=== PATIENT | male | born 1945 | race Caucasian/White ===

== ENCOUNTER → 2017-06-24 08:24 | Outpatient (CLI) | payer MEDICARE, OTHER, SELFPAY ==
--- NOTE | 2017-06-25 08:40 | PFT ---
INTRODUCTION: The patient is a 72-year-old male currently under the care of Dr. Davis that presents for pulmonary function testing secondary to a diagnosis of asthma/SOB. Respiratory therapy reports good patient effort and reports no other concerns. Bronchodilators were used during testing. INTERPRETATION: Forced expiration spirometry demonstrates no evidence of a large airways obstructive ventilatory defect, based upon a postbronchodilator FEV1 to FVC of 71%. There was no significant response to aerosolized bronchodilators noted, based upon strict ATS criteria. Spirograms are of good quality but do not plateau indicating slow emptying of the lungs. The respiratory flow volume loop reveals decreased expiratory flow rates, primarily at high lung volumes which can be indicative of small airways obstruction. Body plethysmography was performed and reveals lung volumes to be within normal limits. Diffusing capacity by single breath CO is within normal limits at 99% of predicted. The airway resistance is within normal limits. IMPRESSION: These pulmonary function studies are grossly within normal limits.
== END ==
PROVIDERS: Family Provider Internal Medicine; PCP Internal Medicine; Visit Provider Internal Medicine
DX: J45.909 Unspecified asthma, uncomplicated (principal)
CPT/HCPCS: 94060; 94726; 94729

== ENCOUNTER 2017-08-18 13:27 | Emergency (ER) | payer MEDICARE, OTHER, SELFPAY ==
[2017-08-18 13:28] VITALS: BP 141/88; PULSE 69; RESP 16; TEMP 36.1; O2SAT 96; BMI 26.3
[2017-08-18] MEDS: Diphth,Pertuss(Acell),Tet Vac 0.5 ML Vial IM (14:30)
--- NOTE | 2017-08-18 14:46 | ED.VISSUMM ---
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 Unsure of his last tetanus. Physical Examination: Afebrile vital signs are stable There is a 2 cm J-shaped laceration over the distal aspect on the volar surface of the right long finger. There is no active bleeding. Neurovascularly appears intact. Tendon function appears normal Emergency Department Course and Treatment: Was locally anesthetized using 1% lidocaine. It was washed with Shur-Clens and explored. It was closed using a total of 4-0 simple interrupted Ethilon sutures. It was cleansed and dressed. Tetanus was updated with Adacel. Stitches will need to be removed 10-14 days. Return if worsening or concerns Impression: 1. 2 cm right long finger laceration with repair 2. Tetanus update This note was generated with [employer] dictation software. It may contain incorrect words, spelling, and punctuation that were not noted in review of the chart prior to signing ED Disposition - Plan for ED Patient: Disposition: Home or Assisted Living Chief Complaint: Laceration Instructions: ED Laceration Hand Referrals: Juan Davis MD [Primary Care Provider] - 10-14 Days suture removal
[2017-08-18 15:16] VITALS: PULSE 71; RESP 16; O2SAT 98
== END 2017-08-18 15:16 | disposition home or self-care (01) ==
PROVIDERS: Emergency Provider Emergency Medicine; Family Provider Internal Medicine; PCP Internal Medicine
DX: S61.212A Laceration without foreign body of right middle finger without damage to nail, initial encounter (principal); W26.8XXA Contact with other sharp object(s), not elsewhere classified, initial encounter; Y93.89 Activity, other specified; Y92.9 Unspecified place or not applicable; I48.91 Unspecified atrial fibrillation; I10 Essential (primary) hypertension; E78.00 Pure hypercholesterolemia, unspecified; J45.909 Unspecified asthma, uncomplicated; K21.9 Gastro-esophageal reflux disease without esophagitis; Z79.82 Long term (current) use of aspirin; Z79.899 Other long term (current) drug therapy
CPT/HCPCS: 12001; 90471; 90715; 99284

== ENCOUNTER → 2017-09-17 12:21 | Outpatient (CLI) | payer MEDICARE, OTHER, SELFPAY ==
--- NOTE | 2017-09-17 12:23 | CDU_ITS ---
Reason For Study: Carotid bruit Rt. Velocities/BP Lt. Velocities/BP Prox CCA 73.3/12.9 cm/sec. Prox CCA 93.8/15.2 cm/sec. Mid CCA 90.9/18.2 cm/sec. Mid CCA 87.4/17.6 cm/sec. Dist CCA 66.8/16.4 cm/sec. Dist CCA 76.2/14.7 cm/sec. Prox ICA 70.4/21.1 cm/sec. Prox ICA 50.7/14.1 cm/sec. Mid ICA 59.2/18.3 cm/sec. Mid ICA 55.6/17.3 cm/sec. Dist ICA 51.1/17.6 cm/sec. Dist ICA 62.0/21.4 cm/sec. Rt. ICA/CCA = .77. Lt. ICA/CCA = .71. Prox ECA 69.8/12.5 cm/sec. Prox ECA 55.2/7.9 cm/sec. Rt. Vert. 31.8/9.4 cm/sec. Lt. Vert. 38.9/11.4 cm/sec. Right Extracranial There is intimal thickening but no significant atherosclerotic plaque noted in the right common carotid artery. There is no significant atherosclerotic plaque noted in the right internal carotid artery. The right internal carotid artery is very tortuous. There is no significant atherosclerotic plaque noted in the right external carotid artery. Antegrade flow is noted in the right vertebral artery. Left Extracranial There is intimal thickening but no significant atherosclerotic plaque noted in the left common carotid artery. There is intimal thickening but no significant atherosclerotic plaque noted in the left internal carotid artery. The left internal carotid artery is very tortuous. There is no significant atherosclerotic plaque noted in the left external carotid artery. Antegrade flow is noted in the left vertebral artery. Procedure Carotid Duplex 62525. Exam performed in department. Interpretation Summary No hemodynamically significant plague or stenosis bilateral extracranial internal carotids with <50% stenosis. Tortuous bilateral internal carotids Normal flow bilateral external carotids. Patent and antegrade vertebrals bilaterally. Ordering Physician: Brendan Ace Referring Physician: Juan Davis Performed By: Dorie Madrid RVT
== END ==
PROVIDERS: Family Provider Internal Medicine; PCP Internal Medicine; Visit Provider Internal Medicine Cardiovascular Disease
DX: R09.89 Other specified symptoms and signs involving the circulatory and respiratory systems (principal)
CPT/HCPCS: 93880

== ENCOUNTER → 2017-10-10 11:32 | Outpatient (CLI) | payer MEDICARE, OTHER, SELFPAY ==
[2017-10-14 16:08] LABS: Alternaria alternata <0.10 kU/L (Class 0); Bermuda Grass <0.10 kU/L (Class 0); Bluegrass, Kentucky <0.10 kU/L (Class 0); Cat Hair/Dander, Standard <0.10 kU/L (Class 0); D farinae Mite <0.10 kU/L (Class 0); D pteronyssinus <0.10 kU/L (Class 0); Dog Epithelia <0.10 kU/L (Class 0); Elm, American White <0.10 kU/L (Class 0); Oak, White <0.10 kU/L (Class 0); Plantain, English <0.10 kU/L (Class 0); Ragweed, Short/Common <0.10 kU/L (Class 0)
[2017-10-15 03:08] LABS: Aspirgillus flavus Negative (Neg:<1:1); Aspirgillus fumigatus Negative (Neg:<1:1); Aspirgillus niger Negative (Neg:<1:1)
[2017-10-15 10:19] LABS: Immunoglobulin E 31 IU/mL (0-100)
[2017-10-15 10:33] LABS: Mouse Urine <0.10 kU/L (Class 0)
== END ==
PROVIDERS: Family Provider Internal Medicine; PCP Internal Medicine; Visit Provider Nurse Practitioner Acute Care
DX: J45.909 Unspecified asthma, uncomplicated (principal)
CPT/HCPCS: 36415; 82785; 86003; 86038; 86225; 86235; 86256; 86606

== ENCOUNTER → 2017-10-14 14:22 | Outpatient (CLI) | payer MEDICARE, OTHER, SELFPAY | PROVIDERS: Family Provider Internal Medicine; PCP Internal Medicine; Visit Provider Nurse Practitioner Acute Care | DX: R05 Cough (principal) | CPT/HCPCS: 87070; 87077; 87205 ==

== ENCOUNTER → 2017-12-08 09:07 | Outpatient (CLI) | payer MEDICARE, OTHER, SELFPAY ==
[2017-12-08 10:40] LABS: ALB/GLOB Ratio 1.2 RATIO (0.9-2.4); AST(SGOT) 20 U/L (15-37); Alanine Aminotransfer ALT/SGPT 25 U/L (16-61); Albumin, Serum 3.7 g/dL (3.2-5.0); Alkaline Phosphatase 68 U/L (45-117); Anion Gap 6 (5-15); BUN 15 mg/dL (7-18); Calcium,Total 8.6 mg/dL (8.5-10.1); Chloride 107 mmol/L (98-107); Creatinine, Serum 1.25 mg/dL (0.70-1.30); EST Glomerular Filtration Rate 60 mL/min (>60); Est Glom Filt Rate - Afr Amer 73 mL/min (>60); Globulin 3.2 g/dL (2.2-4.2); Glucose 86 mg/dL (74-106); Protein, Total 6.9 g/dL (6.4-8.2); Sodium Level 141 mmol/L (136-145)
[2017-12-12 11:08] LABS: Cholesterol 154 mg/dL (200); High Density Lipoprotein 44 mg/dL; Triglycerides 128 mg/dL; Very Low Density Lipoprotein 26 mg/dL (5-40)
== END ==
PROVIDERS: Family Provider Internal Medicine; PCP Internal Medicine; Visit Provider Internal Medicine
DX: I48.0 Paroxysmal atrial fibrillation (principal)
CPT/HCPCS: 36415; 80053; 80061

== ENCOUNTER → 2017-12-18 12:47 | Outpatient (CLI) | payer MEDICARE, OTHER, SELFPAY ==
[2017-12-18 13:42] LABS: T4 Total, Thyroxin 8.8 ug/dL (4.5-12.1); Thyroid Stim Hormone (TSH) 3.06 uIU/mL (0.358-3.74)
== END ==
PROVIDERS: Family Provider Internal Medicine; PCP Internal Medicine; Visit Provider Internal Medicine
DX: E03.9 Hypothyroidism, unspecified (principal)
CPT/HCPCS: 36415; 84436; 84443

== ENCOUNTER → 2018-01-27 11:30 | Outpatient (CLI) | payer MEDICARE, OTHER, SELFPAY ==
[2018-01-27 12:03] LABS: Absolute Lymphocyte Count 1.19 X10^3/ul (0.83-4.51); Absolute Neutrophil Count 3.3 X10^3/uL (2.0-7.7); Basophil# 0.02 X10^3/uL; Basophil% 0.4 % (0-1); Eosinophil# 0.15 X10^3/uL; Eosinophils% 2.9 % (0-5); Hematocrit 44.8 % (40-54); Hemoglobin 14.9 g/dl (13.0-16.5); Lymphocyte # 1.19 X10^3/ul (4.0); Lymphocyte % 23.1 % (19-41); Mean Corp Hgb Conc 33.3 g/gl (32-36); Mean Corpuscular Hgb 30.3 pg (27.0-32.0); Mean Corpuscular Volume 91.2 fL (80-94); Mean Platelet Vol. 9.7 fl (6.2-12.0); Monocyte# 0.49 X10^3/uL; Monocyte% 9.5 % (0-10); Neutrophil # 3.31 X10^3/uL (2.7-7.7); Neutrophil % 64.1 % (47-70); Platelet Count 189 K/mm3 (150-450); RBC Distribution Width CV 12.6 % (11.6-14.6); RBC Distribution Width SD 42.2 fl (35.1-43.9); Red Blood Count 4.91 M/mm3 (4.6-6.2); White Blood Count 5.2 K/mm3 (4.4-11.0)
[2018-01-27 12:06] LABS: POSITIVE COUNT NO; POSITIVE DIFFERENTIAL NO; POSITIVE MORPHOLOGY NO
== END ==
PROVIDERS: Family Provider Internal Medicine; PCP Internal Medicine; Visit Provider Nurse Practitioner Acute Care
DX: R05 Cough (principal); J45.909 Unspecified asthma, uncomplicated
CPT/HCPCS: 36415; 85025

== ENCOUNTER → 2018-06-12 10:13 | Outpatient (CLI) | payer MEDICARE, OTHER, SELFPAY ==
[2018-04-14 11:30] VITALS: BMI 26.6
[2018-06-12 11:20] LABS: ALB/GLOB Ratio 1.4 RATIO (0.9-2.4); AST(SGOT) 22 U/L (15-37); Alanine Aminotransfer ALT/SGPT 26 U/L (16-61); Albumin, Serum 3.8 g/dL (3.2-5.0); Alkaline Phosphatase 66 U/L (45-117); Anion Gap 7 (5-15); BUN 22 mg/dL (7-18); BUN/Creat Ratio 16.3 RATIO (10-20); Calcium,Total 8.4 mg/dL (8.5-10.1); Chloride 108 mmol/L (98-107); Cholesterol 150 mg/dL (200); Creatinine, Serum 1.35 mg/dL (0.70-1.30); EST Glomerular Filtration Rate 55 mL/min (>60); Est Glom Filt Rate - Afr Amer 67 mL/min (>60); Globulin 2.7 g/dL (2.2-4.2); Glucose 95 mg/dL (74-106); High Density Lipoprotein 46 mg/dL; Potassium 4.6 mmol/L (3.5-5.1); Protein, Total 6.5 g/dL (6.4-8.2); Sodium Level 140 mmol/L (136-145); Triglycerides 118 mg/dL; Very Low Density Lipoprotein 24 mg/dL (5-40)
--- OUTSIDE RECORDS SUMMARY | 2018-08-16 18:05 | XMS RPT_ITS ---
:1945 Author Organization OHIP Support Name Relationship Address Phone GAIL PUENTE Unavailable [address] + [place] [address] PUENTEAURELIAN Unavailable . + [place] [address] R Unavailable Unavailable Unavailable GAIL PUENTE Unavailable [address] + [place] [address] GERMÁN JACK Unavailable Unavailable + [place] [address] R Unavailable Unavailable Unavailable GAIL PUENTE Unavailable [address] + [place] [address] JACK PUENTE Unavailable . + [place] [address] R Unavailable Unavailable Unavailable GAIL PUENTE Unavailable [address] + [place] [address] JACK PUENTE Unavailable . + [place] [address] R Unavailable Unavailable Unavailable GAIL PUENTE Unavailable [address] + [place] [address] JACK PUENTE Unavailable Unavailable + [place] [address] R Unavailable Unavailable Unavailable GAIL PUENTE Unavailable [address] + [place] [address] PUENTEAURELIAN Unavailable [address] + [place] [address] R Unavailable Unavailable Unavailable GAIL PUENTE Unavailable [address] + [place] [address] R Unavailable Unavailable Unavailable GAIL PUENTE Unavailable [address] + [place] [address] R Unavailable Unavailable Unavailable PUENTE, GAIL Unavailable [address] + [place] [address] R Unavailable Unavailable Unavailable EMILY PUENTET Unavailable [address] + [place] [address] R Unavailable Unavailable Unavailable EMILY PUENTET Unavailable [address] + [place] [address] R Unavailable Unavailable Unavailable KRISTINA PUENTEARET Unavailable [address] + [place] [address] R Unavailable Unavailable Unavailable KRISTINA PUENTEARET Unavailable [address] + [place] [address] R Unavailable Unavailable Unavailable KRISTINA PUENTEARET Unavailable [address] + [place] [address] R Unavailable Unavailable Unavailable EMILY PUENTET Unavailable [address] + [place] [address] R Unavailable Unavailable Unavailable EMILY PUENTET Unavailable [address] + [place] [address] R Unavailable Unavailable Unavailable EMILY PUENTET Unavailable [address] + [place] [address] R Unavailable Unavailable Unavailable EMILY PUENTET Unavailable [address] + [place] [address] R Unavailable Unavailable Unavailable EMILY PUENTET Unavailable [address] + [place] [address] R Unavailable Unavailable Unavailable KRISTINA PUENTEARET Unavailable [address] + [place] [address] R Unavailable Unavailable Unavailable EMILY PUENTET Unavailable [address] + [place] [address] R Unavailable Unavailable Unavailable KRISTINA PUENTEARET Unavailable [address] + [place] [address] R Unavailable Unavailable Unavailable KRISTINA PUENTEARET Unavailable [address] + [place] [address] R Unavailable Unavailable Unavailable KRISTINA PUENTEARET Unavailable [address] + [place] [address] R Unavailable Unavailable Unavailable GAIL PUENTE Unavailable [address] + [place] [address] R Unavailable Unavailable Unavailable GAIL PUENTE Unavailable [address] + [place] [address] R Unavailable Unavailable Unavailable Care Team Providers Name Role Phone Oleghe, Efewongbe Attending Unavailable Oleghe, Efewongbe Referring Unavailable Oleghe, Efewongbe Primary Care Unavailable Oleghe, Efewongbe Attending Unavailable Oleghe, Efewongbe Referring Unavailable Guillermo Weller Attending Unavailable Oleghe, Efewongbe Referring Unavailable Oleghe, Efewongbe Primary Care Unavailable Guillermo Weller Attending Unavailable Oleghe, Efewongbe Referring Unavailable Radha Goodwin Attending Unavailable Oleghe, Efewongbe Referring Unavailable Oleghe, Efewongbe Primary Care Unavailable Osei Huber Attending Unavailable Db, Brendan Referring Unavailable Radha Goodwin Attending Unavailable Oleghe, Efewongbe Referring Unavailable Oleghe, Efewongbe Attending Unavailable Oleghe, Efewongbe Referring Unavailable Oleghe, Efewongbe Primary Care Unavailable Radha Goodwin Attending Unavailable Radha Goodwin Referring Unavailable Oleghe, Efewongbe Primary Care Unavailable Guillermo Weller Attending Unavailable Oleghe, Efewongbe Referring Unavailable Oleghe, Efewongbe Primary Care Unavailable Db, [place] Attending Unavailable Db, Brendan Referring Unavailable Oleghe, Efewongbe Primary Care Unavailable Rosario Hall Attending Unavailable Oleghe, Efewongbe Attending Unavailable Oleghe, Efewongbe Referring Unavailable Oleghe, Efewongbe Primary Care Unavailable Oleghe, Efewongbe Primary Care Unavailable Luis Daniel Miller Attending Unavailable Oleghe, Efewongbe Attending Unavailable Oleghe, Efewongbe Referring Unavailable Oleghe, Efewongbe Primary Care Unavailable Nils Graf D.O. Attending Unavailable Oleghe, Efewongbe Referring Unavailable Oleghe, Efewongbe Attending Unavailable Oleghe, Efewongbe Referring Unavailable Oleghe, Efewongbe Primary Care Unavailable Oleghe, Efewongbe Attending Unavailable Oleghe, Efewongbe Referring Unavailable Oleghe, Efewongbe Primary Care Unavailable Goodwin, Radha Attending Unavailable Oleghe, Efewongbe Primary Care Unavailable Stanley Bender PRINT DECORATOR-C Attending Unavailable Oleghe, Efewongbe Referring Unavailable Oleghe, Efewongbe Primary Care Unavailable Db, Brendan Attending Unavailable Bursley, Will Referring Unavailable Oleghe, Efewongbe Primary Care Unavailable Db, [place] Attending Unavailable Oleghe, Efewongbe Referring Unavailable Oleghe, Efewongbe Attending Unavailable Primay Care Physicia, No Primary Care Unavailable Db, [place] Referring Unavailable Goodwin, Radha Attending Unavailable Oleghe, Efewongbe Referring Unavailable Goodwin, Radha Attending Unavailable Goodwin, Radha Referring Unavailable Oleghe, Efewongbe Primary Care Unavailable Oleghe, Efewongbe Attending Unavailable Oleghe, Efewongbe Referring Unavailable Oleghe, Efewongbe Primary Care Unavailable PROBLEMS PROBLEMS DATE TYPE CONDITION / CODE ATTENDING STATUS SOURCE 06/15/2018 Unknown N17.9 - Acute kidney Oleghe, Active [place] failure, unspecified / [facility] N17.9(ICD-10) Hospital Repository 04/14/2018 Unknown I48.0 - Paroxysmal Db, [place] Active [place] atrial fibrillation / Community I48.0(ICD-10) Hospital Repository 12/12/2017 Unknown I10 - Essential Oleghe, Active [place] (primary) hypertension [facility] / I10(ICD-10) Hospital Repository 10/24/2017 Unknown R05 - Cough / Goodwin, Active [place] R05(ICD-10) [facility] Repository 10/24/2017 Unknown J45.909 - Unspecified Goodwin, Active [place] asthma, uncomplicated [facility] / J45.909(ICD-10) Hospital Repository 09/18/2017 Unknown R06.02 - Shortness of NithinGuillermo mckenzie Active [place] breath / Community R06.02(ICD-10) Hospital Repository 10/13/2017 Unknown R09.89 - Other YessicaOsei anderson Active [place] specified symptoms and Community signs involving the Hospital circulatory and Repository respiratory systems / R09.89(ICD-10) 09/04/2017 Unknown I44.0 - Db, Brendan Active [place] Atrioventricular Community block, first degree / Hospital I44.0(ICD-10) Repository 09/04/2017 Unknown R00.2 - Palpitations / Db, [place] Active [place] R00.2(ICD-10) [facility] Repository PROCEDURES PROCEDURES No Procedure Records FoundRESULTS RESULTS INTERNAL MEDICINE Observed: 06/16/2018 Status: F Source: [place] OFFICE VISIT 4:22 PM [facility] REPOSITORY [facility] [address] [place] [address] OFFICE VISIT Date of Service: 06/15/18 MR#: [id number] Acct: [id number] Name: TRISTON PUENTE Rep #: [id number] : 1945 Provider: Juan Davis MD Age/Sex: 73/M [place] [facility] Status: Signed Intake Vital Signs06/15/18 Body Mass Index (BMI) 26.6 06/15/18 Height 6 ft Intake Visit Reasons: 6 mo f/u Chief Complaint: Follow up Is patient in pain?: No Allergies fluticasone furoate [From Breo Ellipta] Adverse Reaction (Intermediate, Verified 04/14/18 11:31) Other-heart racing, anxiety, SOB vilanterol [From Breo Ellipta] Adverse Reaction (Intermediate, Verified 04/14/18 11:31) Other-heart racing, anxiety, SOB codeine Adverse Reaction (Verified 04/14/18 11:31) ANXIOUS Medications aspirin 81 mg tablet,delayed release 81 mg PO QDAY 06/20/17 [History Confirmed 04/14/18] albuterol (refill) 90 mcg/actuation aerosol inhaler mcg INHALATION PRN 12/12/17 [History Confirmed 04/14/18] flecainide 100 mg tablet 100 mg PO Q12H #180 tab 05/28/18 [Rx] metoprolol succinate ER 25 mg tablet,extended release 24 hr 12.5 mg PO QDAY #45 tab 05/28/18 [Rx] simvastatin 5 mg tablet 5 mg PO QHS #90 tab 05/28/18 [Rx] alprazolam 0.5 mg tablet 0.5 mg PO BID PRN #60 tab 06/15/18 [Rx Confirmed 06/15/18] budesonide-formoterol HFA 80 mcg-4.5 mcg/actuation aerosol inhaler 2 puff INHALATION BID PRN 06/15/18 [History Confirmed 06/15/18] PFSH Medical History Tachycardia (Chronic) Palpitations (Chronic) First degree AV block (Chronic) Paroxysmal atrial fibrillation (Chronic) GERD (gastroesophageal reflux disease) (Chronic) Shortness of breath (Chronic) Hypertension (Chronic) Diverticulosis (Chronic) Asthma (Chronic) Arthritis (Chronic) DDD (degenerative disc disease) (Acute) High risk medication use (Acute) Diaphragmatic hernia (Chronic) History of hydrocele (Resolved) History of pneumonia (Resolved) Surgical History History of right hip replacement (Chronic) History of hemicolectomy (Resolved) History of hernia repair (Resolved) History of tonsillectomy and adenoidectomy (Resolved) S/P surgical manipulation of ankle joint (Resolved) Family History Father Heart disease Arthritis COPD (chronic obstructive pulmonary disease) Myocardial infarction Mother Breast cancer Cancer lung Aunt Colon cancer Social History Smoking Status: Never smoker alcohol intake: current alcohol intake frequency: a few times a week Alcohol type: hard liquor, wine, beer substance use type: does not use caffeine: Yes Type: tea, coffee what type of physical activity do you participate in: bicycling, weight training frequency: 3-4 times per week seatbelt use: always do you feel safe at home: Yes HPI HPI Chief Complaint: Follow up Details: TRISTON PUENTE, is a 73 M who presents to the office today for follow-up of his chronic medical conditions. Most recent BMP with a reduction in his GFR and elevation of his creatinine. He admits to not drinking water as much. He denies any problems with urination or abdominal discomfort or pain. He is concerned about the possibility of hemochromatosis. He reports his father having to donate blood monthly growing up and he is also of [facility] heritage. He has no known history of diabetes or liver disease. History of stable osteoarthritis. ROS Const Constitutional: No body ache, chills, headache(s), weakness or fever(s) Eyes Eyes: No blurry vision, change in vision, eye pain or discharge ENT ENT: No headache(s), abnormal hearing, ear pain, ear pressure, tinnitus, dizziness/vertigo or balance problems Resp Respiratory: No cough, shortness of breath or wheezing Cardio Cardiology: No chest pain at rest, shortness of breath, dyspnea on exertion or palpitations Gastro GI: No abdominal pain or bloating Neuro Neurology: No headache(s), weakness or abnormal hearing Aller/Imm Allergy/Immunologic: No wheezing Exam Const General: cooperative, no acute distress, well developed Orientation: alert, oriented x3, awake HENMT Head: atraumatic, normocephalic, normal to inspection Ears: hearing grossly normal bilaterally, TM's normal bilaterally Resp Effort AND Inspection: normal respiratory effort, able to speak in complete sentences Auscultation: Bilateral: Clear to Auscultation Cardio Rate: regular rate Rhythm: regular rhythm Heart Sounds: S1 normal, S2 normal GI Palpation: soft, no hepatosplenomegaly Neuro General: alert, awake, oriented x3, moves all extremities, CN's II-XI intact bilaterally Extrem General: no clubbing, cyanosis or edema Psych Appearance: grossly normal Mental Status: mental status grossly normal Mood: congruent mood Affect: normal affect Assessment AND Plan 1. Acute kidney injury N17.9 Plan Mild elevation in Creatinine and reduction in GFR. Possibly from inadequate fluid intake vs medications. Increased fluid intake recommended. Avoid nephrotoxic agents. Repeat BMP in 6 weeks. Orders Orders: 2. 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 Patient is also of [facility] heritage. No history of DM, Significant arthritis or liver disease. Iron studies ordered. Orders Orders: 3. Anxiety F41.9 Plan Chronic history of occasional anxiety which is also said to typically precede his A.fib. Has done well on Xanax as needed. Refills given. Medications New: 4. Mild intermittent asthma without complication J45.20 Plan Stable. No recent excerbation. Continue current management. 5. Hypertension I10 Plan Optimally controlled.Continue current medication and life style/dietary modifications. 6. Healthcare maintenance Z00.00 Plan Has received his Flu shot. Yet to get his Shingrix. This note was generated with [employer] dictation software. It may contain incorrect words, spelling, and punctuation that were not noted in checking the note before signing. 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 Anxiety F41.9 Mild intermittent asthma without complication J45.20 Asthma severity: mild Asthma persistence: intermittent Asthma complication type: uncomplicated Hypertension I10 Healthcare maintenance Z00.00 06/16/18 1622 <Electronically signed by Juan Davis MD> Date Juan Davis MD Cosigner Signature: Date (if applicable) CC: COMPREHENSIVE METABOLIC Collected: 06/12/2018 Status: F Source: [place] GARCIA 10:24 AM [facility] REPOSITORY TYPE CODE TESTS RESULT OUT OF RANGE REFERENCE UNITS LAB L501.0100 74-106 mg/dL Normal GLU 95 Result Comment: Please note revised GLUCOSE reference range effective 2017. LAB L501.1000 7-18 mg/dL High BUN 22 LAB L501.1100 0.70-1.30 mg/dL High CREAT,SERUM 1.35 Result Comment: The validity of the calculated GFR AND GFRAA in patients over 70 years has not been determined. Clinical correlation is essential. LAB L501.1110 >60 mL/min Low EST GFR 55 Result Comment: Non- GFR Calc LAB L501.1115 >60 mL/min Normal EST GFR - AA 67 Result Comment: GFR Calc LAB L501.1300 10-20 RATIO Normal BUN/CRE 16.3 LAB L501.1500 6.4-8.2 g/dL T Normal PROT 6.5 LAB L501.1800 3.2-5.0 g/dL Normal ALB 3.8 LAB L501.1950 2.2-4.2 g/dL Normal GLOB 2.7 LAB L501.2000 0.9-2.4 RATIO Normal A/G 1.4 LAB L501.2200 8.5-10.1 mg/dL Low CA 8.4 LAB L501.4100 15-37 U/L Normal AST 22 LAB L501.4305 45-117 U/L Normal ALK P 66 LAB L501.4405 16-61 U/L Normal ALT 26 LAB L501.4600 0.20-1.00 mg/dL T Normal BILI 0.80 LAB L501.5300 136-145 mmol/L NA Normal 140 LAB L501.5600 3.5-5.1 mmol/L K Normal 4.6 LAB L501.5900 98-107 mmol/L High CL 108 LAB L501.6100 21.0-32.0 mmol/L Normal CO2 25.0 LAB L501.6200 5-15 Normal GAP 7 Performed By: #### L500.4050, L500.4100 #### [facility] [address] [place], [address] LIPID PROFILE Collected: 06/12/2018 Status: F Source: [place] 10:24 AM [facility] REPOSITORY TYPE CODE TESTS RESULT OUT OF RANGE REFERENCE UNITS LAB L501.4900 200 mg/dL Normal CHOL 150 Result Comment: <200 mg/dL Desirable 200-240 mg/dL Borderline >240 mg/dL High Risk LAB L501.5000 mg/dL Normal TRIG 118 Result Comment: The drugs N-Acetylcysteine and Metamizole may falsely depress this assay. Serum Triglycerides Reference Interval Normal <150 mg/dL Borderline high 150 - 199 mg/dL High 200 - 499 mg/dL Very High > or = 500 mg/dL LAB L501.6400 mg/dL Normal HDL 46 Result Comment: The drugs N-Acetylcysteine and Metamizole may falsely depress this assay. Reference Range HDL <40 mg/dL Low HDL Cholesterol HDL >or= 60 mg/dL High HDL Cholesterol LAB L501.6500 0-130 mg/dL Normal LDL 80 LAB L501.6600 5-40 mg/dL Normal VLDL 24 Performed By: #### L500.4050, L500.4100 #### [facility] [address] [place], [address] CARDIOLOGY VISIT Observed: 04/14/2018 Status: F Source: [place] REPORT 11:59 AM [facility] REPOSITORY [facility] [address] [place] [address] OFFICE VISIT Date of Service: 04/14/18 MR#: [id number] Acct: [id number] Name: TRISTON PUENTE Rep #: [id number] : 1945 Provider: Brendan Ace MD Age/Sex: 72/M [facility] Status: Signed [facility] Chief Complaint: Follow up Details: TRISTON PUENTE, is a 72 M who presents to the office today for a follow-up visit. He is a gentleman with a history of paroxysmal atrial fibrillation who returns for follow-up visit. He has had probably 2 episodes of atrial fibrillation since his last visit in August of this year. The above terminated within 12 hours of administering the flecainide and the beta-ramila and anxiolytic. The precipitating factors were probably apparent. He continues to exercise. He is not had any chest pain or shortness breath or paroxysmal nocturnal dyspnea or pedal edema. You do remember that he underwent a carotid ultrasound which did not demonstrate any significant stenosis and he had previously undergone an abdominal ultrasound which was also noted to be normal. His physical exam today demonstrates clear lung stiles regular rate and rhythm and no pedal edema his electrocardiogram which was performed during his mid August visit demonstrated sinus rhythm with no acute changes. Intake Vital Signs04/14/18 Height 6 ft 04/14/18 Weight: 196 lb 04/14/18 Body Mass Index (BMI) 26.6 04/14/18 Blood Pressure 118/78 04/14/18 Blood Pressure Location Lt brachial Intake Visit Reasons: 6 M FU Bone Worker Required: No Accompanied by: none Is patient in pain?: No Allergies fluticasone furoate [From Breo Ellipta] Adverse Reaction (Intermediate, Verified 04/14/18 11:31) Other-heart racing, anxiety, SOB vilanterol [From Breo Ellipta] Adverse Reaction (Intermediate, Verified 04/14/18 11:31) Other-heart racing, anxiety, SOB codeine Adverse Reaction (Verified 04/14/18 11:31) ANXIOUS Medications metoprolol succinate ER 25 mg tablet,extended release 24 hr 12.5 mg PO QDAY #45 tab 05/28/17 [Rx Confirmed 04/14/18] aspirin 81 mg tablet,delayed release 81 mg PO QDAY 06/20/17 [History Confirmed 04/14/18] simvastatin 5 mg tablet 5 mg PO QHS #90 tab 07/22/17 [Rx Confirmed 04/14/18] alprazolam 0.5 mg tablet 0.5 mg PO BID PRN tab 09/01/17 [History Confirmed 04/14/18] albuterol (refill) 90 mcg/actuation aerosol inhaler mcg INHALATION PRN 12/12/17 [History Confirmed 04/14/18] flecainide 100 mg tablet 100 mg PO Q12H 04/14/18 [History Confirmed 04/14/18] PFSH Medical History Tachycardia (Chronic) Palpitations (Chronic) First degree AV block (Chronic) Paroxysmal atrial fibrillation (Chronic) GERD (gastroesophageal reflux disease) (Chronic) Shortness of breath (Chronic) Hypertension (Chronic) Diverticulosis (Chronic) Asthma (Chronic) Arthritis (Chronic) DDD (degenerative disc disease) (Acute) Diaphragmatic hernia (Chronic) History of hydrocele (Resolved) History of pneumonia (Resolved) Surgical History History of right hip replacement (Chronic) History of hemicolectomy (Resolved) History of hernia repair (Resolved) History of tonsillectomy and adenoidectomy (Resolved) S/P surgical manipulation of ankle joint (Resolved) Family History Father Heart disease Arthritis COPD (chronic obstructive pulmonary disease) Myocardial infarction Mother Breast cancer Cancer lung Aunt Colon cancer Social History Smoking Status: Never smoker alcohol intake: current alcohol intake frequency: a few times a week Alcohol type: hard liquor, wine, beer substance use type: does not use caffeine: Yes Type: tea, coffee what type of physical activity do you participate in: bicycling, weight training frequency: 3-4 times per week seatbelt use: always do you feel safe at home: Yes ROS Const Const: Negative for fatigue, weakness, night sweats, excessive sweating, frequent falls, headache(s) or daytime sleepiness Eyes Eyes: Negative for loss of peripheral vision, transient loss of vision, blind spots, double vision or blurry vision ENT ENT: Negative for headache(s), dizziness, balance problems, Nosebleed/epistaxis, tongue swelling or lip swelling Cardio Chest Pain: No Palpitations: No Edema: None Muscle aches with walking: None Resp Respiratory: Negative for SOB at rest, SOB orthopnea\SOB lying down, Cough, paroxysmal nocturnal dyspnea or SOB with activity GI GI: Negative nausea, vomiting, heartburn, black,tarry stools or bright, red blood in stools : Negative for hematuria Musc Musc: Negative for balance problems, muscle aches/ myalgia, muscle weakness or joint pain Skin Skin: Negative non-healing lesions, unusual bruising or rash Neuro Neuro: Negative for weakness, frequent falls, headache(s), double vision, dizziness, lightheadedness, orthostatic symptoms, blurry vision or lack of coordination Kevin Hematologic/Lymphatic: Negative for easy bruising or easy bleeding Endo Endo: Negative for fatigue, excessive sweating, cold intolerance, heat intolerance, increased thirst/drinking or hair loss Psych Psych: Negative for anxiety or depression Allergy Allergy/Immunology: Negative for throat swelling, Negative for tongue swelling, Negative for hives, Negative for rash, Negative for lip swelling Cardiology Exam Const Appearance: cooperative, healthy appearing, well developed, well groomed and no acute distress Nutritional Appearance: well nourished and average body habitus Orientation: alert, awake and oriented x3 Head Head: normal to inspection, normocephalic and atraumatic Ears: hearing grossly normal bilaterally and external ears normal Nose: external nose normal, nasal mucous membranes and turbinates normal, nares normal, septum normal, no nasal discharge Face and Sinus: face symmetric Mouth: oral mucosae normal, tongue normal, oropharynx normal and moist mucous membranes Teeth and gingiva: dentition normal Throat: posterior oropharynx normal, tonsils normal and uvula midline Eyes General: appearance normal, both eyes and all related structures Eyelids: eyelids normal Conjunctivae: conjunctivae normal Pupils: PERRL, normal by confrontation and accommodation normal EOM: EOM intact bilaterally Neck Neck: normal visual inspection, trachea midline and no JVD JVD: +5 Carotids: normal carotid upstroke and bounding pulses Chest Chest inspection: normal inspection of the chest, symmetric chest movement and normal respiratory effort Auscultation: Bilateral: Clear to Auscultation Cardio Palpation: normal PMI Rate: regular rate Rhythm: regular rhythm Heart sounds: S1 normal, S2 normal and normal, physiologic split S2; negative rub, gallop or murmur GI GI: normal to inspection, soft, no hepatosplenomegaly and bowel sounds present Neuro General: alert, awake, oriented x3, no focal sensory deficit, gait normal and moves all extremities Skin Skin: no rashes or lesions noted Extremities Pulses: Normal: Right Femoral Pulse, Left Femoral Pulse, Right Dorsalis Pedis Pulse, Left Dorsalis Pedis Pulse, Right Posterior Tibial Pulse, Left Posterior Tibial Pulse, Right Radial Pulse, Left Radial Pulse Lower Extremity Edema: None: Bilateral Musculoskel Musculoskeletal: No joint tenderness Psych Psychological: normal affect Assessment AND Plan 1. Paroxysmal atrial fibrillation I48.0 Plan She does have a history of paroxysmal atrial fibrillation. My recommendation at this time will be for him to continue on his flecainide as well as his beta- ramila. He is on low-dose aspirin which can be continued. No other major changes will be made. 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) Coding Level of Care Code Off vis,est,level 3 Diagnoses Paroxysmal atrial fibrillation I48.0 Coding Level of Care Code Off vis,est,level 3 Diagnoses Paroxysmal atrial fibrillation I48.0 04/14/18 1159 <Electronically signed by Brendan Ace MD> Date Brendan Ace MD Cosigner Signature: Date (if applicable) CC: Juan Davis MD PULMONARY VISIT REPORT Observed: 02/02/2018 Status: F Source: [place] 3:10 PM [facility] REPOSITORY Pulmonary Medicine of [address] [place] [address] OFFICE VISIT Date of Service: 02/02/18 MR#: [id number] Acct: [id number] Name: TRISTON PUENTE Rep #: [id number] : 1945 Provider: Guillermo Weller MD Age/Sex: 72/M Location: [facility] Status: Signed Assessment AND Plan Problems 1. Cough R05 2. Mild intermittent asthma without complication J45.20 Plan Patient appears to be well controlled at this time on as needed albuterol. Did stress to the patient that his eosinophil count was significantly elevated in the winter indicating a possible allergy to dust or other indoor allergy. Patient was instructed that if he needs his albuterol more than 3 times a week, patient should initiate himself on Symbicort therapy. Samples were given. Patient does not appear to tolerate dry powder inhalers, so this may be tolerated better than his previous ellipta inhalers. Signs and symptoms of exacerbation and sick policy were reviewed in detail. Albuterol as needed. Initiate Symbicort if needed more than 3 times per week Orders Orders: Medications New: flu vacc (65yr up)-MF59C(PF) 45 mcg(15 mcgx3)/0.5 m0.5 mL IM ONCE Guillermo Weller MD L IM syringe (Fluad 65yr up(PF)45 mcg(15 mcgx3)/0. 5 mL intramuscular syringe) Discontinued: flu vacc (65yr up)-MF59C(PF) 45 mcg(15 mcgx3)/0.0.5 mL IM ONCE Lissa Mayo 5 mL IM syringe Discontinued Reason: Office Medicat ion has been Documented as given Plan Detail Follow Up 6 Months (A) HPI 3 M FU: Chief Complaint: Cough Details: Patient is a 72-year-old male, currently under the care of Dr. Davis, who presents for evaluation secondary to chronic cough. Since last visit, patient denies any ER visits, hospitalizations or prednisone burst. Patient has taken himself off of all inhalers secondary to perceived worsening of condition. Patient states he is no longer taking Qvar, Serevent or Brio therapy. Patient was placed on Arnuity as a stepdown in therapy, but states that this was leading to a tickle in his throat and a cough. Patient currently is not requiring any albuterol and feels that he is back to his baseline. Patient denies any chest pain, abdominal pain, nausea or vomiting. No wheezing has been reported. Patient continues to be active and works out regularly. Patient does report that he has replaced his father pillow with a hypoallergenic pillow and has noted significant improvement in cough. Patient has noted some runny nose and sneezing this morning, but states it resolved approximately 1 hour after being awake. Patient denies any watery eyes. Patient does not take any [id number] allergy medications. Testing reviewed with the patient CBC (01/27/2018): Normal. Eosinophils 2.9% Intake Vital Signs02/02/18 Height 6 ft 02/02/18 Weight: 88.904 kg Intake Visit Reasons: 3 M FU Chief Complaint: Cough Accompanied by: Self Allergies fluticasone furoate [From Breo Ellipta] Adverse Reaction (Intermediate, Verified 02/02/18 13:28) Other-heart racing, anxiety, SOB vilanterol [From José Ellipta] Adverse Reaction (Intermediate, Verified 02/02/18 13:28) Other-heart racing, anxiety, SOB codeine Adverse Reaction (Verified 02/02/18 13:28) ANXIOUS Medications Dicyclomine HCl [Bentyl] 10 mg PO PRN PRN 07/11/15 [History Confirmed 02/02/18] metoprolol succinate ER 25 mg tablet,extended release 24 hr 12.5 mg PO QDAY #45 tab 05/28/17 [Rx Confirmed 02/02/18] aspirin 81 mg tablet,delayed release 81 mg PO QDAY 06/20/17 [History Confirmed 02/02/18] simvastatin 5 mg tablet 5 mg PO QHS #90 tab 07/22/17 [Rx Confirmed 02/02/18] famotidine 10 mg tablet 10 mg PO QDAY #30 tab 08/15/17 [Rx Confirmed 02/02/18] alprazolam 0.5 mg tablet 0.5 mg PO BID PRN tab 09/01/17 [History Confirmed 02/02/18] albuterol (refill) 90 mcg/actuation aerosol inhaler mcg INHALATION PRN 12/12/17 [History Confirmed 02/02/18] cetirizine 10 mg capsule 10 mg PO HS PRN cap 12/12/17 [History Confirmed 02/02/18] varicella-zoster glycoE vacc-AS01B adj(PF) 50 mcg/0.5 mL IM susp, kit 0.5 ml IM ONCE #1 ea 12/16/17 [Rx Confirmed 02/02/18] flu vacc 2017-(65yr up)-MF59C(PF) 45 mcg(15 mcgx3)/0.5 mL IM syringe 0.5 ml IM ONCE #5 ml 02/02/18 [Rx Confirmed 02/02/18] PFSH Medical History Tachycardia (Chronic) Palpitations (Chronic) First degree AV block (Chronic) Paroxysmal atrial fibrillation (Chronic) GERD (gastroesophageal reflux disease) (Chronic) Shortness of breath (Chronic) Hypertension (Chronic) Diverticulosis (Chronic) Asthma (Chronic) Arthritis (Chronic) DDD (degenerative disc disease) (Acute) Diaphragmatic hernia (Chronic) History of hydrocele (Resolved) History of pneumonia (Resolved) Surgical History History of right hip replacement (Chronic) History of hemicolectomy (Resolved) History of hernia repair (Resolved) History of tonsillectomy and adenoidectomy (Resolved) S/P surgical manipulation of ankle joint (Resolved) Family History Father Heart disease Arthritis COPD (chronic obstructive pulmonary disease) Myocardial infarction Mother Breast cancer Cancer lung Aunt Colon cancer Social History Smoking Status: Never smoker alcohol intake: current alcohol intake frequency: a few times a week Alcohol type: hard liquor, wine, beer substance use type: does not use caffeine: Yes Type: tea, coffee what type of physical activity do you participate in: bicycling, weight training frequency: 3-4 times per week seatbelt use: always do you feel safe at home: Yes Review of Systems Const CONSTITUTIONAL: Negative anorexia, body ache, chills, daytime sleepiness, fever(s), night sweats, oral thrush, stops breathing during sleep, weight loss, sleeping in chair, fatigue, weight loss, weight gain, frequent colds, seasonal allergies, other, headache(s) or orthopnea EETM Ear Nose Throat Mouth: Positive hearing normal and nasal discharge; negative hard of hearing, hoarseness, dry mouth in morning, change in vision, itchy eyes, eye pain, swallowing Difficulty, ear pain, nose bleed, headache(s), mouth pain, nasal congestion, post nasal drip, sinus pain, sinus pressure, sore throat or other Cardio Cardiovascular: Negative chest pain, chest pain at rest, chest pain with activity, irregular heart rhythm, edema, shortness of breath when lying down, palpitations, murmur or other Resp Respiratory: Positive as per HPI and cough cough: Positive non-productive; negative shortness of breath, pain with cough, wheezing, chest congestion, chest tightness, pain on inspiration, inhalers, increase use of rescue inhalers, snoring, apnea or other Gastro Gastrointestional: Negative bloody stools, change in appetite, difficulty swallowing, reflux, hematemesis, melena stool, loose stool, constipation or other Genitourinary: Negative blood in urine, nocturia, pain with urination or other Musc Musculoskeletal: Negative body pain, back pain, neck pain or other Skin/Breast Skin/Breast: Negative dry skin, itching, rash, unusual bruising, breast lump or other Neuro Neurological: Negative restless legs, confusion, weakness or other Psych Psychocological: Negative abnormal sleep pattern, anxiety, thoughts of hurting self/others, hopelessness or other Lymph Lymphatic: Negative easy bleeding, easy bruising, swollen lymph nodes or other Exam Const Constitutional: Positive conversant, cooperative, in no acute respiratory distress, healthy appearing, well developed, well nourished and good hygiene; negative dyspenic, wearing supplemental oxygen or smells of smoke Head Head: Positive normocephalic and atraumatic; negative cyanosis of lips/distal nose, frontal sinus tenderness or maxillary sinus tenderness Eyes Eye: Positive clear conjunctiva; negative nystagmus, scleral abnormality or cataract present Ears Ear: Positive hearing normal and external ears normal; negative hard of hearing Nose Nose: Positive external nose normal and no nasal discharge; negative epistaxis, nasal polyp or septum normal Mouth Mouth: Positive oral mucosae normal, no lesions and posterior oropharynx is adequate; negative post nasal drip, malodorous breath or oral thrush present Mallampati Score: II: Mallampati Score Neck Neck: Positive normal visual inspection, full ROM and trachea midline; negative lymphadenopathy or JVD Chest Wall Chest: Positive normal inspection of the chest and symmetric chest movement; negative crepitus or tenderness Resp lung sounds: Positive clear to auscultation, good air exchange, normal expiratory time and normal respiratory effort; negative wheezes, rhonchi, rales, use of accessory muscles, wheeze present on forced exhalation or dullness to percussion Cardio Cardiac: Positive regular rate, regular rhythm, S1 normal and S2 normal; negative murmur, rub or gallop GI GI: Positive normal to inspection and normal bowel sounds; negative distended, ascites or epigastric tenderness Genitourinary: Positive deferred Musc Musculoskeletal: Positive steady gait; negative using an assistive device for ambulation, kyphosis or scoliosis Skin Pulmonary Skin Exam: Positive intact; negative rash, lesion, ulcers, erythema or dermal atrophy Pulses Pulse: Yes radial pulses present Extremities Extremities: Yes capillary refill normal, No clubbing, No cyanosis, No edema Neuro Neurologic: Yes conversant, Yes no focal neuro deficits, Yes normal coordination, Yes normal concentration, Yes cooperative, Yes normal cognition Lymph Lymphatic: No lymphadenopathy Psych Appearance: Positive grossly normal Mental Status: Positive mental status grossly normal Mood: Positive congruent mood Affect: Positive normal affect Immunizations flu vacc (65yr up)-MF59C(PF) 45 mcg(15 mcgx3)/0.5 mL IM syringe Performing Provider: Guillermo Weller MD Administered by: Cyn Mayo on 02/02/18 14:41 Dose Route Admin Location Lot Number Expiration Date NDC Senior Laboratory Technician 0.5 mL IM Right Deltoid [id number] 09/22/18 [id number] SEQIRUS VIS Given Date VIS Publication Date 02/02/18 12/30/14 Eligibility Eligibility Date Comments: injection given without signs/symptoms pain or discomfort. Patient left office without complications. [facility] Coding Level of Care Code Off vis,est,level 3 Diagnoses Cough R05 Mild intermittent asthma without complication J45.20 Asthma severity: mild Asthma persistence: intermittent Asthma complication type: uncomplicated 02/02/18 1510 <Electronically signed by Guillermo Weller MD> Date Guillermo Weller MD Cosigner Signature: Date (if applicable) CC: Juan Davis MD CBC W/DIFF, AUTOMATED Collected: 01/27/2018 Status: F Source: [place] 11:38 AM [facility] REPOSITORY TYPE CODE TESTS RESULT OUT OF RANGE REFERENCE UNITS LAB L100.1000 4.4-11.0 K/mm3 Normal WBC 5.2 LAB L100.1200 4.6-6.2 M/mm3 Normal RBC 4.91 LAB L100.1300 13.0-16.5 g/dl Normal HGB 14.9 LAB L100.1400 40-54 % Normal HCT 44.8 LAB L100.1500 80-94 fL Normal MCV 91.2 LAB L100.1600 27.0-32.0 pg Normal MCH 30.3 LAB L100.1700 32-36 g/gl Normal MCHC 33.3 LAB L100.1810 11.6-14.6 % Normal RDW CV 12.6 LAB L100.1820 35.1-43.9 fl Normal RDW SD 42.2 LAB L100.1900 150-450 K/mm3 Normal PLT 189 LAB L100.2000 6.2-12.0 fl Normal MPV 9.7 LAB L100.2100 47-70 % Normal NEUT% 64.1 LAB L100.2200 19-41 % Normal LY% 23.1 LAB L100.2300 0-10 % Normal MONO% 9.5 LAB L100.2400 0-5 % Normal EO% 2.9 LAB L100.2500 0-1 % Normal BASO% 0.4 LAB L100.2550 0.0-0.9 % Normal IM GRAN % 0.000 Result Comment: IG% - Immature Granulocytes (promyelocytes, myelocytes and metamyelocytes) > 1% indicates that a LEFT SHIFT is Present. LAB L100.2620 2.0-7.7 X10 3/uL Normal Absolute Neut 3.3 LAB L100.2720 0.83-4.51 X10 3/ul Normal Absolute Lymph 1.19 Performed By: #### L100.0100 #### [facility] [facility] [place], [place], [id number] T4 TOTAL, THYROXIN Collected: 12/18/2017 Status: F Source: [place] 12:50 PM [facility] REPOSITORY TYPE CODE TESTS RESULT OUT OF RANGE REFERENCE UNITS LAB L501.9310 4.5-12.1 ug/dL T4 Normal THYROXIN 8.8 Performed By: #### L501.9310, L501.9520 #### [facility] [address] [place], [address] THYROID STIM HORMONE Collected: 12/18/2017 Status: F Source: [place] (TSH) 12:50 PM [facility] REPOSITORY TYPE CODE TESTS RESULT OUT OF RANGE REFERENCE UNITS LAB L501.9520 0.358-3.74 uIU/mL Normal TSH 3.06 Performed By: #### L501.9310, L501.9520 #### [facility] [address] [place], [address] INTERNAL MEDICINE Observed: 12/12/2017 Status: F Source: [place] OFFICE VISIT 4:20 PM [facility] [address] [place] [address] [place] [address] OFFICE VISIT Date of Service: 12/12/17 MR#: [id number] Acct: [id number] Name: TRISTON PUENTE Rep #: [id number] : 1945 Provider: Juan Davis MD Age/Sex: 72/M Location: [facility] Status: Signed Intake Vital Signs12/12/17 Height 6 ft Intake Visit Reasons: 4 MO F/U Chief Complaint: follow-up visit Is patient in pain?: No Allergies fluticasone furoate [From Breo Ellipta] Adverse Reaction (Intermediate, Verified 10/05/17 09:41) Other-heart racing, anxiety, SOB vilanterol [From Breo Ellipta] Adverse Reaction (Intermediate, Verified 10/05/17 09:41) Other-heart racing, anxiety, SOB codeine Adverse Reaction (Verified 10/05/17 09:41) ANXIOUS Medications Dicyclomine HCl [Bentyl] 10 mg PO PRN PRN 07/11/15 [History Confirmed 12/12/17] metoprolol succinate ER 25 mg tablet,extended release 24 hr 12.5 mg PO QDAY #45 tab 05/28/17 [Rx Confirmed 12/12/17] aspirin 81 mg tablet,delayed release 81 mg PO QDAY 06/20/17 [History Confirmed 12/12/17] simvastatin 5 mg tablet 5 mg PO QHS #90 tab 07/22/17 [Rx Confirmed 12/12/17] famotidine 10 mg tablet 10 mg PO QDAY #30 tab 08/15/17 [Rx Confirmed 12/12/17] alprazolam 0.5 mg tablet 0.5 mg PO BID PRN tab 09/01/17 [History Confirmed 12/12/17] albuterol (refill) 90 mcg/actuation aerosol inhaler mcg INHALATION PRN 12/12/17 [History Confirmed 12/12/17] cetirizine 10 mg capsule 10 mg PO HS PRN cap 12/12/17 [History] PFSH Medical History Tachycardia (Chronic) Palpitations (Chronic) First degree AV block (Chronic) Paroxysmal atrial fibrillation (Chronic) GERD (gastroesophageal reflux disease) (Chronic) Shortness of breath (Chronic) Hypertension (Chronic) Diverticulosis (Chronic) Asthma (Chronic) Arthritis (Chronic) DDD (degenerative disc disease) (Acute) Diaphragmatic hernia (Chronic) History of hydrocele (Resolved) History of pneumonia (Resolved) Surgical History History of right hip replacement (Chronic) History of hemicolectomy (Resolved) History of hernia repair (Resolved) History of tonsillectomy and adenoidectomy (Resolved) S/P surgical manipulation of ankle joint (Resolved) Family History Father Heart disease Arthritis COPD (chronic obstructive pulmonary disease) Myocardial infarction Mother Breast cancer Cancer lung Aunt Colon cancer Social History Smoking Status: Never smoker alcohol intake: current alcohol intake frequency: a few times a week Alcohol type: hard liquor, wine, beer substance use type: does not use caffeine: Yes Type: tea, coffee what type of physical activity do you participate in: bicycling, weight training frequency: 3-4 times per week seatbelt use: always do you feel safe at home: Yes HPI HPI Chief Complaint: follow-up visit Details: TRISTNO PUENTE, is a 72yo M who presents to the office today for follow-up. He has no acute complaints at this time. He has had no subsequent exacerbations of his asthma. He follows up closely with Dr. Weller. His blood pressure is also stable. ROS Const Constitutional: No weight change, body ache, chills, fatigue, sleep problems, fever(s), change in appetite, snoring, weakness, frequent falls, headache(s) or excessive sweating Eyes Eyes: No change in vision, eye pain, light sensitivity or blurry vision ENT ENT: No headache(s), abnormal hearing, ear pain, tinnitus, nasal congestion, sore throat or neck pain Resp Respiratory: No snoring, cough, shortness of breath or wheezing Cardio Cardiology: No excessive sweating, chest pain at rest, chest pain with exertion, shortness of breath, dyspnea on exertion, palpitations, orthopnea or lightheadedness Gastro GI: No abdominal pain, change in bowel habits, constipation, diarrhea, vomiting, nausea/dyspepsia or cramping Genitourinary Male: No painful urination, urinary incontinence, urinary frequency, urinary urgency, blood in urine, testicle pain or other Musc Musculoskeletal: No neck pain, abnormal walking, joint pain, back pain, limited range of motion, numbness or tingling Skin Skin: No redness, dry skin, itching, lesions, wounds or rash Neuro Neurology: No weakness, frequent falls, headache(s), abnormal hearing, abnormal walking, numbness, tingling, abnormal speech, dizziness or memory loss Psych Psychiatric: No change in appetite, No memory loss, No anxiety, No depression, No Thoughts of harming yourself/Others Endo Endocrine: No fatigue, excessive sweating, cold intolerance, increased thirst/drinking, heat intolerance, flushing or increased hunger Aller/Imm Allergy/Immunologic: No wheezing, itchy eyes, hives or seasonal allergy symptoms Kevin/Lymp Hematologic/Lymphatic: No easy bleeding, easy bruising or enlarged lymph nodes Exam Const General: cooperative, no acute distress Orientation: alert, awake, oriented x3 HENMT Head: atraumatic, normocephalic Ears: hearing grossly normal bilaterally Other: Impacted Wax. More on the right. Resp Effort AND Inspection: normal respiratory effort, able to speak in complete sentences Auscultation: Bilateral: Clear to Auscultation Assessment AND Plan 1. Mild intermittent asthma with acute exacerbation J45.21 Plan Not in exacerbation at this time. Continue current medication. 2. Hypertension I10 Plan Optimally controlled. Continue current medications. Lipid profile ordered. 3. Impacted ear wax H61.20 Plan Patient reports a recurrent history of. Ear irrigation done. Procedure was well tolerated. No complications. This note was generated with [employer] dictation software. It may contain incorrect words, spelling, and punctuation that were not noted in checking the note before signing. Coding Level of Care Code Off vis,est,level 3 Diagnoses Mild intermittent asthma with acute exacerbation J45.21 Asthma complication type: with acute exacerbation Asthma persistence: intermittent Asthma severity: mild Hypertension I10 Impacted ear wax H61.20 12/12/17 1620 <Electronically signed by Juan Davis MD> Date Juan Davis MD Cosigner Signature: Date (if applicable) CC: COMPREHENSIVE METABOLIC Collected: 12/08/2017 Status: F Source: [place] 9:15 AM [facility] REPOSITORY Order Comment: Comments: Fasting Comments: Fasting TYPE CODE TESTS RESULT OUT OF RANGE REFERENCE UNITS LAB L501.0100 74-106 mg/dL Normal GLU 86 Result Comment: Please note revised GLUCOSE reference range effective 2017. LAB L501.1000 7-18 mg/dL Normal BUN 15 LAB L501.1100 0.70-1.30 mg/dL Normal CREAT,SERUM 1.25 Result Comment: The validity of the calculated GFR AND GFRAA in patients over 70 years has not been determined. Clinical correlation is essential. LAB L501.1110 >60 mL/min Normal EST GFR 60 Result Comment: Non- GFR Calc LAB L501.1115 >60 mL/min Normal EST GFR - AA 73 Result Comment: GFR Calc LAB L501.1300 10-20 RATIO Normal BUN/CRE 12.0 LAB L501.1500 6.4-8.2 g/dL T Normal PROT 6.9 LAB L501.1800 3.2-5.0 g/dL Normal ALB 3.7 LAB L501.1950 2.2-4.2 g/dL Normal GLOB 3.2 LAB L501.2000 0.9-2.4 RATIO Normal A/G 1.2 LAB L501.2200 8.5-10.1 mg/dL CA Normal 8.6 LAB L501.4100 15-37 U/L Normal AST 20 LAB L501.4305 45-117 U/L Normal ALK P 68 LAB L501.4405 16-61 U/L Normal ALT 25 LAB L501.4600 0.20-1.00 mg/dL T Normal BILI 0.70 LAB L501.5300 136-145 mmol/L NA Normal 141 LAB L501.5600 3.5-5.1 mmol/L K Normal 4.0 LAB L501.5900 98-107 mmol/L CL Normal 107 LAB L501.6100 21.0-32.0 mmol/L Normal CO2 28.0 LAB L501.6200 5-15 Normal GAP 6 Performed By: #### L500.4050, L500.4100 #### [facility] [address] [place], [address] LIPID PROFILE Collected: 12/08/2017 Status: F Source: [place] 9:15 AM [facility] REPOSITORY Order Comment: Comments: Fasting Comments: Fasting TYPE CODE TESTS RESULT OUT OF RANGE REFERENCE UNITS LAB L501.4900 200 mg/dL Normal CHOL 154 Result Comment: <200 mg/dL Desirable 200-240 mg/dL Borderline >240 mg/dL High Risk LAB L501.5000 mg/dL Normal TRIG 128 Result Comment: The drugs N-Acetylcysteine and Metamizole may falsely depress this assay. Serum Triglycerides Reference Interval Normal <150 mg/dL Borderline high 150 - 199 mg/dL High 200 - 499 mg/dL Very High > or = 500 mg/dL LAB L501.6400 mg/dL Normal HDL 44 Result Comment: The drugs N-Acetylcysteine and Metamizole may falsely depress this assay. Reference Range HDL <40 mg/dL Low HDL Cholesterol HDL >or= 60 mg/dL High HDL Cholesterol LAB L501.6500 0-130 mg/dL Normal LDL 84 LAB L501.6600 5-40 mg/dL Normal VLDL 26 Performed By: #### L500.4050, L500.4100 #### [facility] [address] [place], [address] PROGRESS Observed: 11/24/2017 Status: COMPLETED Source: [place] 10:[address] [facility] REPOSITORY HNO ID: [id number] Author: Osiel Gutierres Service: (none) Author Type: Physician Type: Progress Notes Filed: 11/24/2017 10:33 AM Note Text: Will review records once I get a copy. Follow up with new PCP. PROGRESS Observed: 11/24/2017 Status: COMPLETED Source: [place] 8:[address] [facility] REPOSITORY HNO ID: [id number] Author: Cecelia Jean) Cristina Service: (none) Author Type: Resistor Testing Machine Operator Type: Progress Notes Filed: 11/24/2017 2:07 PM Note Text: Spoke with patient, he had a second opinion for CKD with . She did lab testing on the patient. The result show a change in his kidney function. Triston Puente would like you to remove the DX for CKD from his record. I have obtained the medical records from Dr. Davis for your review. Triston Puente has changed his PCP to Dr. Davis. Cecelia Evans MA + PROGRESS Observed: 11/24/2017 Status: COMPLETED Source: [place] 8:[address] [facility] REPOSITORY [facility] ID: [id number] Author: Cecelia Evans Service: (none) Author Type: Resistor Testing Machine Operator Type: Progress Notes Filed: 11/24/2017 2:07 PM Note Text: PHMA TEAMLET DOCUMENTATION Provider Action/FYI: patient needs appointment PSR Action/FYI: Teamlet has identified patient by name and date of . Team: Dr. Gutierres, Cecelia Evans, Kindra Rosales MA, Last Office Visit:2017 ? Next Office Visit: Visit date not found ? Last BP/Labs: Blood Pressure: Last 3 Encounter BP Readings: Date: BP: 2017 122/84 06/05/2017 122/82 04/28/2017 108/64 Lipids: Cholesterol, Total (mg/dL) Date Value 04/03/2017 154 04/05/2016 144 HDL Cholesterol (mg/dL) Date Value 04/03/2017 45 04/05/2016 36 LDL Cholesterol (mg/dL) Date Value 04/03/2017 87 04/05/2016 80 Triglyceride (mg/dL) Date Value 04/03/2017 109 04/05/2016 142 HGB A1C: Lab Results Component Value Date HBA1C 5.1 04/10/2017 TSH: TSH (uU/mL) Date Value 04/03/2017 3.210 04/05/2016 3.490 ) Care Gap: HCC list Plan: ? Confirm PCP / Statu ? Type of appointment needed: ? Consultation Appointments: No patient outreach needed at this time ? Labs, HM and Immunization: Cecelia Evans MA CNPTOUTREACH Observed: 11/24/2017 Status: COMPLETED Source: [place] 12:[address] [facility] REPOSITORY Patient Outreach (FAMPWS) PUENTETRISTON ([id number]) 1945 M Date Time Provider Department 11/24/17 CECELIA EVANS) FAMPWS During your visit today, we recorded the following information about you: Cecelia Evans MA 11/24/2017 2:07 PM Signed PHMA TEAMLET DOCUMENTATION Provider Action/FYI: patient needs appointment PSR Action/FYI: Teamlet has identified patient by name and date of . Team: Dr. Gutierres, Cecelia Evans, ? Derrick Rosales MA, Last Office Visit:2017 ? Next Office Visit: Visit date not found ? Last BP/Labs: Blood Pressure: Last 3 Encounter BP Readings: Date: BP: 2017 122/84 06/05/2017 122/82 04/28/2017 108/64 Lipids: Cholesterol, Total (mg/dL) Date Value 04/03/2017 154 04/05/2016 144 HDL Cholesterol (mg/dL) Date Value 04/03/2017 45 04/05/2016 36 LDL Cholesterol (mg/dL) Date Value 04/03/2017 87 04/05/2016 80 Triglyceride (mg/dL) Date Value 04/03/2017 109 04/05/2016 142 HGB A1C: Lab Results Component Value Date HBA1C 5.1 04/10/2017 TSH: TSH (uU/mL) Date Value 04/03/2017 3.210 04/05/2016 3.490 ) Care Gap: HCC list Plan: ? Confirm PCP / Statu ? Type of appointment needed: ? Consultation Appointments: No patient outreach needed at this time ? Labs, HM and Immunization: PAT Loo MA 11/24/2017 2:07 PM Signed Spoke with patient, he had a second opinion for CKD with . She did lab testing on the patient. The result show a change in his kidney function. Triston Puente would like you to remove the DX for CKD from his record. I have obtained the medical records from Dr. Davis for your review. Triston Puente has changed his PCP to Dr. Davis. Cecelia Evans MA + Osiel Gutierres MD 11/24/2017 10:33 AM Signed Will review records once I get a copy. Follow up with new PCP. Allergies As of Date: 11/24/2017 Noted Allergy Reaction CODEINE 03/11/2005 14 - Other: See Comments Comments: anxiety Date Reviewed: 2017 Reviewed by: Cecelia (Susan) CARLINE Mak.HOME HOUSEKEEPER - Fully Assessed Reason for Visit: PHMA/Care Gap Outreach [[id number]] Prescriptions as of 11/24/2017 Sig: ALBUTEROL SULFATE CONCENTRATE* Inhale 0.5 mL as instructed o* BECLOMETHASONE DIPROPIONATE 4* Inhale 2 Puffs as instructed * BENZONATATE 100 MG CAPSULE Take 1 capsule by mouth three* ALBUTEROL SULFATE HFA 90 MCG/* Inhale 2 Puffs as instructed * SIMVASTATIN 5 MG TABLET Take 1 tablet by mouth daily * ALPRAZOLAM 0.5 MG TABLET Take 1 tablet by mouth twice * OMEPRAZOLE 40 MG CAPSULE,ANGELA* Take 1 capsule by mouth once * DICYCLOMINE 10 MG CAPSULE Take 1 capsule by mouth befor* METOPROLOL SUCCINATE ER 50 MG* Take 50 mg by mouth once mikala* FLECAINIDE 100 MG TABLET Take 1 tablet by mouth twice * ASPIRIN 81 MG TABLET Take 1 tablet by mouth once d* Problem List As Of Date 11/24/2017 Noted Resolved Hyperlipidemia [E78.5] INVALID FOR* NOCTURIA [R35.1] INVALID FOR* DIVERTICULOSIS OF COLON W/O BLEED [K57.30] INVALID FOR* INT HEMORRHOID W/O COMPL [K64.8] INVALID FOR* MITRAL VALVE DISORDER [I05.9] INVALID FOR* More... Diaphragmatic hernia without mention of obstruc*INVALID FOR*04/19/2014 More... Diverticulitis of colon (without mention of hem*INVALID FOR*04/19/2014 GRANULATION TISSUE, ABNORMAL POSTOPERATIVE [L91*INVALID FOR*04/25/2014 ACTINIC KERATOSIS [L57.0] INVALID FOR* Inflamed seborrheic keratosis [L82.0] INVALID FOR*04/19/2014 SOLAR LENGINES///DYSCHROMIA OTHER [L81.9] INVALID FOR* SEBORRHEIC KERATOSIS NOS [L82.1] INVALID FOR* MARISCAL ANGIOMA///NEVUS, NON-NEOPLASTIC [I78.1] INVALID FOR*04/19/2014 SEBACEOUS HYPERPLASIA///SEBACEOUS GLAND DIS NOS*INVALID FOR* Notalgia Paresthetica [R20.2] INVALID FOR* Eczematous dermatitis [L30.9] INVALID FOR*04/19/2014 Neurodermatitis/ Dermatitis and Related Conditi*INVALID FOR* Pruritus: localized at back [L29.9] INVALID FOR*04/19/2014 Excoriation [T14.8XXA] INVALID FOR*04/19/2014 Xerosis Cutis [L85.3] INVALID FOR* Asthma [J45.909] INVALID FOR*04/10/2017 Flatus [R14.3] INVALID FOR*04/19/2014 Abdominal bloating [R14.0] INVALID FOR*04/19/2014 Arthritis pain of hip [M16.10] INVALID FOR* PAF (paroxysmal atrial fibrillation) (HCC) [I48*INVALID FOR* Hydrocele [N43.3] INVALID FOR* BPH (benign prostatic hyperplasia) [N40.0] INVALID FOR* Hypothyroidism [E03.9] 04/10/2017 GERD (gastroesophageal reflux disease) [K21.9] CKD (chronic kidney disease), stage III [N18.3] Subclinical hypothyroidism [E03.9] Osteoarthritis [M19.90] Encounter Status:Closed by CECELIA EVANS on 11/24/17 INTERNAL MEDICINE Observed: 10/25/2017 Status: F Source: [place] OFFICE VISIT 11:12 AM [facility] [place] [address] [place] [address] OFFICE VISIT Date of Service: 06/20/17 MR#: [id number] Acct: [id number] Name: TRISTON PUENTE Rep #: [id number] : 1945 Provider: Juan Davis MD Age/Sex: 72/M [place]: [facility] Status: Signed Intake Vital Signs06/20/17 Height 5 ft 11 in Intake Visit Reasons: Shortness of breath Chief Complaint: wheezing, clear chest conestion Is patient in pain?: No Allergies codeine Adverse Reaction (Verified 11/26/15 13:34) ANXIOUS Medications Beclomethasone Diprop Inhaler [Qvar 80 Mcg Inhaler] 40 mcg INHALATION DAILY 07/11/15 [History Confirmed 06/20/17] Dicyclomine HCl [Bentyl] 10 mg PO PRN PRN 07/11/15 [History Confirmed 06/20/17] Pantoprazole Sodium [Protonix] 40 mg PO DAILY PRN PRN 07/11/15 [History Confirmed 06/20/17] Simvastatin [Zocor] 5 mg PO QHS 07/11/15 [History Confirmed 06/20/17] Aspirin 325 mg PO BIDCM #60 tab 09/13/15 [Rx] flecainide 100 mg tablet 100 mg PO BID #180 tab 05/28/17 [Rx Confirmed 06/20/17] metoprolol succinate ER 25 mg tablet,extended release 24 hr 12.5 mg PO QDAY #45 tab 05/28/17 [Rx Confirmed 06/20/17] albuterol (refill) 90 mcg/actuation aerosol inhaler mcg INHALATION 06/20/17 [History Confirmed 06/20/17] aspirin 81 mg tablet,delayed release 81 mg PO QDAY 06/20/17 [History Confirmed 06/20/17] benzonatate 100 mg capsule 100 mg PO Q6H PRN #60 cap 06/20/17 [Rx Confirmed 06/20/17] prednisone 20 mg tablet 40 mg PO QDAY #10 tab 06/20/17 [Rx Confirmed 06/20/17] salmeterol 50 mcg/dose blister powder for inhalation 1 inh INHALATION BID #28 ea 06/20/17 [Rx Confirmed 06/20/17] PFSH Medical History History of pneumonia (Chronic) Hypertension (Chronic) Diverticulosis (Chronic) Degenerative disc disease (Chronic) Atrial fibrillation (Chronic) Asthma (Chronic) Arthritis (Chronic) Diverticula of colon (Acute) history of borderline kidney disease (Acute) Surgical History History of right hip replacement (Acute) tendon surgery (Acute) Family History Father Heart disease Arthritis Mother Breast cancer Cancer lung Social History Smoking Status: Never smoker alcohol intake: current alcohol intake frequency: a few times a week Alcohol type: hard liquor substance use type: does not use what type of physical activity do you participate in: bicycling, weight training frequency: 3-4 times per week HPI SOB/FRIEND AND PT OF DR. ACE: Chief Complaint: wheezing, chest congestion Details: TRISTON PUENTE, is a 72yo M who presents to the office today to establish care. He also has some acute complaints. He has a past medical history of hypertension, atrial fibrillation and ? Asthma. He presents here due to worsening shortness of breath, cough and wheezing. Symptoms were said to have been insidious and have progressively gotten worse. Cough is said to be distressing, occasionally paroxysmal , productive of clear sputum and with no significant diurnal variation. He reports an incidence of significant shortness of breath and palpitations while he was exercising resulting in cessation of exercise. He was subsequently seen at an urgent care and restarted on Qvar. He was also prescribed albuterol inhaler as needed. He however returned to the urgent care due to persistence of his symptoms and at this time was advised to take a Z-Nathanael. He has noted reduction in the severity however persistence of the symptoms remain. He states that he was diagnosed with asthma several years ago and was started on Qvar by his previous PCP. He does not recall ever having a lung function test. His predominant symptom before Qvar was wheezing. He discontinued the Qvar after a while because per patient, it did not make much difference. He however states that his significant other pointed out increased wheezing since his initial discontinuation. He reports a history of GERD and had been prescribed a PPI in the past. Patient however has been taking this inconsistently ( 2x monthly ). He has also noted hoarseness of his voice during this period. Shortness of breath: Details: TRISTON PUENTE, is a 72 M who presents to the office today for ROS Const Constitutional: Positive for fatigue; no weight change, body ache, chills, sleep problems, fever(s), change in appetite, snoring, weakness, frequent falls, headache(s) or excessive sweating Eyes Eyes: No change in vision, eye pain, light sensitivity or blurry vision ENT ENT: No headache(s), abnormal hearing, ear pain, tinnitus, nasal congestion, sore throat or neck pain Resp Respiratory: Positive for wheezing and cough Cough: Yes productive (clear color); no snoring Cardio Cardiology: No excessive sweating, chest pain at rest, chest pain with exertion, shortness of breath, dyspnea on exertion, palpitations, orthopnea or lightheadedness Gastro GI: No abdominal pain, change in bowel habits, constipation, diarrhea, vomiting, nausea/dyspepsia or cramping Musc Musculoskeletal: No neck pain, abnormal walking, joint pain, back pain, limited range of motion, numbness or tingling Skin Skin: No redness, dry skin, itching, lesions, wounds or rash Neuro Neurology: No weakness, frequent falls, headache(s), abnormal hearing, abnormal walking, numbness, tingling, abnormal speech, dizziness or memory loss Psych Psychiatric: No change in appetite, No memory loss, No anxiety, No depression, No Thoughts of harming yourself/Others Endo Endocrine: Positive for fatigue; no excessive sweating, cold intolerance, increased thirst/drinking, heat intolerance, flushing or increased hunger Aller/Imm Allergy/Immunologic: Positive for wheezing; no itchy eyes Kevin/Lymp Hematologic/Lymphatic: No easy bleeding, easy bruising or enlarged lymph nodes Exam Const General: cooperative, no acute distress, well developed Orientation: awake, oriented x3, alert [facility] Head: normal to inspection, normocephalic Ears: hearing grossly normal bilaterally Chest Chest palpation AND inspection: normal palpation of entire chest wall, normal inspection of the chest Resp Effort AND Inspection: normal respiratory effort, symmetric chest movement, able to speak in complete sentences Auscultation: Bilateral: Expiratory Wheezes Cardio Rate: regular rate Heart Sounds: S1 normal, S2 normal GI Palpation: soft, no hepatosplenomegaly Neuro General: alert, awake, oriented x3, moves all extremities, CN's II-XI intact bilaterally Extrem General: no clubbing, cyanosis or edema Assessment AND Plan 1. Shortness of breath R06.02 Plan - Juan Davis MD Progressive worsening. Shortness of breath is said to occur with activity. Associated with wheezing. Symptoms are said to respond to Albuterol. He has also noted reduction in the severity of symptoms since restarting Qvar. He had been diagnosed with asthma in the past however, does not recall having a PFT done. No prior history of smoking but was exposed to 2nd hand smoking. He also follows up with Dr. Ace and current symptoms are not thought to be cardiac related. Previous imaging reviewed, suggestive of emphysema. Current symptoms probably due to mild copd exacerbation vs poorly treated. Will start on Prednisone 40mg daily x 5 days. Patient is reluctant to switch to a dual LABA/ICS inhaler at this time because he has a 90 day supply of Qvar at home. Prescription for Serevent given. PFT ordered. Referred to pulmo. Orders Orders: Referrals: 2. Hoarseness or changing voice R49.9 Plan - Juan Davis MD Also noted recently with worsening Shortness of breath and wheezing. He has history of GERD but has been inconsistently taking his PPI Symptoms may be due to vocal cord dysfunction. Will however go on with plan as above and if inconclusive, will refer to ENT. Patient also advised to resume taking his Omeprazole, 40mg QAM 30 minutes before breakfast. Follow up at next visit. 3. GERD (gastroesophageal reflux disease) K21.9 Plan - Juan Davis MD Plan as stated above. Will follow. This note was generated with [employer] dictation software. It may contain incorrect words, spelling, and punctuation that were not noted in checking the note before signing. Plan Detail Other Orders Orders: Other Medications New: Discontinued: prednisone administer with food or milk 40 mg (2 x 20 mg) PO QDAY Juan Davis MD Discontinued Reason: Order Changed salmeterol (Serevent Diskus) Discontinued1 inh Inhalation Q12H Juan Davis MD Reason: Order Changed Coding Level of Care Code Off vis,new,level 4 Diagnoses Shortness of breath R06.02 Hoarseness or changing voice R49.9 GERD (gastroesophageal reflux disease) K21.9 06/24/17 0904 <Electronically signed by Juan Davis MD> Date Juan Davis MD 10/25/17 1112<Electronically signed by Stanley CONNELLY> Cosigner Signature: Date (if applicable) Stanley Bender CC: PULMONARY VISIT REPORT Observed: 10/24/2017 Status: F Source: [place] 6:24 PM [facility] REPOSITORY [facility] [address] [place] [address] OFFICE VISIT Date of Service: 10/24/17 MR#: [id number] Acct: [id number] Name: TRISTON PUENTE Rep #: [id number] : 1945 Provider: Radha Goodwin Age/Sex: 72/M [place]: [facility] Status: Signed Assessment AND Plan 1. Mild intermittent asthma with acute exacerbation J45.21 Status Chronic Plan Concern for eosinophilic asthma. Plan to optimize trigger control, added Zyrtec and Flonase. Continue Singulair and Arnuity. No additional testing at this time. Repeat CBC with differential 3 months. Follow-up with Dr. Weller in 3 months. He has been encouraged to contact the office with any new or worsening symptoms in the meantime. Churg-Boo not likely. 2. PND (post-nasal drip) R09.82 Status Acute Plan New. Plan to treat with Flonase. He has been encouraged to contact the office if he does not respond well to medication. Encouraged to use the Flonase for at least 2 weeks, possibly up to 4 weeks. Discussed that it may be seasonal in nature. Follow- up with Dr. Weller in 3 months. Plan Detail Other Orders Orders: Follow Up 3 Months ([facility]) HPI 2 W FU: Chief Complaint: Dry cough HPI Comments Details: This patient presents to the office today for a short interval follow-up after recently being treated for an exacerbation of his asthma. He is ambulatory and currently in room air. Blood work was obtained at his last office visit C results. Sputum culture was obtained and grew Haemophilus influenza, he was treated with amoxicillin. He has 2 days remaining of the antibiotic. He did complete the prednisone taper. He is currently using Arnuity daily. He denies any medication side effects such as sore throat or thrush. He is using Singulair daily. Overall his symptoms have significantly improved. His cough is no longer productive. It is persistent and dry. He denies any hemoptysis. He does report occasional chest tightness that is associated with his cough. He has not needed to use his rescue inhaler, but does admit that he avoids it because it causes him palpitations. He denies any fever, chills or body aches. He has not experienced any chest pain or palpitations. He denies any sinus pressure or pain. He is unsure if he has a postnasal drip. See complete review of systems. Laboratory Tests Eos % (Auto) Alternar. alternata IgE D. farinae Allergen D. pteronyssinus Allrg [place] Allergen [place] Tree Allerg [place] Grass Allergen Intake Vital Signs10/24/17 Height 6 ft 10/24/17 Weight: 191 lb Intake Visit Reasons: 2 W FU Chief Complaint: Cough Accompanied by: Self Allergies fluticasone furoate [From Breo Ellipta] Adverse Reaction (Intermediate, Verified 10/05/17 09:41) Other-heart racing, anxiety, SOB vilanterol [From Breo Ellipta] Adverse Reaction (Intermediate, Verified 10/05/17 09:41) Other-heart racing, anxiety, SOB codeine Adverse Reaction (Verified 10/05/17 09:41) ANXIOUS Medications Dicyclomine HCl [Bentyl] 10 mg PO PRN PRN 07/11/15 [History Confirmed 10/05/17] flecainide 100 mg tablet 100 mg PO BID #180 tab 05/28/17 [Rx Confirmed 10/05/17] metoprolol succinate ER 25 mg tablet,extended release 24 hr 12.5 mg PO QDAY #45 tab 05/28/17 [Rx Confirmed 10/05/17] albuterol (refill) 90 mcg/actuation aerosol inhaler mcg INHALATION 06/20/17 [History Confirmed 10/05/17] aspirin 81 mg tablet,delayed release 81 mg PO QDAY 06/20/17 [History Confirmed 10/05/17] benzonatate 100 mg capsule 100 mg PO Q6H PRN #60 cap 06/20/17 [Rx Confirmed 10/05/17] simvastatin 5 mg tablet 5 mg PO QHS #90 tab 07/22/17 [Rx Confirmed 10/05/17] famotidine 10 mg tablet 10 mg PO QDAY #30 tab 08/15/17 [Rx Confirmed 10/05/17] alprazolam 0.5 mg tablet 0.5 mg PO BID PRN tab 09/01/17 [History Confirmed 10/05/17] cetirizine 10 mg capsule 10 mg PO HS #30 cap 10/10/17 [Rx Confirmed 10/10/17] montelukast 10 mg tablet 10 mg PO QPM #30 tab 10/10/17 [Rx Confirmed 10/10/17] prednisone 10 mg tablet 10 mg PO QDAY #24 tab 10/10/17 [Rx Confirmed 10/10/17] fluticasone furoate 200 mcg/actuation blister powder for inhalation 1 inh INHALATION QDAY #90 ea 10/13/17 [Rx] amoxicillin 875 mg tablet 875 mg PO BID #20 tab 10/16/17 [Rx] [facility] Medical History Tachycardia (Chronic) Palpitations (Chronic) First degree AV block (Chronic) Paroxysmal atrial fibrillation (Chronic) GERD (gastroesophageal reflux disease) (Chronic) Shortness of breath (Chronic) Hypertension (Chronic) Diverticulosis (Chronic) Asthma (Chronic) Arthritis (Chronic) DDD (degenerative disc disease) (Acute) Diaphragmatic hernia (Chronic) History of hydrocele (Resolved) History of pneumonia (Resolved) Surgical History History of right hip replacement (Chronic) History of hemicolectomy (Resolved) History of hernia repair (Resolved) History of tonsillectomy and adenoidectomy (Resolved) S/P surgical manipulation of ankle joint (Resolved) Family History Father Heart disease Arthritis COPD (chronic obstructive pulmonary disease) Myocardial infarction Mother Breast cancer Cancer lung Aunt Colon cancer Social History Smoking Status: Never smoker alcohol intake: current alcohol intake frequency: a few times a week Alcohol type: hard liquor, wine, beer substance use type: does not use caffeine: Yes Type: tea, coffee what type of physical activity do you participate in: bicycling, weight training frequency: 3-4 times per week seatbelt use: always do you feel safe at home: Yes Review of Systems Const CONSTITUTIONAL: Negative anorexia, body ache, chills, daytime sleepiness, fever(s), night sweats, oral thrush, stops breathing during sleep, weight loss, sleeping in chair, fatigue, weight loss, weight gain, frequent colds, seasonal allergies, other, headache(s) or orthopnea EETM Ear Nose Throat Mouth: Positive hearing normal and post nasal drip; negative hard of hearing, hoarseness, dry mouth in morning, change in vision, itchy eyes, eye pain, swallowing Difficulty, ear pain, nose bleed, headache(s), mouth pain, nasal congestion, nasal discharge, sinus pain, sinus pressure, sore throat or other Cardio Cardiovascular: Negative chest pain, chest pain at rest, chest pain with activity, irregular heart rhythm, edema, shortness of breath when lying down, palpitations, murmur or other Resp Respiratory: Positive as per HPI, cough cough: Positive non- productive and chest tightness; negative shortness of breath, pain with cough, wheezing, chest congestion, pain on inspiration, inhalers, increase use of rescue inhalers, snoring, apnea or other Gastro Gastrointestional: Negative bloody stools, change in appetite, difficulty swallowing, reflux, hematemesis, melena stool, loose stool, constipation or other Genitourinary: Negative blood in urine, nocturia, pain with urination or other Musc Musculoskeletal: Negative body pain, back pain, neck pain or other Skin/Breast Skin/Breast: Negative dry skin, itching, rash, unusual bruising, breast lump or other Neuro Neurological: Negative restless legs, confusion, weakness or other Psych Psychocological: Negative abnormal sleep pattern, anxiety, thoughts of hurting self/others, hopelessness or other Lymph Lymphatic: Negative easy bleeding, easy bruising, swollen lymph nodes or other Exam Const Constitutional: Positive conversant, cooperative, in no acute respiratory distress, healthy appearing, well developed, well nourished and good hygiene Head Head: Positive normocephalic and atraumatic; negative cyanosis of lips/distal nose Eyes Eye: Positive clear conjunctiva and nystagmus; negative scleral abnormality Ears Ear: Positive hearing normal and external ears normal; negative hard of hearing Nose Nose: Positive external nose normal and no nasal discharge; negative epistaxis Mouth Mouth: Positive post nasal drip, oral mucosae normal, good dentition, no lesions and posterior oropharynx is adequate; negative malodorous breath or oral thrush present Mallampati Score: I: Mallampati Score Neck Neck: Positive normal visual inspection, full ROM and trachea midline; negative lymphadenopathy, JVD or tender Chest Wall Chest: Positive normal inspection of the chest and symmetric chest movement; negative increased A/P diameter Resp lung sounds: Positive clear to auscultation, good air exchange, normal expiratory time and normal respiratory effort; negative diminished, wheezes, rhonchi, rales, dullness to percussion or wheeze present on forced exhalation Cardio Cardiac: Positive regular rate, regular rhythm, S1 normal and S2 normal; negative murmur GI GI: Positive normal to inspection and normal bowel sounds; negative distended Genitourinary: Positive deferred Musc Musculoskeletal: Positive steady gait and ROM normal; negative kyphosis or scoliosis Skin Pulmonary Skin Exam: Positive intact; negative rash, lesion, ulcers, erythema, scaly or dermal atrophy Pulses Pulse: Yes pulses normal x4 extremities Extremities Extremities: Yes capillary refill normal, No clubbing, No cyanosis, No edema Neuro Neurologic: Yes conversant, Yes no focal neuro deficits, Yes cooperative, Yes normal cognition, Yes normal concentration, Yes understands questions, No tremor Lymph Lymphatic: No lymphadenopathy, No tenderness, No cervical adenopathy, No axillary adenopathy Psych Appearance: Positive grossly normal, eye contact and well kempt Mental Status: Positive mental status grossly normal Mood: Positive congruent mood Affect: Positive normal affect Coding Level of Care Code Off vis,est,level 3 Diagnoses Mild intermittent asthma with acute exacerbation J45.21 Asthma severity: mild Asthma persistence: intermittent Asthma complication type: with acute exacerbation PND (post-nasal drip) R09.82 10/24/17 3854 <Electronically signed by Radha CONNELLY> Date Radha CONNELLY Cosigner Signature: Date (if applicable) CC: Juan Davis MD Observed: 10/14/2017 Status: F Source: [place] CULTURE, SPUTUM 2:26 [facility] REPOSITORY Gram Stain Acceptable Specimen? Yes (<25 Epithelial cells per/lpf) Gram Stain 4+ White Blood Cells 2+ Gram positive diplococci 3+ Gram negative cocco bacillus Resp. Culture #1 Ampicillin can be used for Beta-Lactamase negative isolates. Trimeth/Sulfa, Chloramphenicol, Cefotaxime, Ciprofloxacin, Amoxicillin/Clavulanic Acid,and Oral 2nd/3rd Generation Cephlosporins are effective against both Beta-Lactamase positive and Beta-Lactamase negative isolates. ORGANISM 1: Haemophilus influenzae Amount Growth 3+ Beta Lactamase Negative ORGANISM 2: Mixed Nilda Amount Growth 2+ Performed By: #### [id number] #### [facility] [address] [place] [address]. [place], [address] PULMONARY VISIT REPORT Observed: 10/10/2017 Status: F Source: [place] 1:33 PM [facility] REPOSITORY Pulmonary Medicine of [address] [place], [place] [address] OFFICE VISIT Date of Service: 10/10/17 MR#: [id number] Acct: [id number] Name: TRISTON PUENTE Rep #: [id number] : 1945 Provider: Radha Goodwin Age/Sex: 72/M [place]: [facility] Status: Signed Assessment AND Plan 1. Mild intermittent asthma with acute exacerbation J45.21 Status Chronic Plan Deteriorated. Plan to evaluate for further allergic triggers, and the possibility of eosinophilic versus IgE mediated asthma with additional blood tests. Blood test pending today include mini Rast test, IgE and Aspergillus antibodies. We will follow-up with the patient in 2 weeks to discuss test results. Additionally, treating him today for an exacerbation with a prednisone taper, that is slightly reduced given that he typically experiences palpitations while on prednisone. He will start out with 40 mg for 2 days and then drop down to 30 mg for 3 days, 20 mg for 3 days and finish up with 10 mg for 3 days. I also plan to optimize his allergy control medications by adding cetirizine and montelukast. The patient did ask if these medications were appropriate for someone with compromised renal function. Please see laboratory tests below. Cetirizine is metabolized by the liver and is excreted by the kidneys, but there is no dosage adjustment and last GFR is less than 30. Plan to evaluate his response to these medications in 2 weeks. He has been encouraged to contact the office if any symptoms worsen or if he has any side effects from the medications. Laboratory Tests BUN 19 H Creatinine 1.22 Est GFR (MDRD) Non-Af 62 BUN/Creatinine Ratio 15.6 2. Paroxysmal atrial fibrillation I48.0 Status Chronic Plan Complicates exam, plan, care and prognosis. Discussed the case with Dr. Ace regarding use of prednisone, he confers that a prednisone taper is acceptable, but encourages us to use the least amount deemed effective. Appreciate input. Notified patient that this was discussed with Dr. Ace as well. He conveys understanding and is agreeable to this plan. He also advised me for the patient know that he can take an extra dose of flecainide if he develops any palpitations with use of the prednisone.. Patient again conveys understanding. Plan Detail Other Orders Orders: Other Medications New: prednisone take 4 tabs for two days, then 3 tabs for three days, then 2 10 mg PO QDAY tabs for three days, then 1 tab for 3 days Discontinued: Follow Up 2 Weeks (CSM) HPI Not feeling well: Chief Complaint: Cough HPI Comments Details: This patient presents the office today for an acute visit regarding cough. He is ambulatory and currently on room air. He was seen in the urgent care clinic last week with complaints of cough and shortness of breath. He was treated with a Z-Nathanael and placed on Mucinex. He reports that he took the last dose of azithromycin today. He continues on the Mucinex. He reports that initially his symptoms improved after approximately 2 days on the azithromycin. However, on the third day on the medication he mowed his lawn and subsequently noticed a recurrence of his cough that was beginning to produce thick green sputum. He has an increase in wheezing, chest tightness, chest congestion and shortness of breath. He has continued with his maintenance medication of Arnuity daily. He does report rinsing his mouth out after each use of the Arnuity, and he denies any medication side effects such as sore throat or thrush. He has not been using his pro-air rescue inhaler for his chest tightness and shortness of breath, and does receive some relief. He denies any fever, chills or body aches. He denies any hemoptysis. He has not had any palpitations recently, but he does report that he has paroxysmal atrial fibrillation and at times has difficulty with palpitations. See complete review of systems. Laboratory Tests Eos % (Auto) 9.1 H Intake Vital Signs10/10/17 Height 6 ft 10/10/17 Weight: 197 lb Intake Visit Reasons: Not feeling well Chief Complaint: cough Accompanied by: Self Allergies fluticasone furoate [From Breo Ellipta] Adverse Reaction (Intermediate, Verified 10/05/17 09:41) Other-heart racing, anxiety, SOB vilanterol [From Breo Ellipta] Adverse Reaction (Intermediate, Verified 10/05/17 09:41) Other-heart racing, anxiety, SOB codeine Adverse Reaction (Verified 10/05/17 09:41) ANXIOUS Medications Dicyclomine HCl [Bentyl] 10 mg PO PRN PRN 07/11/15 [History Confirmed 10/05/17] flecainide 100 mg tablet 100 mg PO BID #180 tab 05/28/17 [Rx Confirmed 10/05/17] metoprolol succinate ER 25 mg tablet,extended release 24 hr 12.5 mg PO QDAY #45 tab 05/28/17 [Rx Confirmed 10/05/17] albuterol (refill) 90 mcg/actuation aerosol inhaler mcg INHALATION 06/20/17 [History Confirmed 10/05/17] aspirin 81 mg tablet,delayed release 81 mg PO QDAY 06/20/17 [History Confirmed 10/05/17] benzonatate 100 mg capsule 100 mg PO Q6H PRN #60 cap 06/20/17 [Rx Confirmed 10/05/17] simvastatin 5 mg tablet 5 mg PO QHS #90 tab 07/22/17 [Rx Confirmed 10/05/17] famotidine 10 mg tablet 10 mg PO QDAY #30 tab 08/15/17 [Rx Confirmed 10/05/17] alprazolam 0.5 mg tablet 0.5 mg PO BID PRN tab 09/01/17 [History Confirmed 10/05/17] fluticasone furoate 200 mcg/actuation blister powder for inhalation 1 inh INHALATION QDAY #30 ea 10/03/17 [Rx Confirmed 10/05/17] azithromycin 250 mg tablet See Label Instructions PO .COMPLEX #6 tab 10/05/17 [Rx Confirmed 10/05/17] cetirizine 10 mg capsule 10 mg PO HS #30 cap 10/10/17 [Rx Confirmed 10/10/17] montelukast 10 mg tablet 10 mg PO QPM #30 tab 10/10/17 [Rx Confirmed 10/10/17] prednisone 10 mg tablet 10 mg PO QDAY #24 tab 10/10/17 [Rx Confirmed 10/10/17] [facility] Medical History Tachycardia (Chronic) Palpitations (Chronic) First degree AV block (Chronic) Paroxysmal atrial fibrillation (Chronic) GERD (gastroesophageal reflux disease) (Chronic) Shortness of breath (Chronic) Hypertension (Chronic) Diverticulosis (Chronic) Asthma (Chronic) Arthritis (Chronic) DDD (degenerative disc disease) (Acute) Diaphragmatic hernia (Chronic) History of hydrocele (Resolved) History of pneumonia (Resolved) Surgical History History of right hip replacement (Chronic) History of hemicolectomy (Resolved) History of hernia repair (Resolved) History of tonsillectomy and adenoidectomy (Resolved) S/P surgical manipulation of ankle joint (Resolved) Family History Father Heart disease Arthritis COPD (chronic obstructive pulmonary disease) Myocardial infarction Mother Breast cancer Cancer lung Aunt Colon cancer Social History Smoking Status: Never smoker alcohol intake: current alcohol intake frequency: a few times a week Alcohol type: hard liquor, wine, beer substance use type: does not use caffeine: Yes Type: tea, coffee what type of physical activity do you participate in: bicycling, weight training frequency: 3-4 times per week seatbelt use: always do you feel safe at home: Yes Review of Systems Const CONSTITUTIONAL: Positive fatigue; negative anorexia, body ache, chills, daytime sleepiness, fever(s), night sweats, oral thrush, stops breathing during sleep, weight loss, sleeping in chair, weight loss, weight gain, frequent colds, seasonal allergies, other, headache(s) or orthopnea EETM Ear Nose Throat Mouth: Positive hard of hearing, hoarseness, post nasal drip and sinus pressure; negative hearing normal, dry mouth in morning, change in vision, itchy eyes, eye pain, swallowing Difficulty, ear pain, nose bleed, headache(s), mouth pain, nasal congestion, nasal discharge, sinus pain, sore throat or other Cardio Cardiovascular: Negative chest pain, chest pain at rest, chest pain with activity, irregular heart rhythm, edema, shortness of breath when lying down, palpitations, murmur or other Resp Respiratory: Positive as per HPI, wheezing and cough cough: Positive productive color: Positive thick and green; negative shortness of breath, pain with cough, chest congestion, chest tightness, pain on inspiration, inhalers, increase use of rescue inhalers, snoring, apnea or other Gastro Gastrointestional: Negative bloody stools, change in appetite, difficulty swallowing, reflux, hematemesis, melena stool, loose stool, constipation or other Genitourinary: Negative blood in urine, nocturia, pain with urination or other Musc Musculoskeletal: Negative body pain, back pain, neck pain or other Skin/Breast Skin/Breast: Negative dry skin, itching, rash, unusual bruising, breast lump or other Neuro Neurological: Negative restless legs, confusion, weakness or other Psych Psychocological: Negative abnormal sleep pattern, anxiety, thoughts of hurting self/others, hopelessness or other Lymph Lymphatic: Negative easy bleeding, easy bruising, swollen lymph nodes or other Exam Const Constitutional: Positive conversant, cooperative, in no acute respiratory distress, healthy appearing, well developed, well nourished and good hygiene Head Head: Positive normocephalic and atraumatic; negative cyanosis of lips/distal nose Eyes Eye: Positive clear conjunctiva and nystagmus; negative scleral abnormality Ears Ear: Positive hard of hearing and external ears normal; negative hearing normal Nose Nose: Positive external nose normal and no nasal discharge; negative epistaxis Mouth Mouth: Positive post nasal drip, oral mucosae normal, no lesions, posterior oropharynx is adequate and good dentition; negative malodorous breath or oral thrush present Mallampati Score: I: Mallampati Score Neck Neck: Positive normal visual inspection, full ROM and trachea midline; negative lymphadenopathy, JVD or tender Chest Wall Chest: Positive normal inspection of the chest and symmetric chest movement; negative increased A/P diameter Resp lung sounds: Positive diminished, wheezes, rhonchi, wheeze present on forced exhalation and increased work of breathing; negative rales, dullness to percussion or use of accessory muscles Cardio Cardiac: Positive regular rate, regular rhythm, S1 normal and S2 normal; negative murmur GI GI: Positive normal to inspection and normal bowel sounds; negative distended Genitourinary: Positive deferred Musc Musculoskeletal: Positive steady gait and ROM normal; negative kyphosis or scoliosis Skin Pulmonary Skin Exam: Positive intact; negative rash, lesion, ulcers, erythema, scaly or dermal atrophy Pulses Pulse: Yes pulses normal x4 extremities Extremities Extremities: Yes capillary refill normal, No clubbing, No cyanosis, No edema, No stasis dermatitis Neuro Neurologic: Yes conversant, Yes no focal neuro deficits, Yes cooperative, Yes normal cognition, Yes normal coordination, Yes normal concentration, Yes understands questions, No tremor Lymph Lymphatic: No lymphadenopathy, No tenderness, No cervical adenopathy, No axillary adenopathy Psych Appearance: Positive grossly normal, eye contact and well kempt Mental Status: Positive mental status grossly normal Mood: Positive congruent mood Affect: Positive normal affect Coding Level of Care Code Off vis,est,level 4 Diagnoses Mild intermittent asthma with acute exacerbation J45.21 Asthma complication type: with acute exacerbation Asthma persistence: intermittent Asthma severity: mild Paroxysmal atrial fibrillation I48.0 10/10/17 1333 <Electronically signed by Radha CONNELLY> Date Radha CONNELLY Cosigner Signature: Date (if applicable) CC: Juan Davis MD IMMUNOGLOBULIN E Collected: 10/10/2017 Status: F Source: [place] 11:39 AM [facility] REPOSITORY TYPE CODE TESTS RESULT OUT OF RANGE REFERENCE UNITS LAB L3200.1600 0-100 IU/mL Normal IMMUNO E 31 Result Comment: Performed at: [facility] - [facility] [address] [id number] [employer] [employer] Condition[employer]: Jimmie Menezes MD, Phone: [phone] Performed By: #### L3200.1600, L3500.3600, L5500.0300 #### [facility] (refer to report for specific site) refer to report for address and phone number ASPERGILLUS ANTIBODIES Collected: 10/10/2017 Status: F Source: [place] 11:39 AM [facility] REPOSITORY TYPE CODE TESTS RESULT OUT OF RANGE REFERENCE UNITS LAB L3500.3700 Neg:<1:1 Asp. Normal fumigatus Negative LAB L3500.3800 Neg:<1:1 Asp. Normal flavus Negative LAB L3500.3900 Neg:<1:1 Asp. Normal niger Negative Performed By: #### L3200.1600, L3500.3600, L5500.0300 #### [facility] (refer to report for specific site) refer to report for address and phone number ALLERGEN, MINI-RAST Collected: 10/10/2017 Status: F Source: [place] 11:39 [facility] REPOSITORY TYPE CODE TESTS RESULT OUT OF REFERENCE UNITS RANGE LAB L5500.1001 Class 0 kU/L D PTERONYSSINUS Normal <0.10 LAB L5500.1002 Class 0 kU/L D FARINAE MITE Normal <0.10 LAB L5500.2001 Class 0 kU/L CAT HAIR/DANDER Normal <0.10 LAB L5500.2002 Class 0 kU/L DOG EPITHELIA Normal <0.10 LAB L5500.4002 Class 0 kU/L [place] Normal <0.10 LAB L5500.4008 Class 0 kU/L [place], [place] Normal <0.10 LAB L5500.5006 Class 0 kU/L A. ALTERNATA Normal <0.10 LAB L5500.6007 Class 0 kU/L [place], WHITE Normal <0.10 LAB L5500.6008 Class 0 kU/L [place],AMER WHITE Normal <0.10 LAB L5500.7001 Class 0 kU/L RAG[place] SH/COM Normal <0.10 LAB L5500.7009 Class 0 kU/L PL[place]AIN,ENGLSH Normal <0.10 LAB L5500.7150 Class 0 kU/L Mouse Urine Normal <0.10 Result Comment: Performed at: [facility] - [facility] [place] [address] [place], [place] [id number] [employer] Condition[employer]: Jimmie Menezes MD, Phone: [phone] LAB M5864.4978 . Normal RAST COMMENT Comment Result Comment: Levels of Specific IgE Class Description of Class ----- < 0.10 0 Negative 0.10 - 0.31 0/I Equivocal/Low 0.32 - 0.55 I Low 0.56 - 1.40 II Moderate 1.41 - 3.90 III High 3.91 - 19.00 IV Very High 19.01 - 100.00 V Very High >100.00 Very High Performed By: #### L3200.1600, L3500.3600, L5500.0300 #### [facility] (refer to report for specific site) refer to report for address and phone number JAQUELIN W/ REFLEX MULT Collected: 10/10/2017 Status: F Source: [place] CONFIRM 11:39 AM [facility] REPOSITORY Order Comment: ADDED TESTING TO [facility] TYPE CODE TESTS RESULT OUT OF RANGE REFERENCE UNITS LAB L3100.1883 Normal JAQUELIN-DIRECT Result Comment: TEST RESULT LIMITS JAQUELIN w/Reflex if Positive JAQUELIN Direct Negative Negative TESTING PERFORMED AT [facility]. ORIGINAL REPORT ON FILE IN LAB CONTAINS ADDITIONAL TEST SITE INFORMATION. Performed By: #### L3100.5450, L3300.1200 #### [facility] (refer to report for specific site) refer to report for address and phone number ANCA Collected: 10/10/2017 Status: F Source: [place] 11:39 AM [facility] REPOSITORY Order Comment: ADDED LAB TESTING TYPE CODE TESTS RESULT OUT OF RANGE REFERENCE UNITS LAB L3300.1225 CYTOPLASMIC Normal Ab Result Comment: TEST RESULT LIMITS ANCA Panel Antimyeloperoxidase (MPO) Abs <9.0 U/mL 0.0 - 9.0 Antiproteinase 3 (OK-3) Abs <3.5 U/mL 0.0 - 3.5 Cytoplasmic (C-ANCA) <1:20 titer Neg:<1:20 Perinuclear (P-ANCA) <1:20 titer Neg:<1:20 The presence of positive fluorescence exhibiting P-ANCA or C-ANCA patterns alone is not specific for the diagnosis of Iman's Granulomatosis (WG) or microscopic polyangiitis. Decisions about treatment should not be based solely on ANCA IFA results. The International ANCA Group Consensus recommends follow up testing of positive sera with both OK-3 and MPO-ANCA enzyme immunoassays. As many as 5% serum samples are positive only by EIA. Ref. AM J Clin Pathol 1999;111:507-513. Atypical pANCA <1:20 titer Neg:<1:20 The atypical pANCA pattern has been observed in a significant percentage of patients with ulcerative colitis, primary sclerosing cholangitis and autoimmune hepatitis. TESTING PERFORMED AT [facility]. ORIGINAL REPORT ON FILE IN LAB CONTAINS ADDITIONAL TEST SITE INFORMATION. Performed By: #### L3100.5450, L3300.1200 #### [facility] (refer to report for specific site) refer to report for address and phone number INTERNAL MEDICINE Observed: 10/05/2017 Status: F Source: [place] OFFICE VISIT 10:02 AM [facility] REPOSITORY [facility] [address] [place] [address] [place] [address] OFFICE VISIT Date of Service: 10/05/17 MR#: [id number] Acct: [id number] Name: TRISTON PUENTE Rep #: [id number] : 1945 Provider: Stanley Bender NP Age/Sex: 72/M Location: [facility] Status: Signed Intake Vital Signs10/05/17 Height 6 ft 10/05/17 Weight: 193 lb 10/05/17 Body Mass Index (BMI) 26.2 10/05/17 Blood Pressure 128/82 Intake Visit Reasons: Cough Chief Complaint: cough Bone Worker Required: No Is patient in pain?: No Allergies fluticasone furoate [From Breo Ellipta] Adverse Reaction (Intermediate, Verified 10/05/17 09:41) Other-heart racing, anxiety, SOB vilanterol [From Breo Ellipta] Adverse Reaction (Intermediate, Verified 10/05/17 09:41) Other-heart racing, anxiety, SOB codeine Adverse Reaction (Verified 10/05/17 09:41) ANXIOUS Medications Dicyclomine HCl [Bentyl] 10 mg PO PRN PRN 07/11/15 [History Confirmed 10/05/17] flecainide 100 mg tablet 100 mg PO BID #180 tab 05/28/17 [Rx Confirmed 10/05/17] metoprolol succinate ER 25 mg tablet,extended release 24 hr 12.5 mg PO QDAY #45 tab 05/28/17 [Rx Confirmed 10/05/17] albuterol (refill) 90 mcg/actuation aerosol inhaler mcg INHALATION 06/20/17 [History Confirmed 10/05/17] aspirin 81 mg tablet,delayed release 81 mg PO QDAY 06/20/17 [History Confirmed 10/05/17] benzonatate 100 mg capsule 100 mg PO Q6H PRN #60 cap 06/20/17 [Rx Confirmed 10/05/17] simvastatin 5 mg tablet 5 mg PO QHS #90 tab 07/22/17 [Rx Confirmed 10/05/17] famotidine 10 mg tablet 10 mg PO QDAY #30 tab 08/15/17 [Rx Confirmed 10/05/17] alprazolam 0.5 mg tablet 0.5 mg PO BID PRN tab 09/01/17 [History Confirmed 10/05/17] fluticasone furoate 200 mcg/actuation blister powder for inhalation 1 inh INHALATION QDAY #30 ea 10/03/17 [Rx Confirmed 10/05/17] azithromycin 250 mg tablet See Label Instructions PO .COMPLEX #6 tab 10/05/17 [Rx Confirmed 10/05/17] PFSH Medical History Tachycardia (Chronic) Palpitations (Chronic) First degree AV block (Chronic) Paroxysmal atrial fibrillation (Chronic) GERD (gastroesophageal reflux disease) (Chronic) Shortness of breath (Chronic) Hypertension (Chronic) Diverticulosis (Chronic) Asthma (Chronic) Arthritis (Chronic) DDD (degenerative disc disease) (Acute) Diaphragmatic hernia (Chronic) History of hydrocele (Resolved) History of pneumonia (Resolved) Surgical History History of right hip replacement (Chronic) History of hemicolectomy (Resolved) History of hernia repair (Resolved) History of tonsillectomy and adenoidectomy (Resolved) S/P surgical manipulation of ankle joint (Resolved) Family History Father Heart disease Arthritis COPD (chronic obstructive pulmonary disease) Myocardial infarction Mother Breast cancer Cancer lung Aunt Colon cancer Social History Smoking Status: Never smoker alcohol intake: current alcohol intake frequency: a few times a week Alcohol type: hard liquor, wine, beer substance use type: does not use caffeine: Yes Type: tea, coffee what type of physical activity do you participate in: bicycling, weight training frequency: 3-4 times per week seatbelt use: always do you feel safe at home: Yes HPI HPI Chief Complaint: cough Details: TRISTON PUENTE, is a 72 M who presents to the office today for an acute visit of productive cough of green-yellow sputum 1 week. He has a past medical history as listed above which is significant for asthma and paroxysmal atrial fibrillation. The patient states that symptoms started a week ago and have been progressively worsening. He admits to sinus drainage, and a productive cough of yellow sputum. He has been taking [id number]-cdvvkos Coricidin D with mild relief. He denies any shortness of breath or wheezing and has not had to use his rescue inhaler. 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 He denies any obvious sick exposure to sick contacts. He denies any other aggravating or relieving factors. The patient does state that he has taken azithromycin in the past and that this has been okay with his medication regimen. He otherwise denies any fever, chills, nausea, vomiting, increasing shortness of breath, chest pain or pressure, syncope or presyncopal episodes. ROS Const Constitutional: No fever(s), chills, sleep problems, malaise, weakness, frequent falls, change in appetite or fatigue Eyes Eyes: No blurry vision, change in vision, double vision or discharge ENT ENT: No abnormal hearing Resp Respiratory: Positive for cough Cough: Yes productive; no wheezing or shortness of breath Cardio Cardiology: No chest pain at rest, chest pain with exertion, shortness of breath, dyspnea on exertion, lightheadedness, irregular heart rhythm, fast heart rate, palpitations, orthopnea or generalized swelling Gastro GI: No abdominal pain, change in bowel habits, constipation, diarrhea, vomiting or nausea/dyspepsia Musc Musculoskeletal: No joint pain, back pain, limited range of motion, joint swelling, muscle weakness, tingling or numbness Skin Skin: No change in skin color, wounds, rash or itching Neuro Neurology: No weakness, frequent falls, unsteady gait/balance, dizziness, loss of vision, memory loss, abnormal hearing, tingling or numbness Psych Psychiatric: No change in appetite, No memory loss, No anxiety, No depression, No Thoughts of harming yourself/Others Endo Endocrine: No fatigue, increased thirst/drinking, increased urination, increased hunger or heat intolerance Aller/Imm Allergy/Immunologic: No seasonal allergy symptoms, wheezing or itchy eyes Kevin/Lymp Hematologic/Lymphatic: No easy bleeding, easy bruising or enlarged lymph nodes Exam Const General: cooperative, comfortable, no acute distress Nutritional Appearance: average body habitus, well nourished Orientation: alert, oriented x3 Limitations: mental status not altered HENMT Head: normal to inspection Ears: hearing grossly normal bilaterally, unable to visualize TM (Due to cerumen) bilaterally Nose: external nose normal, mucous membranes and turbinates abnormal (Edematous bilaterally) Neck Neck: no lymphadenopathy Resp Effort AND Inspection: normal respiratory effort, able to speak in complete sentences, normal respiratory pattern, symmetric chest movement, no audible wheezes, no cough Auscultation: Bilateral: Clear to Auscultation Cardio Palpation: normal PMI Rate: regular rate Heart Sounds: S1 normal, S2 normal, normal S1 and S2, no click, no gallops, no murmurs, no rubs Musc Musculoskeletal: No muscle weakness Skin General: no rashes or lesions noted, elasticity normal, turgor normal Lesions: no lesions Rashes: no rashes Psych Appearance: grossly normal Mental Status: mental status grossly normal Affect: normal affect Attitude: cooperative Thought Process: normal Assessment AND Plan Problems 1. URI (upper respiratory infection) J06.9 2. Cough R05 Plan Patient does have upper respiratory symptoms. Given his multiple comorbidities and history of asthma, will cover with a antibiotic of azithromycin. He is not with an acute exacerbation of his asthma at this time. Also instructed patient on dlpm-tte-lggublo treatments including the use of Mucinex and the use of Flonase. Patient to follow- up or seek urgent medical attention if his condition progresses or worsens. Instructed on increasing fluid intake, hand hygiene, and rest. Patient educated on red flag symptoms that require urgent medical attention. Renataon disclaimer Medications New: Coding Level of Care Code Off vis,est,level 3 Diagnoses URI (upper respiratory infection) J06.9 Cough R05 10/05/17 1002 <Electronically signed by Stanley CONNELLY> Date Stanley CONNELLY Cosigner Signature: Date (if applicable) CC: PULMONARY VISIT REPORT Observed: 09/24/2017 Status: F Source: [place] 9:43 AM [facility] REPOSITORY [facility] [address] [place] [address] OFFICE VISIT Date of Service: 09/24/17 MR#: [id number] Acct: [id number] Name: TRISTON PUENTE Rep #: [id number] : 1945 Provider: Radha Goodwin Age/Sex: 72/M Location: [facility] Status: Signed Assessment AND Plan Problems 1. Mild intermittent asthma with acute exacerbation J45.21 Status Chronic Plan Today we reviewed the patient's formulary, all inhalers are at least a T3 or T4 and even sometimes tearful. I gave him a couple medications to investigate which include Airduo or Arnuity. The patient is going to contact his insurance company to determine which medication would be more affordable. We discussed the difference in his 2 medications as the air do well is ICS/laba and the Arnuity is an ICS alone. Given that the patient needed step up in his therapy I would prefer to put him on ICS/laba. He was given a sample of Arnuity today that will last 2 weeks. He will call the office if he begins using it, he did use his Qvar this morning and is unable to take the Arnuity today. I will follow- up with him in 1 month at which time we can determine how he has responded to the medication change, if any occurred. We also discussed one other alternative is that he could use the Qvar as he continues to use it 2 puffs in the morning and 1 puff in the evening. Medications New: Discontinued: beclomethasone dipropionate 80 mcg/actuation Discontinued Reas40 mcg Inhalation DAILY on: Pt no longer taking Plan Detail Follow Up 1 Month ([facility]) HPI inhaler options: Chief Complaint: Inhaler concerns HPI Comments Details: This patient presents to the office today to discuss inhaler concerns. He was started on a new inhaler at the last office visit, Breo. He had an adverse reaction to this medication with just a few minutes of the first dose. He reports that he had tachycardia, felt an increase in shortness of breath and experienced fatigue. Continue to use the medication for a few days and continue to experience those symptoms after he develops. After stopping the medication those symptoms did resolve. Currently he has a dry cough, denies any sputum production or hemoptysis. He does report some shortness of breath on exertion. He denies any wheezing, chest tightness or chest congestion. He has not experienced any palpitations or chest pain recently, he does admit that he has approximately 2 episodes of paroxysmal atrial fibrillation yearly, and that these episodes last a few hours only. He has not experienced any fever, chills or body aches. After discontinuing the Breo, he did go back to using the medication he was using previously which consisted of Qvar, 2 puffs in the morning and 1 puff in the evening. He also uses albuterol twice daily. These medications are too expensive on his current prescription drug coverage plan and he would like to consider alternatives. According to Dr. Weller's last note the patient has had several exacerbations over the past 6 months which would indicate setting him up in therapy. Discussed this with the patient, and the fact that he at this point will be treated as moderate asthma. Intake Vital Signs09/24/17 Height 6 ft 09/24/17 Weight: 195 lb Intake Visit Reasons: inhaler options Chief Complaint: Periodic dry cough Allergies fluticasone furoate [From Breo Ellipta] Adverse Reaction (Intermediate, Verified 09/24/17 08:29) Other-heart racing, anxiety, SOB vilanterol [From Breo Ellipta] Adverse Reaction (Intermediate, Verified 09/24/17 08:29) Other-heart racing, anxiety, SOB codeine Adverse Reaction (Verified 09/04/17 08:17) ANXIOUS Medications Dicyclomine HCl [Bentyl] 10 mg PO PRN PRN 07/11/15 [History Confirmed 09/24/17] flecainide 100 mg tablet 100 mg PO BID #180 tab 05/28/17 [Rx Confirmed 09/24/17] metoprolol succinate ER 25 mg tablet,extended release 24 hr 12.5 mg PO QDAY #45 tab 05/28/17 [Rx Confirmed 09/24/17] albuterol (refill) 90 mcg/actuation aerosol inhaler mcg INHALATION 06/20/17 [History Confirmed 09/24/17] aspirin 81 mg tablet,delayed release 81 mg PO QDAY 06/20/17 [History Confirmed 09/24/17] benzonatate 100 mg capsule 100 mg PO Q6H PRN #60 cap 06/20/17 [Rx Confirmed 09/24/17] simvastatin 5 mg tablet 5 mg PO QHS #90 tab 07/22/17 [Rx Confirmed 09/24/17] famotidine 10 mg tablet 10 mg PO QDAY #30 tab 08/15/17 [Rx Confirmed 09/24/17] alprazolam 0.5 mg tablet 0.5 mg PO BID PRN tab 09/01/17 [History Confirmed 09/24/17] beclomethasone dipropionate 40 mcg/actuation aerosol inhaler 2 puff INHALATION Q12H 09/24/17 [History Confirmed 09/24/17] [facility] Medical History Tachycardia (Chronic) Palpitations (Chronic) First degree AV block (Chronic) Paroxysmal atrial fibrillation (Chronic) GERD (gastroesophageal reflux disease) (Chronic) Shortness of breath (Chronic) Hypertension (Chronic) Diverticulosis (Chronic) Asthma (Chronic) Arthritis (Chronic) DDD (degenerative disc disease) (Acute) Diaphragmatic hernia (Chronic) History of hydrocele (Resolved) History of pneumonia (Resolved) Surgical History History of right hip replacement (Chronic) History of hemicolectomy (Resolved) History of hernia repair (Resolved) History of tonsillectomy and adenoidectomy (Resolved) S/P surgical manipulation of ankle joint (Resolved) Family History Father Heart disease Arthritis COPD (chronic obstructive pulmonary disease) Myocardial infarction Mother Breast cancer Cancer lung Aunt Colon cancer Social History Smoking Status: Never smoker alcohol intake: current alcohol intake frequency: a few times a week Alcohol type: hard liquor, wine, beer substance use type: does not use caffeine: Yes Type: tea, coffee what type of physical activity do you participate in: bicycling, weight training frequency: 3-4 times per week seatbelt use: always do you feel safe at home: Yes Review of Systems Const CONSTITUTIONAL: Negative anorexia, body ache, chills, daytime sleepiness, fever(s), night sweats, oral thrush, stops breathing during sleep, weight loss, sleeping in chair, fatigue, weight loss, weight gain, frequent colds, seasonal allergies, other, headache(s) or orthopnea EETM Ear Nose Throat Mouth: Positive hearing normal; negative hard of hearing, hoarseness, dry mouth in morning, change in vision, itchy eyes, eye pain, swallowing Difficulty, ear pain, nose bleed, headache(s), mouth pain, nasal congestion, nasal discharge, post nasal drip, sinus pain, sinus pressure, sore throat or other Cardio Cardiovascular: Negative chest pain, chest pain at rest, chest pain with activity, irregular heart rhythm, edema, shortness of breath when lying down, palpitations, murmur or other Resp Respiratory: Positive as per HPI, cough cough: Positive non- productive and inhalers; negative shortness of breath, pain with cough, wheezing, chest congestion, chest tightness, pain on inspiration, increase use of rescue inhalers, snoring, apnea or other Gastro Gastrointestional: Negative bloody stools, change in appetite, difficulty swallowing, reflux, hematemesis, melena stool, loose stool, constipation or other Genitourinary: Negative blood in urine, nocturia, pain with urination or other Musc Musculoskeletal: Negative body pain, back pain, neck pain or other Skin/Breast Skin/Breast: Negative dry skin, itching, rash, unusual bruising, breast lump or other Neuro Neurological: Negative restless legs, confusion, weakness or other Psych Psychocological: Negative abnormal sleep pattern, anxiety, thoughts of hurting self/others, hopelessness or other Lymph Lymphatic: Negative easy bleeding, easy bruising, swollen lymph nodes or other Exam Const Constitutional: Positive conversant, cooperative, in no acute respiratory distress, healthy appearing, well developed, well nourished and good hygiene Head Head: Positive normocephalic and atraumatic; negative cyanosis of lips/distal nose Eyes Eye: Positive clear conjunctiva and nystagmus; negative scleral abnormality Ears Ear: Positive hearing normal and external ears normal; negative hard of hearing Nose Nose: Positive external nose normal and no nasal discharge; negative epistaxis Mouth Mouth: Positive oral mucosae normal, no lesions, good dentition and posterior oropharynx is adequate; negative post nasal drip, malodorous breath or oral thrush present Mallampati Score: I: Mallampati Score Neck Neck: Positive normal visual inspection, full ROM and trachea midline; negative lymphadenopathy, JVD or tender Chest Wall Chest: Positive normal inspection of the chest and symmetric chest movement; negative increased A/P diameter Resp lung sounds: Positive clear to auscultation, good air exchange, normal expiratory time and normal respiratory effort; negative diminished, wheezes, rhonchi, rales, dullness to percussion or wheeze present on forced exhalation Cardio Cardiac: Positive regular rate, S2 normal, S1 normal and regular rhythm; negative murmur GI GI: Positive normal to inspection and normal bowel sounds; negative distended Genitourinary: Positive deferred Musc Musculoskeletal: Positive steady gait and ROM normal; negative kyphosis or scoliosis Skin Pulmonary Skin Exam: Positive intact; negative rash, lesion, ulcers, erythema or scaly Pulses Pulse: Yes pulses normal x4 extremities Extremities Extremities: Yes capillary refill normal, No clubbing, No cyanosis, No edema Neuro Neurologic: Yes conversant, Yes no focal neuro deficits, No tremor, Yes cooperative, Yes normal cognition, Yes normal coordination, Yes understands questions, Yes normal concentration Lymph Lymphatic: No lymphadenopathy, No tenderness, No cervical adenopathy, No axillary adenopathy Psych Appearance: Positive grossly normal, eye contact and well kempt Mental Status: Positive mental status grossly normal Mood: Positive congruent mood Affect: Positive normal affect Coding Level of Care Code Off vis,est,level 3 Diagnoses Mild intermittent asthma with acute exacerbation J45.21 Asthma severity: mild Asthma persistence: intermittent Asthma complication type: with acute exacerbation 09/24/17 0943 <Electronically signed by Radha CONNELLY> Date Radha CONNELLY Cosigner Signature: Date (if applicable) CC: Juan Davis MD PULMONARY VISIT REPORT Observed: 09/18/2017 Status: F Source: [place] 1:15 PM [facility] of [address] [place] [address] OFFICE VISIT Date of Service: 09/18/17 MR#: [id number] Acct: [id number] Name: TRISTON PUENTE Rep #: [id number] : 1945 Provider: Guillermo Weller MD Age/Sex: 72/M Location: [facility] Status: Signed Assessment AND Plan Problems 1. Mild intermittent asthma with acute exacerbation J45.21 Plan Patient with mild intermittent asthma in the past, but has had multiple exacerbations recently, so plan to treat him like a moderate persistent asthma. Patient will be initiated on Breo therapy after reviewing his formulary. Patient was given to sample doses to cover for mail order delay. Patient was personally instructed on the use of the inhaler, but no dose was given secondary to the fact that he is already used Qvar and Serevent today. Sick policy and signs and symptoms of exacerbation were reviewed in detail. Stressed the link between seasonal allergies and exacerbations of asthma. Patient voiced understanding Initiate Breo therapy. Follow-up in 1 year Medications New: fluticasone-vilanterol 100-25 mcg/dose (Breo Ellipta) afte1 inh Inhalation Q24H R06.02 r inhalation, rinse mouth with water and spit out; do not swa llow Plan Detail Follow Up 1 Year HPI 3 M FU: Chief Complaint: Periodic dry cough Details: Patient is a 72-year-old male, currently under the care of Dr. Davis, who presents for evaluation secondary to periodic dry cough. Since last visit, patient denies any ER visits, hospitalizations or prednisone burst. Patient does report that he has been using a total of 3 puffs of Qvar daily to space it out so he could make it to this appointment. Patient states his Serevent has been completed. Patient states that he feels back to his baseline at this time. Patient has not required any Tessalon Perles in the interim. Patient does report a history of seasonal allergies. Patient states that he has had some sinus congestion in the past, but it is not that bad. Patient denies this ever being a trigger for his asthma. Patient states his only trigger has been viral illnesses in the past. Patient has never had allergy testing. Patient does report occasional cough productive of clear sputum, similar to nasal drainage. Patient reports significant concern over the cost of his medication. Patient has presented with his formulary to help with future maintenance therapy options. Patient is not requiring any albuterol rescue at this time. Patient feels this voice is back to its baseline. Intake Vital Signs09/18/17 Height 6 ft 09/18/17 Weight: 87.09 kg Intake Visit Reasons: 3 M FU Chief Complaint: Follow up Accompanied by: Self Allergies codeine Adverse Reaction (Verified 09/04/17 08:17) ANXIOUS Medications Beclomethasone Diprop Inhaler [Qvar 80 Mcg Inhaler] 40 mcg INHALATION DAILY 07/11/15 [History Confirmed 09/04/17] Dicyclomine HCl [Bentyl] 10 mg PO PRN PRN 07/11/15 [History Confirmed 09/04/17] flecainide 100 mg tablet 100 mg PO BID #180 tab 05/28/17 [Rx Confirmed 09/04/17] metoprolol succinate ER 25 mg tablet,extended release 24 hr 12.5 mg PO QDAY #45 tab 05/28/17 [Rx Confirmed 09/04/17] albuterol (refill) 90 mcg/actuation aerosol inhaler mcg INHALATION 06/20/17 [History Confirmed 09/04/17] aspirin 81 mg tablet,delayed release 81 mg PO QDAY 06/20/17 [History Confirmed 09/04/17] benzonatate 100 mg capsule 100 mg PO Q6H PRN #60 cap 06/20/17 [Rx Confirmed 09/04/17] simvastatin 5 mg tablet 5 mg PO QHS #90 tab 07/22/17 [Rx Confirmed 09/04/17] famotidine 10 mg tablet 10 mg PO QDAY #30 tab 08/15/17 [Rx Confirmed 09/04/17] alprazolam 0.5 mg tablet 0.5 mg PO BID PRN tab 09/01/17 [History Confirmed 09/04/17] fluticasone 100 mcg-vilanterol 25 mcg/dose powder for inhalation 1 inh INHALATION Q24H #3 unit 09/18/17 [Rx Confirmed 09/18/17] PFSH Medical History Tachycardia (Chronic) Palpitations (Chronic) First degree AV block (Chronic) Paroxysmal atrial fibrillation (Chronic) GERD (gastroesophageal reflux disease) (Chronic) Shortness of breath (Chronic) Hypertension (Chronic) Diverticulosis (Chronic) Asthma (Chronic) Arthritis (Chronic) DDD (degenerative disc disease) (Acute) Diaphragmatic hernia (Chronic) History of hydrocele (Resolved) History of pneumonia (Resolved) Surgical History History of right hip replacement (Chronic) History of hemicolectomy (Resolved) History of hernia repair (Resolved) History of tonsillectomy and adenoidectomy (Resolved) S/P surgical manipulation of ankle joint (Resolved) Family History Father Heart disease Arthritis COPD (chronic obstructive pulmonary disease) Myocardial infarction Mother Breast cancer Cancer lung Aunt Colon cancer Social History Smoking Status: Never smoker alcohol intake: current alcohol intake frequency: a few times a week Alcohol type: hard liquor, wine, beer substance use type: does not use caffeine: Yes Type: tea, coffee what type of physical activity do you participate in: bicycling, weight training frequency: 3-4 times per week seatbelt use: always do you feel safe at home: Yes Review of Systems Const CONSTITUTIONAL: Negative anorexia, body ache, chills, daytime sleepiness, fever(s), night sweats, oral thrush, stops breathing during sleep, weight loss, sleeping in chair, fatigue, weight loss, weight gain, frequent colds, seasonal allergies, other, headache(s) or orthopnea EETM Ear Nose Throat Mouth: Positive hearing normal and post nasal drip; negative hard of hearing, hoarseness, dry mouth in morning, change in vision, itchy eyes, eye pain, swallowing Difficulty, ear pain, nose bleed, headache(s), mouth pain, nasal congestion, nasal discharge, sinus pain, sinus pressure, sore throat or other Cardio Cardiovascular: Negative chest pain, chest pain at rest, chest pain with activity, irregular heart rhythm, edema, shortness of breath when lying down, palpitations, murmur or other Resp Respiratory: Positive as per HPI and cough cough: Positive non-productive and productive color: Positive clear; negative shortness of breath, pain with cough, wheezing, chest congestion, chest tightness, pain on inspiration, inhalers, increase use of rescue inhalers, snoring, apnea or other Gastro Gastrointestional: Negative bloody stools, change in appetite, difficulty swallowing, reflux, hematemesis, melena stool, loose stool, constipation or other Genitourinary: Positive nocturia; negative blood in urine, pain with urination or other Musc Musculoskeletal: Negative body pain, back pain, neck pain or other Skin/Breast Skin/Breast: Negative dry skin, itching, rash, unusual bruising, breast lump or other Neuro Neurological: Negative restless legs, confusion, weakness or other Psych Psychocological: Negative abnormal sleep pattern, anxiety, thoughts of hurting self/others, hopelessness or other Lymph Lymphatic: Negative easy bleeding, easy bruising, swollen lymph nodes or other Exam Const Constitutional: Positive conversant, cooperative, in no acute respiratory distress, healthy appearing, well developed, well nourished and good hygiene Head Head: Positive normocephalic and atraumatic; negative cyanosis of lips/distal nose, frontal sinus tenderness or maxillary sinus tenderness Eyes Eye: Positive clear conjunctiva; negative scleral abnormality or nystagmus Ears Ear: Positive hearing normal; negative hard of hearing Nose Nose: Positive external nose normal, septum normal and no nasal discharge; negative epistaxis or nasal polyp Mouth Mouth: Positive post nasal drip, oral mucosae normal, no lesions, posterior oropharynx is adequate and good dentition; negative oral thrush present or malodorous breath Mallampati Score: II: Mallampati Score Neck Neck: Positive normal visual inspection, full ROM and trachea midline; negative lymphadenopathy or JVD Chest Wall Chest: Positive normal inspection of the chest and symmetric chest movement; negative crepitus or increased A/P diameter Resp lung sounds: Positive clear to auscultation, good air exchange, normal expiratory time and normal respiratory effort; negative wheezes, wheeze present on forced exhalation, rhonchi, rales or dullness to percussion Cardio Cardiac: Positive regular rate, regular rhythm, S1 normal and S2 normal; negative murmur, rub or gallop GI GI: Positive normal to inspection and normal bowel sounds; negative distended, epigastric tenderness, hepatomegaly or splenomegaly Genitourinary: Positive deferred Musc Musculoskeletal: Positive steady gait and ROM normal; negative using an assistive device for ambulation, kyphosis, scoliosis or rheumatoid nodules Skin Pulmonary Skin Exam: Positive intact; negative rash, lesion, ulcers, erythema or dermal atrophy Pulses Pulse: Yes radial pulses present Extremities Extremities: Yes capillary refill normal, No clubbing, No cyanosis, No edema, No stasis dermatitis Neuro Neurologic: Yes conversant, Yes no focal neuro deficits, Yes cooperative, Yes normal cognition, Yes understands questions, Yes normal concentration, Yes normal coordination Lymph Lymphatic: No lymphadenopathy Psych Appearance: Positive grossly normal Mental Status: Positive mental status grossly normal Mood: Positive congruent mood Affect: Positive normal affect Coding Level of Care Code Off vis,est,level 3 Diagnoses Mild intermittent asthma with acute exacerbation J45.21 Asthma complication type: with acute exacerbation Asthma persistence: intermittent Asthma severity: mild 09/18/17 1315 <Electronically signed by Guillermo Weller MD> Date Guillermo Weller MD Cosigner Signature: Date (if applicable) CC: Juan Davis MD CAROTID DUPLEX Observed: 09/17/2017 Status: F Source: [place] ULTRASOUND 4:39 PM [facility] REPOSITORY [facility] Cardiovascular Services [address] [place] [address] [place] [address] Carotid Duplex Ultrasound 09/17/17 1225 MR#: [id number] Acct: [id number] Name: TRISTON PUENTE Rep #: [id number] : 1945 72 From: Osei Huber MD Attending Dr: Brendan Ace MD Status: REG CLI Ordering Dr: Brendan Ace MD Date: 09/17/17 Location: [facility] Sex: M C Admitted: Reason For Study: Carotid bruit Rt. Velocities/BP Lt. Velocities/BP Prox CCA 73.3/12.9 cm/sec. Prox CCA 93.8/15.2 cm/sec. Mid CCA 90.9/18.2 cm/sec. Mid CCA 87.4/17.6 cm/sec. Dist CCA 66.8/16.4 cm/sec. Dist CCA 76.2/14.7 cm/sec. Prox ICA 70.4/21.1 cm/sec. Prox ICA 50.7/14.1 cm/sec. Mid ICA 59.2/18.3 cm/sec. Mid ICA 55.6/17.3 cm/sec. Dist ICA 51.1/17.6 cm/sec. Dist ICA 62.0/21.4 cm/sec. Rt. ICA/CCA = .77. Lt. ICA/CCA = .71. Prox ECA 69.8/12.5 cm/sec. Prox ECA 55.2/7.9 cm/sec. Rt. Vert. 31.8/9.4 cm/sec. Lt. Vert. 38.9/11.4 cm/sec. Right Extracranial There is intimal thickening but no significant atherosclerotic plaque noted in the right common carotid artery. There is no significant atherosclerotic plaque noted in the right internal carotid artery. The right internal carotid artery is very tortuous. There is no significant atherosclerotic plaque noted in the right external carotid artery. Antegrade flow is noted in the right vertebral artery. Left Extracranial There is intimal thickening but no significant atherosclerotic plaque noted in the left common carotid artery. There is intimal thickening but no significant atherosclerotic plaque noted in the left internal carotid artery. The left internal carotid artery is very tortuous. There is no significant atherosclerotic plaque noted in the left external carotid artery. Antegrade flow is noted in the left vertebral artery. Procedure Carotid Duplex 40482. Exam performed in department. Interpretation Summary No hemodynamically significant plague or stenosis bilateral extracranial internal carotids with <50% stenosis. Tortuous bilateral internal carotids Normal flow bilateral external carotids. Patent and antegrade vertebrals bilaterally. Ordering Physician: Brendan Ace Referring Physician: Juan Davis Performed By: Dorie Madrid RVT 09/17/17 3713 Date Osei Huber MD CC: Brendan Ace MD; Juan Davis MD Date Dictated: 09/17/17 1225 Date Transcribed: 09/17/17 6249 [facility] Nurse Practitioner: Signed OFFICE VISIT REPORT Observed: 09/05/2017 Status: F Source: [facility] 4:57 PM [facility] [place] [address] OFFICE VISIT Date of Service: 08/28/17 MR#: [id number] Acct: [id number] Patient: TRISTON PUENTE Rep #: [id number] : 1945 Provider: Juan Davis MD Age/Sex: 72/M [place] [facility] Status: Signed Intake Intake Visit Reasons: REMOVE STITCHES Chief Complaint: sutures removed Allergies codeine Adverse Reaction (Verified 06/25/17 12:36) ANXIOUS Medications Beclomethasone Diprop Inhaler [Qvar 80 Mcg Inhaler] 40 mcg INHALATION DAILY 07/11/15 [History Confirmed 06/25/17] Dicyclomine HCl [Bentyl] 10 mg PO PRN PRN 07/11/15 [History Confirmed 06/25/17] Aspirin 325 mg PO BIDCM #60 tab 09/13/15 [Rx Confirmed 06/25/17] flecainide 100 mg tablet 100 mg PO BID #180 tab 05/28/17 [Rx Confirmed 06/25/17] metoprolol succinate ER 25 mg tablet,extended release 24 hr 12.5 mg PO QDAY #45 tab 05/28/17 [Rx Confirmed 06/25/17] albuterol (refill) 90 mcg/actuation aerosol inhaler mcg INHALATION 06/20/17 [History Confirmed 06/25/17] aspirin 81 mg tablet,delayed release 81 mg PO QDAY 06/20/17 [History Confirmed 06/25/17] benzonatate 100 mg capsule 100 mg PO Q6H PRN #60 cap 06/20/17 [Rx Confirmed 06/25/17] prednisone 20 mg tablet 40 mg PO QDAY #10 tab 06/20/17 [Rx Confirmed 06/25/17] salmeterol 50 mcg/dose blister powder for inhalation 1 inh INHALATION BID #28 ea 06/20/17 [Rx Confirmed 06/25/17] simvastatin 5 mg tablet 5 mg PO QHS #90 tab 07/22/17 [Rx] famotidine 10 mg tablet 10 mg PO QDAY #30 tab 08/15/17 [Rx Confirmed 08/15/17] Nursing Note Pt presents today to have 4 sutures removed from his right middle finger. Sutures were placed by the ER. Wound looked good upon evaluation, and there was no complications with removal of sutures. 09/05/171656 <Electronically signed by Juan Davis MD> Date Juan Davis MD Cosigner Signature: Date (if applicable) CC: CARDIOLOGY VISIT Observed: 09/04/2017 Status: F Source: [facility] REPORT 9:03 AM [facility] REPOSITORY [facility] [address] [place] [address] OFFICE VISIT Date of Service: 09/04/17 MR#: [id number] Acct: [id number] Name: TRISTON PUENTE Rep #: [id number] : 1945 Provider: Brendan Ace MD Age/Sex: 72/M [place] [facility] Status: Signed HPI HPI Chief Complaint: Follow up Details: TRISTON PUENTE, is a 72 M who presents to the office today for Follow-up visit. Is a gentleman with a history of paroxysmal atrial fibrillation who returns for follow-up visit. Since his last visit he has had at least 2 episodes of paroxysmal atrial fibrillation which have been controlled utilizing an extra dose of flecainide as well as beta-ramila and anxiolytic. He also had an episode during exercise where he felt his heart fluttering his thighs aching and soon after exercise the ache in the thigh improved. He is otherwise not had any dizziness no diaphoresis no near syncope or syncope. He is been compliant with his medications and also with his exercise regimen. You do remember that his laboratory tests in May did not demonstrate any significant abnormalities. He is also had a previous abdominal ultrasound scan which has been normal. His physical exam today demonstrates clear lung stiles regular rate and rhythm no pedal edema soft carotid bruits. Intake Vital Signs09/04/17 Height 6 ft 09/04/17 Weight: 193 lb 09/04/17 Body Mass Index (BMI) 26.2 09/04/17 Blood Pressure 120/72 09/04/17 Blood Pressure Location Lt brachial Intake Visit Reasons: 6 M Bone Worker Required: No Accompanied by: None Is patient in pain?: No Allergies codeine Adverse Reaction (Verified 09/04/17 08:17) ANXIOUS Medications Beclomethasone Diprop Inhaler [Qvar 80 Mcg Inhaler] 40 mcg INHALATION DAILY 07/11/15 [History Confirmed 09/04/17] Dicyclomine HCl [Bentyl] 10 mg PO PRN PRN 07/11/15 [History Confirmed 09/04/17] flecainide 100 mg tablet 100 mg PO BID #180 tab 05/28/17 [Rx Confirmed 09/04/17] metoprolol succinate ER 25 mg tablet,extended release 24 hr 12.5 mg PO QDAY #45 tab 05/28/17 [Rx Confirmed 09/04/17] albuterol (refill) 90 mcg/actuation aerosol inhaler mcg INHALATION 06/20/17 [History Confirmed 09/04/17] aspirin 81 mg tablet,delayed release 81 mg PO QDAY 06/20/17 [History Confirmed 09/04/17] benzonatate 100 mg capsule 100 mg PO Q6H PRN #60 cap 06/20/17 [Rx Confirmed 09/04/17] simvastatin 5 mg tablet 5 mg PO QHS #90 tab 07/22/17 [Rx Confirmed 09/04/17] famotidine 10 mg tablet 10 mg PO QDAY #30 tab 08/15/17 [Rx Confirmed 09/04/17] alprazolam 0.5 mg tablet 0.5 mg PO BID PRN tab 09/01/17 [History Confirmed 09/04/17] PFSH Medical History Tachycardia (Chronic) Palpitations (Chronic) First degree AV block (Chronic) Paroxysmal atrial fibrillation (Chronic) GERD (gastroesophageal reflux disease) (Chronic) Shortness of breath (Chronic) Hypertension (Chronic) Diverticulosis (Chronic) Asthma (Chronic) Arthritis (Chronic) DDD (degenerative disc disease) (Acute) Diaphragmatic hernia (Chronic) History of hydrocele (Resolved) History of pneumonia (Resolved) Surgical History History of right hip replacement (Chronic) History of hemicolectomy (Resolved) History of hernia repair (Resolved) History of tonsillectomy and adenoidectomy (Resolved) S/P surgical manipulation of ankle joint (Resolved) Family History Father Heart disease Arthritis COPD (chronic obstructive pulmonary disease) Myocardial infarction Mother Breast cancer Cancer lung Aunt Colon cancer Social History Smoking Status: Never smoker alcohol intake: current alcohol intake frequency: a few times a week Alcohol type: hard liquor, wine, beer substance use type: does not use caffeine: Yes Type: tea, coffee what type of physical activity do you participate in: bicycling, weight training frequency: 3-4 times per week seatbelt use: always do you feel safe at home: Yes ROS Const Const: Negative for body ache, fever(s), chills, night sweats, daytime sleepiness, difficulty sleeping, weight gain, weight loss, increased appetite, poor appetite, anorexia, other, frequent falls, headache(s), weakness, fatigue or excessive sweating Eyes Eyes: Negative for blind spots, loss of peripheral vision, transient loss of vision, change in vision, floaters, tunnel vision, other, blurry vision or double vision ENT ENT: Negative for hearing loss, tinnitus, Nosebleed/epistaxis, post nasal drip, bleeding gums, hoarseness, neck pain, dry mouth, other, balance problems, dizziness, headache(s), tongue swelling or lip swelling Cardio Chest Pain: No Palpitations: Yes Edema: None Muscle aches with walking: None Resp Respiratory: Positive for SOB with activity and Cough; negative for SOB at rest, SOB orthopnea\SOB lying down, Coughing up blood/hemoptysis, chest congestion, pain on inspiration, snoring, stridor, wheezing, crackles, paroxysmal nocturnal dyspnea or other GI GI: Positive for heartburn; negative nausea, vomiting, constipation, belching, bloating, cramping, vomiting blood/hematemesis, bright, red blood in stools, black,tarry stools, loose stools, Difficulty Swallowing or other : Negative for hematuria, frequent nighttime urination/ nocturia, erectile dysfunction or abnormal vaginal bleeding Musc Musc: Negative for muscle aches/ myalgia, muscle weakness, joint pain or balance problems Skin Skin: Negative redness, non-healing lesions, unusual bruising, skin ulcer, wounds, jaundice, other or rash Neuro Neuro: Negative for dizziness, lightheadedness, near syncope, syncope, orthostatic symptoms, frequent falls, headache(s), weakness, confusion, memory loss, restless legs, blurry vision, double vision, vertigo, seizures, lack of coordination or other Kevin Hematologic/Lymphatic: Negative for easy bleeding, easy bruising, enlarged lymph nodes or other Endo Endo: Negative for fatigue, cold intolerance, heat intolerance, excessive sweating, flushing, increased thirst/drinking, increased hunger, hair loss, hair growth or other Psych Psych: Positive for anxiety; negative for depression, thoughts of harming anyone, thoughts of harming yourself, visual hallucinations, panic attacks or audible hallucinations Allergy Allergy/Immunology: Negative for throat swelling, Negative for tongue swelling, Negative for hives, Negative for rash, Negative for lip swelling Cardiology Exam Const Appearance: cooperative, healthy appearing, well developed, well groomed and no acute distress Nutritional Appearance: well nourished and average body habitus Orientation: alert, awake and oriented x3 Head Head: normal to inspection, normocephalic and atraumatic Ears: hearing grossly normal bilaterally and external ears normal Nose: external nose normal, nasal mucous membranes and turbinates normal, nares normal, septum normal, no nasal discharge Face and Sinus: face symmetric Mouth: oral mucosae normal, tongue normal, oropharynx normal and moist mucous membranes Teeth and gingiva: dentition normal Throat: posterior oropharynx normal, tonsils normal and uvula midline Eyes General: appearance normal, both eyes and all related structures Eyelids: eyelids normal Conjunctivae: conjunctivae normal Pupils: PERRL, normal by confrontation and accommodation normal EOM: EOM intact bilaterally Neck Neck: normal visual inspection, trachea midline and no JVD JVD: +5 Carotids: normal carotid upstroke and bounding pulses Chest Chest inspection: normal inspection of the chest, symmetric chest movement and normal respiratory effort Auscultation: Bilateral: Clear to Auscultation Cardio Palpation: normal PMI Rate: regular rate Rhythm: regular rhythm Heart sounds: S1 normal, S2 normal and normal, physiologic split S2; negative rub, gallop or murmur GI GI: normal to inspection, soft, no hepatosplenomegaly and bowel sounds present Neuro General: alert, awake, oriented x3, no focal sensory deficit, gait normal and moves all extremities Skin Skin: no rashes or lesions noted Extremities Pulses: Normal: Right Femoral Pulse, Left Femoral Pulse, Right Dorsalis Pedis Pulse, Left Dorsalis Pedis Pulse, Right Posterior Tibial Pulse, Left Posterior Tibial Pulse, Right Radial Pulse, Left Radial Pulse Lower Extremity Edema: None: Bilateral Musculoskel Musculoskeletal: No joint tenderness Psych Psychological: normal affect Assessment AND Plan 1. Paroxysmal atrial fibrillation I48.0 Plan He does have a history of paroxysmal atrial fibrillation but is maintaining sinus rhythm most of the time. His electrocardiogram done today was noted to be normal sinus rhythm with rate of 61 bpm and normal intervals. I would not recommend that we make any changes. As remember his previous echocardiogram had demonstrated preserved ejection fraction and a stress test which was performed 3 years ago was noted to be normal at a high metabolic workload. Orders Orders: 2. Bruit of right carotid artery R09.89 Plan He does have a soft carotid bruit and I would like to exclude carotid artery disease with a carotid ultrasound. I doubt this will be significant. Thank you for allowing me to participate in the care of your patient. 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 [place] [facility] REPOSITORY [facility] [address] [place] [address] 12 [address] [facility] 09/04/1735 MR#: [id number] Acct: [id number] Name: TRISTON PUENTE Rep #: [id number] : 1945 72 From: Brendan Ace MD Attending Dr: Brendan Ace MD Status: DEP AMB Ordering Dr: Brendan Ace MD Date: 09/04/17 Location: [facility] [place] Sex: M C Admitted: [facility]12 Lead EKG performed [place] [facility] ECG Report Interpretation Sinus Rhythm -First degree A-V block David = [id number] RHYTHMElectronically signed on 09/09/2017 at 08:50 by Brendan Ace 09/09/1752 Date Brendan Ace MD CC: Juan Davis MD Date Dictated: 09/04/17834 Date Transcribed: 09/04/17834 [facility] Nurse Practitioner: [place] Signed EMERGENCY DEPARTMENT Observed: 08/19/2017 Status: F Source: [place] SUMMARY 9:23 PM [facility] REPOSITORY [facility] Medical Records Department [address] [place] [address] Emergency Department Summary 08/18/17 1446 MR#: [id number] Acct: [id number] Name: TRISTON PUENTE Rep #: [id number] : 1945 72 From: Luis Daniel Miller DO PCP: Juan Davis MD Status: DEP ER - ER Visit Summary Date of Service: 08/18/17 Chief Complaint: Laceration History of Present Illness: The patient is a 72 M states that he was reaching for something when he cut his right long finger on 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 Unsure of his last tetanus. Physical Examination: Afebrile vital signs are stable There is a 2 cm J-shaped laceration over the distal aspect on the volar surface of the right long finger. There is no active bleeding. Neurovascularly appears intact. Tendon function appears normal Emergency Department Course and Treatment: Was locally anesthetized using 1% lidocaine. It was washed with Shur-Clens and explored. It was closed using a total of 4-0 simple interrupted Ethilon sutures. It was cleansed and dressed. Tetanus was updated with Adacel. Stitches will need to be removed 10-14 days. Return if worsening or concerns Impression: 1. 2 cm right long finger laceration with repair 2. Tetanus update This note was generated with Nut[employer] dictation software. It may contain incorrect words, spelling, and punctuation that were not noted in review of the chart prior to signing ED Disposition - Plan for ED Patient: Disposition: Home or Assisted Living Chief Complaint: Laceration Instructions: ED Laceration Hand Referrals: Juan Davis MD [Primary Care Provider] - 10-14 Days suture removal What to do if you have Problems For any increased pain, shortness of breath, bleeding, nausea or vomiting, chest pain, or any unexpected problems, contact your Primary Care Provider. Call [facility] ([phone]) or report to the closest Emergency Room. Call 911 if necessary. 08/19/172122 <Electronically signed by Luis Daniel Miller DO> Date Luis Daniel Miller DO Cosigner Signature (If Indicated): Date CC: Juan Davis MD INTERNAL MEDICINE Observed: 08/19/2017 Status: F Source: [place] OFFICE VISIT 8:25 AM [facility] [address] [place] [address] [address] [place] [address] OFFICE VISIT Date of Service: 08/15/17 MR#: [id number] Acct: [id number] Name: TRISTON PUENTE Rep #: [id number] : 1945 Provider: Juan Davis MD Age/Sex: 72/M Location: [facility] Status: Signed Intake Vital Signs08/15/17 Height 5 ft 11 in 08/15/17 Weight: 196 lb 08/15/17 Body Mass Index (BMI) 27.3 08/15/17 Blood Pressure 116/60 08/15/17 Blood Pressure Location Lt brachial Intake Visit Reasons: 6 wk FU Chief Complaint: FU cough Is patient in pain?: No Allergies codeine Adverse Reaction (Verified 06/25/17 12:36) ANXIOUS Medications Beclomethasone Diprop Inhaler [Qvar 80 Mcg Inhaler] 40 mcg INHALATION DAILY 07/11/15 [History Confirmed 06/25/17] Dicyclomine HCl [Bentyl] 10 mg PO PRN PRN 07/11/15 [History Confirmed 06/25/17] Aspirin 325 mg PO BIDCM #60 tab 09/13/15 [Rx Confirmed 06/25/17] flecainide 100 mg tablet 100 mg PO BID #180 tab 05/28/17 [Rx Confirmed 06/25/17] metoprolol succinate ER 25 mg tablet,extended release 24 hr 12.5 mg PO QDAY #45 tab 05/28/17 [Rx Confirmed 06/25/17] albuterol (refill) 90 mcg/actuation aerosol inhaler mcg INHALATION 06/20/17 [History Confirmed 06/25/17] aspirin 81 mg tablet,delayed release 81 mg PO QDAY 06/20/17 [History Confirmed 06/25/17] benzonatate 100 mg capsule 100 mg PO Q6H PRN #60 cap 06/20/17 [Rx Confirmed 06/25/17] prednisone 20 mg tablet 40 mg PO QDAY #10 tab 06/20/17 [Rx Confirmed 06/25/17] salmeterol 50 mcg/dose blister powder for inhalation 1 inh INHALATION BID #28 ea 06/20/17 [Rx Confirmed 06/25/17] simvastatin 5 mg tablet 5 mg PO QHS #90 tab 07/22/17 [Rx] famotidine 10 mg tablet 10 mg PO QDAY #30 tab 08/15/17 [Rx Confirmed 08/15/17] PFSH Medical History History of pneumonia (Chronic) Hypertension (Chronic) Diverticulosis (Chronic) Degenerative disc disease (Chronic) Atrial fibrillation (Chronic) Asthma (Chronic) Arthritis (Chronic) Diverticula of colon (Acute) history of borderline kidney disease (Acute) Surgical History History of right hip replacement (Acute) tendon surgery (Acute) Family History Father Heart disease Arthritis Mother Breast cancer Cancer lung Social History Smoking Status: Never smoker alcohol intake: current alcohol intake frequency: a few times a week Alcohol type: hard liquor substance use type: does not use what type of physical activity do you participate in: bicycling, weight training frequency: 3-4 times per week HPI HPI Chief Complaint: FU cough Details: TRISTON PUENTE, is a 72yo M who presents to the office today for follow up. He has no acute complaints at this time. He followed up with pulmonology and had a PFT done which was suggestive of mild airway disease/asthma. He reports symptom improvement with Serevent and Qvar. He is slowly returning to his previous activity level. Hoarseness is also said to be improving. Has been more consistent with his omeprazole however, is concerned due to the risk of kidney disease. Patient states that he was told by prior physician that he had CKD 3. This was said to be based of a 1 time abnormal GFR and creatinine. Preceding and subsequent renal function tests have been within normal. ROS Const Constitutional: No weight change, body ache, chills, fatigue, sleep problems, fever(s), change in appetite, snoring, weakness, frequent falls, headache(s) or excessive sweating Eyes Eyes: No change in vision, eye pain, light sensitivity or blurry vision ENT ENT: Positive for hoarseness; no headache(s), abnormal hearing, ear pain, tinnitus, nasal congestion, sore throat or neck pain Resp Respiratory: Positive for cough (improving.) Cough: Yes non-productive; no snoring, shortness of breath or wheezing Cardio Cardiology: No excessive sweating, chest pain at rest, chest pain with exertion, shortness of breath, dyspnea on exertion, palpitations, orthopnea or lightheadedness Gastro GI: No abdominal pain, change in bowel habits, constipation, diarrhea, vomiting, nausea/dyspepsia or cramping Musc Musculoskeletal: No neck pain, abnormal walking, joint pain, back pain, limited range of motion, numbness or tingling Skin Skin: No redness, dry skin, itching, lesions, wounds or rash Neuro Neurology: No weakness, frequent falls, headache(s), abnormal hearing, abnormal walking, numbness, tingling, abnormal speech, dizziness or memory loss Psych Psychiatric: No change in appetite, No memory loss, No anxiety, No depression, No Thoughts of harming yourself/Others Endo Endocrine: No fatigue, excessive sweating, cold intolerance, increased thirst/drinking, heat intolerance, flushing or increased hunger Aller/Imm Allergy/Immunologic: No wheezing, itchy eyes, hives or seasonal allergy symptoms Kevin/Lymp Hematologic/Lymphatic: No easy bleeding, easy bruising or enlarged lymph nodes Exam Const General: cooperative, no acute distress, well developed Orientation: awake, oriented x3, alert HENMT Head: normal to inspection, normocephalic Ears: hearing grossly normal bilaterally Chest Chest palpation AND inspection: normal palpation of entire chest wall, normal inspection of the chest Resp Effort AND Inspection: normal respiratory effort, symmetric chest movement, able to speak in complete sentences Auscultation: Bilateral: Clear to Auscultation Cardio Rate: regular rate Heart Sounds: S1 normal, S2 normal GI Palpation: soft, no hepatosplenomegaly Neuro General: alert, awake, oriented x3, moves all extremities, CN's II-XI intact bilaterally Extrem General: no clubbing, cyanosis or edema Assessment AND Plan 1. Mild intermittent asthma with acute exacerbation J45.21 Plan Symptoms are said to have improved. Currently out of Serevent and is using his albuterol inhalers as needed. Plan is for a possible LAMA/ICS inhalers. Scheduled to follow up with Pulmo in August. Continue current plan. 2. Hoarseness or changing voice R49.9 Plan Said to have improved on Pantoprazole/Omeprazole. He however has taken it inconsistently due to his concerns about his kidney function deteriorating. Will switch to a low dose maintenance dose of Famotidine 10 mg every morning. Follow-up in 4 months and possibly discontinue. 3. GERD (gastroesophageal reflux disease) K21.9 Plan Plan as above. Life style modifications. Follow up at next visit. This note was generated with Fliqqation software. It may contain incorrect words, spelling, and punctuation that were not noted in checking the note before signing. Plan Detail Other Medications New: Discontinued: Follow Up 4 Months Coding Level of Care Code Off vis,est,level 3 Diagnoses Mild intermittent asthma with acute exacerbation J45.21 Asthma severity: mild Asthma persistence: intermittent Asthma complication type: with acute exacerbation Hoarseness or changing voice R49.9 GERD (gastroesophageal reflux disease) K21.9 08/19/17 0825 <Electronically signed by Juan Davis MD> Date Juan Davis MD Cosigner Signature: Date (if applicable) CC: PULMONARY VISIT REPORT Observed: 06/26/2017 Status: F Source: [place] 4:36 PM [facility] REPOSITORY [facility] [address] [place] [address] OFFICE VISIT Date of Service: 06/25/17 MR#: [id number] Acct: [id number] Name: TRISTON PUENTE Rep #: [id number] : 1945 Provider: Guillermo Weller MD Age/Sex: 72/M Location: [facility] Status: Signed Assessment AND Plan 1. Mild intermittent asthma with acute exacerbation J45.21 Plan Clinical suspicion for asthma exacerbation secondary to viral illness. Patient appears to be responding to prednisone therapy. Pulmonary function tests are grossly within normal limits, but do have stigmata of small airways disease despite current treatment with prednisone therapy. Did discuss with patient about the role of methacholine challenge, but after review of the risks, benefits and alternatives, patient would like to be treated empirically. Patient will use Serevent until current prescription is done. Then will attempt to continue patient on Qvar alone. This will likely provide the best control with little interaction with patient's known history of paroxysmal A. fib. Use Serevent until current prescription is done. Continue Qvar until next visit. No methacholine at this time Plan Detail Follow Up 3 Months (BWA) HPI Cough: Chief Complaint: Cough Details: Patient is a 72-year-old male, currently under the care of Dr. Davis, who presented for evaluation secondary to cough. Patient reports he was diagnosed with mild asthma in the past and was treated with Serevent and Qvar therapy. Patient states that approximately a year ago he ran out of medications and has been going without ever since. Patient states that he had noted intermittent periods of wheezing, but did not feel the need to have this addressed. Approximately 4 weeks ago, patient noted severe coughing leading to 2 separate urgent care visits and a PCP visit that resulted in 2 separate doses of prednisone burst and azithromycin. Patient has reported improvement with therapy, but is still having an intermittent cough. Patient was initiated on Qvar and Serevent therapy. Patient reportedly has been tolerating this well without complication such as thrush, hoarseness or sore throat. Patient denies any history of exposure to asbestos or tuberculosis. 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 Patient states he wore a mask during most periods. 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 Patient does have a history of paroxysmal atrial fibrillation is currently on flecainide and metoprolol therapy. Patient does state that he can feel palpitations and a queasiness in his stomach when he is out of rhythm. Patient states this typically only happens for 4-6 hours intermittently. Patient will treat with an extra metoprolol and benzodiazepine with good response. Patient does report that he was on 40 mg of prednisone at the time of complete pulmonary function test. Testing personally reviewed with the patient Chest x-ray (06/19/2017): Hyperinflation with possible lingular scarring Complete PFT (06/24/2017): Grossly normal pulmonary function test with some stigmata of small airways disease. Lung volumes and diffusion capacity are preserved. Intake Vital Signs06/25/17 Height 5 ft 11 in 06/25/17 Weight: 87.997 kg Intake Visit Reasons: Cough Chief Complaint: Cough Accompanied by: Allergies codeine Adverse Reaction (Verified 06/25/17 12:36) ANXIOUS Medications Beclomethasone Diprop Inhaler [Qvar 80 Mcg Inhaler] 40 mcg INHALATION DAILY 07/11/15 [History Confirmed 06/25/17] Dicyclomine HCl [Bentyl] 10 mg PO PRN PRN 07/11/15 [History Confirmed 06/25/17] Pantoprazole Sodium [Protonix] 40 mg PO DAILY PRN PRN 07/11/15 [History Confirmed 06/25/17] Simvastatin [Zocor] 5 mg PO QHS 07/11/15 [History Confirmed 06/25/17] Aspirin 325 mg PO BIDCM #60 tab 09/13/15 [Rx Confirmed 06/25/17] flecainide 100 mg tablet 100 mg PO BID #180 tab 05/28/17 [Rx Confirmed 06/25/17] metoprolol succinate ER 25 mg tablet,extended release 24 hr 12.5 mg PO QDAY #45 tab 05/28/17 [Rx Confirmed 06/25/17] albuterol (refill) 90 mcg/actuation aerosol inhaler mcg INHALATION 06/20/17 [History Confirmed 06/25/17] aspirin 81 mg tablet,delayed release 81 mg PO QDAY 06/20/17 [History Confirmed 06/25/17] benzonatate 100 mg capsule 100 mg PO Q6H PRN #60 cap 06/20/17 [Rx Confirmed 06/25/17] prednisone 20 mg tablet 40 mg PO QDAY #10 tab 06/20/17 [Rx Confirmed 06/25/17] salmeterol 50 mcg/dose blister powder for inhalation 1 inh INHALATION BID #28 ea 06/20/17 [Rx Confirmed 06/25/17] [facility] Medical History History of pneumonia (Chronic) Hypertension (Chronic) Diverticulosis (Chronic) Degenerative disc disease (Chronic) Atrial fibrillation (Chronic) Asthma (Chronic) Arthritis (Chronic) Diverticula of colon (Acute) history of borderline kidney disease (Acute) Surgical History History of right hip replacement (Acute) tendon surgery (Acute) Family History Father Heart disease Arthritis Mother Breast cancer Cancer lung Social History Smoking Status: Never smoker alcohol intake: current alcohol intake frequency: a few times a week Alcohol type: hard liquor substance use type: does not use what type of physical activity do you participate in: bicycling, weight training frequency: 3-4 times per week Review of Systems Const CONSTITUTIONAL: Negative anorexia, body ache, chills, daytime sleepiness, fever(s), night sweats, oral thrush, stops breathing during sleep, weight loss, sleeping in chair, fatigue, weight loss, weight gain, frequent colds, seasonal allergies, other, headache(s) or orthopnea EETM Ear Nose Throat Mouth: Positive hearing normal and hoarseness; negative hard of hearing, dry mouth in morning, change in vision, itchy eyes, eye pain, swallowing Difficulty, ear pain, nose bleed, headache(s), mouth pain, nasal congestion, nasal discharge, post nasal drip, sinus pain, sinus pressure, sore throat or other Cardio Cardiovascular: Positive palpitations; negative chest pain, chest pain at rest, chest pain with activity, irregular heart rhythm, edema, shortness of breath when lying down, murmur or other Resp Respiratory: Positive as per HPI and cough cough: Positive productive color: Positive clear; negative shortness of breath, pain with cough, wheezing, chest congestion, chest tightness, pain on inspiration, inhalers, increase use of rescue inhalers, snoring, apnea or other Gastro Gastrointestional: Negative bloody stools, change in appetite, difficulty swallowing, reflux, hematemesis, melena stool, loose stool, constipation or other Genitourinary: Negative blood in urine, nocturia, pain with urination or other Musc Musculoskeletal: Negative body pain, back pain, neck pain or other Skin/Breast Skin/Breast: Negative dry skin, itching, rash, unusual bruising, breast lump or other Neuro Neurological: Negative restless legs, confusion, weakness or other Psych Psychocological: Negative abnormal sleep pattern, anxiety, thoughts of hurting self/others, hopelessness or other Lymph Lymphatic: Negative easy bleeding, easy bruising, swollen lymph nodes or other Exam Const Constitutional: Positive conversant, cooperative, in no acute respiratory distress, healthy appearing, well developed, well nourished and good hygiene Head Head: Positive normocephalic and atraumatic; negative cyanosis of lips/distal nose, frontal sinus tenderness or maxillary sinus tenderness Eyes Eye: Positive clear conjunctiva; negative nystagmus, scleral abnormality or cataract present Ears Ear: Positive hearing normal and external ears normal; negative hard of hearing Nose Nose: Positive external nose normal, septum normal and no nasal discharge; negative epistaxis or nasal polyp Mouth Mouth: Positive oral mucosae normal, no lesions, good dentition and posterior oropharynx is adequate; negative post nasal drip or oral thrush present Mallampati Score: II: Mallampati Score Neck Neck: Positive normal visual inspection, full ROM and trachea midline; negative lymphadenopathy or JVD Chest Wall Chest: Positive normal inspection of the chest and symmetric chest movement; negative crepitus or tenderness Resp lung sounds: Positive clear to auscultation, good air exchange, normal expiratory time and wheeze present on forced exhalation; negative wheezes, rhonchi, rales or use of accessory muscles Cardio Cardiac: Positive regular rate, regular rhythm, S1 normal, S2 normal and normal PMI; negative murmur, rub or gallop GI GI: Positive normal to inspection and normal bowel sounds; negative distended, ascites or epigastric tenderness Genitourinary: Positive deferred Musc Musculoskeletal: Positive steady gait; negative using an assistive device for ambulation, kyphosis or scoliosis Skin Pulmonary Skin Exam: Positive intact; negative rash, lesion, ulcers, erythema, dermal atrophy or petechiae Pulses Pulse: Yes pulses normal x4 extremities Extremities Extremities: Yes capillary refill normal, No clubbing, No cyanosis, No edema, No stasis dermatitis Neuro Neurologic: Yes conversant, Yes no focal neuro deficits, Yes cooperative, Yes normal cognition, Yes normal coordination, Yes normal concentration Lymph Lymphatic: No lymphadenopathy, No tenderness, No cervical adenopathy, No axillary adenopathy Psych Appearance: Positive grossly normal Mental Status: Positive mental status grossly normal Mood: Positive congruent mood Affect: Positive normal affect Coding Level of Care Code Off vis,new,level 4 Diagnoses Mild intermittent asthma with acute exacerbation J45.21 Asthma complication type: with acute exacerbation Asthma persistence: intermittent Asthma severity: mild 06/26/17 1636 <Electronically signed by Guillermo Weller MD> Date Guillermo Weller MD Cosigner Signature: Date (if applicable) CC: Brendan Ace MD; Juan Davis MD PULMONARY FUNCTION Observed: 06/25/2017 Status: F Source: [facility] TEST 8:44 AM [facility] REPOSITORY [facility] Pulmonary Services/Neurology [address] [place] [address] MR#: [id number] Acct: [id number] Name: TRISTON PUENTE Rep #: [id number] : 1945 72 From: Nils Graf DO Referring Dr: Juan Davis MD Status: REG CLI Ordering Dr: Date: Location: [facility] Sex: M C INTRODUCTION: The patient is a 72-year-old male currently under the care of Dr. Davis that presents for pulmonary function testing secondary to a diagnosis of asthma/SOB. Respiratory therapy reports good patient effort and reports no other concerns. Bronchodilators were used during testing. INTERPRETATION: Forced expiration spirometry demonstrates no evidence of a large airways obstructive ventilatory defect, based upon a postbronchodilator FEV1 to FVC of 71%. There was no significant response to aerosolized bronchodilators noted, based upon strict ATS criteria. Spirograms are of good quality but do not plateau indicating slow emptying of the lungs. The respiratory flow volume loop reveals decreased expiratory flow rates, primarily at high lung volumes which can be indicative of small airways obstruction. Body plethysmography was performed and reveals lung volumes to be within normal limits. Diffusing capacity by single breath CO is within normal limits at 99% of predicted. The airway resistance is within normal limits. IMPRESSION: These pulmonary function studies are grossly within normal limits. 06/25/17843 <Electronically signed by Nils Graf DO> Date Nils Graf DO CC: Juan Davis MD Date Dictated: 06/25/17839 Date Transcribed: 06/25/17839 [facility] Nurse Practitioner: MADHURI Signed ALLERGIES ALLERGIES DATE TYPE / CODE NAME / CODE REACTION SEVERITY SOURCE 04/14/2018 Drug codeine/[id number] ANXIOUS Unknown [place] Allergy/416 (RXNORM) [facility] 688319([facility]) Repository 04/14/2018 Drug fluticasone Other-heart [place] Allergy/416 furoate/[id number] [facility], [facility] 422874(SNOM (RXNORM) anxiety, [facility] ED CT) Repository 04/14/2018 Drug vilanterol/[id number] Other-heart [place] Allergy/416 022(RXNORM) [facility], [facility] 588137(SNOM anxiety, [facility] ED CT) Repository ENCOUNTERS ENCOUNTERS ADMIT/DISCHARGE ACCOUNT ADMITTING ENCOUNTER LOCATION SOURCE NUMBER CLASS 06/15/2018/ [id number] Ambulatory BMSBuilding:B [place] 9 2 [place] Repository 06/12/2018 [id number] Ambulatory [place] 0 [facility] ing:LAB Repository 04/14/2018/ [id number] Ambulatory BMSBuilding:B [place] 8 8 [facility] Repository 02/02/2018/ [id number] Ambulatory BMSBuilding:B [place] 8 6 [place].[facility] [place] [place] Repository 01/27/2018 [id number] Ambulatory [place] 7 [facility] ing:LAB Repository 12/18/2017 [id number] Ambulatory [place] 6 [facility] ing:LAB Repository 12/12/2017/ [id number] Ambulatory BMSBuilding:B [place] 8 7 [facility] Repository 12/08/2017 [id number] Ambulatory [place] 4 [facility] ing:LAB Repository 10/24/2017/ [id number] Ambulatory BMSBuilding:B [place] 8 8 [place].[facility] [place] [place] Repository 10/14/2017 [id number] Ambulatory [place] 3 [facility] ing:LAB Repository 10/10/2017 [id number] Ambulatory [place] 4 [facility] ing:LAB Repository 10/10/2017/ [id number] Ambulatory BMSBuilding:B [place] 8 3 [place].[facility] [place] [place] Repository 10/05/2017/ [id number] Ambulatory BMSBuilding:B [place] 8 7 [facility] Repository 09/24/2017/ [id number] Ambulatory BMSBuilding:B [place] 8 5 [facility] [place] [place] Repository 09/18/2017/ [id number] Ambulatory BMSBuilding:B [place] 8 5 [facility] [place] [place] Repository 09/17/2017 [id number] Ambulatory BMSBuilding:B [place] 1 MS.CF.[facility] Repository 09/17/2017 [id number] Ambulatory [place] [facility] 4 [facility] Repository 09/04/2017/ [id number] Ambulatory BMSBuilding:B [place] 8 1 [facility] Repository 09/01/2017 [id number] Ambulatory BMSBuilding:B [place] 1 [facility] Repository 08/28/2017/ [id number] Ambulatory BMSBuilding:B [place] 8 7 [facility] Repository 08/18/2017/ [id number] Emergency [place] 8 8 [facility] Hospital ing:ED Repository 08/15/2017/ [id number] Ambulatory BMSBuilding:B [place] 8 8 [facility] Repository 06/25/2017/ [id number] Ambulatory BMSBuilding:B [place] 8 1 MS.[facility] [place] [place] Repository 06/25/2017 [id number] Ambulatory BMSBuilding:W [place] 4 [facility] Repository 06/24/2017 [id number] Ambulatory [place] 4 [facility] ing[facility]PSN Repository 06/20/2017/ [id number] Ambulatory BMSBuilding:B [place] 8 3 [facility] Repository PAYERS PAYERS ENCOUNTER GUARANTOR PAYER SUBSCRIBER SOURCE 06/15/2018 TRISTON [id number] Primary TRISTON K Tyner [facility] Insurance:MEDICARE [facility]ERD[facility] [place] [place] [facility] [id number] Hospital [address]Djv: (330) Number: Repository [phone] (HP) [id number] Date:2017-12-12 06/15/2018 Secondary TRISTON K Tyner Insurance:MEDICAL MILLERDOB: [facility] [id number] Hospital Number: Repository [id number] Date:6809-35-87[address] [address]LW: 06/15/2018 Tertiary NOT GIVENUNK [place] Insurance:SELF PAY [facility] Number: Effective Repository Date:2018-06-09 06/12/2018 TRISTON Abbey [id number] Primary TRISTON K Tyner [place] Insurance:MEDICARE MILLERDOB: [place] PART A [facility] [id number] Hospital [address]Aqr: (330) Number: Repository [phone] () [id number] Date:2018-06-12 06/12/2018 Secondary TRISTON K [place] Insurance:MEDICAL MILLERDOB: [facility] [id number] Hospital Number: Repository [id number] Date:4443-69-72OY[address] [address]SP: 06/12/2018 Tertiary NOT GIVENUNK [place] Insurance:SELF PAY [facility] Number: Effective Repository Date:2018-06-12 04/14/2018 TRISTON K [id number] Primary TRISTON K Calos [place] Insurance:MEDICARE MILLERDOB: [place] [facility] [id number] Hospital [address]Xgs: (330) Number: Repository [phone] () [id number] Date:2017-09-04 04/14/2018 Secondary TRISTON K [place] Insurance:MEDICAL MILLERDOB: [facility] [id number] Hospital Number: Repository [id number] Date:0629-66-45KD [address] [address]UW: 04/14/2018 Tertiary NOT GIVENUNK [place] Insurance:SELF PAY [facility] Number: Effective Repository Date:2018-04-14 02/02/2018 TRISTON K [id number] Primary TRISTON K Tyner [place] Insurance:MEDICARE MILLERDOB: [place] [facility] [id number] Hospital 12[address]Vmv: (330) Number: Repository [phone] () [id number] Date:2017-10-24 02/02/2018 Secondary TRISTON K [place] Insurance:MEDICAL MILLERDOB: [facility] [id number] Hospital Number: Repository [id number] Date:3070-68-09ZC [address] [address]NL: 02/02/2018 Tertiary NOT GIVENUNK [place] Insurance:SELF PAY [facility] Number: Effective Repository Date:2018-01-23 01/27/2018 TRISTON K [id number] Primary TRISTON K Tyner [place] Insurance:MEDICARE MILLERDOB: [place] [facility] [id number] Hospital 18332Zzi: (330) Number: Repository [phone] () [id number] Date:2018-01-27 01/27/2018 Secondary TRISTON K [place] Insurance:MEDICAL MILLERDOB: [facility] [id number] Hospital Number: Repository [id number] Date:6158-96-69RA [address] [address]PJ: 01/27/2018 Tertiary NOT GIVENUNK [place] Insurance:SELF PAY [facility] Number: Effective Repository Date:2018-01-27 12/18/2017 TRISTON K [id number] Primary TRISTON K Tyner [place] Insurance:MEDICARE MILLERDOB: [place] [facility] [id number] Hospital [address]Jhz: (330) Number: Repository [phone] () [id number] Date:2017-12-18 12/18/2017 Secondary TRISTON K [place] Insurance:MEDICAL MILLERDOB: [facility] [id number] Hospital Number: Repository [id number] Date:4347-25-01SX[address] [address]ZB: 12/18/2017 Tertiary NOT GIVENUNK [place] Insurance:SELF PAY [facility] Number: Effective Repository Date:2017-12-18 12/12/2017 TRISTON K [id number] Primary TRISTON K Calos [place] Insurance:MEDICARE MILLERDOB: [place] [facility] [id number] Hospital [address]Eos: (330) Number: Repository [phone] () [id number] Date:2017-08-15 12/12/2017 Secondary TRISTON K [place] Insurance:MEDICAL MILLERDOB: [facility] [id number] Hospital Number: Repository [id number] Date:1699-83-17IF[address] [address]PT: 12/12/2017 Tertiary NOT GIVENUNK [place] Insurance:SELF PAY [facility] Number: Effective Repository Date:2017-12-12 12/08/2017 TRISTON K [id number] Primary TRISTON K Calos [place] Insurance:MEDICARE MILLERDOB: [place] [facility] [id number] Hospital [address]Rps: (330) Number: Repository [phone] () [id number] Date:2017-12-08 12/08/2017 Secondary TRISTON K [place] Insurance:MEDICAL MILLERDOB: [facility] [id number] Hospital Number: Repository [id number] Date:5129-13-90TC[address] [address]LG: 12/08/2017 Tertiary NOT GIVENUNK [place] Insurance:SELF PAY [facility] Number: Effective Repository Date:2017-12-08 10/24/2017 TRISTON K [id number] Primary TRISTON K Tyner [place] Insurance:MEDICARE MILLERDOB: [place] [facility] [id number] Hospital 27[address]Muy: Number: Repository [phone] [id number] (HP) Date:2017-10-10 10/24/2017 Secondary TRISTON K [place] Insurance:MEDICAL MILLERDOB: [facility] [id number] Hospital Number: Repository [id number] Date:3459-07-66DY [address] [address]XI: 10/24/2017 Tertiary NOT GIVENUNK [place] Insurance:SELF PAY [facility] Number: Effective Repository Date:2017-10-22 10/14/2017 TRISTON K [id number] Primary TRISTON K Calos [place] Insurance:MEDICARE MILLERDOB: [place] [facility] [id number] Hospital 28[address]Kcs: Number: Repository [phone] [id number] (HP) Date:2017-10-14 10/14/2017 Secondary TRISTON K [place] Insurance:MEDICAL MILLERDOB: [facility] [id number] Hospital Number: Repository [id number] Date:7345-97-77BU [address] [address]HL: 10/14/2017 Tertiary NOT GIVENUNK [place] Insurance:SELF PAY [facility] Number: Effective Repository Date:2017-10-14 10/10/2017 TRISTON K [id number] Primary TRISTON K Calos [place] Insurance:MEDICARE MILLERDOB: [place] [facility] [id number] [id number]: Number: Repository [phone] [id number] (HP) Date:2017-10-10 10/10/2017 Secondary TRISTON K [place] Insurance:MEDICAL MILLERDOB: [facility] [id number] Hospital Number: Repository [id number] Date:9790-81-08NX [address] [address]WN: 10/10/2017 Tertiary NOT GIVENUNK [place] Insurance:SELF PAY [facility] Number: Effective Repository Date:2017-10-10 10/10/2017 TRISTON K [id number] Primary TRISTON K Tyner [place] Insurance:MEDICARE MILLERDOB: [place] [facility] [id number] [place] [id number]: Number: Repository [phone] [id number] (HP) Date:2017-10-10 10/10/2017 Secondary TRISTON K [place] Insurance:MEDICAL MILLERDOB: [facility] [id number] Hospital Number: Repository [id number] Date:2488-72-49OH [address] [address]WK: 10/10/2017 Tertiary NOT GIVENUNK [place] Insurance:SELF PAY [facility] Number: Effective Repository Date:2017-10-10 10/05/2017 TRISTON Abbey [id number] Primary TRISTON K Tyner [place] Insurance:MEDICARE MILLERDOB: [place] [facility] [id number] [place] [id number]: Number: Repository [phone] [id number] (HP) Date:2017-10-05 10/05/2017 Secondary TRISTON K [place] Insurance:MEDICAL MILLERDOB: [facility] [id number] Hospital Number: Repository [id number] Date:0102-51-53UB [address] [address]EM: 10/05/2017 Tertiary NOT GIVENUNK [place] Insurance:SELF PAY [facility] Number: Effective Repository Date:2017-10-05 09/24/2017 TRISTON K [id number] Primary TRISTON K Calos [place] Insurance:MEDICARE [place]ILLERDOB: [place] [facility] [id number] Hospital [address]Imq: Number: Repository [phone] [id number] (HP) Date:2017-09-19 09/24/2017 Secondary TRISTON K Ty[place] Insurance:MEDICAL MILLERDOB: [facility] [id number] Hospital Number: Repository [id number] Date:1094-43-70AZ [address] [address]BM: 09/24/2017 Tertiary NOT GIVENUNK [place] Insurance:SELF PAY [facility] Number: Effective Repository Date:2017-09-22 09/18/2017 TRISTON K [id number] Primary TRISTON K Tyner [place] Insurance:MEDICARE [place]ILLERDOB: [place] [facility] [id number] Hospital [address]Bce: Number: Repository [phone] [id number] () Date:2017-06-25 09/18/2017 Secondary TRISTON K [place] Insurance:MEDICAL MILLERDOB: [facility] [id number] Hospital Number: Repository [id number] Date:3322-76-92WI [address] [address]XP: 09/18/2017 Tertiary NOT GIVENUNK [place] Insurance:SELF PAY [facility] Number: Effective Repository Date:2017-09-16 09/17/2017 TRISTON K [id number] Primary TRISTON K Calos [place] Insurance:MEDICARE [place]ILLERDOB: [place] [facility] [id number] Hospital 90[address]Vwn: Number: Repository [phone] [id number] () Date:2017-09-04 09/17/2017 Secondary TRISTON K [place] Insurance:MEDICAL MILLERDOB: [facility] [id number] Hospital Number: Repository [id number] Date:5530-41-50CG [address] [address]ME: 09/17/2017 Tertiary NOT GIVENUNK [place] Insurance:SELF PAY [facility] Number: Effective Repository Date:2017-09-17 09/17/2017 TRISTON K [id number] Primary TRISTON K Tyner [place] Insurance:MEDICARE [place]ILLERDOB: [place] [facility] [id number] Ville [id number]: Number: Repository [phone] [id number] (HP) Date:2017-09-04 09/17/2017 Secondary TRISTON K [place] Insurance:MEDICAL MILLERDOB: [facility] [id number] Hospital Number: Repository [id number] Date:5439-52-40YG [address] [address]PC: 09/17/2017 Tertiary NOT GIVENUNK [place] Insurance:SELF PAY [facility] Number: Effective Repository Date:2017-09-04 09/04/2017 TRISTON K [id number] Primary TRISTON K Calos [place] Insurance:MEDICARE [place]ILLERDOB: [place] [facility] [id number] Ville [id number]: Number: Repository [phone] [id number] (HP) Date:2017-05-04 09/04/2017 Secondary TRISTON K Tyner Insurance:MEDICAL MILLERDOB: [facility] [id number] Hospital Number: Repository [id number] Date:9140-04-48XY [address] [address]IZ: 09/04/2017 Tertiary NOT GIVENUNK [place] Insurance:SELF PAY [facility] Number: Effective Repository Date:2017-09-04 09/01/2017 TRISTON K [id number] Primary TRISTON K Tyner [place] Insurance:MEDICARE MILLERDOB: [place] [facility] [id number] Ville [id number]: Number: Repository [phone] [id number] (HP) Date:2017-09-01 09/01/2017 Secondary TRISTON K Tyner Insurance:MEDICAL MILLERDOB: [place] [id number] Hospital Number: Repository [id number] Date:3486-71-85OS [address] [place] [address]CJ: 09/01/2017 Tertiary NOT GIVENUNK [place] Insurance:SELF PAY [facility] Number: Effective Repository Date:2017-09-01 08/28/2017 TRISTON Abbey [id number] Primary TRISTON K Tyner [place] Insurance:MEDICARE MILLERDOB: [place] [facility] [id number] Ville [id number]: Number: Repository [phone] [id number] (HP) Date:2017-08-20 08/28/2017 Secondary TRISTON K Tyner Insurance:MEDICAL MILLERDOB: [facility] [id number] Hospital Number: Repository [id number] Date:5895-93-96DN [address] [address]NA: 08/28/2017 Tertiary NOT GIVENUNK [place] Insurance:SELF PAY [facility] Number: Effective Repository Date:2017-08-28 08/18/2017 TRISTON K [id number] Primary TRISTON K Calos [place] Insurance:MEDICARE MILLERDOB: [place] [facility] [id number] [place]ille [id number]: Number: Repository [phone] [id number] (HP) Date:2017-08-18 08/18/2017 Secondary TRISTON K Tyner Insurance:MEDICAL MILLERDOB: [facility] [id number] Hospital Number: Repository [id number] Date:3834-60-61HU [address] [place] [address]UQ: 08/18/2017 Tertiary NOT GIVENUNK [place] Insurance:SELF PAY [facility] Number: Effective Repository Date:2017-08-18 08/15/2017 TRISTON K [id number] Primary TRISTON K Tyner [place] Insurance:MEDICARE [place]ILLERDOB: [place] [facility] [id number] Hospital 79[address]Xff: Number: Repository [phone] [id number] (HP) Date:2017-06-20 08/15/2017 Secondary TRISTON K [place] Insurance:MEDICAL MILLERDOB: [facility] [id number] Hospital Number: Repository [id number] Date:5219-95-34IL [address] [address]JX: 08/15/2017 Tertiary NOT GIVENUNK [place] Insurance:SELF PAY [facility] Number: Effective Repository Date:2017-08-15 06/25/2017 TRISTON K [id number] Primary TRISTON K Tyner [place] Insurance:MEDICARE [place]ILLERDOB: [place] [facility] [id number] Hospital [address]Hlw: Number: Repository [phone] [id number] (HP) Date:2017-06-23 06/25/2017 Secondary TRISTON K [place] Insurance:MEDICAL MILLERDOB: [facility] [id number] Hospital Number: Repository [id number] Date:7472-10-27QS[address] [address]GO: 06/25/2017 Tertiary NOT GIVENUNK [place] Insurance:SELF PAY [facility] Number: Effective Repository Date:2017-06-23 06/25/2017 TRISTON K [id number] Primary TRISTON K [place] Insurance:MEDICARE MILLERDOB: [place] [facility] [id number] [id number]: Number: Repository [phone] [id number] (HP) Date:2017-06-20 06/25/2017 Secondary TRISTON K Calos Insurance:MEDICAL MILLERDOB: [facility] [id number] Hospital Number: Repository [id number] Date:[id number] [address] [address]VS: 06/25/2017 Tertiary NOT GIVENUNK Ty[place] Insurance:SELF PAY [facility] Number: Effective Repository Date:2017-06-25 06/24/2017 TRISTON K [id number] Primary TRISTON K Calos [place] Insurance:MEDICARE MILLERDOB: [place] PART [place] [facility] [id number] [id number]: Number: Repository [phone] [id number] (HP) Date:2017-06-20 06/24/2017 Secondary TRISTON K Calos Insurance:MEDICAL MILLERDOB: [facility] [id number] Hospital Number: Repository [id number] Date:[id number] [address] [address]IG: 06/24/2017 Tertiary NOT GIVENUNK Calos Insurance:SELF PAY [facility] Number: Effective Repository Date:2017-06-20 06/20/2017 TRISTON K [id number] Primary TRISTON K Calos [place] Insurance:MEDICARE MILLERDOB: [place] [facility] [id number] [id number]: Number: Repository [phone] [id number] (HP) Date:2017-06-19 06/20/2017 Secondary TRISTON K Calos Insurance:MEDICAL MILLERDOB: [facility] [id number] Hospital Number: Repository [id number] Date:[id number] [address] [address]PY: 06/20/2017 Tertiary NOT GIVENUNK Calos Insurance:SELF PAY [facility] Number: Effective Repository Date:2017-06-19
== END ==
PROVIDERS: Nurse Practitioner Family; Family Provider Internal Medicine; PCP Internal Medicine; Referring Provider Internal Medicine; Visit Provider Internal Medicine
DX: I10 Essential (primary) hypertension (principal)
CPT/HCPCS: 36415; 80053; 80061

== ENCOUNTER → 2018-07-22 10:10 | Outpatient (CLI) | payer MEDICARE, OTHER, SELFPAY ==
[2018-06-15 09:00] VITALS: BMI 26.6
[2018-07-22 10:16] LABS: Bacteria 0 SEEN /hpf (None Seen); Mucous, Urine 0 SEEN /hpf (<or=2+); Red Blood Cells-Urine 0 SEEN /hpf (0-5); Squamous Epithelial Cells - UA 0 SEEN /hpf (0-5)
[2018-07-22 10:42] LABS: Color, Urine Yellow (Yellow); Glucose, Dipstick Normal (Normal); Ketone-Dipstick Negative (Negative); Leukocyte Esterase-Dipstick 25 /ul (Negative); Nitrite-Dipstick Negative (Negative); Occult Blood-Urine 25 /ul (Negative); Protein-Dipstick 15 mg/dl (Negative); Specific Gravity, Urine 1.025 (1.002-1.030); Urine Bilirubin Dipstick Negative (Negative); Urine Clarity Clear (Clear); Urine Urobilinogen Normal (Normal)
[2018-07-22 10:58] LABS: White Blood Cells 0-5 SEEN /hpf (0-5)
[2018-07-22 11:21] LABS: Anion Gap 7 (5-15); BUN 19 mg/dL (7-18); BUN/Creat Ratio 14.5 RATIO (10-20); Calcium,Total 8.6 mg/dL (8.5-10.1); Chloride 107 mmol/L (98-107); Creatinine, Serum 1.31 mg/dL (0.70-1.30); EST Glomerular Filtration Rate 57 mL/min (>60); Est Glom Filt Rate - Afr Amer 69 mL/min (>60); Ferritin 313 ng/mL (26-388); Glucose 94 mg/dL (74-106); Iron 173 ug/dL (65-175); Iron Binding Capacity,Total 327 ug/dL (250-450); Potassium 4.5 mmol/L (3.5-5.1); Sodium Level 142 mmol/L (136-145); Thyroid Stim Hormone (TSH) 4.06 uIU/mL (0.358-3.74)
[2018-07-23 12:16] LABS: Transferrin 263 mg/dL (200-370)
== END ==
PROVIDERS: Family Provider Internal Medicine; PCP Internal Medicine; Referring Provider Internal Medicine; Visit Provider Internal Medicine
DX: N17.9 Acute kidney failure, unspecified (principal); E83.110 Hereditary hemochromatosis; E03.9 Hypothyroidism, unspecified
CPT/HCPCS: 80048; 81001; 82728; 83540; 83550; 84443; 84466

== ENCOUNTER → 2018-07-23 11:12 | Outpatient (CLI) | payer MEDICARE, OTHER, SELFPAY ==
[2018-06-15 09:00] VITALS: BMI 26.6
== END ==
PROVIDERS: Family Provider Internal Medicine; PCP Internal Medicine; Visit Provider Internal Medicine
DX: R82.90 Unspecified abnormal findings in urine (principal)
CPT/HCPCS: 87077; 87086; 87088

== ENCOUNTER → 2018-09-17 13:24 | Outpatient (CLI) | payer MEDICARE, OTHER, SELFPAY ==
[2018-08-03 13:20] VITALS: BMI 26.6
[2018-09-17 14:59] LABS: T4 Free Direct 1.03 ng/dL (0.76-1.46); Thyroid Stim Hormone (TSH) 2.63 uIU/mL (0.358-3.74)
== END ==
PROVIDERS: Family Provider Internal Medicine; PCP Internal Medicine; Referring Provider Internal Medicine; Visit Provider Internal Medicine
DX: E03.9 Hypothyroidism, unspecified (principal)
CPT/HCPCS: 36415; 84439; 84443

== ENCOUNTER → 2018-10-01 16:45 | Outpatient (CLI) | payer MEDICARE, OTHER, SELFPAY ==
[2018-08-03 13:20] VITALS: BMI 26.6
[2018-10-02 10:59] LABS: Color, Urine Yellow (Yellow); Glucose, Dipstick Normal (Normal); Ketone-Dipstick Negative (Negative); Leukocyte Esterase-Dipstick Negative /ul (Negative); Nitrite-Dipstick Negative (Negative); Occult Blood-Urine 10 /ul (Negative); Protein-Dipstick Negative (Negative); Specific Gravity, Urine 1.025 (1.002-1.030); Urine Bilirubin Dipstick Negative (Negative); Urine Clarity Clear (Clear); Urine Urobilinogen Normal (Normal)
== END ==
PROVIDERS: Family Provider Internal Medicine; PCP Internal Medicine; Referring Provider Urology; Visit Provider Urology
DX: R82.998 Other abnormal findings in urine (principal)
CPT/HCPCS: 81002

== ENCOUNTER 2018-11-05 13:00 | Emergency (ER) | payer MEDICARE, OTHER, SELFPAY ==
[2018-10-22 14:52] VITALS: BMI 26.8
[2018-11-05 13:03] VITALS: BP 146/88; PULSE 57; RESP 16; TEMP 36.1; O2SAT 98; BMI 26.8
--- NOTE | 2018-11-05 13:22 | ED.RN ---
PT HIT HIS HEAD ON HIS DECK 2 DAYS AGO, HAS A SWOLLEN BRUISED SCAB ON TOP OF HIS HEAD, SAYS HE WAS DRIVING TODAY AND WAS LOOKING BACK AND FORTH AND BECAME DIZZY AND HAD HIS FRIEND DRIVE HIM HOME. PT REPORTS NO NAUSEA, VOMITING, OR LOC, BP AT HOME WAS 145/83.
[2018-11-05 13:31] VITALS: BP 145/86; PULSE 57; RESP 16; O2SAT 97
--- NOTE | 2018-11-05 13:47 | CT_ITS ---
STUDY: CT BRAIN WITHOUT CONTRAST REASON FOR EXAM: Male, 73 years old. Dizziness following a recent injury. RADIATION DOSAGE (If Supplied By Facility): CTDIvol = ( 44.99 ) mGy, DLP = ( 812.98 ) mGycm TECHNIQUE: Transaxial CT imaging of the brain was performed without administration of intravenous contrast material. Individualized dose optimization techniques were used for this CT. COMPARISON: No relevant priors. FINDINGS: Normal soft tissue structures. Normal calvarium. There is mild cerebral atrophy with widening of the extra-axial spaces and ventricular dilatation. Normal white matter tracts of the cerebral hemispheres. Normal basal ganglia and thalami. Normal brainstem. Normal cerebellum. There is no intracranial hemorrhage. There are no findings of an acute ischemic infarction. Atherosclerotic calcification of the cavernous portions of the internal carotid arteries bilaterally. Mucosal thickening of the ethmoid sinuses worse on the right side. CT/Brain/Head without Contrast IMPRESSION: Chronic involutional changes of the brain. Electronically Signed: Jake Yoder, at 14:33 EDT , Service support ,
[2018-11-05 14:06] LABS: Absolute Lymphocyte Count 1.44 X10^3/ul (0.83-4.51); Absolute Neutrophil Count 2.9 X10^3/uL (2.0-7.7); Basophil# 0.02 X10^3/uL; Basophil% 0.4 % (0-1); Eosinophil# 0.16 X10^3/uL; Eosinophils% 3.1 % (0-5); Hematocrit 44.3 % (40-54); Hemoglobin 15.3 g/dl (13.0-16.5); Lymphocyte # 1.44 X10^3/ul (4.0); Mean Corp Hgb Conc 34.5 g/gl (32-36); Mean Corpuscular Hgb 31.6 pg (27.0-32.0); Mean Corpuscular Volume 91.5 fL (80-94); Mean Platelet Vol. 9.7 fl (6.2-12.0); Monocyte# 0.63 X10^3/uL; Monocyte% 12.3 % (0-10); Neutrophil # 2.88 X10^3/uL (2.7-7.7); Platelet Count 164 K/mm3 (150-450); RBC Distribution Width CV 12.7 % (11.6-14.6); RBC Distribution Width SD 42.4 fl (35.1-43.9); Red Blood Count 4.84 M/mm3 (4.6-6.2); White Blood Count 5.1 K/mm3 (4.4-11.0)
[2018-11-05 14:09] LABS: POSITIVE COUNT NO; POSITIVE DIFFERENTIAL NO; POSITIVE MORPHOLOGY NO
[2018-11-05 14:14] LABS: Anion Gap 2 (5-15); BUN 21 mg/dL (7-18); BUN/Creat Ratio 15.8 RATIO (10-20); Calcium,Total 8.7 mg/dL (8.5-10.1); Chloride 110 mmol/L (98-107); Creatinine, Serum 1.33 mg/dL (0.70-1.30); EST Glomerular Filtration Rate 56 mL/min (>60); Est Glom Filt Rate - Afr Amer 68 mL/min (>60); Glucose 102 mg/dL (74-106); Potassium 4.1 mmol/L (3.5-5.1); Sodium Level 141 mmol/L (136-145)
[2018-11-05 15:01] VITALS: BP 140/78; PULSE 59; RESP 17; O2SAT 97
--- NOTE | 2018-11-05 15:23 | ED.VISSUMM ---
- ER Visit Summary Date of Service: 11/05/18 Chief Complaint: Dizziness and head injury History of Present Illness: The patient is a 73 M who presents with dizziness that began after turning his head. Patient states he was backing out his truck and turned his head when the dizziness began. Patient states the dizziness feels like a foggy feeling. Patient states he feels out of sorts. Patient did hit his head 2 days ago. Patient denies any loss of consciousness. Patient states he checked his blood pressure at home was 145/83 and 136/78. Patient has a history of paroxysmal atrial fibrillation but states she did not have any palpitations with this. Patient denies any chest pain. Patient admits to some mild blurred vision. Patient denies any nausea or vomiting. Physical Examination: Vital signs are stable. Patient is afebrile. Patient is in no acute distress. There is some mild tenderness over the top of the scalp with a superficial abrasion. There is no bony crepitance or step-off. Cranial nerves II through XII are intact. Strength is 5/5 bilaterally upper and lower extremities. There are no sensory deficits noted. Pupils are equal, round, and reactive to light bilaterally. Extraocular muscles are intact. There is no nystagmus noted. Oral mucosa is pink and moist. Neck is supple. Trachea is midline. There is no JVD noted. Heart was regular rate and rhythm. Lungs are clear and equal bilaterally. Abdomen is soft nontender. Test Results: CT scan of the brain was obtained was normal. CBC and basic metabolic profile were obtained and were essentially within normal limits. Emergency Department Course and Treatment: Patient felt better on reevaluation. Patient was instructed to take Tylenol or ibuprofen as needed for pain. Patient was instructed to follow-up with his primary care physician in 5 to 7 days. Patient understood and was agreeable with plan. All questions were answered. Disposition: Discharge home Impression: 1. Vertigo 2. Closed head injury This note was generated with [employer] dictation software. It may contain incorrect words, spelling, and punctuation that were not noted in review of the chart prior to signing ED Disposition - Plan for ED Patient: Disposition: Home or Assisted Living Diagnosis: Vertigo, Closed head injury Instructions: ED Head Injury Closed, ED Vertigo Unspecified Referrals: Juan Davis MD [Primary Care Provider] - 5-7 Days Additional Instructions: Call Dr. Ace tomorrow and let him know how you are feeling
[2018-11-05 15:36] VITALS: BP 140/78; PULSE 79; RESP 18; O2SAT 97
== END 2018-11-05 15:37 | disposition home or self-care (01) ==
PROVIDERS: Emergency Provider Emergency Medicine; Family Provider Internal Medicine; PCP Internal Medicine
DX: R42 Dizziness and giddiness (principal); S00.01XA Abrasion of scalp, initial encounter; H53.8 Other visual disturbances; J34.89 Other specified disorders of nose and nasal sinuses; M54.2 Cervicalgia; M54.9 Dorsalgia, unspecified; X58.XXXA Exposure to other specified factors, initial encounter; Y93.9 Activity, unspecified; Y92.9 Unspecified place or not applicable; I48.0 Paroxysmal atrial fibrillation
CPT/HCPCS: 70450; 80048; 85025; 99282

== ENCOUNTER → 2019-04-16 11:15 | Outpatient (CLI) | payer MEDICARE, OTHER, SELFPAY ==
[2018-12-14 08:58] VITALS: BMI 26.8
[2019-04-16 13:16] LABS: AST(SGOT) 18 U/L (15-37); Alanine Aminotransfer ALT/SGPT 20 U/L (16-61); Albumin, Serum 3.8 g/dL (3.2-5.0); Alkaline Phosphatase 61 U/L (45-117); Bilirubin, Direct 0.21 mg/dL (0.00-0.30); Globulin 2.6 g/dL (2.2-4.2); Protein, Total 6.4 g/dL (6.4-8.2)
[2019-04-16 13:17] LABS: Cholesterol 144 mg/dL (200); High Density Lipoprotein 45 mg/dL; Triglycerides 108 mg/dL; Very Low Density Lipoprotein 22 mg/dL (5-40)
== END ==
PROVIDERS: Family Provider Internal Medicine; PCP Internal Medicine; Referring Provider Internal Medicine Cardiovascular Disease; Visit Provider Internal Medicine Cardiovascular Disease
DX: E78.00 Pure hypercholesterolemia, unspecified (principal)
CPT/HCPCS: 36415; 80061; 80076

== ENCOUNTER → 2019-05-10 06:37 | Outpatient (CLI) | payer MEDICARE, OTHER, SELFPAY ==
[2019-04-20 12:41] VITALS: BMI 26.6
--- NOTE | 2019-05-10 11:29 | STRESSREP ---
Stress Test Report Exercise myocardial perfusion stress test. 74-year-old male with a history of paroxysmal atrial fibrillation on flecainide, metoprolol. Stress protocol: Resting EKG demonstrates sinus bradycardia with a rate of 50 bpm normal intervals are noted resting blood pressure is 114/72 mmHg. The patient exercised according to the regular Guillermo protocol for a total duration of 8 minutes and 18 seconds. The maximum heart rate attained was 120 bpm which was 81% of maximum predicted heart rate the maximum workload was 10.1 metabolic equivalents. The maximum blood pressure was 156/66 with a rate pressure product of 18,100. At rest there were no ST or T wave changes noted suggest ischemia at peak exercise upsloping ST changes were noted at about 1.2 to 1.3 mm maximally with no obvious evidence of ischemia. In leads II, III and aVF there was approximately 1.2 to 1.4 mm of mildly upsloping ST depression. No clinical angina was noted the test was terminated due to the target heart rate being achieved as well as fatigue. Myocardial perfusion protocol. 11.0 mCi of technetium 99m sestamibi was injected at rest. The patient exercised according to regular Guillermo protocol for a total duration of 8 minutes and 18 seconds at peak exercise 33.7 mCi of technetium 99m sestamibi was injected stress images were obtained stress and rest images were reconstructed in comparing the short axis vertical long horizontal long axis. Gated images were also obtained Perfusion SPECT analysis: Review of the stress images demonstrate normal uptake of tracer noted in the septum anterior wall and lateral wall. The inferior wall has mildly reduced perfusion. This is present on the stress and rest images to a similar extent there is also increased GI uptake noted. The above is suggestive of bowel GI attenuation artifact. No obvious ischemia is noted. Gated SPECT analysis: The gated ejection fraction is noted to be 65%. Conclusion: Normal exercise myocardial perfusion stress test at a high workload. No clinical angina noted. Preserved ejection fraction.
== END ==
PROVIDERS: Family Provider Internal Medicine; PCP Internal Medicine; Referring Provider Internal Medicine Cardiovascular Disease; Visit Provider Internal Medicine Cardiovascular Disease
DX: R94.31 Abnormal electrocardiogram [ECG] [EKG] (principal); I48.91 Unspecified atrial fibrillation
CPT/HCPCS: 78452; 93017; A9500; A4216

== ENCOUNTER → 2019-08-02 13:41 | Outpatient (CLI) | payer MEDICARE, OTHER, SELFPAY ==
[2019-08-02 13:11] VITALS: BMI 26.6
[2019-08-02 15:35] LABS: Absolute Lymphocyte Count 1.41 X10^3/uL (0.83-4.51); Absolute Neutrophil Count 3.5 X10^3/uL (2.0-7.7); Basophil# 0.04 X10^3/uL; Basophil% 0.7 % (0-1); Eosinophils% 3.4 % (0-5); Hematocrit 46.8 % (40-54); Hemoglobin 15.9 g/dL (13.0-16.5); Lymphocyte # 1.41 X10^3/ul (4.0); Lymphocyte % 24.1 % (19-41); Mean Corpuscular Hgb 31.2 pg (27.0-32.0); Mean Corpuscular Volume 91.9 fL (80-94); Mean Platelet Vol. 9.8 fl (6.2-12.0); Monocyte# 0.68 X10^3/uL; Monocyte% 11.6 % (0-10); NRBC Flagged by Analyzer 0 % (0-5); Neutrophil # 3.49 X10^3/uL (2.7-7.7); Neutrophil % 59.9 % (47-70); Platelet Count 201 K/mm3 (150-450); RBC Distribution Width CV 12.2 % (11.6-14.6); RBC Distribution Width SD 41.1 fl (35.1-43.9); Red Blood Count 5.09 M/mm3 (4.6-6.2); White Blood Count 5.8 K/mm3 (4.4-11.0)
[2019-08-02 15:50] LABS: ALB/GLOB Ratio 1.3 RATIO (0.9-2.4); AST(SGOT) 22 U/L (15-37); Alanine Aminotransfer ALT/SGPT 30 U/L (16-61); Alkaline Phosphatase 71 U/L (45-117); Anion Gap 7 (5-15); BUN 21 mg/dL (7-18); BUN/Creat Ratio 16.7 RATIO (10-20); Calcium,Total 8.7 mg/dL (8.5-10.1); Chloride 107 mmol/L (98-107); Creatinine, Serum 1.26 mg/dL (0.70-1.30); EST Glomerular Filtration Rate 60 mL/min (>60); Est Glom Filt Rate - Afr Amer 72 mL/min (>60); Globulin 3.1 g/dL (2.2-4.2); Glucose 83 mg/dL (74-106); Protein, Total 7.1 g/dL (6.4-8.2); Sodium Level 141 mmol/L (136-145)
== END ==
PROVIDERS: PCP Internal Medicine; Visit Provider Internal Medicine
DX: R10.9 Unspecified abdominal pain (principal)
CPT/HCPCS: 36415; 80053; 85025

== ENCOUNTER → 2019-12-28 14:41 | Outpatient (CLI) | payer MEDICARE, OTHER, SELFPAY ==
[2019-12-28 13:58] VITALS: BMI 26.8
--- NOTE | 2019-12-28 14:42 | RAD_ITS ---
STUDY: X-RAY - RIGHT ELBOW REASON FOR EXAM: Male, 74 years old. HIT ELBOW ON LOG, MEDIAL PAIN TECHNIQUE: 4 view(s) of the elbow. COMPARISON: None. FINDINGS: Normal visualized humerus, radius and ulna. Normal radiocapitellar and ulnotrochlear articulations. The soft tissue structures are unremarkable. RAD/Elbow min 3 Views IMPRESSION: Normal x-ray examination of the elbow. Electronically Signed: Moiz Aj MD at 15:29 EDT , Service support ,
== END ==
PROVIDERS: PCP Internal Medicine; Referring Provider Internal Medicine; Visit Provider Internal Medicine
DX: M25.521 Pain in right elbow (principal)
CPT/HCPCS: 73080

== ENCOUNTER → 2020-06-16 16:31 | Outpatient (CLI) | payer MEDICARE, OTHER, SELFPAY ==
[2020-02-17 15:05] VITALS: BMI 26.8
[2020-06-16 17:32] LABS: Absolute Lymphocyte Count 1.41 X10^3/uL (0.83-4.51); Absolute Neutrophil Count 4.1 X10^3/uL (2.0-7.7); Basophil# 0.04 X10^3/uL; Basophil% 0.6 % (0-1); Eosinophil# 0.18 X10^3/uL; Eosinophils% 2.8 % (0-5); Hematocrit 46.1 % (40-54); Hemoglobin 15.3 g/dL (13.0-16.5); Lymphocyte # 1.41 X10^3/ul (4.0); Lymphocyte % 21.8 % (19-41); Mean Corp Hgb Conc 33.2 g/dL (32-36); Mean Corpuscular Hgb 30.8 pg (27.0-32.0); Mean Corpuscular Volume 92.8 fL (80-94); Mean Platelet Vol. 9.8 fl (6.2-12.0); Monocyte# 0.72 X10^3/uL; Monocyte% 11.1 % (0-10); NRBC Flagged by Analyzer 0 % (0-5); Neutrophil # 4.11 X10^3/uL (2.7-7.7); Neutrophil % 63.4 % (47-70); Platelet Count 181 K/mm3 (150-450); RBC Distribution Width CV 12.1 % (11.6-14.6); RBC Distribution Width SD 41.7 fl (35.1-43.9); Red Blood Count 4.97 M/mm3 (4.6-6.2); White Blood Count 6.5 K/mm3 (4.4-11.0)
[2020-06-16 17:55] LABS: Cholesterol 156 mg/dL (200); High Density Lipoprotein 44 mg/dL; Triglycerides 134 mg/dL; Very Low Density Lipoprotein 27 mg/dL (5-40)
[2020-06-16 18:00] LABS: ALB/GLOB Ratio 1.4 RATIO (0.9-2.4); AST(SGOT) 17 U/L (15-37); Alanine Aminotransfer ALT/SGPT 27 U/L (16-61); Albumin, Serum 3.9 g/dL (3.2-5.0); Alkaline Phosphatase 70 U/L (45-117); Anion Gap 4 (5-15); BUN 20 mg/dL (7-18); Calcium,Total 8.6 mg/dL (8.5-10.1); Chloride 107 mmol/L (98-107); Creatinine, Serum 1.25 mg/dL (0.70-1.30); EST Glomerular Filtration Rate 60 mL/min (>60); Est Glom Filt Rate - Afr Amer 73 mL/min (>60); Globulin 2.8 g/dL (2.2-4.2); Glucose 85 mg/dL (74-106); PSA,Total - Annual Screen 1.18 ng/mL (0.00-4.00); Protein, Total 6.7 g/dL (6.4-8.2); Sodium Level 139 mmol/L (136-145); Thyroid Stim Hormone (TSH) 2.61 uIU/mL (0.358-3.74)
== END ==
PROVIDERS: Internal Medicine Cardiovascular Disease; PCP Internal Medicine; Referring Provider Internal Medicine; Visit Provider Internal Medicine
DX: Z12.5 Encounter for screening for malignant neoplasm of prostate (principal); E03.9 Hypothyroidism, unspecified; I48.0 Paroxysmal atrial fibrillation; E78.5 Hyperlipidemia, unspecified
CPT/HCPCS: 36415; 80053; 80061; 84153; 84443; 85025; G0103

== ENCOUNTER → 2020-07-03 06:18 | Outpatient (CLI) | payer MEDICARE, OTHER, SELFPAY ==
[2020-06-22 12:40] VITALS: BMI 26.2
--- NOTE | 2020-07-03 06:22 | ECHOD_ITS ---
Reason For Study: AFIB/FLUTTER Procedure This was a 2D Doppler, Color Flow transthoracic echocardiogram. Exam performed in department. Left Ventricle Normal LV size. Mild concentric left ventricular hypertrophy. Left ventricular systolic function is normal. The estimated ejection fraction is 55 %. Stage 1 diastolic dysfunction. No regional wall motion abnormalities noted. Right Ventricle Normal RV size. Normal systolic function. Atria Normal left atrium. Mitral Valve Normal mitral valve. Tricuspid Valve Normal tricuspid valve. Mild tricuspid valve insufficiency. Pulmonary artery systolic pressure is 27 mmHg. Aortic Valve Trisinus/trileaflet aortic valve. Trivial eccentric aortic valve insufficiency. Pulmonic Valve Normal pulmonic valve. Great Vessels Normal aortic root. The pulmonary artery is normal size. Normal inferior vena cava. Pericardium/Pleural No pericardial effusion. MMode/2D Measurements & Calculations LVIDd: 5.3 cm IVSd: 1.2 cm LVOT diam: 2.5 cm LVIDs: 3.8 cm LVPWd: 1.2 cm LVOT area: 5.0 cm2 RVDd: 4.2 cm FS: 27.9 % Ao root diam: 3.9 cm LAV(MOD-bp): 98.8 ml LA A4 area: 26.7 cm2 LAV(MOD-bp) Indexed: 47.1 ml/m2 LAV(MOD-sp2): 97.0 ml LAV(MOD-sp4): 89.9 ml LA dimension(2D): 4.6 cm RA A4 area: 19.5 cm2 Time Measurements MV dec time: 0.25 sec Doppler Measurements & Calculations MV E max dayday: 44.2 cm/sec Lat Peak E' Dayday: 14.2 cm/sec Med Peak E' Dayday: 6.2 cm/sec MV A max dayday: 46.2 cm/sec E/E' lat: 3.1 E/E' med: 7.1 MV E/A: 0.96 Ao V2 max: 96.7 cm/sec AI max dayday: 470.7 cm/sec LV V1 max: 79.3 cm/sec Ao max P.7 mmHg AI max P.6 mmHg LV V1 max P.5 mmHg Ao V2 mean: 69.2 cm/sec AI dec slope: 187.6 cm/sec2 LV V1 mean P.5 mmHg Ao mean P.1 mmHg AI P1/2t: 735.0 msec LV V1 mean: 58.2 cm/sec Ao V2 VTI: 23.0 cm LV V1 VTI: 18.2 cm PAOLA(I,D): 4.0 cm2 PAOLA(V,D): 4.1 cm2 SV(LVOT): 91.8 ml PA V2 max: 91.0 cm/sec TR max dayday: 241.5 cm/sec TR max P.3 mmHg Interpretation Summary Normal LV size. Mild concentric left ventricular hypertrophy. Left ventricular systolic function is normal. The estimated ejection fraction is 55 %. Stage 1 diastolic dysfunction. Pulmonary artery systolic pressure is 27 mmHg. Ordering Physician: Brendan Ace Referring Physician: Teresa Morrow Performed By: Ina Escamilla, DENEEN, RVT
--- NOTE | 2020-07-03 13:25 | STRESSREP ---
Stress Test Report Exercise myocardial perfusion stress test. 75-year-old man with a history of hypertension atrial fibrillation. Evaluation for coronary artery disease. Medications: Aspirin, vitamin D, metoprolol, flecainide. Stress protocol: Resting EKG demonstrates sinus bradycardia with a rate of 54 bpm normal intervals are noted resting blood pressure is 120/76 mmHg. The patient exercised according to the regular Guillermo protocol and nitroglycerin at this [place] for total duration of 9 minutes. Patient completed stage III of the Guillermo protocol. The maximum heart rate attained was 123 bpm which was 84% of max impacted heart rate and the maximum workload was 10.1 metabolic equivalents. At rest there were no ST or T wave changes noted to suggest ischemia at peak exercise upsloping ST changes were noted with no meet the criteria for ischemia. No clinical angina was noted the test was terminated due to the target heart rate being achieved. The rate-pressure product was 17,200. The peak blood pressure was 150/76 mmHg which was a normal blood pressure response to exercise. No arrhythmias were noted. Myocardial perfusion protocol. 11.9 mCi of technetium 99m sestamibi was injected at rest. The patient exercised according to regular Guillermo protocol for a total duration of 9 minutes and at peak exercise 33.3 mCi of technetium 99m sestamibi was injected stress images were obtained stress and rest images were reconstructed and compared in the short axis vertical long horizontal long axis. Gated images were also obtained. Perfusion SPECT analysis: Review of the images demonstrate a normal cardiac silhouette size. There was no motion artifact noted. The stress images demonstrated normal perfusion in all areas of the myocardium with the resting images demonstrating the same. No previous infarct was noted. Gated SPECT analysis: The gated ejection fraction was 68% with no wall motion abnormalities noted. Conclusion: Normal exercise myocardial perfusion stress test at a high workload. Excellent functional capacity. No atrial fibrillation noted. Compared to the previous stress test the patient performed better than the previous stress test from 2018.
== END ==
PROVIDERS: PCP Internal Medicine; Referring Provider Internal Medicine Cardiovascular Disease; Visit Provider Internal Medicine Cardiovascular Disease
DX: I25.10 Atherosclerotic heart disease of native coronary artery without angina pectoris (principal); I48.0 Paroxysmal atrial fibrillation; I48.92 Unspecified atrial flutter
CPT/HCPCS: 78452; 93017; 93306; A9500; A4216

== ENCOUNTER 2020-11-15 10:25 | Emergency (ER) | payer MEDICARE, OTHER, SELFPAY ==
[2020-10-10 08:12] VITALS: BMI 26.2
[2020-11-15 10:27] VITALS: BP 120/62; PULSE 71; RESP 16; TEMP 35.8; O2SAT 97; BMI 25.7
[2020-11-15] MEDS: Lidocaine 1% (20 ml mdv) 20 ML Vial INFILT (13:48)
[2020-11-15] MEDS: Cephalexin 500 MG Capsule PO (13:48)
--- NOTE | 2020-11-15 18:38 | EDS_ITS ---
HPI History of Present Illness Chief Complaint: Laceration Informant: patient Occured/Mechanism Comment: Cut with machine ii trimmer Onset/Context/Timing Onset: Today Context: Sudden Onset Timing: Continuous Location: Left index finger Worsened by: Nothing Relieved by: Nothing Associated Symptoms Associated Symptoms: Positive for Parasthesia; Negative for Weakness Narrative Narrative: Patient presents with laceration to his left index finger that occurred today. Patient was using a powered machine ii trimmer when he accidentally cut his finger. Patient noted some pulsatile bleeding. Patient admits to some tingling over the tip of his left index finger on the radial aspect. Patient denies any weakness. Patient is unsure of his last tetanus. Tetanus Immunization: Unknown [facility] Medical History Arthritis Asthma Bilateral shoulder pain BPH (benign prostatic hyperplasia) DDD (degenerative disc disease) Diaphragmatic hernia Diverticulosis First degree AV block GERD (gastroesophageal reflux disease) High risk medication use History of hydrocele History of pneumonia Hyperlipemia Palpitations Paroxysmal atrial fibrillation PND (post-nasal drip) Preventative health care Shortness of breath Subclinical hypothyroidism Tachycardia TMJ (dislocation of temporomandibular joint) Home Medications aspirin 81 mg tablet,delayed release 81 mg PO QDAY 06/20/17 [History Last Taken Unknown] cholecalciferol (vitamin D3) 25 mcg (1,000 unit) capsule 1,000 unit PO DAILY 07/28/18 [History Last Taken Unknown] dicyclomine 20 mg tablet 20 mg PO .ACHS PRN tab 10/19/19 [History Last Taken Unknown] flecainide 100 mg tablet 100 mg PO Q12H #180 tab 04/27/20 [Rx Last Taken Unknown] metoprolol succinate 25 mg tablet,extended release 24 hr 12.5 mg PO QHS tab 06/22/20 [History Last Taken Unknown] simvastatin 5 mg tablet 5 mg PO QHS #90 tab 06/22/20 [Rx Last Taken Unknown] levothyroxine 25 mcg tablet 25 mcg PO DAILY #90 tab 07/11/20 [Rx Last Taken U nknown] alprazolam 0.5 mg tablet 0.5 mg PO BID PRN #60 tab 08/22/20 [Rx Last Taken Unknown] naproxen 375 mg tablet 375 mg PO BID PRN #180 tab 10/10/20 [Rx Last Taken Unknown] cephalexin 500 mg PO Q6 #40 capsule 11/15/20 [Rx Last Taken Unknown] Allergy/AdvReac Type Severity Reaction Status Date / Time fluticasone furoate AdvReac Intermediate Other-heart Verified 11/15/20 10:26 [From Breo Ellipta] racing, anxiety, SOB vilanterol AdvReac Intermediate Other-heart Verified 11/15/20 10:26 [From Breo Ellipta] racing, anxiety, SOB codeine AdvReac ANXIOUS Verified 11/15/20 10:26 Family History Father Heart disease Arthritis COPD (chronic obstructive pulmonary disease) Myocardial infarction Mother Breast cancer Cancer lung Aunt Colon cancer Surgical History History of hemicolectomy History of hernia repair History of right hip replacement History of tonsillectomy and adenoidectomy S/P surgical manipulation of ankle joint Social History Smoking Status: Never smoker alcohol intake: current alcohol intake frequency: a few times a week Alcohol type: beer, wine and hard liquor substance use type: does not use caffeine: Yes Type: coffee and tea what type of physical activity do you participate in: bicycling and weight training frequency: 3-4 times per week seatbelt use: always do you feel safe at home: Yes ROS ROS ED Constitutional Constitutional ED: Denies chills or fever(s) Eyes Eyes: Denies blurry vision or change in vision ENT ENT ED: Denies rhinorrhea or sore throat Cardiovascular Cardiovascular: Denies chest pain or palpitations Respiratory/Chest Respiratory/Chest: Denies cough or dyspnea Gastrointestinal Gastrointestinal: Denies nausea or vomiting Genitourinary Genitourinary ED: Denies dysuria or hematuria Musculoskeletal Musculoskeletal: Denies back pain or neck pain Integumentary Denies abscess or rash Neurologic Neurologic: Denies headache(s) or weakness Allergic/Immunologic Allergic/Immunologic ED: Denies mouth swelling or urticaria EXAM Physical Exam Const Vital Signs: 11/15/20 10:27 Temperature 96.5 F L Temperature Source Temporal Pulse Rate 71 Respiratory Rate 16 Blood Pressure 120/62 Blood Pressure Mean 81 Pulse Ox 97 Oxygen Delivery Method Room Air Positive well nourished and well developed General Appearance ED: well developed HEENT Reports moist mucous membranes normocephalic and atraumatic Extremity Extremity Narrative: There is a 4 cm stellate laceration over the volar and radial aspect of the proximal phalanx of the left index finger. There is some pulsatile bleeding noted. There are no foreign bodies noted. There are no tendon lacerations noted. Sensation was intact to light touch in all digits. Capillary refill was less than 2 seconds in all digits. Pressure was applied over the digital artery. There is good collateral flow. There are no deformities. There is full range of motion. Neuro oriented x3, CN's II-XII intact bilaterally, moves all extremities, no focal motor deficits and no sensory deficits noted Sensorium / Orientation: alert MDM MDM MDM Narrative Medical decision making narrative: The patient was given a tetanus booster. The left index finger laceration was cleaned anesthetized with 1% plain lidocaine locally. The pulsatile bleeding was tied off with 4-0 Vicryl sutures. The laceration was cleaned and irrigated with copious amounts of normal saline. Laceration was closed with 12 simple interrupted #4-0 nylon sutures under sterile technique. Patient tolerated the procedure well. Dressing was applied. Patient was given a dose of Keflex here. Patient was given a prescription for Keflex. Patient was instructed to follow-up with his primary care physician in 7 to 10 days. Patient was also given referral for plastics for further evaluation of his laceration. Patient understood and was agreeable with the plan. All questions were answered. Procedures Lacerations Left index finger: Length: 4 cm Depth: Sub Q Shape: Stellate Prep: Sterile Conditions and Chlorhexadine Laceration repair: Irrigated, Lidocaine, Local, Skin sutures (12 simple interrupted #4-0 Ethilon sutures) and Subcutaneous sutures (4-0 Vicryl sutures) Irrigated (ml): 100 Number of Sutures/Reyna: 12 Suture Information: Ethilon, Simple and 4-0 Discharge Plan Triage Chief Complaint: Laceration ED Provider: José Rivera Dx/Rx/DC Orders Clinical Impression: Laceration of left index finger Instructions: ED Laceration, Hand: All Closures Prescriptions: New cephalexin [cephalexin] 500 MG capsule 500 mg PO Q6 Qty: 40 RF: 0 No Action aspirin [Adult Low Dose Aspirin] 81 mg tablet,delayed release (DR/EC) 81 mg PO QDAY RF: 0 cholecalciferol (vitamin D3) 1,000 unit capsule 1,000 unit capsule 1,000 unit PO DAILY RF: 0 dicyclomine 20 mg tablet 20 mg PO .ACHS PRNRF: 0 metoprolol succinate 25 mg tablet extended release 24 hr 12.5 mg PO QHS RF: 0 simvastatin 5 mg tablet 5 mg PO QHS Qty: 90 RF: 3 naproxen 375 mg tablet 375 mg PO BID PRN (Reason: pain) Qty: 180 RF: 3 flecainide 100 mg tablet 100 mg PO Q12H Qty: 180 RF: 3 levothyroxine 25 mcg tablet 25 mcg PO DAILY Qty: 90 RF: 3 alprazolam [Xanax] 0.5 mg tablet 0.5 mg PO BID PRN (Reason: anxiety) Qty: 60 RF: 0 Primary Care Provider: Juan Davis Referrals: Juan Davis MD [Primary Care Provider] - 5-7 Days Molina Tariq MD [STAFF PHYSICIAN] - 7 Days for suture removal Disposition Disposition: Home, Self Care Discharge Date/Time: 11/15/20 13:50
== END 2020-11-15 13:50 | disposition home or self-care (01) ==
PROVIDERS: Emergency Provider Emergency Medicine; PCP Internal Medicine
DX: S61.211A Laceration without foreign body of left index finger without damage to nail, initial encounter (principal); W29.3XXA Contact with powered garden and outdoor hand tools and machinery, initial encounter
CPT/HCPCS: 12002; 99283; A4216

== ENCOUNTER 2021-01-18 10:00 | Outpatient (RCR) | payer MEDICARE, OTHER, SELFPAY ==
--- NOTE | 2020-12-15 07:30 | HP.OTEVAL ---
Patient's Visit Information CHERYL DUNLAP is a 75 year old M, referred to Occupational Therapy by Dr. Alyson Saini MD, with a diagnosis of left IF digital nerve repair.. Date of Evaluation: 12/11/20 Occupational Therapist: Rosario Levi, RADHAR/Kayden, CHT - Subjective This 75 year old male was seen for OT eval with dx of left IF digital nerve repair. pts DOI was 11/15/20, and DOS was 11/21/20. pt arrives with custom orthosis on left IF. pt states he is doing ok and demo the exercises he was shown by CC. pt would like to increase movement and sensation to the left IF lateral side from incision distally. pt reports limitations with ADLs and IADls at this time. - ROM PIP: left 0/ 45 right 105* DIP: left -20/35 right 70* - Sensation Index: right 2.83 left radial side 3.84 - Goals Goal:100% adherence to protocol: Yes Goal:Daily scar massage when approriate: Yes Goal:ROM equal to unaffected hand: Yes Goal:Artist'[employer]/Pinch strength at least 75% of unaffected hand: Yes Goal:No pain with affected hand use: Yes Goal:Full use of affected hand in daily activities including: Yes Goal:Improvement in sensation documented by [place]: Yes Comment: 2.83 - Rehabilitation General Assessment: Pt underwent Irrigation debridement of left IF with flap closure on 11/21/20. Pt currently is demo limited ROM, sensation deficits and limited use of left UE with ADls and IADLS. Pt demo need for skilled OT services 1-2x week for 4 weeks. Today therapist ed. pt on wound cleaning, PROM, and light AROM only- ed. pt on digital nerve repair and protocol we follow for return. pt demo understanding and agree to POC. Rehabilitation Potential: Excellent - Anticipated Interventions Early Active Motion, A/AAROM/PROM, Strengthening, Scar Care, Triggerpoint Release, Sensory Retraining, Wound Care, Modalities, Orthoses, Joint Protection/Energy Conservation, Fine Motor Coord/Viral, Sensory Stimulation - Visit Plan Frequency: 1-2x /Week Duration: 4 Weeks TEXT: Thank you for the opportunity to evaluate your patient. For Medicare and Medicare HMO plans, please review the plan of care and approve it. It will need to be FAXED BACK to us at [phone] for Medicare purposes. Please let me know if there are questions or concerns regarding this plan of care. Physician Signature: Date:
--- NOTE | 2020-12-15 07:33 | HP.OTEVAL_ITS ---
Patient's Visit Information CHERYL DUNLAP is a 75 year old M, referred to Occupational Therapy by Dr. Alyson Saini MD, with a diagnosis of left IF digital nerve repair.. Date of Evaluation: 12/11/20 Occupational Therapist: Rosario Levi, RADHAR/Kayden, CHT - Subjective This 75 year old male was seen for OT eval with dx of left IF digital nerve repair. pts DOI was 11/15/20, and DOS was 11/21/20. pt arrives with custom orthosis on left IF. pt states he is doing ok and demo the exercises he was shown by CC. pt would like to increase movement and sensation to the left IF lateral side from incision distally. pt reports limitations with ADLs and IADls at this time. - ROM PIP: left 0/ 45 right 105* DIP: left -20/35 right 70* - Sensation Index: right 2.83 left radial side 3.84 - Quick DASH-Disab of Arm,Shoulder& Hand Quick DASH Score: 36.3625 - Goals Goal:100% adherence to protocol: Yes Goal:Daily scar massage when approriate: Yes Goal:ROM equal to unaffected hand: Yes Goal:Hair Or Beauty Salon Assistant/Pinch strength at least 75% of unaffected hand: Yes Goal:No pain with affected hand use: Yes Goal:Full use of affected hand in daily activities including: Yes Goal:Improvement in sensation documented by [place]ace: Yes Comment: 2.83 - Rehabilitation General Assessment: Pt underwent Irrigation debridement of left IF with flap closure on 11/21/20. Pt currently is demo limited ROM, sensation deficits and limited use of left UE with ADls and IADLS. Pt demo need for skilled OT services 1-2x week for 4 weeks. Today therapist ed. pt on wound cleaning, PROM, and light AROM only- ed. pt on digital nerve repair and protocol we follow for return. pt demo understanding and agree to POC. Rehabilitation Potential: Excellent - Anticipated Interventions Early Active Motion, A/AAROM/PROM, Strengthening, Scar Care, Triggerpoint Release, Sensory Retraining, Wound Care, Modalities, Orthoses, Joint Protection/Energy Conservation, Fine Motor Coord/Viral, Sensory Stimulation - Visit Plan Frequency: 1-2x /Week Duration: 4 Weeks TEXT: Thank you for the opportunity to evaluate your patient. For Medicare and Medicare HMO plans, please review the plan of care and approve it. It will need to be FAXED BACK to us at [phone] for Medicare purposes. Please let me know if there are questions or concerns regarding this plan of care. Physician Signature: Date:
--- NOTE | 2021-01-18 13:18 | HP.OTDCSUM ---
It has been my pleasure to treat CHERYL DUNLAP under orders from Dr. Alyson Saini MD, for the diagnosis of left IF digital nerve repair. for a total of 5 visit(s). Please see the following information for a summary of their discharge status. % Improvement: 90 Objective/Function: L assignment desk editor: 53#. R: 80#. L PIP flexion: 98* (was 90*). L DIP flexion: 50* (was 35*) Patient Goals: Regain Mobility, Regain Strength, Improve Fine Motor Skills, Use Hand/Wrist/Arm Normally Again Goal:100% adherence to protocol: Yes Goal:Daily scar massage when approriate: Yes Goal:ROM equal to unaffected hand: Yes Goal:Rag Washer/Pinch strength at least 75% of unaffected hand: Yes Goal:No pain with affected hand use: Yes Goal:Full use of affected hand in daily activities including: Yes Goal:Improvement in sensation documented by [place]-Wallace: Yes Plan: d/c at this time Discharge Comments: This pt was seen for 5 visits after a digital nerve repair. Pt has made significant gains since the beginning of therapy. Pt to be d/c at this time with HEP program and scar mtg home program. At the 6 month marker, pt is advised to see surgeon if stiffness and scar persists. Pt agrees with and understands d/c. If there are questions or concerns regarding this patient's occupational therapy, please fell free to call me at [phone]. Thank you for the referral of this patient. Sincerely, Rosario Levi, OTR/L, CHT
== END 2021-01-18 14:00 | disposition home or self-care (01) ==
LOC: OT 10:00
PROVIDERS: PCP Internal Medicine; Referring Provider Orthopaedic Surgery Hand Surgery; Visit Provider Orthopaedic Surgery Hand Surgery
DX: Z47.89 Encounter for other orthopedic aftercare (principal)
CPT/HCPCS: 97035; 97140; 97166; 97530

== ENCOUNTER → 2021-03-21 | Outpatient (CLI) | payer MEDICARE, OTHER, SELFPAY ==
[2021-03-21 15:38] LABS: Amphetamine Urine VISTA NEGATIVE (<1000 ng/mL); Barbiturate Urine VISTA NEGATIVE (< 200 ng/mL); Benzodiazepine Urine VISTA NEGATIVE (< 200 ng/mL); Cocaine Urine VISTA NEGATIVE (< 300 ng/mL); Ecstacy Urine VISTA NEGATIVE (< 500 ng/mL); Methadone Urine VISTA NEGATIVE (< 300 ng/mL); PCP Urine VISTA NEGATIVE (< 25 ng/mL); THC Urine VISTA NEGATIVE (< 50 ng/mL); Vista UDS pH Range 5
== END | disposition home or self-care (01) ==
LOC: LABSPEC 13:29
PROVIDERS: PCP Internal Medicine; Referring Provider Nurse Practitioner Family; Visit Provider Nurse Practitioner Family
DX: F41.1 Generalized anxiety disorder (principal); Z79.899 Other long term (current) drug therapy
CPT/HCPCS: 80307

== ENCOUNTER → 2021-10-11 | Outpatient (CLI) | payer MEDICARE, OTHER, SELFPAY ==
[2021-10-11 15:21] LABS: Absolute Lymphocyte Count 1.31 X10^3/uL (0.83-4.51); Absolute Neutrophil Count 3.5 X10^3/uL (2.0-7.7); Basophil# 0.04 X10^3/uL; Basophil% 0.7 % (0-1); Eosinophil# 0.18 X10^3/uL; Eosinophils% 3.2 % (0-5); Hematocrit 44.8 % (40-54); Lymphocyte # 1.31 X10^3/ul (0.83-4.51); Lymphocyte % 23.4 % (19-41); Mean Corp Hgb Conc 33.5 g/dL (32-36); Mean Corpuscular Hgb 31.6 pg (27.0-32.0); Mean Corpuscular Volume 94.3 fL (80-94); Monocyte# 0.62 X10^3/uL; Monocyte% 11.1 % (0-10); NRBC Flagged by Analyzer 0 % (0-5); Neutrophil # 3.45 X10^3/uL (2.7-7.7); Neutrophil % 61.4 % (47-70); Platelet Count 197 K/mm3 (150-450); RBC Distribution Width SD 41.8 fl (35.1-43.9); Red Blood Count 4.75 M/mm3 (4.6-6.2); White Blood Count 5.6 K/mm3 (4.4-11.0)
--- NOTE | 2021-10-11 15:30 | RAD_ITS ---
STUDY: X-RAY - CERVICAL SPINE REASON FOR EXAM: Male, 76 years old. Neck pain and stiffness TECHNIQUE: XR Spine Cervical 2 or 3 Views COMPARISON: None FINDINGS: Normal anterior atlantoaxial articulation. The odontoid process is obscured by the overlying hard palate on the open mouth view. Therefore, it is not fully evaluated by plain film. There is straightening of the normal cervical lordosis. There is multi-level endplate spondylosis. There is multi-level degenerative disc disease with multilevel disc space narrowing. There is multi-level osseous foraminal stenosis. The soft tissue structures are unremarkable. RAD/Cerv Spine 2 or 3 Views IMPRESSION: There are degenerative changes as noted above. The odontoid process is obscured by the overlying hard palate on the open mouth view. Therefore, it is not fully evaluated by plain film. There is mild straightening of the normal cervical lordosis. This can suggest neck strain. Electronically Signed: Andrew Pulido MD at 16:14 EDT ,
[2021-10-11 16:26] LABS: ALB/GLOB Ratio 1.4 RATIO (0.9-2.4); AST(SGOT) 17 U/L (15-37); Alanine Aminotransfer ALT/SGPT 25 U/L (16-61); Albumin, Serum 3.7 g/dL (3.2-5.0); Alkaline Phosphatase 63 U/L (45-117); Anion Gap 5 (5-15); BUN 23 mg/dL (7-18); BUN/Creat Ratio 17.2 RATIO (10-20); Bilirubin, Direct 0.14 mg/dL (0.00-0.30); Calcium,Total 8.6 mg/dL (8.5-10.1); Chloride 108 mmol/L (98-107); Creatinine, Serum 1.34 mg/dL (0.70-1.30); EST Glomerular Filtration Rate 55 mL/min (>60); Est Glom Filt Rate - Afr Amer 67 mL/min (>60); Globulin 2.7 g/dL (2.2-4.2); Glucose 107 mg/dL (74-106); Protein, Total 6.4 g/dL (6.4-8.2); Sodium Level 141 mmol/L (136-145); Thyroid Stim Hormone (TSH) 2.01 uIU/mL (0.358-3.74)
[2021-10-11 20:36] LABS: Cholesterol 152 mg/dL (200); High Density Lipoprotein 46 mg/dL; Triglycerides 188 mg/dL; Very Low Density Lipoprotein 38 mg/dL (5-40)
== END | disposition home or self-care (01) ==
PROVIDERS: Internal Medicine Cardiovascular Disease; PCP Internal Medicine; Referring Provider Internal Medicine; Visit Provider Internal Medicine
DX: E03.9 Hypothyroidism, unspecified (principal); I48.0 Paroxysmal atrial fibrillation; M43.6 Torticollis; E78.00 Pure hypercholesterolemia, unspecified
CPT/HCPCS: 36415; 72040; 80053; 80061; 82248; 84443; 85025

== ENCOUNTER 2021-10-24 13:52 | Outpatient (RCR) | payer MEDICARE, OTHER, SELFPAY ==
--- NOTE | 2021-10-24 15:28 | HP.PTEVAL_ITS ---
Patient's Visit Information CHERYL DUNLAP is a 76 year old M referred to Physical Therapy by Dr. Juan Davis MD with a diagnosis of TORTICOLLIS,CERVICALALGIA. Date of Evaluation: 10/24/21 Physical Therapist: Molina Colunga, PT, Cert MDT, OCS - Visit Plan Frequency: 1-2x /Week Duration: 4 Weeks Plan: PATIENT WANTS TO DO HEP ON OWN AND CALL BACK IF NEEDED. PT INTERVETIONS POSTURAL EX'S,CERVICALROM/MOBILITY ,STRENGTHNEING AND MANUAL THERAPY - Subjective This 76 y/o male presents to physical therapy with cervical pain/stiffness. Patient had physical with MD c/o stiffness in neck with ROM . Patient had x-rays showed DDD in cervical spine . Patient seen recommended PT. Aggravating factors flexion reading in bed ,rotation with cervical when driving. Alleviating factors rest. Patient denies WALTER/nausea/tinnitus. Patient denies paresthesia/tingling. Patient able to sleep okay at night. Patient symptoms affects ADL's ,work around house pond. Patient symptoms affects QOL. No MEDS. Patient had x-rays DDD multiple level. Patient has some h/o TMJ. SOCIAL: . VOCATION: retired - Objective POSTURE: mild forward posture ,head forward. NEURO: denies paresthesia/tingling. PALPTION: unremarkable. AROM: cervical flexion min/mod loss , rotation/lateral flexion mod loss ,extension mod loss. MMT: 4/5 grossly biceps/triceps/deltoid - Special Tests C/S Radiculapathy - Left Upper limb tension test: Negative C/S Radiculapathy - Right Upper limb tension test: Negative C/S Radiculapathy - Left Spurlings: Negative C/S Radiculapathy - Right Spurlings: Negative C/S Radiculapathy - Left Cervical distraction: Negative C/S Radiculapathy - Right Cervical distraction: Negative Sharp Pedro: Negative Vertebral Artery Test: Negative Alar Ligament Test: Negative - Balance/Special Test Scores Oswestry Neck Score: 7 - Goals Goal 1:: Patient to be I with HEP for neck Goal Time Frame: 4-6 Weeks Goal 2:: Patient to improve cervical ROM for function of recovery when rotating cervical when driving Goal Time Frame: 4-6 Weeks Goal 3:: Patient to demonstrate 50% improvement with decreasing symptoms with cervical ROM for function . Goal Time Frame: 4-6 Weeks Goal 4:: Patient to improve neck oswestry score 3-5 points ti improve QOL - Rehabilitation Potential Physical Therapy Diagnosis: This patient has generalized stiffness with neck ROM with driving ,reading with knee flexed thus pain with positioning and ROM thus benefit from skilled PT Rehabilitation Potential: Good - Anticipated Interventions Patient/Client Instruction: Educate patient on: Condition, Plan of Care For the Purpose of:: To decrease pain, To increase ROM, To improve muscle performance and motor function, To improve ability to perform ADL's, To increase tolerance to activity/condition/position, To improve ability of physical actions for home/community/work/leisure, To improve health of tissue, To decrease soft tissue restriction, To increase flexibility/ROM, To reduce risk of recurrence Therapeutic Exercise to Include: Strength training, Balance training, Flexibilty training, Passive ROM, Active ROM For the Purpose of:: To decrease pain, To increase ROM, To improve muscle per formance and motor function, To increase tolerance to activity/condition/position, To improve ability of physical actions for home/community/work/leisure, To improve health of tissue, To decrease soft tissue restriction, To increase flexibility/ROM, To assume or resume ADL's, To prevent re-injury, To improve tolerance to ADL's Manual Therapy Techniques to Include: Mobilization, Soft tissue mobilization Comment: TRACTION For the Purpose of:: To decrease pain, To increase ROM, To improve nutrient delivery to tissue, To increase oxygenation perfusion, To improve health of tissue, To decrease soft tissue restriction Thank you for the opportunity to evaluate your patient. For Medicare and Medicare HMO plans, please review the plan of care and approve it. It will need to be FAXED BACK to us at [phone] for Medicare purposes. For Medicare only, by signing this I certify the plan of care. Please let me know if there are questions or concerns regarding this plan of care. Physician Signature: Date:
== END 2021-10-24 19:00 | disposition home or self-care (01) ==
LOC: PT 13:52
PROVIDERS: PCP Internal Medicine; Referring Provider Internal Medicine; Visit Provider Internal Medicine
DX: M43.6 Torticollis (principal); M54.2 Cervicalgia
CPT/HCPCS: 97110; 97162

== ENCOUNTER → 2022-06-13 | Outpatient (CLI) | payer MEDICARE, OTHER, SELFPAY ==
[2022-06-13 09:42] LABS: Absolute Lymphocyte Count 1.46 X10^3/uL (0.83-4.51); Absolute Neutrophil Count 3.9 X10^3/uL (2.0-7.7); Basophil# 0.05 X10^3/uL; Basophil% 0.8 % (0-1); Eosinophil# 0.28 X10^3/uL; Eosinophils% 4.3 % (0-5); Hemoglobin 15.4 g/dL (13.0-16.5); Lymphocyte # 1.46 X10^3/ul (0.83-4.51); Lymphocyte % 22.6 % (19-41); Mean Corp Hgb Conc 33.5 g/dL (32-36); Mean Corpuscular Hgb 31.4 pg (27.0-32.0); Mean Corpuscular Volume 93.7 fL (80-94); Mean Platelet Vol. 9.4 fl (6.2-12.0); Monocyte% 10.9 % (0-10); NRBC Flagged by Analyzer 0 % (0-5); Neutrophil # 3.92 X10^3/uL (2.7-7.7); Neutrophil % 60.8 % (47-70); Platelet Count 203 K/mm3 (150-450); RBC Distribution Width CV 11.9 % (11.6-14.6); RBC Distribution Width SD 41.1 fl (35.1-43.9); Red Blood Count 4.91 M/mm3 (4.6-6.2); White Blood Count 6.5 K/mm3 (4.4-11.0)
[2022-06-13 10:24] LABS: ALB/GLOB Ratio 1.3 RATIO (0.9-2.4); AST(SGOT) 17 U/L (15-37); Alanine Aminotransfer ALT/SGPT 22 U/L (16-61); Albumin, Serum 3.8 g/dL (3.2-5.0); Alkaline Phosphatase 62 U/L (45-117); Anion Gap 4 (5-15); BUN 23 mg/dL (7-18); BUN/Creat Ratio 19.7 RATIO (10-20); Chloride 109 mmol/L (98-107); Cholesterol 157 mg/dL (200); Creatinine, Serum 1.17 mg/dL (0.70-1.30); EST Glomerular Filtration Rate 64 mL/min (>60); Est Glom Filt Rate - Afr Amer 78 mL/min (>60); Globulin 2.9 g/dL (2.2-4.2); Glucose 95 mg/dL (74-106); High Density Lipoprotein 47 mg/dL; Protein, Total 6.7 g/dL (6.4-8.2); Sodium Level 141 mmol/L (136-145); Triglycerides 134 mg/dL; Very Low Density Lipoprotein 27 mg/dL (5-40)
[2022-06-13 10:32] LABS: PSA,Total - Annual Screen 1.26 ng/mL (0.00-4.00); Thyroid Stim Hormone (TSH) 3.43 uIU/mL (0.358-3.74)
== END | disposition home or self-care (01) ==
LOC: LAB 08:55
PROVIDERS: Internal Medicine Cardiovascular Disease; PCP Internal Medicine; Referring Provider Internal Medicine; Visit Provider Internal Medicine
DX: I10 Essential (primary) hypertension (principal); N40.0 Benign prostatic hyperplasia without lower urinary tract symptoms; Z12.5 Encounter for screening for malignant neoplasm of prostate; E03.9 Hypothyroidism, unspecified
CPT/HCPCS: 36415; 80053; 80061; 84153; 84443; 85025; G0103

== ENCOUNTER → 2022-07-17 | Outpatient (CLI) | payer MEDICARE, OTHER, SELFPAY ==
--- NOTE | 2022-07-17 07:07 | ECHOCS_ITS ---
Reason For Study: Afib/Flutter Procedure This was a 2D Doppler, Color Flow transthoracic echocardiogram. The study was technically difficult. Contrast injection was performed. Exam performed in department. Left Ventricle Normal left ventricle. Left ventricular systolic function is normal. The estimated ejection fraction is 60 %. Stage 1 diastolic dysfunction. No regional wall motion abnormalities noted. Right Ventricle Normal RV size. Normal systolic function. Atria Normal left atrium. Normal right atrium. Bubble contrast study negative for right to left interatrial shunt. Mitral Valve Normal mitral valve. Mild (1+) eccentric mitral valve insufficiency. Tricuspid Valve Normal tricuspid valve. Aortic Valve Trisinus/trileaflet aortic valve. Mild (1+) aortic valve insufficiency. Pulmonic Valve Normal pulmonic valve. Great Vessels Normal aortic root. The pulmonary artery is normal size. Normal inferior vena cava. Pericardium/Pleural No pericardial effusion. Medication 22 gauge I.V. with prn adaptor inserted into right arm. Diluted definity 2ml given slow IV push to enhance endocardial definition. Performed a rapid injection of agitated mix of 9 cc saline and 1cc air to assess for atrial septal defect. MMode/2D Measurements & Calculations LVIDd: 4.6 cm IVSd: 1.1 cm Ao root diam: 4.4 cm LVIDs: 3.2 cm LVPWd: 1.1 cm LA dimension: 4.6 cm RVDd: 4.2 cm FS: 30.3 % LAV(MOD-bp): 84.6 ml LA A4 area: 26.8 cm2 RA A4 area: 19.8 cm2 LAV(MOD-bp) Indexed: 40.2 ml/m2 LAV(MOD-sp2): 83.2 ml LAV(MOD-sp4): 83.8 ml Time Measurements MV dec time: 0.32 sec Doppler Measurements & Calculations MV E max dayday: 40.0 cm/sec Lat Peak E' Dayday: 15.1 cm/sec Med Peak E' Dayday: 7.1 cm/sec MV A max dayday: 46.2 cm/sec E/E' lat: 2.6 E/E' med: 5.6 MV E/A: 0.87 MV V2 max: 48.6 cm/sec MV P1/2t max dayday: 49.0 cm/sec Ao V2 max: 108.1 cm/sec MV max P.94 mmHg MV P1/2t: 95.0 msec Ao max P.7 mmHg MV V2 mean: 28.8 cm/sec MV dec slope: 150.9 cm/sec2 MV mean P.39 mmHg MV V2 VTI: 14.0 cm MVA(P1/2t): 2.3 cm2 AI max dayday: 501.2 cm/sec LV V1 max: 85.7 cm/sec PA V2 max: 95.7 cm/sec AI max P.5 mmHg LV V1 max P.9 mmHg AI dec slope: 203.6 cm/sec2 AI P1/2t: 720.9 msec TR max dayday: 197.3 cm/sec TR max P.6 mmHg ECHO/Echo Complete W/ Contrast Interpretation Summary Normal left ventricle. Left ventricular systolic function is normal. The estimated ejection fraction is 60 %. Stage 1 diastolic dysfunction. Mild (1+) eccentric mitral valve insufficiency. Mild (1+) aortic valve insufficiency. Contrast injection was performed. Ordering Physician: Brendan Ace Referring Physician: Juan Davis Performed By: Ricardo Gomes RCS
--- NOTE | 2022-07-17 16:28 | STRESSREP ---
Stress Test Report Exercise myocardial perfusion stress test. 77-year-old male with a history of atrial fibrillation Stress protocol: Resting EKG demonstrates normal sinus rhythm with a rate of 59 bpm resting blood pressure is 126/78 mmHg. The patient exercised according to the regular Guillermo protocol for a total duration of 8 minutes attaining a maximum heart rate of 129 bpm which was 89% of maximum predicted heart rate; the maximum workload was 10.1 metabolic equivalents. At rest there were no ST or T wave changes noted to suggest ischemia and at peak exercise upsloping ST changes only were noted which did not meet the criteria for ischemia. No clinical angina was noted the test was terminated due to the target heart rate being achieved/fatigue. The peak blood pressure was 148/70 mmHg. Rate-pressure product was 18,200. Myocardial perfusion protocol. 13.1 mCi of technetium 99m sestamibi was injected at rest. The patient exercised according to regular Guillermo protocol for total duration of 8 minutes and at peak exercise 40.2 mCi of technetium 99m sestamibi was injected stress images were obtained stress and rest images were reconstructed in comparing the short axis vertical long and horizontal long axis. Gated images were also obtained. Perfusion SPECT analysis: Review of the stress images demonstrate normal uptake of tracer noted in all areas of the myocardium. The resting images similarly demonstrate normal uptake of tracer noted in all areas of the myocardium. No areas of reversibility are noted to suggest ischemia no previous infarct was noted. Gated SPECT analysis: The gated ejection fraction is 69%. Conclusion: Normal exercise myocardial perfusion stress test at a high workload Preserved ejection fraction.
== END | disposition home or self-care (01) ==
LOC: CVS 07:06
PROVIDERS: PCP Internal Medicine; Visit Provider Internal Medicine Cardiovascular Disease
DX: R94.31 Abnormal electrocardiogram [ECG] [EKG] (principal); I48.0 Paroxysmal atrial fibrillation
CPT/HCPCS: 78452; 93017; 93306; A9500; Q9957; A4216; C8929

== ENCOUNTER → 2022-11-07 | Outpatient (CLI) | payer MEDICARE, OTHER, SELFPAY ==
--- NOTE | 2022-11-07 12:10 | RAD_ITS ---
STUDY: X-RAY - LEFT SHOULDER REASON FOR EXAM: Male, 77 years old. Bilateral Shoulder Pain TECHNIQUE: 4 view(s) of the shoulder. COMPARISON: None. FINDINGS: Narrowed glenohumeral articulation. Mildly narrowed acromioclavicular joint. Normal acromion. Normal humeral head and visualized proximal humerus. The soft tissue structures are unremarkable. Normal visualized pulmonary apex. RAD/Shoulder min 2 Views IMPRESSION: Degenerative changes. No acute fracture or other significant bony pathology. Electronically Signed: Gonzalez Cordero MD at 17:58 EDT ,
--- NOTE | 2022-11-07 12:12 | RAD_ITS ---
STUDY: X-RAY - RIGHT SHOULDER REASON FOR EXAM: Male, 77 years old. SHOULDER PAIN TECHNIQUE: 4 view(s) of the shoulder. COMPARISON: None. FINDINGS: Normal glenohumeral articulation. There is degenerative arthrosis of the acromioclavicular joint without inferior osseous spur formation. Normal acromion. Normal humeral head and visualized proximal humerus. The soft tissue structures are unremarkable. There is no demonstrated fracture. Normal visualized pulmonary apex. RAD/Shoulder min 2 Views IMPRESSION: Mild degenerative change. Electronically Signed: Jose Nieves MD at 19:22 EDT ,
== END | disposition home or self-care (01) ==
LOC: RAD 12:10
PROVIDERS: PCP Internal Medicine; Referring Provider Internal Medicine; Visit Provider Internal Medicine
DX: M25.511 Pain in right shoulder (principal); M25.512 Pain in left shoulder
CPT/HCPCS: 73030

== ENCOUNTER → 2023-06-02 | Outpatient (CLI) | payer MEDICARE, OTHER, SELFPAY ==
--- NOTE | 2023-06-02 13:42 | RAD_ITS ---
STUDY: X-RAY - LEFT FOOT CLINICAL: Male, 77 years old. Lateral foot swelling and pain. TECHNIQUE: 3 view(s) of the foot. COMPARISON: None. Osteopenia. Osteotomy of the distal fibula. Syndesmotic screw. 4 cancellus screws with fusion of the tibiotalar joint. Severe arthrosis of the subtalar joint. Moderate arthrosis of the midfoot. 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 Diffuse soft tissue swelling. 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 Diffuse soft tissue swelling. Electronically Signed: Nino Álvarez MD at 14:14 EST ,
--- NOTE | 2023-06-02 13:45 | RAD_ITS ---
STUDY: X-RAY - LEFT ANKLE REASON FOR EXAM: Male, 77 years old. Left ankle pain. TECHNIQUE: 3 view(s) of the ankle. COMPARISON: None. FINDINGS: Osteopenia. Osteotomy of the distal fibula. Syndesmotic screw. 4 cancellus screws with fusion of the tibiotalar joint. Severe arthrosis of the subtalar joint. Moderate arthrosis of the midfoot. Diffuse soft tissue swelling. RAD/Ankle min 3 Views IMPRESSION: Extensive fusion of the tibiotalar joint, syndesmotic screw, moderate to marked arthrosis of the subtalar joint and moderate arthrosis of the midfoot. Electronically Signed: Nino Álvarez MD at 14:13 EST ,
== END | disposition home or self-care (01) ==
PROVIDERS: PCP Internal Medicine; Referring Provider Nurse Practitioner; Visit Provider Nurse Practitioner
DX: M25.572 Pain in left ankle and joints of left foot (principal); Z98.1 Arthrodesis status
CPT/HCPCS: 73610; 73630

== ENCOUNTER → 2024-02-06 | Outpatient (CLI) | payer MEDICARE, OTHER, SELFPAY ==
[2024-02-06 12:40] LABS: Absolute Lymphocyte Count 1.26 X10^3/uL (0.83-4.51); Absolute Neutrophil Count 3.2 X10^3/uL (2.0-7.7); Basophil# 0.04 X10^3/uL; Basophil% 0.7 % (0-1); Eosinophil# 0.26 X10^3/uL; Eosinophils% 4.9 % (0-5); Hematocrit 44.9 % (40-54); Hemoglobin 14.9 g/dL (13.0-16.5); Lymphocyte # 1.26 X10^3/ul (0.83-4.51); Lymphocyte % 23.5 % (19-41); Mean Corp Hgb Conc 33.2 g/dL (32-36); Mean Corpuscular Hgb 31.4 pg (27.0-32.0); Mean Corpuscular Volume 94.5 fL (80-94); Mean Platelet Vol. 10.3 fl (6.2-12.0); Monocyte# 0.58 X10^3/uL; Monocyte% 10.8 % (0-10); NRBC Flagged by Analyzer 0 % (0-5); Neutrophil # 3.19 X10^3/uL (2.7-7.7); Neutrophil % 59.5 % (47-70); Platelet Count 196 K/mm3 (150-450); RBC Distribution Width CV 12.2 % (11.6-14.6); RBC Distribution Width SD 42.5 fl (35.1-43.9); Red Blood Count 4.75 M/mm3 (4.6-6.2); White Blood Count 5.4 K/mm3 (4.4-11.0)
[2024-02-06 13:11] LABS: ALB/GLOB Ratio 1.3 RATIO (0.9-2.4); AST(SGOT) 19 U/L (15-37); Alanine Aminotransfer ALT/SGPT 26 U/L (16-61); Albumin, Serum 3.7 g/dL (3.2-5.0); Alkaline Phosphatase 75 U/L (45-117); Anion Gap 4 (5-15); BUN 17 mg/dL (7-18); BUN/Creat Ratio 13.2 RATIO (10-20); Chloride 109 mmol/L (98-107); Cholesterol 154 mg/dL (200); Creatinine, Serum 1.29 mg/dL (0.70-1.30); EST Glomerular Filtration Rate 57 mL/min (>60); Est Glom Filt Rate - Afr Amer 69 mL/min (>60); Globulin 2.9 g/dL (2.2-4.2); Glucose 115 mg/dL (74-106); High Density Lipoprotein 51 mg/dL; PSA,Total - Annual Screen 1.21 ng/mL (0.00-4.00); Potassium 3.9 mmol/L (3.5-5.1); Protein, Total 6.6 g/dL (6.4-8.2); Sodium Level 141 mmol/L (136-145); Triglycerides 175 mg/dL; Very Low Density Lipoprotein 35 mg/dL (5-40)
== END | disposition home or self-care (01) ==
LOC: BIMLAB 09:06
PROVIDERS: PCP Internal Medicine; Referring Provider Internal Medicine; Visit Provider Internal Medicine
DX: I10 Essential (primary) hypertension (principal); E78.5 Hyperlipidemia, unspecified; E03.8 Other specified hypothyroidism; Z12.5 Encounter for screening for malignant neoplasm of prostate
CPT/HCPCS: 36415; 80053; 80061; 84153; 84443; 85025; G0103

== ENCOUNTER → 2024-08-06 | Outpatient (CLI) | payer MEDICARE, OTHER, SELFPAY ==
[2024-08-06 13:45] LABS: Anion Gap 12 (5-15); BUN 14 mg/dL (4-19); BUN/Creat Ratio 11.3 RATIO (10-20); Calcium,Total 9.2 mg/dL (7.6-11.0); Carbon Dioxide 24.2 mmol/L (21.0-32.0); Chloride 105 mmol/L (98-108); Creatinine, Serum 1.27 mg/dL (0.70-1.20); EST Glomerular Filtration Rate 58 (>60); Glucose 126 mg/dL (70-99); Potassium 3.9 mmol/L (3.3-5.1); Sodium Level 141 mmol/L (133-145)
[2024-08-07 06:07] LABS: Rubeola IgG Ab > 300.0 AU/mL (Immune >16.4)
== END | disposition home or self-care (01) ==
LOC: BIMLAB 08:34
PROVIDERS: PCP Internal Medicine; Referring Provider Internal Medicine; Visit Provider Internal Medicine
DX: Z01.84 Encounter for antibody response examination (principal); I10 Essential (primary) hypertension
CPT/HCPCS: 36415; 80048; 84443; 86765

== ENCOUNTER → 2024-11-09 | Outpatient (CLI) | payer MEDICARE, OTHER, SELFPAY ==
--- OUTSIDE RECORDS SUMMARY | 2024-11-09 06:13 | XMS RPT_ITS | CCD ---
Author Organization [facility]iniSyn[facility] Care Team Providers Care Core Piler Name Role Phone Pratibha Moore RN Unavailable Unavailable Daisha Velasquez Unavailable Daisha Velasquez Unavailable STEPHANIE GUTIERRES () Unavailable Unav ailable STEPHANIE GUTIERRES () Unavailable Unav ailable STEPHANIE GUTIERRES () Unavailable Unav ailable STEPHANIE GUTIERRES () Unavailable Unav ailable STEPHANIE GUTIERRES () Unavailable Unav ailable STEPHANIE GUTIERRES () Unavailable Unav ailable IVETTE STEVENS (SANITATION TANK WASHER) Unavailable Unavailable STEPHANIE GUTIERRES () Unavailable Unav ailable Pratibha Moore RN Unavailable Unavailable Dr. Juan Davis Primary Care Provider [phone] Dr. Juan Davis Referring Provider [phone] Napoleon HARDWARE DEVELOPER, HARDWARE DEVELOPER-C Daphnie Attending Provider [phone] Dr. Juan Davis Attending Provider [phone] Dr. Brendan Ace Attending Provider Dr. Juan Davis Primary Care Provider [phone] Dr. Juan Davis Referring Provider [phone] Christa STUBBS, HARDWARE DEVELOPER-C Radha Attending Provider Shirley HARDWARE DEVELOPER, HARDWARE DEVELOPER-C Sam Lobato Attending Provider Dr. Juan Davis Primary Care Provider [phone] Dr. Brendan Ace Attending Provider Shirley HARDWARE DEVELOPER, HARDWARE DEVELOPER-Leslie Lobato Attending Provider [phone] Dr. Juan Davis Referring Provider [phone] DEBRA Gabriel Attending Provider [phone] Dr. Juan Davis Attending Provider [phone] Susan, Dr. Martinez Primary Care Provider [phone] Dr. Juan Davis Attending Provider [phone] Dr. Juan Davis Referring Provider [phone] MARICEL Douglas Attending Provider [phone] Susan CALLAHAN, Juan Rizzo Primary Care Prov ider BERNA GRANT Referring Unavailable OLEGHE, EFEWONGBE KENDRA Primary Care Unav ailable BERNA GRANT Referring Unavailable OLEGHE, EFEWONGBE KENDRA Primary Care Unav ailable Susan CALLAHAN, Dr. Martinez Primary Care Provider Susan CALLAHAN, Dr. Martinez Attending Provider [phone] Dr. Juan Davis MD Referring Provider [phone] Db CALLAHAN, Dr. Cardona Attending Provider Oleghe, Efewongbe Referring Unavailable Oleghe, Efewongbe Primary Care Unavailable Oleghe, Efewongbe Attending Unavailable Oleghe, Efewongbe Referring Unavailable Oleghe, Efewongbe Primary Care Unavailable Oleghe, Efewongbe Attending Unavailable Db, Brendan Attending Unavailable Db, Brendan Referring Unavailable Oleghe, Efewongbe Primary Care Unavailable Oleghe, Efewongbe Referring Unavailable Db, [place] Attending Unavailable Oleghe, Efewongbe Primary Care Unavailable Db, Brendan Attending Unavailable Db, Brendan Referring Unavailable Oleghe, Efewongbe Primary Care Unavailable Oleghe, Efewongbe Primary Care Unavailable José Yeager Attending Unavailable Oleghe, Efewongbe Attending Unavailable Oleghe, Efewongbe Referring Unavailable Juan Davis Primary Care Unavailable Juan Davis Referring Unavailable Susan, Juan Primary Care Unavailable Juan Davis Attending Unavailable Allergies Allergy Classification Reported Allergen(s) Allergy Type Date of Onset Reaction(s) Facility (13 sources) codeine; Translations: [CODEINE] drug allergy 5 AOF, ANXIOUS [facility] Work Phone: (8 sources) fluticasone; Translations: [fluticasone furoate] Drug Allergy 2 Other-heart racing, anxiety, SOB [facility] (7 sources) vilanterol Drug Allergy 2 Other-heart racing, anxiety, SOB [facility] (1 source) ALLERGIES NOT ON FILE; Translations: [ALLERGIES NOT ON FILE] Propensity to adverse reactions (disorder) [facility] 1 Repository (2 sources) predniSONE Drug Allergy 5 rapid heart rate [facility] Comment on above: went into a-fib (1 source) predniSONE Drug Allergy 5 [facility] Repository (1 source) vilanterol Drug Allergy 5 [facility] Repository Medications Current Medications Medication Drug Class(es) Dates Sig (Normalized) Sig (Original) aspirin 81 mg delayed release oral tablet (20 sources) Platelet Aggregation Inhibitor, Nonsteroidal Anti-inflammatory Drug Start: 06-20-2017 Aspirin (Adult Low Dose Aspirin) 81 mg tablet,delayed release (DR/EC) Active 81 mg PO daily June 20, 2017 1:00am Start: 09-13-2015 End: 09-01-2017 take 1 tablet by mouth twice daily at mealtime Aspirin 325 MG tablet Discontinued 325 mg PO TWICE DAILY WITH MEALS 60 September 13, 2015 12:00am September 01, 2017 3:21pm Start: 07-11-2015 End: 09-13-2015 take 1 tablet by mouth once daily Aspirin (Adult Low Dose Aspirin Ec) [address] Discontinued 81 mg PO DAILY July 11, 2015 1:00am September 13, 2015 2:20pm Start: 04-24-2011 take 1 tablet by sandie once daily ASPIRIN 81 MG TABS One tablet by mouth daily ASPIRIN [id number] Pratibha Moore RN cholecalciferol 0.025 mg oral capsule (7 sources) Vitamin D Start: 07-28-2018 take 1 capsule by mouth once daily Cholecalciferol (Vitamin D3) 1,000 unit capsule Active 1000 U PO DAILY July 28, 2018 1:00am Completed/Discontinued Medications Medication Drug Class(es) Dates Sig (Normalized) Sig (Original) acetaminophen 325 mg / HYDROcodone bitartrate 5 mg oral tablet (7 sources) Opioid Agonist Start: 09-13-2015 End: 06-20-2017 Hydrocodone-Acetami nophen 1 TABLET tablet Discontinued 1 - 2 {tbl} PO EVERY 6 HOURS NEEDED as needed for Mild-Mod Pain () 120 September 13, 2015 12:00am June 20, 2017 12:22pm Start: 09-13-2015 End: 06-20-2017 take 1 tablet by mouth every six hours as needed Hydrocodone-Acetaminophen Discontinued 1 - 2 TABLET PO EVERY 6 HOURS NEEDED 120 September 12, 2015 11:00pm June 20, 2017 11:22am albuterol 0.83 mg/ml inhalant solution (8 sources) beta2-Adrenergic Agonist Start: 04-24-2011 End: 08-25-2013 ALBUTEROL SULFATE NEBU 90 Mcg/inh inhale 2 puffs every 4 hours as needed ALBUTEROL SULFATE NEBU [id number] Pratibha Moore RN Start: 04-24-2011 End: 08-25-2013 take 2 puff(s) by inhalation every four hours as needed ALBUTEROL SULFATE NEBU 90 Mcg/inh inhale 2 puffs every 4 hours as needed ALBUTEROL SULFATE NEBU [id number] Ronny Franco MD Albuterol (Refill) 90 mcg/actuation aerosol (4 sources) Start: 12-12-2017 End: 04-20-2019 Albuterol (Refill) 90 mcg/actuation aerosol Discontinued 90 ug INHALATION NEEDED as needed for Wheezing December 12, 2017 9:02am April 20, 2019 3:46pm Start: 06-20-2017 End: 12-12-2017 Albuterol (Refill) 90 mcg/ac tuation aerosol Discontinued ug INHALATION June 20, 2017 1:00am December 12, 2017 9:07am albuterol (refill) 90 mcg/actuation aerosol inhaler (10 sources) Start: 12-12-2017 End: 04-20-2019 albuterol (refill) 90 mcg/actuation aerosol inhaler Discontinued 90 MCG INHALATION NEEDED December 12, 2017 8:02am April 20, 2019 2:46pm Start: 12-12-2017 End: 04-20-2019 albuterol (refill) 90 mcg/ac tuation aerosol inhaler Discontinued 90 MCG INHALATION NEEDED December 12, 2017 9:02am April 20, 2019 3:46pm Start: 06-20-2017 End: 12-12-2017 albuterol (refill) 90 mcg/ac tuation aerosol inhaler Discontinued MCG INHALATION June 20, 2017 12:00am December 12, 2017 8:07am Start: 06-20-2017 End: 12-12-2017 albuterol (refill) 90 mcg/ac tuation aerosol inhaler Discontinued MCG INHALATION June 20, 2017 1:00am December 12, 2017 9:07am ALPRAZolam 0.5 mg oral tablet (20 sources) Benzodiazepine Start: 09-01-2017 End: 05-28-2024 take 1 tablet by mouth twice daily as needed for anxiety Alprazolam (Xanax) 0.5 mg tablet Discontinued 0.5 mg PO TWICE A DAY as needed for anxiety 60 January 22, 2024 10:30am May 28, 2024 1:31pm Start: 04-24-2011 End: 06-20-2017 take 1 tablet by mouth twice daily as needed for anxiety Alprazolam 0.5 MG tablet Discontinued 0.5 mg PO TWICE DAILY NEEDED as needed for Anxiety July 11, 2015 1:00am June 20, 2017 12:21pm amoxicillin 875 mg oral tablet (16 sources) Penicillin-class Antibacterial Start: 06-27-2023 End: 07-10-2023 take 1 tablet by mouth twice daily Amoxicillin 875 mg tablet Discontinued 875 mg PO TWICE A DAY June 27, 2023 1:00am July 10, 2023 2:52pm Start: 05-21-2019 End: 09-28-2019 take 1 tablet by mouth twice daily Amoxicillin 875 mg tablet Discontinued 875 mg PO TWICE A DAY May 21, 2019 1:00am September 28, 2019 1:19pm Start: 10-16-2017 End: 12-12-2017 take 1 tablet by mouth twice daily Amoxicillin 875 mg tablet Discontinued 875 mg PO TWICE A DAY October 16, 2017 12:00am December 12, 2017 9:04am amoxicillin 875 mg / clavulanate 125 mg oral tablet (5 sources) Penicillin-class Antibacterial Start: 06-25-2022 End: 07-30-2022 Amoxicillin-Pot Clavulanate 875-125 mg tablet Discontinued 1 {tbl} PO TWICE A DAY June 25, 2022 1:00am July 30, 2022 12:37pm Start: 06-25-2022 End: 07-30-2022 take 1 tablet by mouth twice daily Amoxicillin-Pot Clavulanate Discontinued 1 TABLET PO TWICE A DAY June 25, 2022 12:00am July 30, 2022 11:37am azelastine hydrochloride 0.206 mg/actuat metered dose nasal spray (2 sources) Histamine-1 Receptor Antagonist Start: 06-27-2023 End: 08-05-2023 Azelastine (Astepro Allergy) 205.5 mcg (0.15 %) spray,non-aerosol Discontinued 2 NMA INTRANASAL TWICE A DAY June 27, 2023 1:00am August 05, 2023 11:26am administer into each nostril azithromycin 250 mg oral tablet (7 sources) Macrolide Antimicrobial Start: 10-05-2017 End: 10-14-2017 Azithromycin 250 mg tablet Discontinued 0 PO .COMPLEX October 05, 2017 12:00am October 14, 2017 1:00pm Take two tablets by mouth on day one then one tablet by mouth on days 2-5 Beclomethasone Dipropionate (18 sources) Corticosteroid Start: 09-24-2017 End: 10-03-2017 Beclomethasone Dipropionate (Qvar) 40 mcg/actuation aerosol Discontinued 2 NMA INHALATION Q12H September 24, 2017 12:00am October 03, 2017 11:18am Start: 09-24-2017 End: 10-03-2017 take 1 puff(s) by inhalation every twelve hours Beclomethasone Dipropionate (Qvar) 40 mcg/actuation aerosol Discontinued 2 PUFF INHALATION Q12H September 23, 2017 11:00pm October 03, 2017 10:18am Start: 09-24-2017 End: 10-03-2017 take 1 puff(s) by inhalation every twelve hours Beclomethasone Dipropionate (Qvar) 40 mcg/actuation aerosol Discontinued 2 PUFF INHALATION Q12H September 24, 2017 12:00am October 03, 2017 11:18am Start: 07-11-2015 End: 09-24-2017 Beclomethasone Dipropionate 1 PUFF inhaler Discontinued 40 ug INHALATION DAILY July 11, 2015 1:00am September 24, 2017 8:39am Start: 07-11-2015 End: 09-24-2017 take 40 ug by inhalation once daily Beclomethasone Dipropionate Discontinued 40 MCG INHALATION DAILY July 11, 2015 12:00am September 24, 2017 7:39am Start: 07-11-2015 End: 09-24-2017 take 40 ug by inhalation once daily Beclomethasone Dipropionate Discontinued 40 MCG INHALATION DAILY July 11, 2015 1:00am September 24, 2017 8:39am Start: 04-24-2011 QVAR 40 MCG/AC T AERS inhale 2 puffs twice a day BECLOMETHASONE DIPROPIONATE [id number] Pratibha Moore RN Start: 04-24-2011 QVAR 40 MCG/AC T AERS inhale 2 puffs twice a day BECLOMETHASONE DIPROPIONATE [id number] Pratibha Moore RN Start: 04-24-2011 take 2 puff(s) by in halation twice daily QVAR 40 MCG/ACT AERS inhale 2 puffs twice a day BECLOMETHASONE DIPROPIONATE [id number] Pratibha Moore RN benzonatate 200 mg oral capsule (9 sources) Non-narcotic Antitussive Start: 07-10-2023 End: 08-05-2023 take 1 capsule by mouth three times daily Benzonatate 200 mg capsule Discontinued 200 mg PO THREE TIMES A DAY July 10, 2023 1:00am August 05, 2023 11:27am Start: 06-20-2017 End: 12-12-2017 take 1 capsule by mouth every six hours as needed for cough Benzonatate (Tessalon Perles) 100 mg capsule Discontinued 100 mg PO EVERY 6 HOURS as needed for cough 60 June 20, 2017 1:00am December 12, 2017 9:04am 120 actuat budesonide 0.08 mg/actuat / formoterol fumarate 0.0045 mg/actuat metered dose inhaler (7 sources) Corticosteroid, beta2-Adrenergic Agonist Start: 06-15-2018 End: 04-20-2019 Budesonide-Formoterol (Symbicort) 80-4.5 mcg/actuation HFA aerosol inhaler Discontinued 2 NMA INHALATION TWICE A DAY as needed for Wheezing June 15, 2018 1:00am April 20, 2019 3:46pm Start: 06-15-2018 End: 04-20-2019 take 1 puff(s) by inhalation twice daily Budesonide-Formoterol (Symbicort) 80-4.5 mcg/actuation HFA aerosol inhaler Discontinued 2 PUFF INHALATION TWICE A DAY June 15, 2018 12:00am April 20, 2019 2:46pm cephalexin 500 mg oral capsule (7 sources) Cephalosporin Antibacterial Start: 11-15-2020 End: 03-21-2021 take 1 capsule by mouth every six hours Cephalexin 500 MG capsule Discontinued 500 mg PO EVERY 6 HOURS 40 November 15, 2020 12:00am March 21, 2021 1:13pm cetirizine hydrochloride 10 mg oral capsule (20 sources) Histamine-1 Receptor Antagonist Start: 10-10-2017 End: 04-14-2018 take 1 capsule by mouth at bedtime as needed Cetirizine 10 mg capsule Discontinued 10 mg PO BEDTIME as needed December 12, 2017 9:04am April 14, 2018 12:32pm GLUCOSAMINE-CHONDRO ITIN CAPS (8 sources) Start: 04-24-2011 End: 08-16-2014 take 2 tablets by mouth once daily GLUCOSAMINE-CHONDR OITIN CAPS Two tablets by mouth daily GLUCOSAMINE-CHONDR OITIN CAPS [id number] Brendan Ace MD Start: 04-24-2011 take 2 tablets by [facility] once daily GLUCOSAMINE-CHONDROITIN CAPS Two tablets by mouth daily GLUCOSAMINE-CHONDROITIN CAPS [id number] Pratibha Moore RN Start: 04-24-2011 take 2 tablets by [facility] once daily GLUCOSAMINE-CHONDROITIN CAPS Two tablets by mouth daily GLUCOSAMINE-CHONDROITIN CAPS [id number] Pratibha Moore RN Start: 04-24-2011 End: 08-16-2014 take 2 tablets by mouth once daily GLUCOSAMINE-CHONDROITIN CAPS Two tablets by mouth daily GLUCOSAMINE-CHONDROITIN CAPS [id number] Brendan Ace MD Start: 04-24-2011 take 2 tablets by mo [facility] once daily GLUCOSAMINE-CHONDROITIN CAPS Two tablets by mouth daily GLUCOSAMINE-CHONDROITIN CAPS [id number] Pratibha Moore RN Start: 04-24-2011 End: 08-16-2014 take 2 tablets by mouth once daily GLUCOSAMINE-CHONDROITIN CAPS Two tablets by mouth daily GLUCOSAMINE-CHONDROITIN CAPS [id number] Brendan Ace MD dicyclomine hydrochloride 20 mg oral tablet (20 sources) Anticholinergic Start: 08-02-2019 End: 05-28-2024 take 1 tablet by mouth at bedtime as needed for pain Dicyclomine 20 mg tablet Discontinued 20 mg PO .ACHS as needed for abdominal pain April 28, 2023 12:00pm May 28, 2024 1:31pm Start: 07-06-2019 End: 08-02-2019 take 1 capsule by mouth three times daily Dicyclomine 10 mg capsule Discontinued 10 mg PO THREE TIMES A DAY July 06, 2019 1:00am August 02, 2019 1:28pm Start: 07-11-2015 End: 04-14-2018 Dicyclomine 10 MG capsule Discontinued 10 mg PO NEEDED as needed for Diarrhea July 11, 2015 1:00am April 14, 2018 12:32pm Start: 04-24-2011 take 1 tablet by [facility] four times daily at bedtime DICYCLOMINE HCL 10 MG CAPS 1 tablet by mouth 4 times a day and at bedtime DICYCLOMINE HCL [id number] Pratibha Moore RN dilTIAZem hydrochloride 30 mg oral tablet (8 sources) Calcium Channel Sergei Start: 04-24-2011 End: 04-26-2011 take 1 tablet by mouth every six hours DILTIAZEM HCL 30 MG TABS 1 tablet by mouth every 6 hours while atrial fibrillation persists DILTIAZEM HCL [id number] Pratibha Moore RN doxycycline monohydrate 100 mg oral tablet (6 sources) Tetracycline-c lass Drug Start: 04-01-2022 End: 06-18-2022 take 2 tablets by mouth once daily Doxycycline Monohydrate 100 mg tablet Discontinued 200 mg PO DAILY April 01, 2022 1:00am June 18, 2022 12:19pm Start: 04-01-2022 End: 06-18-2022 take 200 mg by mouth once daily Doxycycline Monohydrate Discontinued 200 MG PO DAILY April 01, 2022 12:00am June 18, 2022 11:19am famotidine 10 mg oral tablet (7 sources) Histamine-2 Receptor Antagonist Start: 08-15-2017 End: 04-14-2018 take 1 tablet by mouth once daily Famotidine 10 mg tablet Discontinued 10 mg PO daily August 15, 2017 12:00am April 14, 2018 12:33pm Fish Oils (8 sources) Start: 04-24-2011 take 1 tablet by mouth once daily FISH OIL CAPS One tablet by mouth daily OMEGA-3 FATTY ACIDS CAPS [id number] Pratibha Moore RN Start: 04-24-2011 End: 08-25-2013 take 1 tablet by mouth once daily FISH OIL CAPS One tablet by mouth daily OMEGA-3 FATTY ACIDS CAPS [id number] Ronny Franco MD Start: 04-24-2011 take 1 tablet by sandie th once daily FISH OIL CAPS One tablet by mouth daily OMEGA-3 FATTY ACIDS CAPS [id number] Pratibha Moore RN Start: 04-24-2011 End: 08-25-2013 take 1 tablet by mouth once daily FISH OIL CAPS One tablet by mouth daily OMEGA-3 FATTY ACIDS CAPS [id number] Ronny Franco MD flecainide acetate 100 mg oral tablet (20 sources) Antiarrhythmic Start: 04-14-2018 End: 05-24-2024 take 1 tablet by mouth every twelve hours Flecainide 100 mg tablet Discontinued 100 mg PO Q12H 720 March 18, 2023 12:03pm May 24, 2024 12:23pm Start: 06-09-2012 End: 12-12-2017 take 1 tablet by mouth twice daily Flecainide 100 MG tablet Discontinued 100 mg PO TWICE A DAY May 28, 2017 5:34pm December 12, 2017 9:06am Start: 04-26-2011 take 1 tablet by sandie th twice daily, then take 1 tablet by mouth once daily FLECAINIDE ACETATE 50 MG TABS 1 tablet by mouth twice a day, may take one extra tablet a day if breaktrhough arrhythmia occurs FLECAINIDE ACETATE [id number] Pratibha Moore RN Start: 04-26-2011 take 0.25 tablet by mouth twice daily FLECAINIDE ACETATE 50 MG TABS 1/4 tablet by mouth twice a day FLECAINIDE ACETATE [id number] Pratibha Moore RN Start: 04-24-2011 FLECAINIDE CHRISTA RAMÍREZ 100 MG TABS take 1 hour after first dose of diltiazem. If a fib persists more than 12 hours, notify physician FLECAINIDE ACETATE [id number] Pratibha Moore RN Flu Vac 2017 [id number](Pf) (Fluad (65 Yr Up)(Pf)) 45 mcg (15 mcg x 3)/0.5 mL syringe (2 sources) Start: 02-02-2018 End: 04-14-2018 inject 1 mL by intramuscular injection once Flu Vac 2017 [id number](Pf) (Fluad (65 Yr Up)(Pf)) 45 mcg (15 mcg x 3)/0.5 mL syringe Discontinued 0.5 mL IM ONCE February 02, 2018 12:00am April 14, 2018 12:33pm flu vacc (65yr up)-[id number](PF) 45 mcg(15 mcgx3)/0.5 mL IM syringe (5 sources) Start: 02-02-2018 End: 04-14-2018 inject 1 mL by intramuscular injection once flu vacc (65yr up)-[id number](PF) 45 mcg(15 mcgx3)/0.5 mL IM syringe Discontinued 0.5 ML IM ONCE February 01, 2018 11:00pm April 14, 2018 11:33am Start: 02-02-2018 End: 04-14-2018 inject 1 mL by intramuscular injection once flu vacc (65yr up)-[id number](PF) 45 mcg(15 mcgx3)/0.5 mL IM syringe Discontinued 0.5 ML IM ONCE 5 February 02, 2018 12:00am April 14, 2018 12:33pm Fluticasone Furoate (20 sources) Corticosteroid Start: 10-13-2017 End: 12-12-2017 take 200 ug by inhalation once daily Fluticasone Furoate (Arnuity Ellipta) 200 mcg/actuation blister with device Discontinued 1 NMA INHALATION daily October 13, 2017 12:55pm December 12, 2017 9:02am Start: 10-13-2017 End: 12-12-2017 take 200 ug by inhalation once daily Fluticasone Furoate (Arnuity Ellipta) 200 mcg/actuation blister with device Discontinued 1 INH INHALATION daily October 13, 2017 11:55am December 12, 2017 8:02am Start: 10-13-2017 End: 12-12-2017 take 200 ug by inhalation once daily Fluticasone Furoate (Arnuity Ellipta) 200 mcg/actuation blister with device Discontinued 1 INH INHALATION daily October 13, 2017 12:55pm December 12, 2017 9:02am Start: 10-13-2017 End: 10-13-2017 take 200 ug by inhalation once daily Fluticasone Furoate (Arnuity Ellipta) 200 mcg/actuation blister with device Discontinued 1 NMA INHALATION daily October 13, 2017 9:33am October 13, 2017 12:57pm Start: 10-13-2017 End: 10-13-2017 take 200 ug by inhalation once daily Fluticasone Furoate (Arnuity Ellipta) 200 mcg/actuation blister with device Discontinued 1 INH INHALATION daily October 13, 2017 8:33am October 13, 2017 11:57am Start: 10-13-2017 End: 10-13-2017 take 200 ug by inhalation once daily Fluticasone Furoate (Arnuity Ellipta) 200 mcg/actuation blister with device Discontinued 1 INH INHALATION daily October 13, 2017 9:33am October 13, 2017 12:57pm Start: 10-03-2017 End: 10-13-2017 take 200 ug by inhalation once daily Fluticasone Furoate (Arnuity Ellipta) 200 mcg/actuation blister with device Discontinued 1 NMA INHALATION daily October 03, 2017 1:42pm October 13, 2017 9:34am Start: 10-03-2017 End: 10-13-2017 take 200 ug by inhalation once daily Fluticasone Furoate (Arnuity Ellipta) 200 mcg/actuation blister with device Discontinued 1 INH INHALATION daily October 03, 2017 12:42pm October 13, 2017 8:34am Start: 10-03-2017 End: 10-13-2017 take 200 ug by inhalation once daily Fluticasone Furoate (Arnuity Ellipta) 200 mcg/actuation blister with device Discontinued 1 INH INHALATION daily October 03, 2017 1:42pm October 13, 2017 9:34am Start: 10-03-2017 End: 10-03-2017 take 200 ug by inhalation once daily Fluticasone Furoate (Arnuity Ellipta) 200 mcg/actuation blister with device Discontinued 1 NMA INHALATION daily October 03, 2017 12:00am October 03, 2017 1:43pm Start: 10-03-2017 End: 10-03-2017 take 200 ug by inhalation once daily Fluticasone Furoate (Arnuity Ellipta) 200 mcg/actuation blister with device Discontinued 1 INH INHALATION daily October 02, 2017 11:00pm October 03, 2017 12:43pm Start: 10-03-2017 End: 10-03-2017 take 200 ug by inhalation once daily Fluticasone Furoate (Arnuity Ellipta) 200 mcg/actuation blister with device Discontinued 1 INH INHALATION daily October 03, 2017 12:00am October 03, 2017 1:43pm 30 actuat fluticasone furoate 0.1 mg/actuat / vilanterol 0.025 mg/actuat dry powder inhaler (7 sources) Corticosteroid, beta2-Adrenergic Agonist Start: 09-18-2017 End: 09-24-2017 Fluticasone Furoate-Vilanterol (Breo Ellipta) 100-25 mcg/dose blister with device Discontinued 1 NMA INHALATION Q24H September 18, 2017 12:00am September 24, 2017 8:30am after inhalation, rinse mouth with water and spit out; do not swallow Start: 09-18-2017 End: 09-24-2017 Fluticasone Furoate-Vilanter ol (Breo Ellipta) 100-25 mcg/dose blister with device Discontinued 1 INH INHALATION Q24H September 17, 2017 11:00pm September 24, 2017 7:30am after inhalation, rinse mouth with water and spit out; do not swallow Lactobacillus (4 sources) Start: 06-22-2013 take 1 tablet by sandie th once daily ACIDOPHILUS 100 MG CAPS One tablet by mouth daily LACTOBACILLUS [id number] Pratibha Moore RN Start: 06-22-2013 take 1 tablet by sandie th once daily ACIDOPHILUS 100 MG CAPS One tablet by mouth daily LACTOBACILLUS [id number] Pratibha Moore RN Lactobacillus Combination No.8 (Adult Probiotic) 3 billion cell capsule (7 sources) Start: 09-01-2017 End: 09-04-2017 take 3 capsules by mouth once daily Lactobacillus Combination No.8 (Adult Probiotic) 3 billion cell capsule Discontinued 3000 NMA PO daily September 01, 2017 12:00am September 04, 2017 8:24am Start: 09-01-2017 End: 09-04-2017 take 3 capsules by mouth once daily Lactobacillus Combination No.8 (Adult Probiotic) 3 billion cell capsule Discontinued 3000 MMU CELLS PO daily August 31, 2017 11:00pm September 04, 2017 7:24am Start: 09-01-2017 End: 09-04-2017 take 3 capsules by mouth once daily Lactobacillus Combination No.8 (Adult Probiotic) 3 billion cell capsule Discontinued 3000 MMU CELLS PO daily September 01, 2017 12:00am September 04, 2017 8:24am levothyroxine sodium 0.025 mg oral tablet (20 sources) l-Thyroxine Start: 07-28-2018 End: 12-25-2023 take 1 tablet by mouth once daily Levothyroxine 25 mcg tablet Discontinued 25 ug PO DAILY June 16, 2023 1:51pm December 25, 2023 12:23pm Start: 09-01-2017 End: 09-04-2017 take 1 tablet by mouth once daily Levothyroxine 25 mcg tablet Discontinued 25 ug PO daily September 01, 2017 12:00am September 04, 2017 8:25am Start: 06-22-2013 End: 06-20-2017 take 1 tablet by mouth once daily Levothyroxine 25 MCG tablet Discontinued 25 ug PO DAILY July 11, 2015 1:00am June 20, 2017 12:22pm Start: 06-22-2013 take 1 tablet by sandie th once daily SYNTHROID 25 MCG TABS One tablet by mouth daily LEVOTHYROXINE SODIUM [id number] Pratibha Moore RN losartan potassium 50 mg oral tablet (8 sources) Angiotensin 2 Receptor Sergei Start: 04-24-2011 End: 04-26-2011 take 1 tablet by mouth once daily LOSARTAN POTASSIUM 50 MG TABS One tablet by mouth daily LOSARTAN POTASSIUM [id number] Brendan Ace MD 24 hr metoprolol succinate 25 mg extended release oral tablet (20 sources) beta-Adrenergic Sergei Start: 06-22-2020 End: 01-21-2024 take 2 tablets by mouth every twenty-four hours at bedtime Metoprolol Succinate 25 mg tablet extended release 24 hr Discontinued 12.5 mg PO AT BEDTIME March 18, 2023 12:03pm January 21, 2024 11:44am Start: 06-22-2020 End: 03-18-2023 take 12.5 mg by mouth at bedtime Metoprolol Succinate Active 12.5 MG PO AT BEDTIME March 18, 2023 11:03am Start: 05-28-2017 End: 06-22-2020 take 2 tablets by mouth once daily Metoprolol Succinate 25 mg tablet extended release 24 hr Discontinued 12.5 mg PO daily April 27, 2020 2:00pm June 22, 2020 2:26pm Start: 05-28-2017 End: 05-28-2017 take 2 tablets by mouth twice daily Metoprolol Succinate 25 mg tablet extended release 24 hr Discontinued 12.5 mg PO TWICE A DAY May 28, 2017 1:00am May 28, 2017 5:35pm Start: 05-28-2017 End: 05-28-2017 take 12.5 mg by mouth twice daily Metoprolol Succinate Discontinued 12.5 MG PO TWICE A DAY May 28, 2017 12:00am May 28, 2017 4:35pm Start: 04-21-2012 End: 06-22-2020 take 12.5 mg by mouth once daily Metoprolol Succinate Discontinued 12.5 MG PO daily April 27, 2020 1:00pm June 22, 2020 1:26pm Start: 06-10-2011 take 1 tablet by sandie th once daily TOPROL 25MG XL One tablet by mouth daily Katalina Rodriguez RN Start: 04-26-2011 TOPROL 25MG XL TOPROL 25MG XL [place] S Db, MD Start: 04-26-2011 TOPROL 25MG XL TOPROL 25MG XL Brendan Ace MD Start: 04-24-2011 End: 04-26-2011 take 1 tablet by mouth twice daily METOPROLOL TARTRATE 25 MG TABS One and one half tablets by mouth twice daily METOPROLOL TARTRATE [id number] Pratibha Moore RN Metoprolol(XL)Succ (7 sources) Start: 07-11-2015 End: 05-28-2017 take 12.5 mg by mouth at bedtime Metoprolol(XL)Succ Discontinued 12.5 mg PO AT BEDTIME July 11, 2015 1:00am May 28, 2017 2:53pm Start: 07-11-2015 End: 05-28-2017 take 12.5 mg by mouth at bedtime Metoprolol(XL)Succ Discontinued 12.5 MG PO AT BEDTIME July 11, 2015 12:00am May 28, 2017 1:53pm Start: 07-11-2015 End: 05-28-2017 take 12.5 mg by mouth at bedtime Metoprolol(XL)Succ Discontinued 12.5 MG PO AT BEDTIME July 11, 2015 1:00am May 28, 2017 2:53pm montelukast 10 mg oral tablet (14 sources) Leukotriene Receptor Antagonist Start: 10-10-2017 End: 12-12-2017 take 1 tablet by mouth once daily in the evening Montelukast 10 mg tablet Discontinued 10 mg PO EVERY EVENING October 10, 2017 12:00am October 10, 2017 11:16am MULTIPLE VITAMINS-MINERALS (2 sources) Start: 04-24-2011 take 1 tablet by mouth once daily CENTRUM SILVER TABS One tablet by mouth daily MULTIPLE VITAMINS-MINERALS [id number] Pratibha Moore RN Start: 04-24-2011 End: 04-26-2011 take 1 tablet by mouth once daily CENTRUM SILVER TABS One tablet by mouth daily MULTIPLE VITAMINS-MINERALS [id number] Pratibha Moore RN MULTIPLE VITAMINS-MINERALS (6 sources) Start: 04-24-2011 take 1 tablet by mouth once daily CENTRUM SILVER TABS One tablet by mouth daily MULTIPLE VITAMINS-MINERALS [id number] Pratibha Moore RN Start: 04-24-2011 End: 04-26-2011 take 1 tablet by mouth once daily CENTRUM SILVER TABS One tablet by mouth daily MULTIPLE VITAMINS-MINERALS [id number] Pratibha Moore RN Start: 04-24-2011 End: 04-26-2011 take 1 tablet by mouth once daily CENTRUM SILVER TABS One tablet by mouth daily MULTIPLE VITAMINS-MINERALS [id number] Pratibha Moore RN Start: 04-24-2011 take 1 tablet by sandie th once daily CENTRUM SILVER TABS One tablet by mouth daily MULTIPLE VITAMINS-MINERALS [id number] Pratibha Moore RN naproxen 375 mg oral tablet (20 sources) Nonsteroidal Anti-inflammatory Drug Start: 03-14-2022 End: 05-28-2024 take 1 tablet by mouth twice daily as needed for pain Naproxen 375 mg tablet Discontinued 375 mg PO TWICE A DAY as needed for pain 180 December 05, 2022 1:19pm May 28, 2024 1:31pm Start: 10-10-2020 End: 06-21-2021 take 1 tablet by mouth twice daily as needed for pain Naproxen 375 mg tablet Discontinued 375 mg PO TWICE A DAY as needed for pain 180 October 10, 2020 12:00am June 21, 2021 11:35am Start: 09-01-2017 End: 09-04-2017 take 1 tablet by mouth once daily Naproxen (Ec-Naprosyn) 375 mg tablet,delayed release (DR/EC) Discontinued 375 mg PO daily September 01, 2017 12:00am September 04, 2017 8:23am Start: 07-11-2015 End: 09-13-2015 Naproxen 250 MG tablet Disco ntinued 375 mg PO DAILY July 11, 2015 1:00am September 13, 2015 2:20pm Start: 07-11-2015 End: 09-13-2015 take 375 mg by mouth once daily Naproxen Discontinued 375 MG PO DAILY July 11, 2015 12:00am September 13, 2015 1:20pm Start: 08-25-2013 NAPROSYN 375 M G TABS one tablet and a half twice daily NAPROXEN [id number] Brendan Ace MD Start: 08-25-2013 take 2 tablets by mo [facility] once daily as needed NAPROSYN 375 MG TABS Two tablets by mouth daily as needed NAPROXEN [id number] Ronny Franco MD Start: 08-25-2013 NAPROSYN 375 M G TABS one tablet and a half twice daily NAPROXEN [id number] Brendan Ace MD pantoprazole 40 mg delayed release oral tablet (15 sources) Proton Pump Inhibitor Start: 07-11-2015 End: 08-15-2017 take 1 tablet by mouth once daily as needed Pantoprazole 40 MG tablet Discontinued 40 mg PO DAILY NEEDED as needed for Indigestion July 11, 2015 1:00am August 15, 2017 9:16am Start: 04-24-2011 [facility] PROTONIX 40 MG (PANTOPRAZOLE SODIUM) One tablet by mouth daily as needed Brendan Ace MD Start: 04-24-2011 [facility] as needed PROTONIX 40 MG (PANTOPRAZOLE SODIUM) One tablet by mouth daily as needed Brendan Ace MD predniSONE 10 mg oral tablet (20 sources) Start: 07-10-2023 End: 08-05-2023 take 1 tablet by mouth twice daily Prednisone 10 mg tablet Discontinued 10 mg PO TWICE A DAY July 10, 2023 1:00am August 05, 2023 11:27am Start: 09-28-2019 End: 10-19-2019 take 1 tablet by mouth once daily Prednisone 20 mg tablet Discontinued 20 mg PO DAILY September 28, 2019 12:00am October 19, 2019 2:43pm Start: 05-20-2019 End: 05-20-2019 Prednisone 10 mg tablet Discontinued 10 mg PO daily May 20, 2019 1:00am May 20, 2019 12:56pm take 4 tabs for three days, then 3 tabs for three days, then 2 tabs for three days, then 1 tab for 3 days Start: 10-10-2017 End: 12-12-2017 Prednisone 10 mg tablet Discontinued 10 mg PO daily October 10, 2017 12:00am October 10, 2017 11:16am take 4 tabs for two days, then 3 tabs for three days, then 2 tabs for three days, then 1 tab for 3 days Start: 06-20-2017 End: 09-04-2017 take 2 tablets by mouth once daily at mealtime Prednisone 20 mg tablet Discontinued 40 mg PO daily June 20, 2017 1:00am June 20, 2017 1:41pm administer with food or milk Start: 06-20-2017 End: 09-04-2017 take 40 mg by mouth once daily at mealtime Prednisone Discontinued 40 MG PO daily June 20, 2017 12:00am June 20, 2017 12:41pm administer with food or milk Salmeterol (14 sources) beta2-Adrenergic Agonist Start: 06-20-2017 End: 06-20-2017 take 50 ug by inhalation every twelve hours Salmeterol (Serevent Diskus) 50 mcg/dose blister with device Discontinued 1 NMA INHALATION Q12H June 20, 2017 1:00am June 20, 2017 1:42pm Start: 06-20-2017 End: 09-04-2017 take 50 ug by inhalation twice daily Salmeterol (Serevent Diskus) 50 mcg/dose blister with device Discontinued 1 NMA INHALATION TWICE A DAY June 20, 2017 1:00am September 04, 2017 8:24am Start: 06-20-2017 End: 06-20-2017 take 50 ug by inhalation every twelve hours Salmeterol (Serevent Diskus) 50 mcg/dose blister with device Discontinued 1 INH INHALATION Q12H June 20, 2017 12:00am June 20, 2017 12:42pm Start: 06-20-2017 End: 09-04-2017 take 50 ug by inhalation twice daily Salmeterol (Serevent Diskus) 50 mcg/dose blister with device Discontinued 1 INH INHALATION TWICE A DAY June 20, 2017 12:00am September 04, 2017 7:24am Start: 06-20-2017 End: 06-20-2017 take 50 ug by inhalation every twelve hours Salmeterol (Serevent Diskus) 50 mcg/dose blister with device Discontinued 1 INH INHALATION Q12H June 20, 2017 1:00am June 20, 2017 1:42pm Start: 06-20-2017 End: 09-04-2017 take 50 ug by inhalation twice daily Salmeterol (Serevent Diskus) 50 mcg/dose blister with device Discontinued 1 INH INHALATION TWICE A DAY June 20, 2017 1:00am September 04, 2017 8:24am sildenafil 20 mg oral tablet (11 sources) Phosphodiesterase 5 Inhibitor Start: 09-01-2017 End: 09-04-2017 take 1 tablet by mouth once daily as needed Sildenafil (Pulm.Hypertension) (Revatio) 20 mg tablet Discontinued 20 mg PO daily as needed September 01, 2017 12:00am September 04, 2017 8:26am Start: 10-25-2016 take 1 tablet by sandie th once daily as needed REVATIO 20 MG TABS One tablet by mouth daily as needed SILDENAFIL CITRATE [id number] Brendan Ace MD simvastatin 5 mg oral tablet (20 sources) HMG-CoA Reductase Inhibitor Start: 07-11-2015 End: 07-02-2024 take 1 tablet by mouth at bedtime Simvastatin 5 mg tablet Discontinued 5 mg PO AT BEDTIME June 16, 2023 1:03pm July 02, 2024 10:26am Start: 04-24-2011 take 1 tablet by sandie th once daily SIMVASTATIN 10 MG TABS One tablet by mouth daily SIMVASTATIN [id number] Brendan Ace MD Start: 04-24-2011 SIMVASTATIN 10 MG TABS 1/2 tablet daily at bedtime SIMVASTATIN [id number] Pratibha Moore RN vitamin d 1000 unt oral tablet (16 sources) Start: 06-22-2013 End: 08-25-2013 take 1 tablet by mouth once daily VITAMIN D 1000 UNIT TABS One tablet by mouth daily CHOLECALCIFEROL [id number] Ronny Franco MD Start: 06-22-2013 take 1 tablet by sandie th once daily VITAMIN D 1000 UNIT TABS One tablet by mouth daily CHOLECALCIFEROL [id number] Pratibha Moore RN Start: 04-24-2011 take 1 tablet by sandie th once daily VITAMIN D 1000 UNIT TABS One tablet by mouth daily CHOLECALCIFEROL [id number] Pratibha Moore RN Start: 04-24-2011 End: 04-26-2011 take 1 tablet by mouth once daily VITAMIN D 1000 UNIT TABS One tablet by mouth daily CHOLECALCIFEROL [id number] Pratibha Moore RN Start: 04-24-2011 End: 08-25-2013 take 1 tablet by mouth once daily VITAMIN D 1000 UNIT TABS One tablet by mouth daily CHOLECALCIFEROL [id number] Pratibha Moore RN Problems Active Problems Problem Classification Problem Date Documented Date Episodic/Chronic Anxiety disorders (13 sources) Generalized anxiety disorder; Translations: [Generalized anxiety disorder] 03-21-2021 Chronic Asthma (8 sources) Asthma; Translations: [Unspecified asthma, uncomplicated] 02-02-2018 Chronic Cardiac dysrhythmias (20 sources) Atrial fibrillation; Translations: [Paroxysmal atrial fibrillation] Onset: 04-26-2011 04-26-2011 Chronic Chronic kidney disease (1 source) Chronic kidney disease, stage 3 (moderate); Translations: [Chronic kidney disease, stage 3 (moderate)] Onset: 04-10-2017 Chronic Conditions associated with dizziness or vertigo (7 sources) Vertigo; Translations: [Dizziness and giddiness] 11-06-2018 Episodic Conduction disorders (11 sources) First degree atrioventricular block; Translations: [Atrioventricular block, first degree] Onset: 04-26-2011 04-26-2011 Chronic Disorders of lipid metabolism (12 sources) Hyperlipidemia; Translations: [Hyperlipidemia, unspecified] Onset: 10-07-2024 04-19-2019 Chronic Disorders of teeth and jaw (7 sources) Arthritis of temporomandibular joint; Translations: [Arthritis of temporomandibular joint] 06-14-2022 Episodic Essential hypertension (11 sources) Hypertensive disorder; Translations: [Essential (primary) hypertension] Onset: 10-07-2024 10-11-2021 Chronic Hyperplasia of prostate (7 sources) Benign prostatic hyperplasia; Translations: [Benign prostatic hyperplasia without lower urinary tract symptoms] Onset: 02-06-2024 06-10-2022 Chronic Immunizations and screening for infectious disease (4 sources) Needs influenza immunization; Translations: [Encounter for immunization] 03-21-2023 Episodic Open wounds of extremities (7 sources) Laceration of left index finger; Translations: [Laceration without foreign body of left index finger without damage to nail, initial encounter] 06-19-2021 Episodic Osteoarthritis (7 sources) Arthritis; Translations: [Unspecified osteoarthritis, unspecified site] 08-05-2019 Chronic Other aftercare (7 sources) Drug therapy finding; Translations: [Other bed bug exterminator (current) drug therapy] 03-21-2021 Episodic Other connective tissue disease (5 sources) History of arthrodesis of ankle; Translations: [Arthrodesis status] 06-02-2023 Episodic Other connective tissue disease (1 source) Arthrodesis status; Translations: [Arthrodesis status] 06-02-2023 Episodic Other ear and sense organ disorders (18 sources) Impacted cerumen; Translations: [Impacted cerumen, unspecified ear] 06-14-2022 Episodic Other ear and sense organ disorders (1 source) Impacted cerumen, right ear; Translations: [Impacted cerumen] 10-14-2022 Episodic Other ear and sense organ disorders (4 sources) Otalgia, left ear; Translations: [Left ear pain] 08-06-2024 Episodic Other injuries and conditions due to external causes (7 sources) Closed injury of head; Translations: [Unspecified injury of head, initial encounter] 11-06-2018 Episodic Other lower respiratory disease (7 sources) Dyspnea; Translations: [Shortness of breath] 04-19-2019 Episodic Other lower respiratory disease (7 sources) Cough; Translations: [Cough] 04-19-2019 Episodic Other non-traumatic joint disorders (2 sources) Derangement of right shoulder joint; Translations: [Other specific joint derangements of right shoulder, not elsewhere classified] Onset: 11-03-2023 11-03-2023 Chronic Other non-traumatic joint disorders (1 source) Other specific joint derangements of right shoulder, not elsewhere classified; Translations: [Other specific joint derangements of right shoulder, not elsewhere classified] Onset: 11-03-2023 Chronic Other non-traumatic joint disorders (11 sources) Shoulder pain; Translations: [Pain in right shoulder] 06-19-2021 Episodic Other non-traumatic joint disorders (3 sources) Pain in right shoulder; Translations: [Pain in joint, shoulder region] 10-14-2022 Episodic Other non-traumatic joint disorders (3 sources) Ankle pain; Translations: [Pain in left ankle and joints of left foot] 06-02-2023 Episodic Other non-traumatic joint disorders (1 source) Pain in left ankle and joints of left foot; Translations: [Pain in joint, ankle and foot] 06-02-2023 Episodic Other non-traumatic joint disorders (2 sources) Pain in elbow; Translations: [Pain in right elbow] Onset: 11-03-2023 11-03-2023 Episodic Other non-traumatic joint disorders (1 source) Pain in right elbow; Translations: [Pain in right elbow] Onset: 11-03-2023 Episodic Other nutritional; endocrine; and metabolic disorders (1 source) Overweight; Translations: [Overweight] Onset: 04-10-2017 Chronic Other screening for suspected conditions (not mental disorders or infectious disease) (14 sources) Patient encounter status; Translations: [Encounter for screening for malignant neoplasm of colon] Onset: 10-30-2024 06-14-2022 Episodic Other upper respiratory infections (14 sources) Posterior rhinorrhea; Translations: [Postnasal drip] 04-19-2019 Episodic Spondylosis; intervertebral disc disorders; other back problems (7 sources) Degeneration of intervertebral disc; Translations: [Degeneration of intervertebral disc] 10-12-2021 Chronic Spondylosis; intervertebral disc disorders; other back problems (14 sources) Stiff neck; Translations: [Torticollis] 06-14-2022 Episodic Superficial injury; contusion (6 sources) Tick bite; Translations: [Insect bite (nonvenomous) of abdominal wall, initial encounter] 06-14-2022 Episodic Thyroid disorders (9 sources) Subclinical hypothyroidism; Translations: [Other specified hypothyroidism] Onset: 02-06-2024 04-19-2019 Chronic Viral infection (5 sources) Disease caused by 2019-nCoV; Translations: [COVID-19] 07-30-2022 Episodic Past or Other Problems Problem Classification Problem Date Documented Date Episodic/Chronic Cardiac dysrhythmias (8 sources) Palpitations; Translations: [Tachycardia] Onset: 07-15-2016 07-15-2016 Episodic Diabetes mellitus without complication (1 source) Hyperglycemia, unspecified; Translations: [Hyperglycemia, unspecified] Onset: 04-10-2017 Episodic Other aftercare (1 source) Other bed bug exterminator (current) drug therapy; Translations: [Other bed bug exterminator (current) drug therapy] Onset: 04-03-2017 Episodic Other lower respiratory disease (1 source) Cough; Translations: [Cough] Onset: 04-28-2017 Episodic Other nutritional; endocrine; and metabolic disorders (8 sources) Body mass index (BMI) 27.0-27.9, adult; Translations: [Body mass index (BMI) 26.0-26.9, adult] Onset: 06-22-2013 Resolved: 03-10-2017 03-10-2017 Episodic Other nutritional; endocrine; and metabolic disorders (3 sources) Body mass index (BMI) 26.0-26.9, adult; Translations: [Body mass index (BMI) 26.0-26.9, adult] Onset: 08-25-2013 08-25-2013 Episodic Unclassified (12 sources) Preoperative cardiovascular examination ; Translations: [Encounter for preprocedural cardiovascular examination] Onset: 06-22-2013 Resolved: 03-06-2016 08-21-2015 Results Test Name Value Interpretation Reference Range Facility 12 Lead EKG performed by [facility] on 10-07-2024 12 Lead EKG performed by [address] [id number] Lead EKG performed by [facility] 10/07/24 1154 MR#: [id number] Acct: [id number] Name: TRISTON PUENTE Rep #: [id number] : 1945 79 From: Brendan Ace MD Attending Dr: Dr. Brendan Ace MD Status: DEP A MB Ordering Dr: Brendan Ace MD Date: 10/07/24 Location: [facility] Sex: M C Admitted: [facility]/12 Lead EKG performed by [facility] ECG Report Interpretation Sinu s Bradycardia -First degree A-V block David = 272- Nonspecific T-abnormality. ABNORMAL Electronically signed on 10/13/2024 at 09:39 by Brendan Acewood Software Version [id number] 10/13/24 0942 Date Brendan Aec MD CC: Dr. Juan Davis MD Date Dictated: 10/07/24 1154 Date Transcribed: 10/07/241153 Hi Ranger Operator: CO Signed Normal [facility] Cardiology Visit Reporton Cardiology Visit Report [facility] [address] [place] [address] OFFICE VISIT Date of Service: 10/07/24 MR#: [id number] Acct: [id number] Name: TRISTON PUENTE Rep #: [id number] : 1945 Provider: Dr. Brendan Ace MD Age/Sex: 79/M Location: [facility] Status: Signed HPI HPI History of Present Illness Details: This is a 79-year-old gentleman that presents here today for a cardiovascular follow-up . He has a history of paroxysmal atrial fibrillation. He has been doing quite well since his last visit. You do remember that he had undergone a stress test in June 2022 exercising to a high metabolic workload of 10.1 metabolic equivalents and an echocardiogram demonstrating mild concentric hypertrophy with an estimated EF of 60%. There was mild mitral and aortic regurgitation noted. He has been checking his blood pressures at home and they have been in the normotensive range. His major problem is that he has been fatigued recently. He has had no neck arm or jaw discomfort suggest angina no dizziness or diaphoresis no near syncope or syncope. His EKG from today demonstrated sinus bradycardia with a rate of 51 bpm. Intake Vital Signs 08/12/23 10:50 08/06/24 07:55 10/07/24 11:54 Height 6 ft 6 ft 6 ft Weight: 197 lb BMI 26.7 BP 123/79 H Blood Pressure Location Lt brachial Position Sitting Respiration 16 Pulse 51 L Pulse Source Monitor Intake Visit Reasons: 1 y fu w BEHAVIORAL HEALTH ASSISTANT per BEHAVIORAL HEALTH ASSISTANT Director Immunology Required: No Accompanied by: Self Is patient in pain?: No Allergies prednisone Allergy (Intermediate, Verified 10/07/24 11:58) rapid heart rate fluticasone furoate (From Breo Ellipta) Adverse Reaction (Intermediate, Verified 10/07/24 11:58) Other-heart racing, anxiety, SOB vilanterol (From Breo Ellipta) Adverse Reaction (Intermediate, Verified 10/07/24 11:58) Other-heart racing, anxiety, SOB codeine Adverse Reaction (Verified 10/07/24 11:58) ANXIOUS Medications ???Medication ???Instructions ???Recorded ???Confirmed ???Type aspirin 81 mg tablet,delayed 81 mg PO QDAY 06/20/17 10/07/24 Hi story release (Adult Low Dose Aspirin) cholecalciferol (vitamin D3) 25 1,000 unit PO DAILY 07/28/1810/07 History mcg (1,000 unit) capsule levothyroxine 25 mcg tablet 25 mcg PO DAILY #90 tabs 12/25/23 10/07/24 Rx metoprolol succinate 25 mg 12.5 mg (1/2 x 25 mg) PO QHS #180 01/21/24 10/07/24 Rx tablet,extended release 24 hr tabs alprazolam 0.5 mg tablet (Xanax) 0.5 mg PO BID PRN anxiety #60 tabs 05/28/24 10/07/24 Rx dicyclomine 20 mg tablet 20 mg PO .ACHS PRN abdominal pain 05/28/24 10/07/24 Rx #90 tabs naproxen 375 mg tablet 375 mg PO BID PRN pain #180 tabs 0 05/28/24 10/07/24 Rx simvastatin 5 mg tablet 5 mg PO QHS #90 tabs 07/02/2409/23 Rx flecainide 50 mg tablet 50 mg PO Q12H #120 tabs 10/07/24 0 10/07/24 Rx Have you fallen in the past year?: No Nurse's Note: pt states no changes in med list FOR[facility]LY [facility], [facility] Medical History Left ear pain Immunity status testing Anxiety Flu vaccine need Impacted cerumen of right ear Bilateral shoulder pain Tick bite of abdomen Neck pain Colon cancer screening 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 Hypertension Cerumen impaction TMJ arthritis Neck stiffness Benzodiazepine use agreement exists Generalized anxiety disorder Preventative health care Bilateral shoulder pain TMJ (dislocation of temporomandibular joint) Hyperlipemia Subclinical hypothyroidism BPH (benign prostatic hyperplasia) High risk medication use PND (post-nasal drip) Tachycardia Palpitations History of hydrocele History of pneumonia DDD (degenerative disc disease) First degree AV block Paroxysmal atrial fibrillation Diaphragmatic hernia GERD (gastroesophageal reflux disease) Shortness of breath Diverticulosis Asthma Arthritis Surgical History S/P surgical manipulation of ankle joint History of hemicolectomy History of tonsillectomy and adenoidectomy History of hernia repair History of right hip replacement Family History Father Heart disease Arthritis COPD (chronic obstructive pulmonary disease) Myocardial infarction Mother Breast cancer Cancer lung Aunt Colon cancer Social History Smoking Status: Never smoker alcohol intake: current alcohol intake frequency: a few times a week Alcohol type: beer, wine and hard liquor substance use type: does not use caffeine: Yes Type: coffee and tea what type of physical activity do you participate in: bicycling and weight training frequency: 3-4 times per week seatbelt use: always d (more content not included)... Normal [facility] Rubeola IgG Abon 08-07-2024 RUBEOLA Ab, IgG > 300.0 Normal Immune >16.4 [facility] Comment on above: Result Comment: Nega tive <13.5 Equivocal 13.5 - 16.4 Positive >16.4 Presence of antibodies to Rubeola is presumptive evidence of immunity except when acute infection is suspected. Performed at: [facility] [id number] [employer] Consultant: Nando Celestin PhD, Phone: [phone] Performed By: #### L 351.2238, H618.3301, N3057.7475 ####[facility] [id number] [place], [address] Anion gap in Serum or Plasma Ordered By: Juan Davis on 08-06-2024 Anion gap [Moles/Vol] 12 mmol/L 10-07 [facility] BUN/creatinine ratioOrdered By: Juan Davis on 08-06-2024 Urea nitrogen/Creatinine [Mass ratio] 11.3 mg/mg 03-14 [facility] Basic Metabolic Profile (BMP )on 08-06-2024 BUN/CRE 11.3 RATIO Normal - [facility] Comment on above: Performed By: #### L 501.9520, L500.2500, L3100.3300 #### [facility] [address] [place], [address] Calcium [Mass/Vol] 9.2 mg/dL Normal 7.6-11.0 [facility] Comment on above: Performed By: #### L 501.9520, L500.2500, L3100.3300 #### [facility] [address] [place], [address] Chloride [Moles/Vol] 105 mmol/L Normal 98-108 [facility] Comment on above: Performed By: #### L 501.9520, L500.2500, L3100.3300 #### [facility] [address] [place], [address] CO2 [Moles/Vol] 24.2 mmol/L Normal 21.0-32.0 [facility] Comment on above: Performed By: #### L [id number], L500.2500, L3100.3300 #### [facility] [address] [place], [address] Creatinine [Mass/Vol] 1.27 mg/dL High 0.70-1.20 [facility] Comment on above: Performed By: #### L 501.9520, L500.2500, L3100.3300 #### [facility] [address] [place], [address] GAP 12 Normal 5-15 [facility] Comment on above: Performed By: #### L 501.9520, L500.2500, L3100.3300 #### [facility] [address] [place], [address] GFR/1.73 sq M.predicted among non-blacks MDRD (S/P/Bld) [Vol rate/Area] 58 mL/min/{1.73_m2} Low >60 [facility] Comment on above: Result Comment: mL/m in/1.73m2 CKD-EPI Creatinine Equation (2020) Performed By: #### L 501.9520, L500.2500, L3100.3300 #### [facility] [address] [place], [address] Glucose [Mass/Vol] 126 mg/dL High 70-99 [facility] Comment on above: Performed By: #### L 501.9520, L500.2500, L3100.3300 #### [facility] [address] [place], [address] Potassium [Moles/Vol] 3.9 mmol/L Normal 3.3-5.1 [facility] Comment on above: Performed By: #### L 501.9520, L500.2500, L3100.3300 #### [facility] [address] [place], [address] Sodium [Moles/Vol] 141 mmol/L Normal 133-145 [facility] Comment on above: Performed By: #### L 501.9520, L500.2500, L3100.3300 #### [facility] [address] [place], [address] Urea nitrogen [Mass/Vol] 14 mg/dL Normal 4-19 [facility] Comment on above: Performed By: #### L 501.9520, L500.2500, L3100.3300 #### [facility] [address] [place], [address] Carbon dioxide, total [Moles /volume] in Central venous bloodOrdered By: Juan Davis on 08-06-2024 CO2 [Moles/Vol] 24.2 mmol/L 21.0-32.0 [facility] Chloride assayOrdered By: George Davis on 08-06-2024 Chloride [Moles/Vol] 105 mmol/L 98-108 [facility] GFR/1.73 sq M.predicted amrik g non-blacks MDRD (S/P/Bld) [Vol rate/Area]Ordered By: Juan Davis on 08-06-2024 Estimated GFR (MDRD) Non-Af Amer 58 Low >60 [facility] Comment on above: mL/min/1.73m2 CKD-EP I Creatinine Equation (2020) Glomerular filtration rate ( GFR) estimation/1.73 sq m using serum, plasma, or whole bOrdered By: Juan Davis on 08-06-2024 GFR/1.73 sq M.predicted among non-blacks MDRD (S/P/Bld) [Vol rate/Area] 58 mL/min/{1.73_m2} Low >60 [facility] Comment on above: mL/min/1.73m2 CKD-EP I Creatinine Equation (2020) Internal Medicine Office Vis ricarda 08-06-2024 Internal Medicine Office Visit [facility] [address] [place] [address] [place] [address] OFFICE VISIT Date of Service: 08/06/24 MR#: [id number] Acct: [id number] Name: TRISTON PUENTE Rep #: [id number] : 1945 Provider: Dr. Juan rodriguez MD Age/Sex: 79/M Location: [facility] [place] Status: Signed Intake Vital Signs 02/06/24 08:32 08/06/24 07:55 Height 6 ft 6 ft Weight: 200 lb 8 oz BMI 27.1 BP 132/76 H Blood Pressure Location Lt brachial Position Sitting Respiration 16 Pulse 88 Pulse Source Monitor Temp 98 F Temp Source Temporal Pulse Oximetry (%) 95 Oxygen Delivery Method room air Intake Visit Reasons: 6 M FU Chief Complaint: Follow-up chronic conditions Director Immunology Required: No Accompanied by: Self Is patient in pain?: No Allergies prednisone Allergy (Intermediate, Verified 08/06/24 07:52) rapid heart rate fluticasone furoate (From Breo Ellipta) Adverse Reaction (Intermediate, Verified 08/06/24 07:52) Other-heart racing, anxiety, SOB vilanterol (From Breo Ellipta) Adverse Reaction (Intermediate, Verified 08/06/24 07:52) Other-heart racing, anxiety, SOB codeine Adverse Reaction (Verified 08/06/24 07:52) ANXIOUS Medications ???Medication ???Instructions ???Recorded ???Confirmed ???Type aspirin 81 mg tablet,delayed 81 mg PO QDAY 06/20/17 08/06/24 Hi story release (Adult Low Dose Aspirin) cholecalciferol (vitamin D3) 25 1,000 unit PO DAILY 07/28/1808/06 History mcg (1,000 unit) capsule levothyroxine 25 mcg tablet 25 mcg PO DAILY #90 tabs 12/25/23 08/06/24 Rx metoprolol succinate 25 mg 12.5 mg (1/2 x 25 mg) PO QHS #180 01/21/24 08/06/24 Rx tablet,extended release 24 hr tabs flecainide 100 mg tablet 100 mg PO Q12H #720 tabs 05/24/24 08/06/24 Rx alprazolam 0.5 mg tablet (Xanax) 0.5 mg PO BID PRN anxiety #60 tabs 05/28/24 08/06/24 Rx dicyclomine 20 mg tablet 20 mg PO .ACHS PRN abdominal pain 05/28/24 08/06/24 Rx #90 tabs naproxen 375 mg tablet 375 mg PO BID PRN pain #180 tabs 0 05/28/24 08/06/24 Rx simvastatin 5 mg tablet 5 mg PO QHS #90 tabs 07/02/2407/24 Rx Have you fallen in the past year?: No Nurse's Note: may need refill on xanax soon and discuss possible left ear blockage [facility] Medical History (Updated 08/06/24 @ 10:[address] Juan Davis MD) Left ear pain Immunity status testing Anxiety Flu vaccine need Impacted cerumen of right ear Bilateral shoulder pain Tick bite of abdomen Neck pain Colon cancer screening 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 Hypertension Cerumen impaction TMJ arthritis Neck stiffness Benzodiazepine use agreement exists Generalized anxiety disorder Preventative health care Bilateral shoulder pain TMJ (dislocation of temporomandibular joint) Hyperlipemia Subclinical hypothyroidism BPH (benign prostatic hyperplasia) High risk medication use PND (post-nasal drip) Tachycardia Palpitations History of hydrocele History of pneumonia DDD (degenerative disc disease) First degree AV block Paroxysmal atrial fibrillation Diaphragmatic hernia GERD (gastroesophageal reflux disease) Shortness of breath Diverticulosis Asthma Arthritis Surgical History (Updated 08/06/24 @ 10:[address] Juan Davis MD) S/P surgical manipulation of ankle joint History of hemicolectomy History of tonsillectomy and adenoidectomy History of hernia repair History of right hip replacement Family History Father Heart disease Arthritis COPD (chronic obstructive pulmonary disease) Myocardial infarction Mother Breast cancer Cancer lung Aunt Colon cancer Social History Smoking Status: Never smoker alcohol intake: current alcohol intake frequency: a few times a week Alcohol type: beer, wine and hard liquor substance use type: does not use caffeine: Yes Type: coffee and tea what type of physical activity do you participate in: bicycling and weight training frequency: 3-4 times per week seatbelt use: always do you feel safe at home: Yes HPI HPI Chief Complaint: Follow-up chronic conditions Details: TRISTON PUENTE, is a 79 M who presents to the office today for for follow-up of his chronic conditions. Also has some concerns. He reports some discomfort in his left ear. Started after he tried to dislodge what he thought was wax. No drainage or concerns with hearing. He is concerned about impaction. Chronic history of anxiety, currently on alprazolam as needed. Takes a half a tablet as needed. Still finds it helpful. No concerning side effects. Concerned about his immunity to measles. He believes that he may have had measles as a child but not sure about his vaccination status. He would like to get tested for this due to rec (more content not included)... Normal [facility] MeV IgG IA Qn (S)Ordered By: Juan Davis on 08-06-2024 Rubeola (Measles) IgG Antibody > 300.0 AU/mL Immune >16.4 [facility] Comment on above: Negative <13.5 Equiv ocal 13.5 - 16.4 Positive >16.4Presence of antibodies to Rubeola is presumptive evidenceof immunity except when acute infection is suspected.Performed at: [facility] [employer] [id number] Director: Nando Celestin PhD, Phone: [phone] Potassium (Unsp spec) [Mass/ Vol]Ordered By: Juan Davis on 08-06-2024 Potassium [Moles/Vol] 3.9 mmol/L 3.3-5.1 [facility] Potassium measurement (mass/ volume)Ordered By: Juan Davis on 08-06-2024 Potassium (Unsp spec) [Mass/Vol] 3.9 mmol/L 3.3-5.1 [facility] Serum creatinine measurement (mass/volume)Ordered By: Juan Davis on 08-06-2024 Creatinine [Mass/Vol] 1.27 mg/dL High 0.70-1.20 [facility] Serum glucose measurement (m ass/volume)Ordered By: Juan Davis on 08-06-2024 Glucose [Mass/Vol] 126 mg/dL High 70-99 [facility] Serum measles virus IgG anti body assay by immunoassay (units/volume)Ordered By: Juan Davis on 08-06-2024 MeV IgG IA Qn (S) > 300.0 AU/mL Immune >16.4 [facility] Comment on above: Negative <13.5 Equiv ocal 13.5 - 16.4 Positive >16.4Presence of antibodies to Rubeola is presumptive evidenceof immunity except when acute infection is suspected.Performed at: [facility] [employer] [id number] Director: Nando Celestin PhD, Phone: [phone] Serum or plasma calcium rodolfo urement (mass/volume)Ordered By: Juan Davis on 08-06-2024 Calcium [Mass/Vol] 9.2 mg/dL 7.6-11.0 [facility] Serum or plasma urea nitroge n measurement (mass/volume)Ordered By: Juan Davis on 08-06-2024 Urea nitrogen [Mass/Vol] 14 mg/dL 4-19 [facility] Sodium levelOrdered By: Yessenia Davis on 08-06-2024 Sodium [Moles/Vol] 141 mmol/L 133-145 [facility] TSH DL <= 0.005 mIU/L QnOrde red By: Juan Davis on 08-06-2024 Thyroid Stimulating Hormone (TSH) 3.820 uIU/mL 0.300-4.20 0 [facility] TSH Qn 3.820 uIU/mL 0.300-4.20 0 [facility] Thyroid Stim Hormone (TSH)on 08-06-2024 TSH 3.820 uIU/mL Normal 0.300-4.20 0 [facility] Comment on above: Performed By: #### L 501.9520, L500.2500, L3100.3300 #### [facility] [address] [place], [address] CBC W/Diff, Automatedon 01-24 Absolute Lymph 1.26 X10 3/uL Normal 0.83-4.51 [facility] Comment on above: Performed By: #### L 500.4050, L501.9910, L501.9520, L500.4100, L100.0100 #### [facility] [address] [place], [address] Absolute Neut 3.2 X10 3/uL Normal 2.0-7.7 [facility] Comment on above: Performed By: #### L 500.4050, L501.9910, L501.9520, L500.4100, L100.0100 #### [facility] [address] [place], [address] Basophils/100 WBC (Bld) 0.7 % Normal 0-1 [facility] Comment on above: Performed By: #### L 500.4050, L501.9910, L501.9520, L500.4100, L100.0100 #### [facility] [address] [place], [address] Eosinophils/100 WBC (Bld) 4.9 % Normal 0-5 [facility] Comment on above: Performed By: #### L 500.4050, L501.9910, L501.9520, L500.4100, L100.0100 #### [facility] [address] [place], [address] Erythrocyte distribution width (RBC) [Ratio] 12.2 % Normal 11.6-14.6 [facility] Comment on above: Performed By: #### L 500.4050, L501.9910, L501.9520, L500.4100, L100.0100 #### [facility] [address] [place], [address] Hematocrit (Bld) [Volume fraction] 44.9 % Normal 40-54 [facility] Comment on above: Performed By: #### L 500.4050, L501.9910, L501.9520, L500.4100, L100.0100 #### [facility] [address] [place], [address] Hemoglobin (Bld) [Mass/Vol] 14.9 g/dL Normal 13.0-16.5 [facility] Comment on above: Performed By: #### L 500.4050, L501.9910, L501.9520, L500.4100, L100.0100 #### [facility] [address] [place], [address] IG% 0.600 Normal 0.0-0.9 [facility] Comment on above: Result Comment: IG% - Immature Granulocytes (promyelocytes, myelocytes and metamyelocytes) > 1% indicates that a LEFT SHIFT is Present. Performed By: #### L 500.4050, L501.9910, L501.9520, L500.4100, L100.0100 #### [facility] [address] [place], [address] Lymphocytes/100 WBC (Bld) 23.5 % Normal 19-41 [facility] Comment on above: Performed By: #### L 500.4050, L501.9910, L501.9520, L500.4100, L100.0100 #### [facility] [address] [place], [address] MCH (RBC) [Entitic mass] 31.4 pg Normal 27.0-32.0 [facility] Comment on above: Performed By: #### L 500.4050, L501.9910, L501.9520, L500.4100, L100.0100 #### [facility] [address] [place], [address] MCHC (RBC) [Mass/Vol] 33.2 g/dL Normal 32-36 [facility] Comment on above: Performed By: #### L 500.4050, L501.9910, L501.9520, L500.4100, L100.0100 #### [facility] [address] [place], [address] MCV (RBC) [Entitic vol] 94.5 fL High 80-94 [facility] Comment on above: Performed By: #### L 500.4050, L501.9910, L501.9520, L500.4100, L100.0100 #### [facility] [address] [place], [address] Monocytes/100 WBC (Bld) 10.8 % High 0-10 [facility] Comment on above: Performed By: #### L 500.4050, L501.9910, L501.9520, L500.4100, L100.0100 #### [facility] [address] [place], [address] Neutrophils/100 WBC (Bld) 59.5 % Normal 47-70 [facility] Comment on above: Performed By: #### L 500.4050, L501.9910, L501.9520, L500.4100, L100.0100 #### [facility] [address] [place], [address] Nucleated RBC (Bld) [#/Vol] 0 10*3/uL Normal 0-5 [facility] Comment on above: Performed By: #### L 500.4050, L501.9910, L501.9520, L500.4100, L100.0100 #### [facility] [address] [place], [address] Platelet mean volume (Bld) [Entitic vol] 10.3 fL Normal 6.2-12.0 [facility] Comment on above: Performed By: #### L 500.4050, L501.9910, L501.9520, L500.4100, L100.0100 #### [facility] [address] [place], [address] Platelets (Bld) [#/Vol] 196 10*3/uL Normal 150-450 [facility] Comment on above: Performed By: #### L 500.4050, L501.9910, L501.9520, L500.4100, L100.0100 #### [facility] [address] [place], [address] RBC (Bld) [#/Vol] 4.75 10*6/uL Normal 4.6-6.2 [facility] Comment on above: Performed By: #### L 500.4050, L501.9910, L501.9520, L500.4100, L100.0100 #### [facility] [address] [place], [address] RDW SD 42.5 fl Normal 35.1-43.9 [facility] Comment on above: Performed By: #### L 500.4050, L501.9910, L501.9520, L500.4100, L100.0100 #### [facility] [address] [place], [address] WBC (Bld) [#/Vol] 5.4 10*3/uL Normal 4.4-11.0 [facility] Comment on above: Performed By: #### L 500.4050, L501.9910, L501.9520, L500.4100, L100.0100 #### [facility] [address] [place], [address] Comprehensive Metabolic Prof idon 02-06-2024 Albumin [Mass/Vol] 3.7 g/dL Normal 3.2-5.0 [facility] Comment on above: Performed By: #### L 500.4050, L501.9910, L501.9520, L500.4100, L100.0100 #### [facility] [address] [place], [address] Albumin/Globulin [Mass ratio] 1.3 {ratio} Normal 0.9-2.4 [facility] Comment on above: Performed By: #### L 500.4050, L501.9910, L501.9520, L500.4100, L100.0100 #### [facility] [address] [place], [address] ALK P 75 U/L Normal 45-117 [facility] Comment on above: Performed By: #### L 500.4050, L501.9910, L501.9520, L500.4100, L100.0100 #### [facility] [address] [place], [address] ALT [Catalytic activity/Vol] 26 U/L Normal 16-61 [facility] Comment on above: Performed By: #### L 500.4050, L501.9910, L501.9520, L500.4100, L100.0100 #### [facility] [address] [place], [address] AST [Catalytic activity/Vol] 19 U/L Normal 15-37 [facility] Comment on above: Performed By: #### L 500.4050, L501.9910, L501.9520, L500.4100, L100.0100 #### [facility] [address] [place], [address] Bilirubin [Mass/Vol] 0.70 mg/dL Normal 0.20-1.00 [facility] Comment on above: Result Comment: For patients on eltrombopag therapy, use of Dimension [place] TBIL is not recommended. Performed By: #### L 500.4050, L501.9910, L501.9520, L500.4100, L100.0100 #### [facility] [address] [place], [address] BUN/CRE 13.2 RATIO Normal 10-20 [facility] Comment on above: Performed By: #### L 500.4050, L501.9910, L501.9520, L500.4100, L100.0100 #### [facility] [address] [place], [address] CA,Total 9.0 mg/dL Normal 8.5-10.1 [facility] Comment on above: Performed By: #### L 500.4050, L501.9910, L501.9520, L500.4100, L100.0100 #### [facility] [address] [place], [address] Chloride [Moles/Vol] 109 mmol/L High 98-107 [facility] Comment on above: Performed By: #### L 500.4050, L501.9910, L501.9520, L500.4100, L100.0100 #### [facility] [address] [place], [address] CO2 [Moles/Vol] 28.0 mmol/L Normal 21.0-32.0 [facility] Comment on above: Performed By: #### L 500.4050, L501.9910, L501.9520, L500.4100, L100.0100 #### [facility] [address] [place], [address] Creatinine [Mass/Vol] 1.29 mg/dL Normal 0.70-1.30 [facility] Comment on above: Result Comment: The validity of the calculated GFR GFRAA in patients over 70 years has not been determined. Clinical correlation is essential. Performed By: #### L 500.4050, L501.9910, L501.9520, L500.4100, L100.0100 #### [facility] [address] [place], [address] EST GFR - AA 69 mL/min Normal >60 [facility] Comment on above: Result Comment: Afri can [place] GFR Calc Performed By: #### L 500.4050, L501.9910, L501.9520, L500.4100, L100.0100 #### [facility] [address] [place], [address] GAP 4 Low 5-15 [facility] Comment on above: Performed By: #### L 500.4050, L501.9910, L501.9520, L500.4100, L100.0100 #### [facility] [address] [place], [address] GFR/1.73 sq M.predicted among non-blacks MDRD (S/P/Bld) [Vol rate/Area] 57 mL/min/{1.73_m2} Low >60 [facility] Comment on above: Result Comment: Non- GFR Calc Performed By: #### L 500.4050, L501.9910, L501.9520, L500.4100, L100.0100 #### [facility] [address] [place], [address] Globulin (S) [Mass/Vol] 2.9 g/dL Normal 2.2-4.2 [facility] Comment on above: Performed By: #### L 500.4050, L501.9910, L501.9520, L500.4100, L100.0100 #### [facility] [address] [place], [address] Glucose [Mass/Vol] 115 mg/dL High 74-106 [facility] Comment on above: Result Comment: Fast ing Glucose result from 100 to 125 mg/dL suggests IMPAIRED HOMEOSTASIS per A.D.A. criteria. Performed By: #### L 500.4050, L501.9910, L501.9520, L500.4100, L100.0100 #### [facility] [address] [place], [address] Potassium [Moles/Vol] 3.9 mmol/L Normal 3.5-5.1 [facility] Comment on above: Performed By: #### L 500.4050, L501.9910, L501.9520, L500.4100, L100.0100 #### [facility] [address] [place], [address] Sodium [Moles/Vol] 141 mmol/L Normal 136-145 [facility] Comment on above: Performed By: #### L 500.4050, L501.9910, L501.9520, L500.4100, L100.0100 #### [facility] [address] [place], [address] T PROT 6.6 g/dL Normal 6.4-8.2 [facility] Comment on above: Performed By: #### L 500.4050, L501.9910, L501.9520, L500.4100, L100.0100 #### [facility] [address] [place], [address] Urea nitrogen [Mass/Vol] 17 mg/dL Normal 7-18 [facility] Comment on above: Performed By: #### L 500.4050, L501.9910, L501.9520, L500.4100, L100.0100 #### [facility] [address] [place], [address] Internal Medicine Office Vis itoralph 02-06-2024 Internal Medicine Office Visit [facility] [address] [place] [address] OFFICE VISIT Date of Service: 02/06/24 MR#: [id number] Acct: [id number] Name: TRISTON PUENTE Rep #: [id number] : 1945 Provider: Dr. Juan rodriguez MD Age/Sex: 78/M Location: [facility] [place] Status: Signed Intake Vital Signs 10/22/23 14:56 02/06/24 08:32 Height 6 ft 6 ft Weight: 201 lb 0.8 oz BMI 27.2 BP 122/60 H Blood Pressure Location Lt brachial Position Sitting Respiration 16 Pulse 85 Pulse Source Monitor Temp 97.5 F L Temp Source Temporal Pulse Oximetry (%) 98 Oxygen Delivery Method room air Intake Visit Reasons: MED FOLLOW UP Chief Complaint: med f/u Director Immunology Required: No Accompanied by: Self Is patient in pain?: No Allergies prednisone Allergy (Intermediate, Verified 02/06/24 08:30) rapid heart rate fluticasone furoate (From Breo Ellipta) Adverse Reaction (Intermediate, Verified 02/06/24 08:30) Other-heart racing, anxiety, SOB vilanterol (From Breo Ellipta) Adverse Reaction (Intermediate, Verified 02/06/24 08:30) Other-heart racing, anxiety, SOB codeine Adverse Reaction (Verified 02/06/24 08:30) ANXIOUS Medications ???Medication ???Instructions ???Recorded ???Confirmed ???Type aspirin 81 mg tablet,delayed 81 mg PO QDAY 06/20/17 02/06/24 History release (Adult Low Dose Aspirin) cholecalciferol (vitamin D3) 25 1,000 unit PO DAILY 07/28/18 02/06/24 History mcg (1,000 unit) capsule naproxen 375 mg tablet 375 mg PO BID PRN pain #180 tabs 12/05/22 02/06/24 Rx flecainide 100 mg tablet 100 mg PO Q12H #720 tabs 03/18/23 02/06/24 Rx dicyclomine 20 mg tablet 20 mg PO .ACHS PRN abdominal pain 04/28/23 02/06/24 Rx #90 tabs simvastatin 5 mg tablet 5 mg PO QHS #90 tabs 06/16/23 02/06/24 Rx levothyroxine 25 mcg tablet 25 mcg PO DAILY #90 tabs 12/25/23 02/06/24 Rx metoprolol succinate 25 mg 12.5 mg (1/2 x 25 mg) PO QHS #180 01/21/24 02/06/24 Rx tablet,extended release 24 hr tabs alprazolam 0.5 mg tablet (Xanax) 0.5 mg PO BID PRN anxiety #60 tabs 01/22/24 02/06/24 Rx Have you fallen in the past year?: No PFSH Medical History (Updated 02/06/24 @ 11:[address] Juan Davis MD) Anxiety Flu vaccine need Impacted cerumen of right ear Bilateral shoulder pain Tick bite of abdomen Neck pain Colon cancer screening 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 Hypertension Cerumen impaction TMJ arthritis Neck stiffness Benzodiazepine use agreement exists Generalized anxiety disorder Preventative health care Bilateral shoulder pain TMJ (dislocation of temporomandibular joint) Hyperlipemia Subclinical hypothyroidism BPH (benign prostatic hyperplasia) High risk medication use PND (post-nasal drip) Tachycardia Palpitations History of hydrocele History of pneumonia DDD (degenerative disc disease) First degree AV block Paroxysmal atrial fibrillation Diaphragmatic hernia GERD (gastroesophageal reflux disease) Shortness of breath Diverticulosis Asthma Arthritis Surgical History S/P surgical manipulation of ankle joint History of hemicolectomy History of tonsillectomy and adenoidectomy History of hernia repair History of right hip replacement Family History Father Heart disease Arthritis COPD (chronic obstructive pulmonary disease) Myocardial infarction Mother Breast cancer Cancer lung Aunt Colon cancer Social History Smoking Status: Never smoker alcohol intake: current alcohol intake frequency: a few times a week Alcohol type: beer, wine and hard liquor substance use type: does not use caffeine: Yes Type: coffee and tea what type of physical activity do you participate in: bicycling and weight training frequency: 3-4 times per week seatbelt use: always do you feel safe at home: Yes HPI HPI Chief Complaint: med f/u Details: TRISTON PUENTE, is a 78 M who presents to the office today for follow-up of his chronic medical conditions. Chronic history of anxiety. Currently only takes lorazepam as needed. Has had to take a little more often than he had previously due to recent move and settling. He feels that things should stabilize soon. History of hypertension, blood pressure at 122/60 mmHg. No chest pain, palpitation or shortness of breath. Taking medication as prescribed. Also history of subclinical hypothyroidism on levothyroxine. No heat or cold intolerance or unintentional weight changes. Paroxysmal A-fib has been stable. Also on flecainide. Other chronic conditions are stable. ROS Const Constitutional: No body ache, chills, excessive sweating, fatigue, fever(s), frequent falls, headache(s), snoring, weakness or (more content not included)... Normal [facility] Lipid Profileon 02-06-2024 Cholesterol [Mass/Vol] 154 mg/dL Normal 200 [facility] Comment on above: Result Comment: <200 mg/dL Desirable 200-240 mg/dL Borderline >240 mg/dL High Risk Performed By: #### L 500.4050, L501.9910, L501.9520, L500.4100, L100.0100 #### [facility] [address] [place], [address] Cholesterol in HDL [Mass/Vol] 51 mg/dL Normal [facility] Comment on above: Result Comment: The drugs N-Acetylcysteine and Metamizole may falsely depress this assay. Reference Range HDL <40 mg/dL Low HDL Cholesterol HDL >or= 60 mg/dL High HDL Cholesterol Performed By: #### L 500.4050, L501.9910, L501.9520, L500.4100, L100.0100 #### [facility] [address] [place], [address] Cholesterol in LDL [Mass/Vol] 68 mg/dL Normal 0-130 [facility] Comment on above: Performed By: #### L 500.4050, L501.9910, L501.9520, L500.4100, L100.0100 #### [facility] [address] [place], [address] Cholesterol in VLDL [Mass/Vol] 35 mg/dL Normal 5-40 [facility] Comment on above: Performed By: #### L 500.4050, L501.9910, L501.9520, L500.4100, L100.0100 #### [facility] [address] [place], [address] Triglyceride [Mass/Vol] 175 mg/dL Normal [facility] Comment on above: Result Comment: The drugs N-Acetylcysteine and Metamizole may falsely depress this assay. Serum Triglycerides Reference Interval Normal <150 mg/dL Borderline high 150 - 199 mg/dL High 200 - 499 mg/dL Very High > or = 500 mg/dL Performed By: #### L 500.4050, L501.9910, L501.9520, L500.4100, L100.0100 #### [facility] [address] [place], [address] PSA,Total - Annual Screenon 02-06-2024 PSA,TOT SCREEN 1.21 ng/mL Normal 0.00-4.00 [facility] Comment on above: Result Comment: This test was performed using the TPSA assay method for the [employer] chemistry system. Values obtained with different assay methods cannot be used interchangably. When changing PSA assays in the course of monitoring a patient, additional sequential testing should be carried out to confirm baseline values. Performed By: #### L 500.4050, L501.9910, L501.9520, L500.4100, L100.0100 #### [facility] [address] [place], [address] Thyroid Stim Hormone (TSH)on 02-06-2024 TSH 3.410 uIU/mL Normal 0.358-3.74 0 [facility] Comment on above: Performed By: #### L 500.4050, L501.9910, L501.9520, L500.4100, L100.0100 #### [facility] [address] [place], [address] XR ELBOW RIGHT 3+ VIEWSon XR ELBOW RIGHT 3+ VIEWS Interpreted By: Mikal Green, STUDY: XR ELBOW RIGHT 3+ VIEWS; ; 11/03/2023 10:07 am INDICATION: Signs/Symptoms:pain. COMPARISON: None. ACCESSION NUMBER(S): [id number] ORDERING CLINICIAN: BERNA GRANT TECHNIQUE: 4 views of the right elbow including AP, lateral and oblique views were obtained. FINDINGS: There is no significant elbow joint effusion identified. No radiographic evidence of displaced fracture or dislocation is identified. The joint spaces are well preserved without significant degenerative changes. IMPRESSION: 1. No displaced fracture or dislocation is identified. MACRO: None Signed by: Mikal Green 11/04/2023 11:52 AM Dictation workstation: [address] XR SHOULDER RIGHT 2+ VIEWSon 11-03-2023 XR SHOULDER RIGHT 2+ VIEWS Interpreted By: Mikal Green, STUDY: XR SHOULDER RIGHT 2+ VIEWS 11/03/2023 10:07 am INDICATION: Signs/Symptoms:PAIN COMPARISON: None. ACCESSION NUMBER(S): [id number] ORDERING CLINICIAN: BERNA GRANT TECHNIQUE: 4 views of the right shoulder including AP , Grashey , axillary and scapular Y-views were obtained. FINDINGS: There is no radiographic evidence of acute fracture or dislocation identified. The joint spaces are well preserved without significant degenerative changes. IMPRESSION: 1. No evidence of acute fracture or dislocation. MACRO: None. Signed by: Mikal Green 11/04/2023 12:21 PM Dictation workstation: [address] No Panel Informationon 07-30 POC SARS CoV-2 Antigen Positive [facility] Absolute lymphocyte countOrd ered By: Dr. Davis on 06-13-2022 Lymphocytes Auto (Unsp spec) [#/Vol] 1.46 10*3/uL 0.83-4.51 [facility] Basophil percentageOrdered B y: Dr. Davis on 06-13-2022 Basophils/100 WBC (Bld) 0.8 % 0-1 [facility] Eosinophils/100 WBC (Bld) 4.3 % 0-5 [facility] Neutrophils (Bld) [#/Vol] 3.9 10*3/uL 2.0-7.7 [facility] Neutrophils/100 WBC (Bld) 60.8 % 47-70 [facility] WBC (Bld) [#/Vol] 6.5 10*3/uL 4.4-11.0 [facility] Basophil percentageOrdered B y: Dr. cAe on 06-13-2022 Bilirubin [Mass/Vol] 0.80 mg/dL 0.20-1.00 [facility] Comment on above: For patients on eltr ombopag therapy, use of Dimension [place] TBIL is not recommended. Chloride [Moles/Vol] 109 mmol/L 98-107 [facility] Cholesterol [Mass/Vol] 157 mg/dL <200 [facility] Comment on above: <200 mg/dL Desirable 200-240 mg/dL Borderline >240 mg/dL High Risk Glucose [Mass/Vol] 95 mg/dL 74-106 [facility] Potassium [Moles/Vol] 4.0 mmol/L 3.5-5.1 [facility] Protein [Mass/Vol] 6.7 g/dL 6.4-8.2 [facility] Sodium [Moles/Vol] 141 mmol/L 136-145 [facility] Triglyceride [Mass/Vol] 134 mg/dL <199 [facility] Comment on above: The drugs N-Acetylcy steine and Metamizole may falsely depress this assay.Serum Triglycerides Reference Interval Normal <150 mg/dL Borderline high 150 - 199 mg/dL High 200 - 499 mg/dL Very High > or = 500 mg/dL Blood erythrocytes count (nu mber/volume)Ordered By: Dr. Davis on 06-13-2022 RBC (Bld) [#/Vol] 4.91 10*6/uL 4.6-6.2 [facility] Blood hemoglobin measurement (mass/volume)Ordered By: Dr. Davis on 06-13-2022 Hemoglobin (Bld) [Mass/Vol] 15.4 g/dL 13.0-16.5 [facility] Blood lymphocytes/100 leukoc ytesOrdered By: Dr. Dvais on 06-13-2022 Lymphocytes/100 WBC (Bld) 22.6 % 19-41 [facility] Blood monocytes/100 leukocyt esOrdered By: Dr. Davis on 06-13-2022 Monocytes/100 WBC (Bld) 10.9 % 0-10 [facility] Blood platelet mean volumeOr dered By: Dr. Davis on 06-13-2022 Platelet mean volume (Bld) [Entitic vol] 9.4 fL 6.2-12.0 [facility] Determination of erythrocyte mean corpuscular volume (MCV)Ordered By: Dr. Davis on 06-13-2022 MCV (RBC) [Entitic vol] 93.7 fL 80-94 [facility] Hematocrit Auto (Bld) [Volum e fraction]Ordered By: Dr. Davis on 06-13-2022 Hematocrit (Bld) [Volume fraction] 46.0 % 40-54 [facility] - Chemistry and C hemistry - challengeOrdered By: Dr. Ace on 06-13-2022 ALP [Catalytic activity/Vol] 62 U/L 45-117 [facility] ALT [Catalytic activity/Vol] 22 U/L 16-61 [facility] CO2 [Moles/Vol] 28.0 mmol/L 21.0-32.0 [facility] Globulin (S) [Mass/Vol] 2.9 g/dL 2.2-4.2 [facility] Urea nitrogen/Creatinine [Mass ratio] 19.7 mg/mg 10-20 [facility] - Hematology and Cell countsOrdered By: Dr. Davis on 06-13-2022 Erythrocyte distribution width (RBC) [Entitic vol] 41.1 fL 35.1-43.9 [facility] Erythrocyte distribution width (RBC) [Ratio] 11.9 % 11.6-14.6 [facility] Immature granulocytes/100 WBC (Bld) 0.600 % 0.0-0.9 [facility] Comment on above: IG% - Immature Granu locytes (promyelocytes, myelocytes and metamyelocytes) > 1% indicates that a LEFT SHIFT is Present. MCH (RBC) [Entitic mass] 31.4 pg 27.0-32.0 [facility] Nucleated RBC/100 WBC (Bld) [Ratio] 0 % 0-5 [facility] MCHC Auto (RBC) [Mass/Vol]Or dered By: Dr. Davis on 06-13-2022 MCHC (RBC) [Mass/Vol] 33.5 g/dL 32-36 [facility] No Panel InformationOrdered By: Dr. Davis on 06-13-2022 Prostate Specific Antigen Screen 1.26 ng/mL 0.00-4.00 [facility] Comment on above: This test was perfor med using the TPSA assay method for [employer] chemistry system. Values obtained with differentassay methods cannot be used interchangably.When changing PSA assays in the course of monitoring apatient, additional sequential testing should be carriedout to confirm baseline values. Thyroid Stimulating Hormone (TSH) 3.43 uIU/mL 0.358-3.74 [facility] No Panel InformationOrdered By: Dr. Ace on 06-13-2022 Estimated GFR (MDRD) Amer 78 mL/min >60 [facility] Comment on above: GFR Calc Estimated GFR (MDRD) Non-Af Amer 64 mL/min >60 [facility] Comment on above: Non- GFR Calc Platelets bldOrdered By: Dr. Davis on 06-13-2022 Platelets (Bld) [#/Vol] 203 10*3/uL 150-450 [facility] Serum or plasma albumin rodolfo urement (mass/volume)Ordered By: Dr. Ace on 06-13-2022 Albumin [Mass/Vol] 3.8 g/dL 3.2-5.0 [facility] Serum or plasma albumin/glob ulin mass ratioOrdered By: Dr. Ace on 06-13-2022 Albumin/Globulin [Mass ratio] 1.3 {ratio} 0.9-2.4 [facility] Serum or plasma calcium rodolfo urement (mass/volume)Ordered By: Dr. Ace on 06-13-2022 Calcium [Mass/Vol] 9.0 mg/dL 8.5-10.1 [facility] Serum or plasma cholesterol in HDL measurement (mass/volume)Ordered By: Dr. Ace on 06-13-2022 Cholesterol in HDL [Mass/Vol] 47 mg/dL >40 [facility] Comment on above: The drugs N-Acetylcy steine and Metamizole may falsely depress this assay. Reference Range HDL <40 mg/dL Low HDL Cholesterol HDL >or= 60 mg/dL High HDL Cholesterol Serum or plasma cholesterol in VLDL measurement (mass/volume)Ordered By: Dr. Ace on 06-13-2022 Cholesterol in VLDL [Mass/Vol] 27 mg/dL 5-40 [facility] Serum or plasma creatinine m easurement (mass/volume)Ordered By: Dr. Ace on 06-13-2022 Creatinine [Mass/Vol] 1.17 mg/dL 0.70-1.30 [facility] Comment on above: The validity of the calculated GFR & GFRAA in patients over 70 years has not been determined. Clinical correlation is essential. Serum or plasma low density lipoprotein (LDL) cholesterol measurement (mass/volume)Ordered By: Dr. Ace on 06-13-2022 Cholesterol in LDL [Mass/Vol] 83 mg/dL 0-130 [facility] Serum or plasma urea nitroge n measurement (mass/volume)Ordered By: Dr. Ace on 06-13-2022 Urea nitrogen [Mass/Vol] 23 mg/dL 7-18 [facility] Thin prep Papanicolaou smear with manual screeningOrdered By: Dr. Ace on 06-13-2022 Thin prep Papanicolaou smear with manual screening 17 U/L 15-37 [facility] Thin prep Papanicolaou smear with manual screening 4 5-15 [facility] CNPTOUTREACHon 11-24-2017 [facility] TRISTON HAAS ([id number]) 1945 MDate Time Provider Department11/24/17 CECELIA ARREDONDO) SONYPWS During your visit today, we recorded the following information about you:Cecelia Arredondo MA 11/24/2017 2:07 PM Signed PHMA TEAMLET DOCUMENTATIONProvider Action/FYI: patient needs appointmentPSR Action/FYI:Teamlet has identified patient by name and date of .Team: Dr. Gutierres, Cecelia Arredondo,? Derrick Rosales MA, Last Office Visit:2017? Next Office Visit: Visit date not found? Last BP/Labs:Blood Pressure:Last 3 Encounter BP Readings: Date: BP: 2017 122/84 06/05/2017 122/82 04/28/2017 108/64Lipids:Cholesterol, Total (mg/dL)Date Value04/03/2017 0788004/05/2016 144 HDL Cholesterol (mg/dL)Date Value04/03/2017 45106/05/2015 36 LDL Cholesterol (mg/dL)Date Value04/03/2017 8704/05/2016 80 Triglyceride (mg/dL)Date Value04/03/2017 8929604/05/2016 142 HGB A1C:Lab ResultsComponent Value DrixAHE2O 5.1 04/10/2017TSH:TSH (uU/mL)Date Value04/03/2017 3.6414004/05/2016 3.490 )Care Gap: HCC listPlan:? Confirm PCP / Statu? Type of appointment needed:? Consultation Appointments: No patient outreach needed at this time?Labs, HM and Immunization:Aggie Loo MA 11/24/2017 2:07 PM SignedSpoke with patient, he had a second opinion for CKD with . She didlab testing on the patient. The result show a change in his kidney function. Triston Puente would like you to remove the DX for CKD from his record. I haveobtained the medical records from Dr. Davis for your review. Triston Puente haschanged his PCP to Dr. Davis.Cecelia Arredondo MA+Stephanie Gutierres MD 11/24/2017 10:33 AM SignedWill review records once I get a copy. Follow up with new PCP.Allergies As of Date: 11/24/2017 Noted Allergy ReactionCODEINE 03/11/2005 14 - Other: See Comments Comments: anxietyDate Reviewed: 2017Reviewed by: Cecelia ([facility]) CARLINE Mak.SANITATION TANK WASHER - Fully AssessedReason for Visit: [facility]/Care Gap Outreach [[id number]]Prescriptions as of 11/24/2017 Sig: ALBUTEROL SULFATE CONCENTRATE* [...] TABLET Take 1 tablet by mouth once d*Problem List As Of Date 11/24/2017 Noted Resolved [...] III [N18.3] Subclinical hypothyroidism [E03.9] Osteoarthritis [M19.90] Status:Closed by CECELIA ARREDONDO on 11/24/17 [facility] PROGRESSon 11-24-2017 PROGRESS HNO ID: [id number] Author: Stephanie Cadet) Bhavik Service: (none) Author Type: Physician Type: Progress Notes Filed: 11/24/2017 10:33 AM Note Text: Will review records once I get a copy. Follow up with new PCP. [facility] PROGRESS HNO ID: [id number] thor: Cecelia Jean) CristinaService: (none)Author Type: Medical AssistantType: Progress NotesFiled: 11/24/2017 2:07 PMNote Text:Spoke with patient, he had a second opinion for CKD with . Shedid lab testing on the patient. The result show a change in his kidneyfunction. Triston Puente would like you to remove the DX for CKD from hisrecord. I have obtained the medical records from Dr. Davis for yourreview. Triston Puente has changed his PCP to Dr. Davis.Cecelia Arredondo MA+ Normal [facility] PROGRESS HNO ID: [id number] thor: Cecelia Monique (Pat) CristinaSer: (none)Author Type: Medical AssistantType: Progress NotesFiled: 11/24/2017 2:07 PMNote Text: PHMA TEAMLET DOCUMENTATIONProvider Action/FYI: patient needs appointmentPSR Action/FYI:Teamlet has identified patient by name and date of .Team: Dr. Gutierres, Cecelia Arredondo,? Derrick Rosales MA, Last Office Visit:2017? Next Office Visit: Visit date not found? Last BP/Labs:Blood Pressure:Last 3 Encounter BP Readings: Date: BP: 2017 122/84 06/05/2017 122/82 04/28/2017 108/64Lipids:Cholesterol, Total (mg/dL)Date Value04/03/2017 1225304/05/2016 144 HDL Cholesterol (mg/dL)Date Value04/03/2017 45106/05/2015 36 LDL Cholesterol (mg/dL)Date Value04/03/2017 8704/05/2016 80 Triglyceride (mg/dL)Date Value04/03/2017 7343604/05/2016 142 HGB A1C:Lab ResultsComponent Value JjhlNRL3Q 5.1 04/10/2017TSH:TSH (uU/mL)Date Value04/03/2017 3.5017104/05/2016 3.490 )Care Gap: HCC listPlan:? Confirm PCP / Statu? Type of appointment needed:? Consultation Appointments: No patient outreach needed at this time?Labs, HM and Immunization:Cecelia Arredondo MA Normal [facility] Lab Report: BNP,B-Type NATRI URETIC PEPTIDEon 06-19-2017 BNP 15.9 pg/mL Invalid Interpretation Code 0-100 [employer] Work Phone: [phone] Lab Report: Basic Metabolic Profile (BMP)on 06-19-2017 Anion gap 9 mmol/L Invalid Interpretation Code 5-15 [employer] Work Phone: [phone] BUN/Creatinine Ratio 15.6 RATIO Invalid Interpretation Code 10-20 [employer] Work Phone: [phone] Calcium 8.9 mg/dL Invalid Interpretation Code 8.5-10.1 [employer] Work Phone: [phone] Chloride 103 mmol/L Invalid Interpretation Code 98-107 [employer] Work Phone: [phone] CO2 28.0 mmol/L Invalid Interpretation Code 21.0-32.0 [employer] Work Phone: [phone] Creatinine 1.22 mg/dL Invalid Interpretation Code 0.70-1.30 [employer] Work Phone: [phone] eGFR (non-black) 75 mL/min/{1.73_m2} Invalid Interpretation Code >60 [employer] Work Phone: [phone] eGFR (non-black) 62 mL/min/{1.73_m2} Invalid Interpretation Code >60 [employer] Work Phone: [phone] Glucose 82 mg/dL Invalid Interpretation Code 70-110 [employer] Work Phone: [phone] Potassium 3.8 mmol/L Invalid Interpretation Code 3.5-5.1 [employer] Work Phone: [phone] Sodium 140 mmol/L Invalid Interpretation Code 136-145 [employer] Work Phone: [phone] Urea nitrogen 19 mg/dL High 7-18 [employer] Work Phone: [phone] Lab Report: CBC W/Diff, Auto matedon 06-19-2017 Basophils/100 leukocytes 0.4 % Invalid Interpretation Code 0-1 [employer] Work Phone: Eosinophils/100 leukocytes 9.1 % High 0-5 [employer] Work Phone: [phone] Erythrocytes (RBC) 5.07 10*6/uL Invalid Interpretation Code 4.6-6.2 [employer] Work Phone: [phone] Hematocrit (HCT) 46.8 % Invalid Interpretation Code 40-54 [employer] Work Phone: [phone] Hemoglobin (HGB) 15.8 g/dL Invalid Interpretation Code 13.0-16.5 [employer] Work Phone: [phone] immature granulocytes, percentage of total cells, blood 0.300 % Invalid Interpretation Code 0.0-0.9 [employer] Work Phone: [phone] Lymphocytes 1.80 X10 3/UL Invalid Interpretation Code 0.83-4.51 [employer] Work Phone: [phone] Lymphocytes/100 leukocytes 18.9 % Low 19-41 [employer] Work Phone: [phone] MCH 31.2 pg Invalid Interpretation Code 27.0-32.0 [employer] Work Phone: [phone] MCHC 33.8 G/GL Invalid Interpretation Code 32-36 [employer] Work Phone: [phone] MCV 92.3 fL Invalid Interpretation Code 80-94 [employer] Work Phone: [phone] Monocytes/100 leukocytes 8.2 % Invalid Interpretation Code 0-10 [employer] Work Phone: [phone] neutrophil count, blood 6.0 X10 3/UL Invalid Interpretation Code 2.0-7.7 [employer] Work Phone: [phone] Neutrophils/100 leukocytes 63.1 % Invalid Interpretation Code 47-70 [employer] Work Phone: [phone] Platelets 200 10*3/mm3 Invalid Interpretation Code 150-450 [employer] Work Phone: [phone] PMV by Laura 9.7 fL Invalid Interpretation Code 6.2-12.0 [employer] Work Phone: [phone] RDW-CA 12.7 % Invalid Interpretation Code 11.6-14.6 [employer] Work Phone: red blood cell distribution width, size density 42.3 fL Invalid Interpretation Code 35.1-43.9 [employer] Work Phone: WBC (Leukocytes) 9.5 10*3/uL Invalid Interpretation Code 4.4-11.0 [employer] Work Phone: CNOVon 2017 CNOV Office Visit ([facility]) TRISTON HAAS ([id number]) 1945 MDate Time Provider Department06/06/17 12:00 PM CECELIA MAK (SUSAN) [facility] During your visit today, we recorded the following information about you: Temperature Pulse Respiration Blood pressure 97.7 degrees 66/minute 18/minute 122/84 Weight 88.9 kgCecelia Mak CNP 2017 12:50 PM SignedHPJuan Francisco Potter Kwame is a 72 year old male who presents with a cough present for3 days, and worse this morning. His chest hurts today and he feels short ofbreath with activity. His cough is productive of green sputum. He has a historyof asthma, has remote history of pneumonia. He has a zpak at home that waspreviously prescribed, he never took the medication.Review of SystemsConstitutional: Negative. Negative for chills and fever.HENT: Positive for congestion. Negative for sore throat.Respiratory: Positive for cough, sputum production and shortness of breath.Cardiovascular: Positive for chest pain.Gastrointestinal: Negative. Negative for abdominal pain, diarrhea, nausea andvomiting.Musculoskeletal: Negative.Skin: Negative.BP 122/84 Pulse 66 Temp 36.5 ?C (97.7 ?F) (Tympanic) Resp 18 Wt 88.9 kg(196 lb) SpO2 95% BMI 27.14 kg/m2PAST MEDICAL HISTORYDiagnosis Date- Abdominal pain, right lower quadrant- Asthma- Atrial fibrillation (HCC) Seeing Dr. Ace- BPH (benign prostatic hyperplasia)- CKD (chronic kidney disease), stage III- Diaphragmatic hernia without mention of obstruction or gangrene 06/28/2005 BILATERAL- Diverticulitis 06/27 diverticulitis- Diverticulosis of colon (without mention of hemorrhage) 06/28/2005- GERD (gastroesophageal reflux disease)- Hyperlipidemia- Internal hemorrhoids without mention of complication 06/28/2005- Mitral valve disorders(424.0) 06/28/2005 MVP AND DILATED AORTIC ROOT, seeing Dr. Ace- Osteoarthritis- Other abnormal granulation tissue- Subclinical hypothyroidismPAST SURGICAL HISTORYProcedure Laterality Date- COLONOSCOP W/ OR W/O BRSH SPEC 01/24/06 Diverticular dz of sigmoid- COLONOSCOP W/ OR W/O BRS SPEC 08/30/11 Repeat 10 years- LAPAROSCOPIC HEMICOLECTOMY 04/08/2006 diverticulitis- PAST SURGICAL HISTORY OF left ankle times two- PAST SURGICAL HISTORY OF allcl tendon repair- PAST SURGICAL HISTORY OF 08/27/2013 Left ankle surgery - Dr Triston Puente- PAST SURGICAL HISTORY OF 11/10/2013 removal of hardware left ankle Dr Triston Puente- REMOVAL ADENOIDS,PRIMARY,ANDlt;13 Y/O Adenoidectomy- REMOVAL OF TONSILS,ANDlt;13 Y/O Tonsillectomy- REPAIR ING HERNIA,5+Y/O,REDUCIBL Hernia repair, inguinal- REPAIR ING HERNIA,5+Y/O,REDUCIBL Hernia repair, inguinal- SIGMOIDOS , CONTROL BLEED 06/20/06 Flex sig with argon beam coagulation granulation tissue- TOTAL HIP REPLACEMENT Right 2016ALLERGIES CodeineMEDICATIONSalbuterol HFA (PROAIR HFA) 90 mcg/actuation inhaler Inhale 2 Puffs asinstructed every 4 hours as needed.fluticasone-vilanterol (BREO ELLIPTA) 100-25 mcg/dose inhaler Inhale 1Inhalation as instructed once daily.simvastatin (ZOCOR) 5 mg tablet Take 1 tablet by mouth daily at bedtime.dicyclomine (BENTYL) 10 mg capsule Take 1 capsule by mouth before meals and atbedtime.metoprolol succinate ER (TOPROL XL) 50 mg 24 hr tablet Take 50 mg by mouth oncedaily. Take 1/2 tabletflecainide 100 mg tablet Take 1 tablet by mouth twice daily.Aspirin 81 mg tab Take 1 tablet by mouth once daily. Take with food.benzonatate (TESSALON PERLE) 100 mg capsule Take 1 capsule by mouth three timesdaily as needed.ALPRAZolam (XANAX) 0.5 mg tablet Take 1 tablet by mouth twice daily as needed.Omeprazole 40 mg capsule Take 1 capsule by mouth once daily.FAMILY HISTORYProblem Relation Age of Onset- Asthma Father- Heart Father MT- COPD Father- Cancer Mother LUNG- Colon Cancer Maternal AuntSocial HistorySubstance Use Topics- Smoking status: Never Smoker- Smokeless tobacco: Never Used- Alcohol use 6.0 oz/week 4 Cans of Beer (12oz) per week Comment: occassional beerPhysical ExamConstitutional: He is well-developed, well-nourished, and in no distress.HENT:Head: Normocephalic.Right Ear: Tympanic membrane, external ear and ear canal normal.Left Ear: Tympanic membrane, external ear and ear canal normal.Nose: Nose normal.Mouth/Throat: Uvula is midline, oropharynx is clear and moist and mucousmembranes are normal. No posterior oropharyngeal edema or posteriororopharyngeal erythema.Eyes: Conjunctivae are normal. Right eye exhibits no discharge. Left eyeexhibits no discharge.Neck: Neck supple.Cardiovascular: Normal rate and regular rhythm.Pulmonary/Chest: Effort normal. No tachypnea. No respiratory distress. He haswheezes (RUL). He has no rales.SpO2 95%. Post albuterol: lungs CTA and SpO2 95%Lymphadenopathy: He has no cervical adenopathy.Neurological: He is alert.Skin: Skin is warm and dry. No rash noted.Nursing note and vitals reviewed.ASSESSMENT/PLAN:1. Wheezing - ICD9: 786.07, ICD10: R06.2 (primary diagnosis)- ALBUTEROL SULFATE CONCENTRATE 5 MG/ML(0.5 %) SOLUTION FOR NEBULIZATION- BECLOMETHASONE DIPROPIONATE 40 MCG/ACTUATION AEROSOL INHALER2. Mild intermittent asthma with acute exacerbation - ICD9: 493.92, ICD10:J45.21- In office inhalation treatment with Albuterol nebulizer given times oneresulting in resolution of symptoms- ALBUTEROL SULFATE CONCENTRATE 5 MG/ML(0.5 %) SOLUTION FOR NEBULIZATION- BECLOMETHASONE DIPROPIONATE 40 MCG/ACTUATION AEROSOL INHALER- BENZONATATE 100 MG CAPSULE- Recommend use of albuterol inhaler at home every 4 hours for the next 4-5days. May start Zithromax if symptoms are not improving with QVar.- Follow-up with your PCP in 3-5 days if symptoms have not improved or soonerif symptoms worsen- Discussed red flags and need for immediate medical evaluation if any occur.- Discussed supportive care treatment with fluids, rest and analgesia.- Discussed expected course of illnessMane Cunningham CNP 2017 12:44 PM SignedUse albuterol inhaler every 4 hours for the 3-4 days.Use QVar inhaler as directed.May use tessalon perles as needed for cough.You may take the Zpak that was previously prescribed if you feel you are notimproving. Recommend follow up with your primary care provider if notimproving.COUGH:The body has a cough reflex which helps expel mucous secretions and irritantsfrom the lung and airway passages. Cough spasms are periods of continuouscoughing lasting several minutes. Most coughs is caused by virus infectionswhich may last for up to 2-3 weeks. Coughing helps to protect the lung frompneumonia. A persistent cough lasting longer than 4-6 weeks requires medicalevaluation by your primary care doctor.Treatment of cough includes measures to loosen the cough and thin the mucous.Warm liquids, cough drops, and nonprescription cough medicine may help reducedry hacking cough. Use a humidifier if necessary as dry air can make coughsworse. Ultrasonic humidifiers are especially useful as they kill molds andmany bacteria. Some cough medicines have antihistamines, decongestants, oralcohol in them; there is no proof that any of these help control cough.Prescription cough medicine or those with dextromethorphan (DM) should bereserved for dry coughs that prevent sleep or cause spasms or chest pain. Avoidany exposure to cigarette smoke as this will worsen the cough or make it lastmuch longer. Call your doctor right away if you or your child have increasedbreathing difficulty, a high fever, a cough that lasts longer than 3 weeks, orother serious complaints.Paula Whitehead STEVEN 2017 7:43 PM Signed2.5mg solution aerosol treatment given per doctor's order. Prior to treatment,O2 sat is 95% on room air.Treatment completed. Tolerated well.Referring Provider: SELF [[id number]]Allergies As of Date: 2017 Noted Allergy ReactionCODEINE 03/11/2005 14 - Other: See Comments Comments: anxietyDate Reviewed: 2017Reviewed by: [facility]) Aubree Cannon AssessedReason for Visit: cough, chest congestion and SOB [Other] Cmt: symptoms started this am-drainage is greenPrimary Visit Diagnosis:Wheezing [R06.2] Other Visit Diagnosis:Mild intermittent asthma with acute exacerbation [J45.21]Order(s):albuterol (PROVENTIL) 5 mg/mL nebuInhale 0.5 mL as instructed one time only for 1 dose. 1 DOSE NOW - BACK OFFICE. PLACE 0.5 ML PER DROPPER AND 2.5 ML OF NORMAL SALINE INTO RESERVOIR.Disp: 1 mLRfl: 0 beclomethasone (QVAR) 40 mcg/actuation inhalerInhale 2 Puffs as instructed twice daily.Disp: 3 InhalerRfl: 3 benzonatate (TESSALON PERLE) 100 mg capsuleTake 1 capsule by mouth three times daily as needed.Disp: 30 capsuleRfl: 0Prescriptions as of 2017 Sig: ALBUTEROL SULFATE HFA 90 MCG/* Inhale 2 Puffs as instructed *X FLUTICASONE 100 MCG-VILANTERO* Inhale 1 Inhalation as instru* SIMVASTATIN 5 MG TABLET Take 1 tablet by mouth daily * DICYCLOMINE 10 MG CAPSULE Take 1 capsule by mouth befor* METOPROLOL SUCCINATE ER 50 MG* Take 50 mg by mouth once mikala* FLECAINIDE 100 MG TABLET Take 1 tablet by mouth twice * ASPIRIN 81 MG TABLET Take 1 tablet by mouth once d* ALBUTEROL SULFATE CONCENTRATE* Inhale 0.5 mL as instructed o* BECLOMETHASONE DIPROPIONATE 4* Inhale 2 Puffs as instructed * BENZONATATE 100 MG CAPSULE Take 1 capsule by mouth three* ALPRAZOLAM 0.5 MG TABLET Take 1 tablet by mouth twice * OMEPRAZOLE 40 MG CAPSULE,ANGELA* Take 1 capsule by mouth once *Medication notes this encounter BENZONATATE 100 MG CAPSULE >> Jeanette Besancon REMOTE SENSING ADVISOR 2017 11:59 AM >> BESKIPONJEANETTE LPN FriJun 06, 2017 11:59 AM Finished ALPRAZOLAM 0.5 MG TABLET >> Jeanette Besancon REMOTE SENSING ADVISOR 2017 11:58 AM >> BESANCONTEOFILORA STEVEN FriJun 06, 2017 11:58 AM Not Taking OMEPRAZOLE 40 MG CAPSULE,DELAYED RELEASE >> Jeanette Besancon REMOTE SENSING ADVISOR 2017 11:58 AM >> BESANCON, JEANETTE REMOTE SENSING ADVISOR FriJun 06, 2017 11:58 AM Not TakingProblem List As Of Date 2017 Noted Resolved Hyperlipidemia [E78.5] INVALID FOR* NOCTURIA [...] III [N18.3] Subclinical hypothyroidism [E03.9] Osteoarthritis [M19.90] Other instructions from your clinician: Use albuterol inhaler every 4 hours for the 3-4 days. Use QVar inhaler as directed. May use tessalon perles as needed for cough. You may take the Zpak that was previously prescribed if you feel you are not improving. Recommend follow up with your primary care provider if not improving. COUGH: The body has a cough reflex which helps expel mucous secretions and irritants from the lung and airway passages. Cough spasms are periods of continuous coughing lasting several minutes. Most coughs is caused by virus infections which may last for up to 2-3 weeks. Coughing helps to protect the lung from pneumonia. A persistent cough lasting longer than 4-6 weeks requires medical evaluation by your primary care doctor. Treatment of cough includes measures to loosen the cough and thin the mucous. Warm liquids, cough drops, and nonprescription cough medicine may help reduce dry hacking cough. Use a humidifier if necessary as dry air can make coughs worse. Ultrasonic humidifiers are especially useful as they kill molds and many bacteria. Some cough medicines have antihistamines, decongestants, or alcohol in them; there is no proof that any of these help control cough. Prescription cough medicine or those with dextromethorphan (DM) should be reserved for dry coughs that prevent sleep or cause spasms or chest pain. Avoid any exposure to cigarette smoke as this will worsen the cough or make it last much longer. Call your doctor right away if you or your child have increased breathing difficulty, a high fever, a cough that lasts longer than 3 weeks, or other serious complaints.Visit Notes:>> Paula Whitehead LPN FriJun 06, 2017 7:42 PM Status: Signed2.5mg solution aerosol treatment given per doctor's order. Prior totreatment, O2 sat is 95% on room air.Treatment completed. Tolerated well.Prescriptions ordered this encounter Disp Refills Start End ALBUTEROL SULFATE CONCENTRATE 5 MG/M* 1 mL 0 2017 2017 Class: Print RX Route: INHALATION Sig: Inhale 0.5 mL as instructed one time only for 1 dose. 1 DOSE NOW - BACK OFFICE. PLACE 0.5 ML PER DROPPER AND 2.5 ML OF NORMAL SALINE INTO RESERVOIR. BECLOMETHASONE DIPROPIONATE 40 MCG/A* 3 In* 3 2017 Route: INHALATION Sig: Inhale 2 Puffs as instructed twice daily. BENZONATATE 100 MG CAPSULE 30 c* 0 2017 Route: ORAL Sig: Take 1 capsule by mouth three times daily as needed.Medications Discontinued During This Encounter benzonatate (TESSALON PERLE) 100 mg * 30 c* 0 04/28/2017 2017 Route: ORAL Sig: Take 1 capsule by mouth three times daily as needed. Disc: Reason for discontinue is not on file. Status:Closed by CECELIA MAK on 06/06/17 [facility] PROGRESSon 2017 PROGRESS HNO ID: [id number] thor: Cecelia ([facility]) Zach: (none)Author Type: Nurse PractitionerType: Progress NotesFiled: 2017 12:50 PMNote Text:HPI Triston Puente is a 72 year old male who presents with a coughpresent for 3 days, and worse this morning. His chest hurts today and hefeels short of breath with activity. His cough is productive of greensputum. He has a history of asthma, has remote history of pneumonia. Hehas a zpak at home that was previously prescribed, he never took themedication.Review of SystemsConstitutional: Negative. Negative for chills and fever.HENT: Positive for congestion. Negative for sore throat.Respiratory: Positive for cough, sputum production and shortness ofbreath.Cardiovascular: Positive for chest pain.Gastrointestinal: Negative. Negative for abdominal pain, diarrhea, nauseaand vomiting.Musculoskeletal: Negative.Skin: Negative.BP 122/84 Pulse 66 Temp 36.5 ?C (97.7 ?F) (Tympanic) Resp 18 Wt88.9 kg (196 lb) SpO2 95% BMI 27.14 kg/m2PAST MEDICAL HISTORYDiagnosis Date- Abdominal pain, right lower quadrant- Asthma- Atrial fibrillation (HCC) Seeing Dr. Ace- BPH (benign prostatic hyperplasia)- CKD (chronic kidney disease), stage III- Diaphragmatic hernia without mention of obstruction or gangrene 06/28/2005 BILATERAL- Diverticulitis 06/27 diverticulitis- Diverticulosis of colon (without mention of hemorrhage) 06/28/2005- GERD (gastroesophageal reflux disease)- Hyperlipidemia- Internal hemorrhoids without mention of complication 06/28/2005- Mitral valve disorders(424.0) 06/28/2005 MVP AND DILATED AORTIC ROOT, seeing Dr. Ace- Osteoarthritis- Other abnormal granulation tissue- Subclinical hypothyroidismPAST SURGICAL HISTORYProcedure Laterality Date- COLONOSCOP W/ OR W/O [facility] SPEC 01/24/06 Diverticular dz of sigmoid- COLONOSCOP W/ OR W/O [facility] SPEC 08/30/11 Repeat 10 years- LAPAROSCOPIC HEMICOLECTOMY 04/08/2006 diverticulitis- PAST SURGICAL HISTORY OF left ankle times two- PAST SURGICAL HISTORY OF allcl tendon repair- PAST SURGICAL HISTORY OF 08/27/2013 Left ankle surgery - Dr Triston Puente- PAST SURGICAL HISTORY OF 11/10/2013 removal of hardware left ankle Dr Triston Puente- REMOVAL ADENOIDS,PRIMARY,<12 Y/O Adenoidectomy- REMOVAL OF TONSILS,<12 Y/O Tonsillectomy- REPAIR ING HERNIA,5+Y/O,REDUCIBL Hernia repair, inguinal- REPAIR ING HERNIA,5+Y/O,REDUCIBL Hernia repair, inguinal- SIGMOIDOS , CONTROL BLEED 06/20/06 Flex sig with argon beam coagulation granulation tissue- TOTAL HIP REPLACEMENT Right 2016ALLERGIES CodeineMEDICATIONSalbuterol HFA (PROAIR HFA) 90 mcg/actuation inhaler Inhale 2 Puffs asinstructed every 4 hours as needed.fluticasone-vilanterol (BREO ELLIPTA) 100-25 mcg/dose inhaler Inhale 1Inhalation as instructed once daily.simvastatin (ZOCOR) 5 mg tablet Take 1 tablet by mouth daily at bedtime.dicyclomine (BENTYL) 10 mg capsule Take 1 capsule by mouth before mealsand at bedtime.metoprolol succinate ER (TOPROL XL) 50 mg 24 hr tablet Take 50 mg by mouthonce daily. Take 1/2 tabletflecainide 100 mg tablet Take 1 tablet by mouth twice daily.Aspirin 81 mg tab Take 1 tablet by mouth once daily. Take with food.benzonatate (TESSALON PERLE) 100 mg capsule Take 1 capsule by mouth threetimes daily as needed.ALPRAZolam (XANAX) 0.5 mg tablet Take 1 tablet by mouth twice daily asneeded.Omeprazole 40 mg capsule Take 1 capsule by mouth once daily.FAMILY HISTORYProblem Relation Age of Onset- Asthma Father- Heart Father MT- COPD Father- Cancer Mother LUNG- Colon Cancer Maternal AuntSocial HistorySubstance Use Topics- Smoking status: Never Smoker- Smokeless tobacco: Never Used- Alcohol use 6.0 oz/week 4 Cans of Beer (12oz) per week Comment: occassional beerPhysical ExamConstitutional: He is well-developed, well-nourished, and in no distress.HENT:Head: Normocephalic.Right Ear: Tympanic membrane, external ear and ear canal normal.Left Ear: Tympanic membrane, external ear and ear canal normal.Nose: Nose normal.Mouth/Throat: Uvula is midline, oropharynx is clear and moist and mucousmembranes are normal. No posterior oropharyngeal edema or posteriororopharyngeal erythema.Eyes: Conjunctivae are normal. Right eye exhibits no discharge. Left eyeexhibits no discharge.Neck: Neck supple.Cardiovascular: Normal rate and regular rhythm.Pulmonary/Chest: Effort normal. No tachypnea. No respiratory distress. Hehas wheezes (RUL). He has no rales.SpO2 95%. Post albuterol: lungs CTA and SpO2 95%Lymphadenopathy: He has no cervical adenopathy.Neurological: He is alert.Skin: Skin is warm and dry. No rash noted.Nursing note and vitals reviewed.ASSESSMENT/PLAN:1. Wheezing - ICD9: 786.07, ICD10: R06.2 (primary diagnosis)- ALBUTEROL SULFATE CONCENTRATE 5 MG/ML(0.5 %) SOLUTION FOR NEBULIZATION- BECLOMETHASONE DIPROPIONATE 40 MCG/ACTUATION AEROSOL INHALER2. Mild intermittent asthma with acute exacerbation - ICD9: 493.92, ICD10:J45.21- In office inhalation treatment with Albuterol nebulizer given times oneresulting in resolution of symptoms- ALBUTEROL SULFATE CONCENTRATE 5 MG/ML(0.5 %) SOLUTION FOR NEBULIZATION- BECLOMETHASONE DIPROPIONATE 40 MCG/ACTUATION AEROSOL INHALER- BENZONATATE 100 MG CAPSULE- Recommend use of albuterol inhaler at home every 4 hours for the next4-5 days. May start Zithromax if symptoms are not improving with QVar.- Follow-up with your PCP in 3-5 days if symptoms have not improved orsooner if symptoms worsen- Discussed red flags and need for immediate medical evaluation if anyoccur.- Discussed supportive care treatment with fluids, rest and analgesia.- Discussed expected course of illnessCecelia Mak CNP [facility] CNOVon 06-05-2017 CNOV Office Visit (FAMPWS) TRISTON HAAS Abbey ([id number]) 1945 [facility] Time Provider Department06/05/17 1:00 PM STEPHANIE GUTIERRES) FAMPWS During your visit today, we recorded the following information about you: Pulse Respiration Blood pressure Weight 68/minute 20/minute 122/82 88.5 kgChristopher Vidal Gutierres MD 2017 7:49 AM SignedChief ComplaintPatient presents with:Recheck: Follow upHPValeriart Abbey Puente is a 71 year old male who presents here today for furtherdiscussion of CKD diagnosed at last appointment based on multiple CMP with GFRANDlt;60. Patient given follow up with urology as he was found to havehydronephrosis on renal US and was told at that time he did not have CKD basedon their blood work. Had CT abd/pelvis which did not show kidney stones and hadnormal exam on prostate with normal PSA.Patient disagrees with diagnosis because he states the urologist pointed outthat his creatinine has been stable, and therefore, his kidneys are normal.Discussed at length that we look at more than just the creatinine for renalfunction, GFR also plays a large role in the diagnosis. He has had back to backGFRs ANDgt;3 months apart which are ANDlt;60 which would put him in stage III CKD.Discussed treatment again with lifestyle changes, NSAID cessation, adequatehydration, and low sodium diet. Patient has stopped NSAIDs. Still would likethis diagnosis removed from his chart. Discussed again my rationale and offerednephrology and repeat blood work to monitor and confirm, but is refusing atthis time.Seems to mainly be concerned about having a pre existing condition on his chartand worries about his future with insurance and current administration.Past medical history, appointments, medications, allergies reviewed.Previous Medical HistoryPAST MEDICAL HISTORYDiagnosis Date- Abdominal pain, right lower quadrant- Asthma- Atrial fibrillation (HCC) Seeing Dr. Ace- BPH (benign prostatic hyperplasia)- CKD (chronic kidney disease), stage III- Diaphragmatic hernia without mention of obstruction or gangrene 06/28/2005 BILATERAL- Diverticulitis 06/27 diverticulitis- Diverticulosis of colon (without mention of hemorrhage) 06/28/2005- GERD (gastroesophageal reflux disease)- Hyperlipidemia- Internal hemorrhoids without mention of complication 06/28/2005- Mitral valve disorders(424.0) 06/28/2005 MVP AND DILATED AORTIC ROOT, seeing Dr. Ace- Osteoarthritis- Other abnormal granulation tissue- Subclinical hypothyroidismPrevious Surgical HistoryPAST SURGICAL HISTORYProcedure Laterality Date- COLONOSCOP W/ OR W/O [facility] SPEC 01/24/06 Diverticular dz of sigmoid- COLONOSCOP W/ OR W/O [facility] SPEC 08/30/11 Repeat 10 years- LAPAROSCOPIC HEMICOLECTOMY 04/08/2006 diverticulitis- PAST SURGICAL HISTORY OF left ankle times two- PAST SURGICAL HISTORY OF allcl tendon repair- PAST SURGICAL HISTORY OF 08/27/2013 Left ankle surgery - Dr Triston Puente- PAST SURGICAL HISTORY OF 11/10/2013 removal of hardware left ankle Dr Triston Puente- REMOVAL ADENOIDS,PRIMARY,ANDlt;12 Y/O Adenoidectomy- REMOVAL OF TONSILS,ANDlt;13 Y/O Tonsillectomy- REPAIR ING HERNIA,5+Y/O,REDUCIBL Hernia repair, inguinal- REPAIR ING HERNIA,5+Y/O,REDUCIBL Hernia repair, inguinal- SIGMOIDOS , CONTROL BLEED 06/20/06 Flex sig with argon beam coagulation granulation tissue- TOTAL HIP REPLACEMENT Right 2016Family HistoryFAMILY HISTORYProblem Relation Age of Onset- Asthma Father- Heart Father MT- COPD Father- Cancer Mother LUNG- Colon Cancer Maternal AuntPatient AllergiesALLERGIESAllergen Reactions- Codeine Other: See Comments anxietyCurrent MedicationsCurrent Outpatient Prescriptions on File Prior to Visit:albuterol HFA (PROAIR HFA) 90 mcg/actuation inhaler Inhale 2 Puffs asinstructed every 4 hours as needed.benzonatate (TESSALON PERLE) 100 mg capsule Take 1 capsule by mouth three timesdaily as needed.ALPRAZolam (XANAX) 0.5 mg tablet Take 1 tablet by mouth twice daily as needed.Omeprazole 40 mg capsule Take 1 capsule by mouth once daily.fluticasone-vilanterol (BREO ELLIPTA) 100-25 mcg/dose inhaler Inhale 1Inhalation as instructed once daily.simvastatin (ZOCOR) 5 mg tablet Take 1 tablet by mouth daily at bedtime.dicyclomine (BENTYL) 10 mg capsule Take 1 capsule by mouth before meals and atbedtime.metoprolol succinate ER (TOPROL XL) 50 mg 24 hr tablet Take 50 mg by mouth oncedaily. Take 1/2 tabletflecainide 100 mg tablet Take 1 tablet by mouth twice daily.Aspirin 81 mg tab Take 1 tablet by mouth once daily. Take with food.No current facility-administered medications on file prior to visit.Social HistorySocial History Marital status: Spouse name: Years of education: Number of children:Social History Main Topics Smoking status: Never Smoker Smokeless status: Never Used Alcohol use: Yes 6.0 oz/week 4 Cans of Beer (12oz) per week Comment: occassional beer Drug use: No Sexual activity: Yes Partners with: FemaleReview of SymptomsREVIEW OF SYSTEMSGENERAL: No weight loss, malaise or feversEXAM:BP 122/82 Pulse 68 Resp 20 Wt 88.5 kg (195 lb) BMI 27.01 kg/r5Oldkvyy Appearance: Well appearing, alert, in no acute distress, well-hydrated,well nourished..Health Maintenance ListHEPATITIS C SCREENING due on 1990DIABETES SCREEN due on 04/10/2020LIPID SCREEN due on 04/03/2022TETANUS due on 11/25/2025PROSTATE CANCER SCREENING DISCUSSION CompletedADULT PREVNAR-13 CompletedINFLUENZA CompletedPNEUMOVAX AGE 65 AND OVER WITH 5YR LOOKBACK CompletedData reviewedComponent Latest Ref Rng ANDamp; Units 08/26/2014 09/27/2015 04/05/2016 04/10/2017Protein, Total 6.3 - 8.0 g/dL 6.7 6.9 6.5 6.9Albumin 3.9 - 4.9 g/dL 4.3 4.1 4.0 4.4Calcium 8.5 - 10.2 mg/dL 9.2 9.4 8.7 9.3Bilirubin, Total 0.2 - 1.3 mg/dL 0.6 0.4 0.6 0.7Alkaline Phosphatase 36 - 108 U/L 72 85 64 56AST 14 - 40 U/L 21 18 21 25Glucose 74 - 99 mg/dL 86 85 93 93BUN 9 - 24 mg/dL 22 23 21 21Creatinine 0.73 - 1.22 mg/dL 1.31 1.20 1.23 (H) 1.32 (H)Sodium 136 - 144 mmol/L 142 146 140 140Potassium 3.7 - 5.1 mmol/L 4.5 4.3 4.5 4.2Chloride 97 - 105 mmol/L 104 104 103 102CO2 22 - 30 mmol/L 27 20 (L) 25 26Anion Gap 9 - 18 mmol/L 11 22 (H) 12 12ALT 10 - 54 U/L 17 18 16 20eGFR- ANDgt;60 ANDgt;60 ANDgt;60 ANDgt;60eGFR-All Other Races . 54 ANDgt;60 58 54ASSESSMENT/PLAN:1. Decreased GFR - ICD9: 794.4, ICD10: R94.4Discussed repeating CMP as he has stopped the NSAIDs. Patient is refusing atthis time and would like to think about it. Discussed until we had multiplenormal GFRs I would not remove diagnosis from his PMHx as he meets currentcriteria for CKD stage III.I spent 25 minutes in the visit, with more than 50% of the total [id number] of the visit in counseling / coordination of care.Stephanie Gutierres, MDReferring Provider: SELF [[id number]]Allergies As of Date: 06/05/2017 Noted Allergy ReactionCODEINE 03/11/2005 14 - Other: See Comments Comments: anxietyDate Reviewed: 06/05/2017Reviewed by: Brenda Vergara LPN - Fully AssessedReason for Visit: Recheck [92] Cmt: Follow upPrimary Visit Diagnosis:Decreased GFR [R94.4]Prescriptions as of 06/05/2017 Sig: ALBUTEROL SULFATE HFA 90 MCG/* Inhale 2 Puffs as instructed * BENZONATATE 100 MG CAPSULE Take 1 capsule by mouth three* ALPRAZOLAM 0.5 MG TABLET Take 1 tablet by mouth twice * OMEPRAZOLE 40 MG CAPSULE,ANGELA* Take 1 capsule by mouth once * FLUTICASONE 100 MCG-VILANTERO* Inhale 1 Inhalation as instru* SIMVASTATIN 5 MG TABLET Take 1 tablet by mouth daily * DICYCLOMINE 10 MG CAPSULE Take 1 capsule by mouth befor* METOPROLOL SUCCINATE ER 50 MG* Take 50 mg by mouth once mikala* FLECAINIDE 100 MG TABLET Take 1 tablet by mouth twice * ASPIRIN 81 MG TABLET Take 1 tablet by mouth once d*Problem List As Of Date 06/05/2017 Noted Resolved Hyperlipidemia [E78.5] INVALID FOR* NOCTURIA [...] III [N18.3] Subclinical hypothyroidism [E03.9] Osteoarthritis [M19.90] Status:Closed by STEPHANIE GUTIERRES MD on 06/06/17 [facility] PROGRESSon 06-05-2017 PROGRESS HNO ID: [id number] thor: Stephanie Cadet) BhavikSerberenicee: (none)Author Type: PhysicianType: Progress NotesFiled: 2017 7:49 AMNote Text:Chief ComplaintPatient presents with:Recheck: Follow upHPIStrylee Puente is a 71 year old male who presents here today for furtherdiscussion of CKD diagnosed at last appointment based on multiple CMP withGFR <60. Patient given follow up with urology as he was found to havehydronephrosis on renal US and was told at that time he did not have CKDbased on their blood work. Had CT abd/pelvis which did not show kidneystones and had normal exam on prostate with normal PSA.Patient disagrees with diagnosis because he states the urologist pointedout that his creatinine has been stable, and therefore, his kidneys arenormal. Discussed at length that we look at more than just the creatininefor renal function, GFR also plays a large role in the diagnosis. He hashad back to back GFRs >3 months apart which are <60 which would put him instage III CKD. Discussed treatment again with lifestyle changes, NSAIDcessation, adequate hydration, and low sodium diet. Patient has stoppedNSAIDs. Still would like this diagnosis removed from his chart. Discussedagain my rationale and offered nephrology and repeat blood work to monitorand confirm, but is refusing at this time.Seems to mainly be concerned about having a pre existing condition on hischart and worries about his future with insurance and currentadministration.Past medical history, appointments, medications, allergies reviewed.Previous Medical HistoryPAST MEDICAL HISTORYDiagnosis Date- Abdominal pain, right lower quadrant- Asthma- Atrial fibrillation (HCC) Seeing Dr. Ace- BPH (benign prostatic hyperplasia)- CKD (chronic kidney disease), stage III- Diaphragmatic hernia without mention of obstruction or gangrene 06/28/2005 BILATERAL- Diverticulitis 06/27 diverticulitis- Diverticulosis of colon (without mention of hemorrhage) 06/28/2005- GERD (gastroesophageal reflux disease)- Hyperlipidemia- Internal hemorrhoids without mention of complication 06/28/2005- Mitral valve disorders(424.0) 06/28/2005 MVP AND DILATED AORTIC ROOT, seeing Dr. Ace- Osteoarthritis- Other abnormal granulation tissue- Subclinical hypothyroidismPrevious Surgical HistoryPAST SURGICAL HISTORYProcedure Laterality Date- COLONOSCOP W/ OR W/O [facility] SPEC 01/24/06 Diverticular dz of sigmoid- COLONOSCOP W/ OR W/O [facility] SPEC 08/30/11 Repeat 10 years- LAPAROSCOPIC HEMICOLECTOMY 04/08/2006 diverticulitis- PAST SURGICAL HISTORY OF left ankle times two- PAST SURGICAL HISTORY OF allcl tendon repair- PAST SURGICAL HISTORY OF 08/27/2013 Left ankle surgery - Dr Triston Puente- PAST SURGICAL HISTORY OF 11/10/2013 removal of hardware left ankle Dr Triston Puente- REMOVAL ADENOIDS,PRIMARY,<12 Y/O Adenoidectomy- REMOVAL OF TONSILS,<12 Y/O Tonsillectomy- REPAIR ING HERNIA,5+Y/O,REDUCIBL Hernia repair, inguinal- REPAIR ING HERNIA,5+Y/O,REDUCIBL Hernia repair, inguinal- SIGMOIDOS , CONTROL BLEED 06/20/06 Flex sig with argon beam coagulation granulation tissue- TOTAL HIP REPLACEMENT Right 2016Family HistoryFAMILY HISTORYProblem Relation Age of Onset- Asthma Father- Heart Father MT- COPD Father- Cancer Mother LUNG- Colon Cancer Maternal AuntPatient AllergiesALLERGIESAllergen Reactions- Codeine Other: See Comments anxietyCurrent MedicationsCurrent Outpatient Prescriptions on File Prior to Visit:albuterol HFA (PROAIR HFA) 90 mcg/actuation inhaler Inhale 2 Puffs asinstructed every 4 hours as needed.benzonatate (TESSALON PERLE) 100 mg capsule Take 1 capsule by mouth threetimes daily as needed.ALPRAZolam (XANAX) 0.5 mg tablet Take 1 tablet by mouth twice daily asneeded.Omeprazole 40 mg capsule Take 1 capsule by mouth once daily.fluticasone-vilanterol (BREO ELLIPTA) 100-25 mcg/dose inhaler Inhale 1Inhalation as instructed once daily.simvastatin (ZOCOR) 5 mg tablet Take 1 tablet by mouth daily at bedtime.dicyclomine (BENTYL) 10 mg capsule Take 1 capsule by mouth before mealsand at bedtime.metoprolol succinate ER (TOPROL XL) 50 mg 24 hr tablet Take 50 mg by mouthonce daily. Take 1/2 tabletflecainide 100 mg tablet Take 1 tablet by mouth twice daily.Aspirin 81 mg tab Take 1 tablet by mouth once daily. Take with food.No current facility-administered medications on file prior to visit.Social HistorySocial History Marital status: Spouse name: Years of education: Number of children:Social History Main Topics Smoking status: Never Smoker Smokeless status: Never Used Alcohol use: Yes 6.0 oz/week 4 Cans of Beer (12oz) per week Comment: occassional beer Drug use: No Sexual activity: Yes Partners with: FemaleReview of SymptomsREVIEW OF SYSTEMSGENERAL: No weight loss, malaise or feversEXAM:BP 122/82 Pulse 68 Resp 20 Wt 88.5 kg (195 lb) BMI 27.01 kg/d4Qnqznjf Appearance: Well appearing, alert, in no acute distress,well-hydrated, well nourished..Health Maintenance ListHEPATITIS C SCREENING due on 1990DIABETES SCREEN due on 04/10/2020LIPID SCREEN due on 04/03/2022TETANUS due on 11/25/2025PROSTATE CANCER SCREENING DISCUSSION CompletedADULT PREVNAR-13 CompletedINFLUENZA CompletedPNEUMOVAX AGE 65 AND OVER WITH 5YR LOOKBACK CompletedData reviewedComponent Latest Ref Rng AND Units 08/26/2014 09/27/2015 04/05/2016 04/10/2017Protein, Total 6.3 - 8.0 g/dL 6.7 6.9 6.5 6.9Albumin 3.9 - 4.9 g/dL 4.3 4.1 4.0 4.4Calcium 8.5 - 10.2 mg/dL 9.2 9.4 8.7 9.3Bilirubin, Total 0.2 - 1.3 mg/dL 0.6 0.4 0.6 0.7Alkaline Phosphatase 36 - 108 U/L 72 85 64 56AST 14 - 40 U/L 21 18 21 25Glucose 74 - 99 mg/dL 86 85 93 93BUN 9 - 24 mg/dL 22 23 21 21Creatinine 0.73 - 1.22 mg/dL 1.31 1.20 1.23 (H) 1.32 (H)Sodium 136 - 144 mmol/L 142 146 140 140Potassium 3.7 - 5.1 mmol/L 4.5 4.3 4.5 4.2Chloride 97 - 105 mmol/L 104 104 103 102CO2 22 - 30 mmol/L 27 20 (L) 25 26Anion Gap 9 - 18 mmol/L 11 22 (H) 12 12ALT 10 - 54 U/L 17 18 16 20eGFR- >60 >60 >60 >60eGFR-All Other Races . 54 >60 58 54ASSESSMENT/PLAN:1. Decreased GFR - ICD9: 794.4, ICD10: R94.4Discussed repeating CMP as he has stopped the NSAIDs. Patient is refusingat this time and would like to think about it. Discussed until we hadmultiple normal GFRs I would not remove diagnosis from his PMHx as hemeets current criteria for CKD stage III.I spent 25 minutes in the visit, with more than 50% of the vfptdfica-wh-wrza time of the visit in counseling / coordination of care.Stephanie Gutierres MD [facility] CNOVon 04-28-2017 CNOV Office Visit (UCWSTR) TRISTON HAAS ([id number]) 1945 MDate Time Provider Nhssplyucy52/4/17 11:15 AM IVETTE STEVENS) WS During your visit today, we recorded the following information about you: Temperature Pulse Respiration Blood pressure 97.4 degrees 50/minute 16/minute 108/64 Weight 86.2 kgIvette Stevens CNP 04/29/2017 11:32 AM SignedHPI Patient is a reliable 71 year old male here today with a 7-8 day history ofcough and congestion. States symptoms started with nasal congestion and nowfeel like it has moved into the chest. Cough is dry and hacking with somesputum production. States chest feels tight and difficult to take a deepbreath. Patient has a pneumonia history. Has tried OTC medication with littlerelief. Nothing makes it better. Feels like it is getting worse. No otherconcerns at this time.Review of SystemsConstitutional: Negative for chills, fever and malaise/fatigue.HENT: Negative for congestion and sore throat.Respiratory: Positive for cough. Negative for sputum production, shortness ofbreath and wheezing.Cardiovascular: Negative.Musculoskeletal: Negative for myalgias.Neurological: Negative for headaches.Endo/Heme/Allergies: Negative for environmental allergies.All other systems reviewed and are negative.PAST MEDICAL HISTORYDiagnosis Date- Abdominal pain, right lower quadrant- Asthma- Atrial fibrillation (HCC) Seeing Dr. Db- BPH (benign prostatic hyperplasia)- CKD (chronic kidney disease), stage III- Diaphragmatic hernia without mention of obstruction or gangrene 06/28/2005 BILATERAL- Diverticulitis 06/27 diverticulitis- Diverticulosis of colon (without mention of hemorrhage) 06/28/2005- GERD (gastroesophageal reflux disease)- Hyperlipidemia- Internal hemorrhoids without mention of complication 06/28/2005- Mitral valve disorders(424.0) 06/28/2005 MVP AND DILATED AORTIC ROOT, seeing Dr. Ace- Osteoarthritis- Other abnormal granulation tissue- Subclinical hypothyroidismPAST SURGICAL HISTORYProcedure Laterality Date- COLONOSCOP W/ OR W/O [facility] SPEC 01/24/06 Diverticular dz of sigmoid- COLONOSCOP W/ OR W/O [facility] SPEC 08/30/11 Repeat 10 years- LAPAROSCOPIC HEMICOLECTOMY 04/08/2006 diverticulitis- PAST SURGICAL HISTORY OF left ankle times two- PAST SURGICAL HISTORY OF allcl tendon repair- PAST SURGICAL HISTORY OF 08/27/2013 Left ankle surgery - Dr Triston Puente- PAST SURGICAL HISTORY OF 11/10/2013 removal of hardware left ankle Dr Triston Puente- REMOVAL ADENOIDS,PRIMARY,ANDlt;13 Y/O Adenoidectomy- REMOVAL OF TONSILS,ANDlt;13 Y/O Tonsillectomy- REPAIR ING HERNIA,5+Y/O,REDUCIBL Hernia repair, inguinal- REPAIR ING HERNIA,5+Y/O,REDUCIBL Hernia repair, inguinal- SIGMOIDOS , CONTROL BLEED 06/20/06 Flex sig with argon beam coagulation granulation tissue- TOTAL HIP REPLACEMENT Right 2016ALLERGIES CodeineMEDICATIONSsimvastatin (ZOCOR) 5 mg tablet Take 1 tablet by mouth daily at bedtime.ALPRAZolam (XANAX) 0.5 mg tablet Take 1 tablet by mouth twice daily as needed.Omeprazole 40 mg capsule Take 1 capsule by mouth once daily.dicyclomine (BENTYL) 10 mg capsule Take 1 capsule by mouth before meals and atbedtime.metoprolol succinate ER (TOPROL XL) 50 mg 24 hr tablet Take 50 mg by mouth oncedaily. Take 1/2 tabletflecainide 100 mg tablet Take 1 tablet by mouth twice daily.Aspirin 81 mg tab Take 1 tablet by mouth once daily. Take with food.fluticasone-vilanterol (BREO ELLIPTA) 100-25 mcg/dose inhaler Inhale 1Inhalation as instructed once daily.FAMILY HISTORYProblem Relation Age of Onset- Asthma Father- Heart Father MT- COPD Father- Cancer Mother LUNG- Colon Cancer Maternal AuntSocial HistorySubstance Use Topics- Smoking status: Never Smoker- Smokeless tobacco: Never Used- Alcohol use 6.0 oz/week 4 Cans of Beer (12oz) per week Comment: occassional beerBP 108/64 Pulse (!) 50 Temp 36.3 ?C (97.4 ?F) (Left Tympanic) Resp 16 Wt 86.2 kg (190 lb) SpO2 95% BMI 26.31 kg/i8Oggamdjg ExamConstitutional: He is oriented to person, place, and time and well-developed,well-nourished, and in no distress. Vital signs are normal.Mildly ill.HENT:Head: Normocephalic and atraumatic.Right Ear: Tympanic membrane, external ear and ear canal normal.Left Ear: Tympanic membrane, external ear and ear canal normal.Nose: No mucosal edema or rhinorrhea. Right sinus exhibits no maxillary sinustenderness and no frontal sinus tenderness. Left sinus exhibits no maxillarysinus tenderness and no frontal sinus tenderness.Mouth/Throat: Uvula is midline, oropharynx is clear and moist and mucousmembranes are normal.Neck: Neck supple.Cardiovascular: Normal rate, regular rhythm and normal heart sounds.Pulmonary/Chest: He has wheezes. Good air exchange noted at the bases. SpO2 96 % on room air. Fine bilateralexpiratory wheezesLymphadenopathy: Head (right side): No submental, no submandibular and no tonsillaradenopathy present. Head (left side): No submental, no submandibular and no tonsillaradenopathy present. He has no cervical adenopathy.Neurological: He is alert and oriented to person, place, and time.Skin: Skin is warm and dry.Nursing note and vitals reviewed.ASSESSMENT/PLAN:1. Cough - ICD9: 786.2, ICD10: R05 (primary diagnosis)- XR CHEST 2V FRONTAL/LAT- CXR negative per radiology read2. Acute bronchitis, unspecified organism - ICD9: 466.0, ICD10: J20.9- Will begin Antibiotic (see orders)- Will give oral steroid (see orders)- Albuterol Inhaler as directed (see orders)- OTC Mucinex to thin secretions- Fluids and rest- Humidifier to the environemnt- Vicks Vapo-Rubs PRN- Deep breathing exercises discussed- Follow with PCP in 2-3 days if no improvement or fever begins- AZITHROMYCIN 250 MG TABLET- PREDNISONE 20 MG TABLET- ALBUTEROL SULFATE HFA 90 MCG/ACTUATION AEROSOL INHALERPrescription instructions reviewed with patient as applicable. Patient advisedif symptoms do not improve or if symptoms worsen sooner, to contact theirprimary care physician. Potential red flag symptoms discussed with thepatient. Reviewed appropriate action plan to take if red flag symptoms occur.Patient agreeable to treatment plan.Ivette Stevens CNPReferring Provider: SELF [[id number]]Allergies As of Date: 04/28/2017 Noted Allergy ReactionCODEINE 03/11/2005 14 - Other: See Comments Comments: anxietyDate Reviewed: 04/28/2017Reviewed by: Ivette (Susan) Hilda - Fully AssessedReason for Visit: Cough [28] Cmt: x 6 days cough and chest congestionPrimary Visit Diagnosis:Cough [R05] Other Visit Diagnosis:Acute bronchitis, unspecified organism [J20.9]Order(s):XR CHEST 2V FRONTAL/LAT [[id number]] Order #: [id number] FUTURE azithromycin (ZITHROMAX Z-MANDEEP) 250 mg tabletTake 2 tablets day one, then, 1 tablet daily until gone.Disp: 1 PackageRfl: 0 predniSONE (DELTASONE) 20 mg tabletTake 1 tablet by mouth twice daily for 3 days.Disp: 6 tabletRfl: 0 albuterol HFA (PROAIR HFA) 90 mcg/actuation inhalerInhale 2 Puffs as instructed every 4 hours as needed.Disp: 1 InhalerRfl: 0 benzonatate (TESSALON PERLE) 100 mg capsuleTake 1 capsule by mouth three times daily as needed.Disp: 30 capsuleRfl: 0Prescriptions as of 04/28/2017 Sig: SIMVASTATIN 5 MG TABLET Take 1 tablet [...] Take 1 tablet by mouth once d* AZITHROMYCIN 250 MG TABLET Take 2 tablets day one, then,* PREDNISONE 20 MG TABLET Take 1 tablet by mouth twice * ALBUTEROL SULFATE HFA 90 MCG/* Inhale 2 Puffs as instructed * BENZONATATE 100 MG CAPSULE Take 1 capsule by mouth three* FLUTICASONE 100 MCG-VILANTERO* Inhale 1 Inhalation as instru*Problem List As Of Date 04/28/2017 Noted Resolved Hyperlipidemia [E78.5] INVALID FOR* NOCTURIA [...] stage III [N18.3] Subclinical hypothyroidism [E03.9] Osteoarthritis [M19.90]Prescriptions ordered this encounter Disp Refills Start End AZITHROMYCIN 250 MG TABLET 1 Pa* 0 04/28/2017 05/03/2017 Sig: Take 2 tablets day one, then, 1 tablet daily until gone. PREDNISONE 20 MG TABLET 6 ta* 0 04/28/2017 05/01/2017 Route: ORAL Sig: Take 1 tablet by mouth twice daily for 3 days. ALBUTEROL SULFATE HFA 90 MCG/ACTUATI* 1 In* 0 04/28/2017 Route: INHALATION Sig: Inhale 2 Puffs as instructed every 4 hours as needed. BENZONATATE 100 MG CAPSULE 30 c* 0 04/28/2017 Route: ORAL Sig: Take 1 capsule by mouth three times daily as needed. Status:Closed by IVETTE STEVENS CNP on 04/29/17 [facility] PROGRESSon 04-28-2017 PROGRESS HNO ID: [id number] thor: Saad Edwards (Rt)vice: (none)Author Type: TechnicianType: Progress NotesFiled: 04/28/2017 1:06 PMNote Text: Radiology Service Progress NotePATIENT NAME: Triston PuenteMRN: [id number] OF SERVICE: April 28, 2017TIME: 1:02 PMPATIENT IDENTITY VERIFICATION COMPLETED USING TWO (2) METHODS: Patientconfirmed name verbally and Date of .PATIENT GENDER DATA: MalePATIENT RELEVANT IMPLANT DATA REVIEWED: Not ApplicableRADIOLOGY DEPARTMENT: General X-ray: Exam(s) Completed: Chest X-RayPERIPHERAL IV DATA: Not applicableSIGNED BY: Elian Edwards 2016 1:02 PM [facility] PROGRESS HNO ID: [id number] thor: Ivette (Susan) KaputService: (none)Author Type: Nurse PractitionerType: Progress NotesFiled: 04/29/2017 11:32 AMNote Text:HPI Patient is a reliable 71 year old male here today with a 7-8 dayhistory of cough and congestion. States symptoms started with nasalcongestion and now feel like it has moved into the chest. Cough is dry andhacking with some sputum production. States chest feels tight anddifficult to take a deep breath. Patient has a pneumonia history. Hastried OTC medication with little relief. Nothing makes it better. Feelslike it is getting worse. No other concerns at this time.Review of SystemsConstitutional: Negative for chills, fever and malaise/fatigue.HENT: Negative for congestion and sore throat.Respiratory: Positive for cough. Negative for sputum production, shortnessof breath and wheezing.Cardiovascular: Negative.Musculoskeletal: Negative for myalgias.Neurological: Negative for headaches.Endo/Heme/Allergies: Negative for environmental allergies.All other systems reviewed and are negative.PAST MEDICAL HISTORYDiagnosis Date- Abdominal pain, right lower quadrant- Asthma- Atrial fibrillation (HCC) Seeing Dr. Ace- BPH (benign prostatic hyperplasia)- CKD (chronic kidney disease), stage III- Diaphragmatic hernia without mention of obstruction or gangrene 06/28/2005 BILATERAL- Diverticulitis 06/27 diverticulitis- Diverticulosis of colon (without mention of hemorrhage) 06/28/2005- GERD (gastroesophageal reflux disease)- Hyperlipidemia- Internal hemorrhoids without mention of complication 06/28/2005- Mitral valve disorders(424.0) 06/28/2005 MVP AND DILATED AORTIC ROOT, seeing Dr. Ace- Osteoarthritis- Other abnormal granulation tissue- Subclinical hypothyroidismPAST SURGICAL HISTORYProcedure Laterality Date- COLONOSCOP W/ OR W/O [facility] SPEC 01/24/06 Diverticular dz of sigmoid- COLONOSCOP W/ OR W/O [facility] SPEC 08/30/11 Repeat 10 years- LAPAROSCOPIC HEMICOLECTOMY 04/08/2006 diverticulitis- PAST SURGICAL HISTORY OF left ankle times two- PAST SURGICAL HISTORY OF allcl tendon repair- PAST SURGICAL HISTORY OF 08/27/2013 Left ankle surgery - Dr Triston Puente- PAST SURGICAL HISTORY OF 11/10/2013 removal of hardware left ankle Dr Triston Puente- REMOVAL ADENOIDS,PRIMARY,<12 Y/O Adenoidectomy- REMOVAL OF TONSILS,<12 Y/O Tonsillectomy- REPAIR ING HERNIA,5+Y/O,REDUCIBL Hernia repair, inguinal- REPAIR ING HERNIA,5+Y/O,REDUCIBL Hernia repair, inguinal- SIGMOIDOS , CONTROL BLEED 06/20/06 Flex sig with argon beam coagulation granulation tissue- TOTAL HIP REPLACEMENT Right 2016ALLERGIES CodeineMEDICATIONSsimvastatin (ZOCOR) 5 mg tablet Take 1 tablet by mouth daily at bedtime.ALPRAZolam (XANAX) 0.5 mg tablet Take 1 tablet by mouth twice daily asneeded.Omeprazole 40 mg capsule Take 1 capsule by mouth once daily.dicyclomine (BENTYL) 10 mg capsule Take 1 capsule by mouth before mealsand at bedtime.metoprolol succinate ER (TOPROL XL) 50 mg 24 hr tablet Take 50 mg by mouthonce daily. Take 1/2 tabletflecainide 100 mg tablet Take 1 tablet by mouth twice daily.Aspirin 81 mg tab Take 1 tablet by mouth once daily. Take with food.fluticasone-vilanterol (BREO ELLIPTA) 100-25 mcg/dose inhaler Inhale 1Inhalation as instructed once daily.FAMILY HISTORYProblem Relation Age of Onset- Asthma Father- Heart Father MT- COPD Father- Cancer Mother LUNG- Colon Cancer Maternal AuntSocial HistorySubstance Use Topics- Smoking status: Never Smoker- Smokeless tobacco: Never Used- Alcohol use 6.0 oz/week 4 Cans of Beer (12oz) per week Comment: occassional beerBP 108/64 Pulse (!) 50 Temp 36.3 ?C (97.4 ?F) (Left Tympanic) Resp16 Wt 86.2 kg (190 lb) SpO2 95% BMI 26.31 kg/y8Ohimkhze ExamConstitutional: He is oriented to person, place, and time andwell-developed, well-nourished, and in no distress. Vital signs arenormal.Mildly ill.HENT:Head: Normocephalic and atraumatic.Right Ear: Tympanic membrane, external ear and ear canal normal.Left Ear: Tympanic membrane, external ear and ear canal normal.Nose: No mucosal edema or rhinorrhea. Right sinus exhibits no maxillarysinus tenderness and no frontal sinus tenderness. Left sinus exhibits nomaxillary sinus tenderness and no frontal sinus tenderness.Mouth/Throat: Uvula is midline, oropharynx is clear and moist and mucousmembranes are normal.Neck: Neck supple.Cardiovascular: Normal rate, regular rhythm and normal heart sounds.Pulmonary/Chest: He has wheezes. Good air exchange noted at the bases. SpO2 96 % on room air. Finebilateral expiratory wheezesLymphadenopathy: Head (right side): No submental, no submandibular and no tonsillaradenopathy present. Head (left side): No submental, no submandibular and no tonsillaradenopathy present. He has no cervical adenopathy.Neurological: He is alert and oriented to person, place, and time.Skin: Skin is warm and dry.Nursing note and vitals reviewed.ASSESSMENT/PLAN:1. Cough - ICD9: 786.2, ICD10: R05 (primary diagnosis)- XR CHEST 2V FRONTAL/LAT- CXR negative per radiology read2. Acute bronchitis, unspecified organism - ICD9: 466.0, ICD10: J20.9- Will begin Antibiotic (see orders)- Will give oral steroid (see orders)- Albuterol Inhaler as directed (see orders)- OTC Mucinex to thin secretions- Fluids and rest- Humidifier to the environemnt- Vicks Vapo-Rubs PRN- Deep breathing exercises discussed- Follow with PCP in 2-3 days if no improvement or fever begins- AZITHROMYCIN 250 MG TABLET- PREDNISONE 20 MG TABLET- ALBUTEROL SULFATE HFA 90 MCG/ACTUATION AEROSOL INHALERPrescription instructions reviewed with patient as applicable. Patientadvised if symptoms do not improve or if symptoms worsen sooner, tocontact their primary care physician. Potential red flag symptomsdiscussed with the patient. Reviewed appropriate action plan to take ifred flag symptoms occur. Patient agreeable to treatment plan.Ivette Stevens CNP [facility] XR CHEST 2V FRONTAL/LATon XR CHEST 2V FRONTAL/LAT * * *Final Report* * *DATE OF EXAM: Apr 28 2017 1:05PM WOX [id number] - XR CHEST 2V FRONTAL/LAT / REASON: Cough * * * * Physician Interpretation * * * * EXAMINATION: CHEST RADIOGRAPH (2 VIEW FRONTAL and LATERAL)Clinical History: CoughM: XC2_3Comparison: 09/27/2015RESULT:Lines, tubes, and devices: None.Lungs and pleura: No consolidation. No lung mass. No pleural effusion.Cardiomediastinal silhouette: Stable cardiomediastinal silhouette.Other: NoneIMPRESSION:No acute radiographic abnormality.Hi Ranger Operator: PSCB Transcribe Date/Time: Apr 28 2017 1:16PDictated by : DAPHNIE LEVY MDThis examination was interpreted and the report reviewed and electronically signed by: DAPHNIE LEVY MD on Apr 28 2017 1:17PM [id number] Normal [facility] Albumin/Creat Ratioon 2016 Albumin Urine Random <12.0 Normal 0.0-23.0 [facility] Comment on above: Performed By: #### U ACR ####[facility] [address] [place], [place] [phone] Albumin/Creat Ratio Not calculated Normal 0-30 C [facility] Comment on above: Performed By: #### U ACR ####[facility] [address] [place], [place] [phone] Creatinine,Urine,Ra n 203.7 mg/dL Normal 20-300 [facility] Comment on above: Performed By: #### U ACR ####[facility] [address] [place], [place] [phone] CNOVon 04-10-2017 CNOV Office Visit (FAMPWS) TRISTON HAAS ([id number]) 1945 MDate Time Provider Tmvcbudann92/16/17 8:20 AM STEPHANIE GUTIERRES) FAMPWS During your visit today, we recorded the following information about you: Pulse Respiration Blood pressure Weight 49/minute 16/minute 115/86 88 kg Height 1.81 Brenda Gutierres MD 04/10/2017 9:13 AM SignedChief ComplaintPatient presents with:6 month f/u-physicalHPIStuart Abbey Puente is a 71 year old male who presents here today for 6 monthfollow up.Reviewed recent blood work with patient and discussed continued decreased GFRand elevated creatinine. Patient taking naproxen on a daily basis for hisarthritis pain and states that he does not drink water regularly. Deniesurinary symptoms, weak stream, hematuria.Also questioning his need for synthroid. States that he never had asignificantly elevated TSH, highest was 5 back in 2012, but T4 was alwaysnormal. Discussed that this would actually be characterized as subclinicalhypothyroidism and I would not typically treat this. Would recommend stoppingsynthroid and checking repeat labs in 3 months.Patient wanting to discuss his xanax prescription. States that he last filledin August and has been using incredibly sparingly. Has not been diagnosed withanxiety in the past.DEMAR-7 (General Anxiety Disorder-7) from [employer] on 04/10/2017 All calculations should be rechecked by clinician prior to use RESULT SUMMARY:4 pointsNo anxiety disorder.Functionally, the patient does not report limitations due to their symptoms.INPUTS:Feeling nervous, anxious, or on edge ?ANDgt; 1 = Several daysNot being able to stop or control worrying ?ANDgt; 0 = Not at allWorrying too much about different things ?ANDgt; 1 = Several daysTrouble relaxing ?ANDgt; 1 = Several daysBeing so restless that it's hard to sit still ?ANDgt; 0 = Not at allBecoming easily annoyed or irritable ?ANDgt; 1 = Several daysFeeling afraid as if something awful might happen ?ANDgt; 0 = Not at allHow difficult have these problems made it for you to do your work, take care ofthings at home, or get along with other people? ?ANDgt; 0 = Not at allAsking about need for Breo Ellipta. Was previously using Qvar for wheezing atnight. Has not had PFTs in the past. Has not been taking either medicationrecently and denies any wheezing or SOB.Discussed new shingles vaccine. Recommended obtaining even though he hasalready had Zostavax. We do not have at this time. Would have him contacthealth department and insurance company regarding costs.Past medical history, appointments, medications, allergies reviewed.Previous Medical HistoryPAST MEDICAL HISTORYDiagnosis Date- Abdominal pain, right lower quadrant- Asthma- Atrial fibrillation (HCC) Seeing Dr. Ace- BPH (benign prostatic hyperplasia)- Diaphragmatic hernia without mention of obstruction or gangrene 06/28/2005 BILATERAL- Diverticulitis 06/27 diverticulitis- Diverticulosis of colon (without mention of hemorrhage) 06/28/2005- GERD (gastroesophageal reflux disease)- Hyperlipidemia- Hypothyroidism- Internal hemorrhoids without mention of complication 06/28/2005- Mitral valve disorders(424.0) 06/28/2005 MVP AND DILATED AORTIC ROOT, seeing Dr. Ace- Osteoarthritis- Other abnormal granulation tissuePrevious Surgical HistoryPAST SURGICAL HISTORYProcedure Laterality Date- COLONOSCOP W/ OR W/O [facility] SPEC 01/24/06 Diverticular dz of sigmoid- COLONOSCOP W/ OR W/O [facility] SPEC 08/30/11 Repeat 10 years- LAPAROSCOPIC HEMICOLECTOMY 04/08/2006 diverticulitis- PAST SURGICAL HISTORY OF left ankle times two- PAST SURGICAL HISTORY OF allcl tendon repair- PAST SURGICAL HISTORY OF 08/27/2013 Left ankle surgery - Dr Triston Puente- PAST SURGICAL HISTORY OF 11/10/2013 removal of hardware left ankle Dr Triston Puente- REMOVAL ADENOIDS,PRIMARY,ANDlt;12 Y/O Adenoidectomy- REMOVAL OF TONSILS,ANDlt;13 Y/O Tonsillectomy- REPAIR ING HERNIA,5+Y/O,REDUCIBL Hernia repair, inguinal- REPAIR ING HERNIA,5+Y/O,REDUCIBL Hernia repair, inguinal- SIGMOIDOS , CONTROL BLEED 06/20/06 Flex sig with argon beam coagulation granulation tissue- TOTAL HIP REPLACEMENT Right 2015Family HistoryFAMILY HISTORYProblem Relation Age of Onset- Asthma Father- Heart Father MT- COPD Father- Cancer Mother LUNG- Colon Cancer Maternal AuntPatient AllergiesALLERGIESAllergen Reactions- Codeine Other: See Comments anxietyCurrent MedicationsCurrent Outpatient Prescriptions on File Prior to Visit:naproxen (NAPROSYN) 375 mg tablet Take 1 tablet by mouth once daily as needed.simvastatin (ZOCOR) 5 mg tablet Take 1 tablet by mouth daily at bedtime.ALPRAZolam (XANAX) 0.5 mg tablet Take 1 tablet by mouth twice daily as needed.levothyroxine (SYNTHROID) 25 mcg tablet Take 1 tablet by mouth once daily.Omeprazole 40 mg capsule Take 1 capsule by mouth once daily.dicyclomine (BENTYL) 10 mg capsule Take 1 capsule by mouth before meals and atbedtime.metoprolol succinate ER (TOPROL XL) 50 mg 24 hr tablet Take 50 mg by mouth oncedaily. Take 1/2 tabletflecainide 100 mg tablet Take 1 tablet by mouth twice daily.Aspirin 81 mg tab Take 1 tablet by mouth once daily. Take with food.fluticasone-vilanterol (BREO ELLIPTA) 100-25 mcg/dose inhaler Inhale 1Inhalation as instructed once daily.No current facility-administered medications on file prior to visit.Social HistorySocial History Marital status: Spouse name: Years of education: Number of children:Social History Main Topics Smoking status: Never Smoker Smokeless status: Never Used Alcohol use: Yes 6.0 oz/week 4 Cans of Beer (12oz) per week Comment: occassional beer Drug use: No Sexual activity: Yes Partners with: FemaleReview of SymptomsREVIEW OF SYSTEMSGENERAL: No weight loss, malaise or feversNECK: Negative for lumps, goiter, pain and significant neck swellingRESPIRATORY: Negative for cough, hemoptysis, wheezing, COPD, dyspnea orshortness of breathCARDIOVASCULAR: Negative for chest pain, leg swelling, hypertension, CHF orpalpitationsGI: No nausea, vomiting, or diarrheaSKIN: Negative for lesions, rash, and itchingEXAM:BP 115/86 Pulse (!) 49 Resp 16 Ht 181 cm (5' 11.25ANDquot;) Wt 88 kg (194lb) BMI 26.87 kg/v1Olkmfpz Appearance: Well appearing, alert, in no acute distress, well-hydrated,well nourished..Skin: Skin color, texture, turgor normal, no suspicious rashes or lesions.Neck: Supple, no adenopathy; thyroid symmetric, normal size, no bruits.Lungs: Lungs clear to auscultation. No wheezing, rhonchi, rales.Heart: RRR without murmur, gallop, or rubs. No ectopy.Abdomen: Normal abdominal exam, Abdomen soft, non-tender. Bowel sounds normal.No masses, organomegaly.Extremities: No deformities, edema, skin discoloration, clubbing or cyanosis.Good capillary refill. .Health Maintenance ListHEPATITIS C SCREENING due on 1990TETANUS due on 12/08/2017DIABETES SCREEN due on 04/03/2020LIPID SCREEN due on 2PROSTATE CANCER SCREENING DISCUSSION CompletedZOSTAVAX CompletedADULT PREVNAR-13 CompletedINFLUENZA CompletedPNEUMOVAX AGE 65 AND OVER WITH 5YR LOOKBACK CompletedData reviewedComponent Latest Ref Rng ANDamp; Units 04/03/2017Color Yellow YellowClarity Clear ClearGlucose, Urine Negative mg/dL NegativeBilirubin, Urine Negative NegativeKetones, Urine Negative NegativeSpecific [place], Ur 1.005 - 1.030 1.017Hemoglobin/Blood,Ur Negative NegativepH, Urine 4.5 - 8.0 5.0Protein, Urine Negative mg/dL NegativeUrobilinogen Normal NormalNitrites Negative NegativeLeukest Negative NegativeComments SEE COMMENTUrine Moncho Comment SEE COMMENTWBC, Urine 0 - 5 /HPF 0-5RBC, Urine 0 - 3 /HPF 0-3Cast 0 /LPF SEE COMMENT (A)WBC 3.70 - 11.00 k/uL 5.87RBC 4.20 - 6.00 m/uL 4.93Hemoglobin 13.0 - 17.0 g/dL 15.5Hematocrit 39.0 - 51.0 % 46.1MCV 80.0 - 100.0 fL 93.5MCH 26.0 - 34.0 pG 31.4MCHC 30.5 - 36.0 g/dL 33.6RDW-CV 11.5 - 15.0 % 12.0Platelet Count 150 - 400 k/uL 206MPV 9.0 - 12.7 fL 10.1Absolute nRBC ANDlt;0.01 k/uL ANDlt;0.01Glucose 74 - 99 mg/dL 80BUN 9 - 24 mg/dL 20Creatinine 0.73 - 1.22 mg/dL 1.33 (H)Sodium 136 - 144 mmol/L 140Potassium 3.7 - 5.1 mmol/L 4.7Chloride 97 - 105 mmol/L 101CO2 22 - 30 mmol/L 28Anion Gap 9 - 18 mmol/L 11Calcium 8.5 - 10.2 mg/dL 9.3eGFR- ANDgt;60eGFR-All Other Races . 53Triglyceride 30 - 149 mg/dL 109Cholesterol 100 - 199 mg/dL 154HDL Cholesterol ANDgt;45 mg/dL 45 (L)VLDL Cholesterol 6 - 40 mg/dL 22LDL Cholesterol 60 - 129 mg/dL 87Fasting Time hrs 12TC:HDL Ratio 1.00 - 5.00 3.42LDL:HDL Ratio 0.50 - 3.55 1.93Non HDL Cholesterol 90 - 159 mg/dL 109TSH 0.400 - 5.500 uU/mL 3.210Culture ANDlt;10,000 CFU/ml (A) . . .ASSESSMENT/PLAN:1. CKD (chronic kidney disease), stage III - ICD9: 585.3, ICD10: N18.3 (primarydiagnosis)Discussed stopping NSAID, pushing PO fluids, limiting amount of salt in diet toANDlt;2,000mg per day. Will rule out nephropathy and call with results.- ALBUMIN/CREAT RATIO RND UR- US KIDNEY/BLADDER- COMP METABOLIC PANEL2. Adjustment disorder, unspecified type - ICD9: 309.9, ICD10: F43.20Would not characterize as anxiety at this time. Advised to finish xanax he hasat home, which he is using sparingly, and would recommend vistaril in thefuture for any panic symptoms.3. Subclinical hypothyroidism - ICD9: 244.8, ICD10: E03.9- check TSH and T4/FTI in 3 monthsDiscontinue synthroid at this time.4. PAF (paroxysmal atrial fibrillation) (HCC) - ICD9: 427.31, ICD10: I48.0Rate controlled. Continue ASA and follow up with Dr. Ace.5. Mixed hyperlipidemia - ICD9: 272.2, ICD10: E78.2- good control- Continue current medication.- Encouraged following a low fat, low cholesterol diet.- Discussed the benefits of regular aerobic exercise and weight loss.6. Osteoarthritis, unspecified osteoarthritis type, unspecified site - ICD9:715.90, ICD10: M19.90Discussed stopping NSAIDs and will have patient take OTC tylenol instead.7. Overweight (BMI 25.0-29.9) - ICD9: 278.02, ICD10: E66.3Discussed diet and exercise. Will recheck in 6 months.- HGB A1C8. Gastroesophageal reflux disease, esophagitis presence not specified - ICD9:530.81, ICD10: K21.9- Continue treatment with Prilosec 40 mg QD9. Hyperglycemia - ICD9: 790.29, ICD10: R73.9Patient concerned that sugars may be high as he used to eat good amount ofsweets. Noted to have slight elevation in the past. Will check A1C and repeatBMP- HGB A1CI spent 50 minutes in the visit, with more than 50% of the total bcdi-ep-jjykhtgt of the visit in counseling / coordination of care.Deuce Villarreal Provider: STEPHANIE GUTIERRES) [[id number]]Allergies As of Date: 04/10/2017 Noted Allergy ReactionCODEINE 03/11/2005 14 - Other: See Comments Comments: anxietyDate Reviewed: 04/10/2017Reviewed by: [facility]) PAT Pitts - Fully AssessedReason for Visit: 6 month f/u-physical [Other]Primary Visit Diagnosis:CKD (chronic kidney disease), stage III [N18.3] Other Visit Diagnoses:Adjustment disorder, unspecified type [F43.20] Subclinical hypothyroidism [E03.9] PAF (paroxysmal atrial fibrillation) ([facility]) [I48.0] Mixed hyperlipidemia [E78.2] Osteoarthritis, unspecified osteoarthritis type, unspecified site [M19.90] Overweight (BMI 25.0-29.9) [E66.3] Gastroesophageal reflux disease, esophagitis presence not specified [K21.9] Hyperglycemia [R73.9]Order(s):ALBUMIN/CREAT RATIO RND UR [SQUACR] Order #: [id number] FUTURE US KIDNEY/BLADDER [[id number]] Order #: [id number] FUTURE COMP METABOLIC PANEL [SQCMP] Order #: [id number] FUTURE HGB A1C [VHFCO9X] Order #: [id number] FUTUREPrescriptions as of 04/10/2017 Sig: SIMVASTATIN 5 MG TABLET Take 1 tablet [...] Take 1 tablet by mouth once d* FLUTICASONE 100 MCG-VILANTERO* Inhale 1 Inhalation as instru*Medication notes this encounter FLUTICASONE 100 MCG-VILANTEROL 25 MCG/DOSE POWDER FOR INHALATION >> Teena Pitts CMA, MA 04/10/2017 8:13 AM >> TEENA PITTS CMA Maria L Apr 10, 2017 8:13 AM Hasn't taken for a weekProblem List As Of Date 04/10/2017 Noted Resolved Hyperlipidemia [E78.5] INVALID FOR* NOCTURIA [...] stage III [N18.3] Subclinical hypothyroidism [E03.9] Osteoarthritis [M19.90]Medications Discontinued During This Encounter naproxen (NAPROSYN) 375 mg tablet 90 t* 1 01/28/2017 04/10/2017 Route: ORAL Sig: Take 1 tablet by mouth once daily as needed. Disc: Reason for discontinue is not on file. levothyroxine (SYNTHROID) 25 mcg tab* 90 t* 3 04/09/2016 04/10/2017 Class: Print RX Route: ORAL Sig: Take 1 tablet by mouth once daily. Disc: Reason for discontinue is not on file.Disposition: Return in about 6 months (around 10/08/2017).Follow-up and Disposition History RecordedEncounter Number: [id number] Status:Closed by STEPHANIE GUTIERRES MD on 04/10/17 Normal [facility] Comp Metabolic Panelon 04-10 Alanine aminotransferase (ALT) 20 U/L Normal 10-54 [facility] Comment on above: Performed By: #### C MP, HBA1C ####[facility] [address] [place], [place] [phone] Albumin 4.4 g/dL Normal 3.9-4.9 [facility] Comment on above: Performed By: #### C MP, HBA1C ####[facility] [address] AveClevelJoshua V[place] [phone] Alkaline phosphatase (ALP) 56 U/L Normal 36-108 [facility] Comment on above: Performed By: #### C MP, HBA1C ####[facility] [address] AveCValerie [place] [phone] Anion gap 12 mmol/L Normal 9-18 [facility] Comment on above: Performed By: #### C MP, HBA1C ####[facility] [address]CValerie [place] [phone] Aspartate aminotransferase (AST) 25 U/L Normal 14-40 [facility] Comment on above: Performed By: #### C MP, HBA1C ####[facility] [place] [phone] Bilirubin (total) 0.7 mg/dL Normal 0.2-1.3 [facility] Comment on above: Performed By: #### C MP, HBA1C ####[facility] [place] [phone] Calcium 9.3 mg/dL Normal 8.5-10.2 [facility] Comment on above: Performed By: #### C MP, HBA1C ####[facility] [address]CVal[address] [place] [phone] Chloride 102 mmol/L Normal 97-105 [facility] Comment on above: Performed By: #### C MP, HBA1C ####[facility] [address] AveClevelJoshua [place] [phone] CO2 26 mmol/L Normal 22-30 [facility] Comment on above: Performed By: #### C MP, HBA1C ####[facility] [address] AveClevelJoshua [place] [phone] Creatinine 1.32 mg/dL High 0.73-1.22 [facility] Comment on above: Performed By: #### C MP, HBA1C ####[facility] [place], [place] [phone] eGFR (non-black) 54 . Normal [facility] Comment on above: Result Comment: eGFR (Estimated GFR) Units of measure: mL/min/1.73 meters squaredeGFR is derived from the reexpressed MDRD Study equation using the following parameters: serum creatinine, age, gender and race. The creatinine assay has been calibrated to be traceable to IDMS.An eGFR <60 mL/min/1.73m2 for >3 months is consistent with chronic kidney disease. Refer to KDOQI guidelines for clinical interpretation.In patients with unstable renal function, e.g. those with acute kidney injury, the eGFR may not accurately reflect actual GFR. Performed By: #### C MP, HBA1C ####[facility], [place] [phone] eGFR (non-black) mL/min/{1.73_m2} Normal [facility] Comment on above: Performed By: #### C MP, HBA1C ####[facility], [place] [phone] Glucose mass conc 93 mg/dL Normal 74-99 [facility] Comment on above: Result Comment: The [place] Diabetes Association (ADA) provides guidance for cutoff values for fasting glucose and random glucose. The ADA defines fasting as no caloric intake for at least 8 hours. Fasting plasma glucose results between 100 to 125 mg/dL indicate increased risk for diabetes (prediabetes).Fasting plasma glucose results greater than or equal to 126 mg/dL meet the criteria for diagnosis of diabetes. In the absence of unequivocal hyperglycemia, results should be confirmed by repeat testing. In a patient with classic symptoms of hyperglycemia or hyperglycemic crisis, random plasma glucose results greater than or equal to 200 mg/dL meet the criteria for diagnosis of diabetes.Reference: Standards of Medical Care in Diabetes 2016, [place] Diabetes Association. Diabetes Care. 2016.39(Suppl 1). Performed By: #### C MP, HBA1C ####[facility] [place], [place] [phone] Potassium molar conc 4.2 mmol/L Normal 3.7-5.1 [facility] Comment on above: Performed By: #### C MP, HBA1C ####[facility], [place] [phone] Protein 6.9 g/dL Normal 6.3-8.0 [facility] Comment on above: Performed By: #### C MP, HBA1C ####[place] [address], [place] [phone] Sodium 140 mmol/L Normal 136-144 [facility] Comment on above: Performed By: #### C MP, HBA1C ####[address] [phone] Urea nitrogen 21 mg/dL Normal 9-24 [facility] Comment on above: Performed By: #### C MP, HBA1C ####[place] [id number] [place], [place] [phone] Hemoglobin A1con 04-10-2017 Glucose mass conc 100 mg/dL Normal [facility] Comment on above: Result Comment: eAG: (Estimated average glucose) is a calculated value from HgbA1c and is new accounts representative of the average blood glucose level in the last 2-3 month period. Performed By: #### C MP, HBA1C ####[address] [phone] Hemoglobin A1c/Hemoglobin.tota l mass fraction (Bld) 5.1 % Normal 4.3-5.6 [facility] Comment on above: Performed By: #### C MP, HBA1C ####[facility] [place], [place] [phone] PROGRESSon 04-10-2017 PROGRESS HNO ID: [id number] thor: Chandni Riggs RdmsService: (none)Author Type: (none)Type: Progress NotesFiled: 04/10/2017 12:03 PMNote Text: Radiology Service Progress NotePATIENT NAME: Triston PuenteMRN: [id number] OF SERVICE: April 10, 2017TIME: 11:22 AMPATIENT IDENTITY VERIFICATION COMPLETED USING TWO (2) METHODS: Patientconfirmed name verbally and Date of .PATIENT GENDER DATA: MalePATIENT RELEVANT IMPLANT DATA REVIEWED: Not ApplicableRADIOLOGY DEPARTMENT: UltrasoundPERIPHERAL IV DATA: Not applicableSIGNED BY: Chandni Riggs RdmsNovclearsky rehabilitation hospital [facility] 2016 11:[address] [facility] PROGRESS HNO ID: [id number] thor: Stephanie Cadet) Floyd: (none)Author Type: PhysicianType: Progress NotesFiled: 04/10/2017 9:13 AMNote Text:Chief ComplaintPatient presents with:6 month f/u-physicalHPIStuart Abbey Puente is a 71 year old male who presents here today for 6 monthfollow up.Reviewed recent blood work with patient and discussed continued decreasedGFR and elevated creatinine. Patient taking naproxen on a daily basis forhis arthritis pain and states that he does not drink water regularly.Denies urinary symptoms, weak stream, hematuria.Also questioning his need for synthroid. States that he never had asignificantly elevated TSH, highest was 5 back in 2012, but T4 was alwaysnormal. Discussed that this would actually be characterized as subclinicalhypothyroidism and I would not typically treat this. Would recommendstopping synthroid and checking repeat labs in 3 months.Patient wanting to discuss his xanax prescription. States that he lastfilled in August and has been using incredibly sparingly. Has not beendiagnosed with anxiety in the past.DEMAR-7 (General Anxiety Disorder-7) from [employer] on 04/10/2017 All calculations should be rechecked by clinician prior to use RESULT SUMMARY:4 pointsNo anxiety disorder.Functionally, the patient does not report limitations due to theirsymptoms.INPUTS:Feeling nervous, anxious, or on edge ?> 1 = Several daysNot being able to stop or control worrying ?> 0 = Not at allWorrying too much about different things ?> 1 = Several daysTrouble relaxing ?> 1 = Several daysBeing so restless that it's hard to sit still ?> 0 = Not at allBecoming easily annoyed or irritable ?> 1 = Several daysFeeling afraid as if something awful might happen ?> 0 = Not at allHow difficult have these problems made it for you to do your work, takecare of things at home, or get along with other people? ?> 0 = Not at allAsking about need for Breo Ellipta. Was previously using Qvar for wheezingat night. Has not had PFTs in the past. Has not been taking eithermedication recently and denies any wheezing or SOB.Discussed new shingles vaccine. Recommended obtaining even though he hasalready had Zostavax. We do not have at this time. Would have him contacthealth department and insurance company regarding costs.Past medical history, appointments, medications, allergies reviewed.Previous Medical HistoryPAST MEDICAL HISTORYDiagnosis Date- Abdominal pain, right lower quadrant- Asthma- Atrial fibrillation (HCC) Seeing Dr. Ace- BPH (benign prostatic hyperplasia)- Diaphragmatic hernia without mention of obstruction or gangrene 06/28/2005 BILATERAL- Diverticulitis 06/27 diverticulitis- Diverticulosis of colon (without mention of hemorrhage) 06/28/2005- GERD (gastroesophageal reflux disease)- Hyperlipidemia- Hypothyroidism- Internal hemorrhoids without mention of complication 06/28/2005- Mitral valve disorders(424.0) 06/28/2005 MVP AND DILATED AORTIC ROOT, seeing Dr. Ace- Osteoarthritis- Other abnormal granulation tissuePrevious Surgical HistoryPAST SURGICAL HISTORYProcedure Laterality Date- COLONOSCOP W/ OR W/O [facility] SPEC 01/24/06 Diverticular dz of sigmoid- COLONOSCOP W/ OR W/O [facility] SPEC 08/30/11 Repeat 10 years- LAPAROSCOPIC HEMICOLECTOMY 04/08/2006 diverticulitis- PAST SURGICAL HISTORY OF left ankle times two- PAST SURGICAL HISTORY OF allcl tendon repair- PAST SURGICAL HISTORY OF 08/27/2013 Left ankle surgery - Dr Triston Puente- PAST SURGICAL HISTORY OF 11/10/2013 removal of hardware left ankle Dr Triston Puente- REMOVAL ADENOIDS,PRIMARY,<12 Y/O Adenoidectomy- REMOVAL OF TONSILS,<12 Y/O Tonsillectomy- REPAIR ING HERNIA,5+Y/O,REDUCIBL Hernia repair, inguinal- REPAIR ING HERNIA,5+Y/O,REDUCIBL Hernia repair, inguinal- SIGMOIDOS , CONTROL BLEED 06/20/06 Flex sig with argon beam coagulation granulation tissue- TOTAL HIP REPLACEMENT Right 2016Family HistoryFAMILY HISTORYProblem Relation Age of Onset- Asthma Father- Heart Father MT- COPD Father- Cancer Mother LUNG- Colon Cancer Maternal AuntPatient AllergiesALLERGIESAllergen Reactions- Codeine Other: See Comments anxietyCurrent MedicationsCurrent Outpatient Prescriptions on File Prior to Visit:naproxen (NAPROSYN) 375 mg tablet Take 1 tablet by mouth once daily asneeded.simvastatin (ZOCOR) 5 mg tablet Take 1 tablet by mouth daily at bedtime.ALPRAZolam (XANAX) 0.5 mg tablet Take 1 tablet by mouth twice daily asneeded.levothyroxine (SYNTHROID) 25 mcg tablet Take 1 tablet by mouth once daily.Omeprazole 40 mg capsule Take 1 capsule by mouth once daily.dicyclomine (BENTYL) 10 mg capsule Take 1 capsule by mouth before mealsand at bedtime.metoprolol succinate ER (TOPROL XL) 50 mg 24 hr tablet Take 50 mg by mouthonce daily. Take 1/2 tabletflecainide 100 mg tablet Take 1 tablet by mouth twice daily.Aspirin 81 mg tab Take 1 tablet by mouth once daily. Take with food.fluticasone-vilanterol (BREO ELLIPTA) 100-25 mcg/dose inhaler Inhale 1Inhalation as instructed once daily.No current facility-administered medications on file prior to visit.Social HistorySocial History Marital status: Spouse name: Years of education: Number of children:Social History Main Topics Smoking status: Never Smoker Smokeless status: Never Used Alcohol use: Yes 6.0 oz/week 4 Cans of Beer (12oz) per week Comment: occassional beer Drug use: No Sexual activity: Yes Partners with: FemaleReview of SymptomsREVIEW OF SYSTEMSGENERAL: No weight loss, malaise or feversNECK: Negative for lumps, goiter, pain and significant neck swellingRESPIRATORY: Negative for cough, hemoptysis, wheezing, COPD, dyspnea orshortness of breathCARDIOVASCULAR: Negative for chest pain, leg swelling, hypertension, CHFor palpitationsGI: No nausea, vomiting, or diarrheaSKIN: Negative for lesions, rash, and itchingEXAM:BP 115/86 Pulse (!) 49 Resp 16 Ht 181 cm (5' 11.25) Wt 88 kg (194lb) BMI 26.87 kg/n4Ujsysmu Appearance: Well appearing, alert, in no acute distress,well-hydrated, well nourished..Skin: Skin color, texture, turgor normal, no suspicious rashes or lesions.Neck: Supple, no adenopathy; thyroid symmetric, normal size, no bruits.Lungs: Lungs clear to auscultation. No wheezing, rhonchi, rales.Heart: RRR without murmur, gallop, or rubs. No ectopy.Abdomen: Normal abdominal exam, Abdomen soft, non-tender. Bowel soundsnormal. No masses, organomegaly.Extremities: No deformities, edema, skin discoloration, clubbing orcyanosis. Good capillary refill. .Health Maintenance ListHEPATITIS C SCREENING due on 1990TETANUS due on 12/08/2017DIABETES SCREEN due on 04/03/2020LIPID SCREEN due on 2PROSTATE CANCER SCREENING DISCUSSION CompletedZOSTAVAX CompletedADULT PREVNAR-13 CompletedINFLUENZA CompletedPNEUMOVAX AGE 65 AND OVER WITH 5YR LOOKBACK CompletedData reviewedComponent Latest Ref Rng AND Units 04/03/2017Color Yellow YellowClarity Clear ClearGlucose, Urine Negative mg/dL NegativeBilirubin, Urine Negative NegativeKetones, Urine Negative NegativeSpecific [place], Ur 1.005 - 1.030 1.017Hemoglobin/Blood,Ur Negative NegativepH, Urine 4.5 - 8.0 5.0Protein, Urine Negative mg/dL NegativeUrobilinogen Normal NormalNitrites Negative NegativeLeukest Negative NegativeComments SEE COMMENTUrine Moncho Comment SEE COMMENTWBC, Urine 0 - 5 /HPF 0-5RBC, Urine 0 - 3 /HPF 0-3Cast 0 /LPF SEE COMMENT (A)WBC 3.70 - 11.00 k/uL 5.87RBC 4.20 - 6.00 m/uL 4.93Hemoglobin 13.0 - 17.0 g/dL 15.5Hematocrit 39.0 - 51.0 % 46.1MCV 80.0 - 100.0 fL 93.5MCH 26.0 - 34.0 pG 31.4MCHC 30.5 - 36.0 g/dL 33.6RDW-CV 11.5 - 15.0 % 12.0Platelet Count 150 - 400 k/uL 206MPV 9.0 - 12.7 fL 10.1Absolute nRBC <0.01 k/uL <0.01Glucose 74 - 99 mg/dL 80BUN 9 - 24 mg/dL 20Creatinine 0.73 - 1.22 mg/dL 1.33 (H)Sodium 136 - 144 mmol/L 140Potassium 3.7 - 5.1 mmol/L 4.7Chloride 97 - 105 mmol/L 101CO2 22 - 30 mmol/L 28Anion Gap 9 - 18 mmol/L 11Calcium 8.5 - 10.2 mg/dL 9.3eGFR- >60eGFR-All Other Races . 53Triglyceride 30 - 149 mg/dL 109Cholesterol 100 - 199 mg/dL 154HDL Cholesterol >45 mg/dL 45 (L)VLDL Cholesterol 6 - 40 mg/dL 22LDL Cholesterol 60 - 129 mg/dL 87Fasting Time hrs 12TC:HDL Ratio 1.00 - 5.00 3.42LDL:HDL Ratio 0.50 - 3.55 1.93Non HDL Cholesterol 90 - 159 mg/dL 109TSH 0.400 - 5.500 uU/mL 3.210Culture <10,000 CFU/ml (A) . . .ASSESSMENT/PLAN:1. CKD (chronic kidney disease), stage III - ICD9: 585.3, ICD10: N18.3(primary diagnosis)Discussed stopping NSAID, pushing PO fluids, limiting amount of salt indiet to <2,000mg per day. Will rule out nephropathy and call with results.- ALBUMIN/CREAT RATIO RND UR- US KIDNEY/BLADDER- COMP METABOLIC PANEL2. Adjustment disorder, unspecified type - ICD9: 309.9, ICD10: F43.20Would not characterize as anxiety at this time. Advised to finish xanax hehas at home, which he is using sparingly, and would recommend vistaril inthe future for any panic symptoms.3. Subclinical hypothyroidism - ICD9: 244.8, ICD10: E03.9- check TSH and T4/FTI in 3 monthsDiscontinue synthroid at this time.4. PAF (paroxysmal atrial fibrillation) (HCC) - ICD9: 427.31, ICD10: I48.0Rate controlled. Continue ASA and follow up with Dr. Ace.5. Mixed hyperlipidemia - ICD9: 272.2, ICD10: E78.2- good control- Continue current medication.- Encouraged following a low fat, low cholesterol diet.- Discussed the benefits of regular aerobic exercise and weight loss.6. Osteoarthritis, unspecified osteoarthritis type, unspecified site -ICD9: 715.90, ICD10: M19.90Discussed stopping NSAIDs and will have patient take OTC tylenol instead.7. Overweight (BMI 25.0-29.9) - ICD9: 278.02, ICD10: E66.3Discussed diet and exercise. Will recheck in 6 months.- HGB A1C8. Gastroesophageal reflux disease, esophagitis presence not specified -ICD9: 530.81, ICD10: K21.9- Continue treatment with Prilosec 40 mg QD9. Hyperglycemia - ICD9: 790.29, ICD10: R73.9Patient concerned that sugars may be high as he used to eat good amount ofsweets. Noted to have slight elevation in the past. Will check A1C andreFormerly [facility]- HGB A1CI spent 50 minutes in the visit, with more than 50% of the buparcaen-pf-gqkn time of the visit in counseling / coordination of care.Stephanie Gutierres MD Normal [facility] KIDNEY/BLADDERon 04-10-20 17 KIDNEY/BLADDER * * *Final Report* * *DATE OF EXAM: Apr 10 2017 12:03PM [facility] 1055 - US KIDNEY/BLADDER / REASON: Chronic kidney disease, stage 3 (moderate) * * * * Physician Interpretation * * * * US KIDNEY/BLADDERHISTORY: Chronic kidney disease stage IIICOMPARISON: None.TECHNIQUE: Sonography of the kidneys and urinary bladder was performed. Images were obtained and stored in a permanent archive.RESULT:Right Kidney: -Renal length: 11 cm. -Parenchyma: Renal parenchyma echogenicity is normal. -Parenchymal thickness: Normal. -Hydronephrosis: None. -Calculus: No echogenic, shadowing calculus. -Lesion: None.Left Kidney: -Renal length: 11.8 cm. -Parenchyma: Renal parenchyma echogenicity is normal. -Parenchymal thickness: Normal. -Hydronephrosis: Pelvocaliectasis is present.. -Calculus: No echogenic, shadowing calculus. -Lesion: None.Bladder: The prevoid volume 110.4 cc and post void volume 7.2 cc.IMPRESSION: Sonographic evidence of pelvocaliectasis in the left kidney.Hi Ranger Operator: ALEJANDRO Transcribe Date/Time: Apr 10 2017 12:23PDictated by : RENU SANDOVAL MDThis examination was interpreted and the report reviewed and electronically signed by: RENU SANDOVAL MD on Apr 10 2017 12:26PM [id number] Normal [facility] Basic Metabolic Panlon 04-03 Anion gap Disregard results. S pecimen incorrectly identified. Normal 9-18 [facility] Comment on above: Result Comment: Yanna ected on 04/07 AT 1015: Previously reported as 10 Performed By: #### B MP ####[place] [id number] Calcium Disregard results. S pecimen incorrectly identified. Normal 8.5-10.2 [facility] Comment on above: Result Comment: Yanna ected on 04/07 AT 1015: Previously reported as 9.8 Performed By: #### B MP ####[facility] [address] [place] [address] Chloride Disregard results. S pecimen incorrectly identified. Normal 97-105 [facility] Comment on above: Result Comment: Yanna ected on 04/07 AT 1015: Previously reported as 98 Performed By: #### B MP ####[facility] [address] [place], [place] [phone] CO2 Disregard results. S pecimen incorrectly identified. Normal 22-30 [facility] Comment on above: Result Comment: Yanna ected on 04/07 AT 1015: Previously reported as 31 Performed By: #### B MP ####[facility] [address] [place], [place] [phone] Creatinine Disregard results. S pecimen incorrectly identified. Normal 0.73-1.22 [facility] Comment on above: Result Comment: Yanna ected on 04/07 AT 1015: Previously reported as 1.11 Performed By: #### B MP ####[facility] [address] [place] [phone] eGFR (non-black) Disregard results. S pecimen incorrectly identified. Normal [facility] Comment on above: Result Comment: Yanna salazared on 04/07 AT 1015: Previously reported as >60 eGFR (Estimated GFR) Units of measure: mL/min/1.73 meters squared eGFR is derived from the reexpressed MDRD Study equation using the following parameters: serum creatinine, age, gender and race. The creatinine assay has been calibrated to be traceable to IDMS. An eGFR <60 mL/min/1.73m2 for >3 months is consistent with chronic kidney disease. Refer to KDOQI guidelines for clinical interpretation. In patients with unstable renal function, e.g. those with acute kidney injury, the eGFR may not accurately reflect actual GFR. Performed By: #### B MP ####[facility] [address] [place] [phone] Result Comment: Yanna ected on 04/07 AT 1015: Previously reported as >60 Glucose mass conc Disregard results. S pecimen incorrectly identified. Normal 74-99 [facility] Comment on above: Result Comment: Yanna ected on 04/07 AT 1015: Previously reported as 104 The [place] Diabetes Association (ADA) provides guidance for cutoff values for fasting glucose and random glucose. The ADA defines fasting as no caloric intake for at least 8 hours. Fasting plasma glucose results between 100 to 125 mg/dL indicate increased risk for diabetes (prediabetes). Fasting plasma glucose results greater than or equal to 126 mg/dL meet the criteria for diagnosis of diabetes. In the absence of unequivocal hyperglycemia, results should be confirmed by repeat testing. In a patient with classic symptoms of hyperglycemia or hyperglycemic crisis, random plasma glucose results greater than or equal to 200 mg/dL meet the criteria for diagnosis of diabetes. Reference: Standards of Medical Care in Diabetes 2016, [place] Diabetes Association. Diabetes Care. 2016.39(Suppl 1). Performed By: #### B MP ####[facility] [address] [place] [phone] Potassium molar conc Disregard results. Specimen incorrectly identified. Normal 3.7-5.1 [facility] Comment on above: Result Comment: Yanna ected on 04/07 AT 1015: Previously reported as 4.4 Performed By: #### B MP ####[place] [phone] Sodium Disregard results. S pecimen incorrectly identified. Normal 136-144 [facility] Comment on above: Result Comment: Yanna ected on 04/07 AT 1015: Previously reported as 139 Performed By: #### B MP ####[place] [phone] Urea nitrogen Disregard results. S pecimen incorrectly identified. Normal 9-24 [facility] Comment on above: Result Comment: Yanna ected on 04/07 AT 1015: Previously reported as 12 Performed By: #### B MP ####[place] [phone] Anion gap 11 mmol/L Normal 9-18 [facility] Comment on above: Performed By: #### B RAYSHAWN LIPB, TSH ####[facility] [address] [phone] Calcium 9.3 mg/dL Normal 8.5-10.2 [facility] Comment on above: Performed By: #### B RAYSHAWN LIPB, TSH ####[facility] [address] [place] [phone] Chloride 101 mmol/L Normal 97-105 [facility] Comment on above: Performed By: #### B RAYSHAWN, LIPB, TSH ####[facility] [address] [place] [phone] CO2 28 mmol/L Normal 22-30 [facility] Comment on above: Performed By: #### B RAYSHAWN, LIPB, TSH ####[facility] [address] [place] [phone] Creatinine 1.33 mg/dL High 0.73-1.22 [facility] Comment on above: Performed By: #### B RAYSHAWN, LIPB, TSH ####[facility] [place], [place] [phone] eGFR (non-black) 53 . Normal [facility] Comment on above: Result Comment: eGFR (Estimated GFR) Units of measure: mL/min/1.73 meters squaredeGFR is derived from the reexpressed MDRD Study equation using the following parameters: serum creatinine, age, gender and race. The creatinine assay has been calibrated to be traceable to IDMS.An eGFR <60 mL/min/1.73m2 for >3 months is consistent with chronic kidney disease. Refer to KDOQI guidelines for clinical interpretation.In patients with unstable renal function, e.g. those with acute kidney injury, the eGFR may not accurately reflect actual GFR. Performed By: #### B ROSEANNA TABARES, TSH ####[place] [id number] [place], [place] [phone] eGFR (non-black) mL/min/{1.73_m2} Normal [facility] Comment on above: Performed By: #### B ROSEANNA TABARES, TSH ####[facility] [place] [address] [phone] Glucose mass conc 80 mg/dL Normal 74-99 [facility] Comment on above: Result Comment: The [place] Diabetes Association (ADA) provides guidance for cutoff values for fasting glucose and random glucose. The ADA defines fasting as no caloric intake for at least 8 hours. Fasting plasma glucose results between 100 to 125 mg/dL indicate increased risk for diabetes (prediabetes).Fasting plasma glucose results greater than or equal to 126 mg/dL meet the criteria for diagnosis of diabetes. In the absence of unequivocal hyperglycemia, results should be confirmed by repeat testing. In a patient with classic symptoms of hyperglycemia or hyperglycemic crisis, random plasma glucose results greater than or equal to 200 mg/dL meet the criteria for diagnosis of diabetes.Reference: Standards of Medical Care in Diabetes 2016, [place] Diabetes Association. Diabetes Care. 2016.39(Suppl 1). Performed By: #### B ROSEANNA TABARES, TSH ####[address] [phone] Potassium molar conc 4.7 mmol/L Normal 3.7-5.1 [facility] Comment on above: Performed By: #### B MP, LIPB, TSH ####[place] [id number] [place], [place] [phone] Sodium 140 mmol/L Normal 136-144 [facility] Comment on above: Performed By: #### B MP, LIPB, TSH ####[place] [id number] [place] [phone] Urea nitrogen 20 mg/dL Normal 9-24 [facility] Comment on above: Performed By: #### B MP, LIPB, TSH ####[place] [address] [place], [place] [phone] CBCon 04-03-2017 Erythrocyte distribution width Auto Ratio (RBC) 12.0 % Normal 11.5-15.0 [facility] Comment on above: Performed By: #### C BC ####[place] [phone] Erythrocytes (RBC) 10*6/uL Normal <0.01 [facility] Comment on above: Performed By: #### C BC ####[place] [phone] Erythrocytes (RBC) 4.93 10*6/uL Normal 4.20-6.00 [facility] Comment on above: Performed By: #### C BC ####[place] [address] [address], [place] [phone] Hematocrit (HCT) 46.1 % Normal 39.0-51.0 [facility] Comment on above: Performed By: #### C BC ####[facility] [place], [place] [phone] Hemoglobin mass conc (Bld) 15.5 g/dL Normal 13.0-17.0 [facility] Comment on above: Performed By: #### C BC ####[place] [address] [address], [place] [phone] MCH 31.4 pG Normal 26.0-34.0 [facility] Comment on above: Performed By: #### C BC ####[place] [phone], [place] [phone] MCHC mass conc (RBC) 33.6 g/dL Normal 30.5-36.0 [facility] Comment on above: Performed By: #### C BC ####[place] [address] [address], [place] [phone] MCV 93.5 fL Normal 80.0-100.0 [facility] Comment on above: Performed By: #### C BC ####[place] [address] [address], [place] [phone] Platelet mean volume (PMV) 10.1 fL Normal 9.0-12.7 [facility] Comment on above: Performed By: #### C BC ####[place] [address] [address], [place] [phone] Platelets 206 10*3/uL Normal 150-400 [facility] Comment on above: Performed By: #### C BC ####[place] [address] [address], [place] [phone] WBC (Leukocytes) 5.87 10*3/uL Normal 3.70-11.00 [facility] Comment on above: Performed By: #### C BC ####[facility], [place] [phone] Lipid Panel, Bas[place] 017 Cholesterol 154 mg/dL Normal 100-199 [facility] Comment on above: Performed By: #### B MP, LIPB, TSH ####[place] [address], [place] [phone] Fasting Time 12 hrs Normal [facility] Comment on above: Performed By: #### B MP, LIPB, TSH ####[facility] [place] [phone] HDL Cholesterol 45 mg/dL Low >45 [facility] Comment on above: Performed By: #### B MP, LIPB, TSH ####[facility] [place] [phone] LDL Cholesterol 87 mg/dL Normal 60-129 [facility] Comment on above: Performed By: #### B MP, LIPB, TSH ####[place] [address] [address] [place] [phone] LDL:HDL Ratio 1.93 Normal 0.50-3.55 [facility] Comment on above: Performed By: #### B MP, LIPB, TSH ####[place] [address] [address] [place] [phone] Non HDL Cholesterol 109 mg/dL Normal 90-159 [facility] Comment on above: Performed By: #### B MP, LIPB, TSH ####[place] [address] [address] [place] [phone] TC:HDL Ratio 3.42 Normal 1.00-5.00 [facility] Comment on above: Performed By: #### B MP, LIPB, TSH ####[place] [address] [place] [phone] Triglyceride 109 mg/dL Normal 30-149 [facility] Comment on above: Performed By: #### B MP, LIPB, TSH ####[place] [phone] [phone] VLDL Cholesterol 22 mg/dL Normal 6-40 [facility] Comment on above: Performed By: #### B MP, LIPB, TSH ####[facility] [place] [phone] TSHon 04-03-2017 Thyroid stimulating hormone (TSH) 3.210 uU/mL Normal 0.400-5.50 0 [facility] Comment on above: Performed By: #### B MP, LIPB, TSH ####[facility] [place] [phone] Urinalysis with Microscopico n 04-03-2017 Bilirubin, Urine Negative Normal Negative [facility] Comment on above: Performed By: #### U AWMIC ####[place] [address] [place] [phone] Cast SEE COMMENT Critically abnormal 0 [facility] Comment on above: Result Comment: 1-3H yaline Cast Performed By: #### U AWMIC ####[place] [address] [address] [place] [phone] Comments SEE COMMENT Normal [facility] Comment on above: Result Comment: N/A Performed By: #### U AWMIC ####[place] [address] [address] [phone] Erythrocytes (RBC) 0-3 Normal 0-3 [facility] Comment on above: Performed By: #### U AWMIC ####[place] [address] [place] [phone] Hemoglobin mass conc (Bld) Negative Normal Negative [facility] Comment on above: Performed By: #### U AWMIC ####[place] [phone] [place] [phone] Leukest Negative Normal Negative [facility] Comment on above: Performed By: #### U AWMIC ####[facility] [place] [phone] pH of blood 5.0 [pH] Normal 4.5-8.0 [facility] Comment on above: Performed By: #### U AWMIC ####[facility] [place] [phone] Protein, Urine Negative Normal Negative [facility] Comment on above: Performed By: #### U AWMIC ####[facility] [facility], [place] [phone] Specific [place], Ur 1.017 Normal 1.005-1.03 0 [facility] Comment on above: Performed By: #### U AWMIC ####[facility] [place], [place] [phone] Urine Moncho Comment SEE COMMENT Normal [facility] Comment on above: Result Comment: N/A Performed By: #### U AWMIC ####[place] [address] [address], [place] [phone] Urine, clarity Clear Normal Clear [facility] Comment on above: Performed By: #### U AWMIC ####[place] [address], [place] [phone] Urine, color Yellow Normal Yellow [facility] Comment on above: Performed By: #### U AWMIC ####[facility], [place] [phone] Urine, glucose presence Negative Normal Negative [facility] Comment on above: Performed By: #### U AWMIC ####[facility], [place] [phone] Urine, ketones presence Negative Normal Negative [facility] Comment on above: Performed By: #### U AWMIC ####[facility], [place] [phone] Urine, nitrite presence Negative Normal Negative [facility] Comment on above: Performed By: #### U AWMIC ####[facility], [place] [phone] Urine, urobilinogen Normal Normal Normal [facility] Comment on above: Performed By: #### U AWMIC ####[facility] [place] [phone] WBC (Leukocytes) 0-5 Normal 0-5 [facility] Comment on above: Performed By: #### U AWMIC ####[facility] [place], [place] [phone] Urine Cultureon 04-03-2017 Urine culture, bacteria Culture Result - <10,000 CFU/ml Streptococcus agalactiae (Group B streptococcus) --> ABNORMAL ALERT Insignificant colony count. No further workup. --> ABNORMAL ALERT Critically abnormal [facility] Comment on above: Performed By: #### U RCUL ####[facility] [place], [place] [phone] Office Visiton 03-11-2017 Documentation of current medications (procedure) Done Invalid Interpretation Code [employer] Work Phone: Fall risk assessment No Invalid Interpretation Code [employer] Work Phone: CNNURSEon 02-24-2017 [facility] Nurse Visit (FAMPWS) TRISTON HAAS ([id number]) 1945 MDate Time Provider Iokqjubytz53/2/17 9:10 AM NURSE[facility] During your visit today, we recorded the following information about you: Temperature 97.6 degreesLinda Logan Cee LPN 02/24/2017 9:26 AM Vwifqq8 year old male here for INACTIVATED INFLUENZA VACCINE.8422-1706 SeasonPatient is identified by name and date of : Yes [] CONTRAINDICATIONS color enhancedsectionAge less than 6 months? NoAllergy to eggs, chicken, chicken feathers, or chicken dander? NoAllergy to thimerosal (a preservative) or formaldehyde? NoHistory of severe reaction to any vaccine component or a previous dose ofinfluenza vaccination? NoHistory of Guillain-Portland Syndrome within 6 weeks after a previous influenzavaccine? NoCurrent moderate or severe illness? NoCurrent temperature greater or equal to 100.4F? NoHistory of Bone Marrow Transplant in past 6 months or solid organ transplant inthe past 3 months ? No [] VERIFICATION colorenhanced sectionWas the answer ANDquot;YesANDquot; for any of the above contraindications? Nocontraindications present. Acceptable to proceed with vaccine.Patient/guardian agrees the above answers are true to the best of theirknowledge? YesFlu vaccine information sheet given? YesSee immunization activity in [facility] for details of immunizations adminsteredtoday.Patient age: [age] year old For The 3790-8213 Flu Season 6-35 months old: Fluzone 0.25 ml - IM (Preservative Free)3 years of age: Fluzone 0.5 ml - IM (Preservative Free)3 years and older: Fluzone 0.5 ml- IM-(with Preservatives)65+ years old: Fluzone High-Dose 0.5 ml - IM (Preservative Free)REMEMBER: If patient is less than 9 years of age and this is the first vaccineof Influenza to be received in any flu season, they should receive a seconddose in one months time.Referring Provider: STEPHANIE GUTIERRES) [[id number]]Allergies As of Date: 02/24/2017 Noted Allergy ReactionCODEINE 03/11/2005 14 - Other: See Comments Comments: anxietyDate Reviewed: 02/24/2017Reviewed by: Amy Cee LPN - Fully AssessedReason for Visit: Imm/Inj [58] Cmt: Flu VaccinePrimary Visit Diagnosis:Need for vaccination [Z23]Order(s):INFLUENZA SEASONAL HIGH DOSE AGE 65+ [34550NCP] Order #: [id number] as of 02/24/2017 Sig: NAPROXEN 375 MG TABLET Take 1 tablet by mouth once d* BECLOMETHASONE DIPROPIONATE 4* Inhale 1 Puff as instructed t* SIMVASTATIN 5 MG TABLET Take 1 tablet by mouth daily * ALPRAZOLAM 0.5 MG TABLET Take 1 tablet by mouth twice * LEVOTHYROXINE 25 MCG TABLET Take 1 tablet by mouth once d* OMEPRAZOLE 40 MG CAPSULE,ANGELA* Take 1 capsule by mouth once * DICYCLOMINE 10 MG CAPSULE Take 1 capsule by mouth befor* METOPROLOL SUCCINATE ER 50 MG* Take 50 mg by mouth once mikala* FLECAINIDE 100 MG TABLET Take 1 tablet by mouth twice * ASPIRIN 81 MG TABLET Take 1 tablet by mouth once d*Problem List As Of Date 02/24/2017 Noted Resolved Hyperlipidemia [E78.5] INVALID FOR* NOCTURIA [...] Cutis [L85.3] INVALID FOR* Asthma [J45.909] INVALID FOR* Flatus [R14.3] INVALID FOR*04/19/2014 Abdominal bloating [R14.0] INVALID FOR*04/19/2014 Arthritis pain of hip [M16.10] INVALID FOR* PAF (paroxysmal atrial fibrillation) (HCC) [I48*INVALID FOR* Hydrocele [N43.3] INVALID FOR* BPH (benign prostatic hyperplasia) [N40.0] INVALID FOR* Hypothyroidism [E03.9] GERD (gastroesophageal reflux disease) [K21.9] Status:Closed by AMY CEE LPN on 02/24/17 [facility] PROGRESSon 02-24-2017 PROGRESS HNO ID: [id number] thor: Amy Cee LPNService: (none)Author Type: (none)Type: Progress NotesFiled: 02/24/2017 9:26 AMNote Text:71 year old male here for INACTIVATED INFLUENZA VACCINE.2260-1629 SeasonPatient is identified by name and date of : Yes [] CONTRAINDICATIONS colorenhanced sectionAge less than 6 months? NoAllergy to eggs, chicken, chicken feathers, or chicken dander? NoAllergy to thimerosal (a preservative) or formaldehyde? NoHistory of severe reaction to any vaccine component or a previous dose ofinfluenza vaccination? NoHistory of Guillain-Portland Syndrome within 6 weeks after a previousinfluenza vaccine? NoCurrent moderate or severe illness? NoCurrent temperature greater or equal to 100.4F? NoHistory of Bone Marrow Transplant in past 6 months or solid organtransplant in the past 3 months ? No [] VERIFICATIONcolor enhanced sectionWas the answer Yes for any of the above contraindications? Nocontraindications present. Acceptable to proceed with vaccine.Patient/guardian agrees the above answers are true to the best of theirknowledge? YesFlu vaccine information sheet given? YesSee immunization activity in [facility] for details of immunizationsadminstered today.Patient age: [age] year old For The 3819-7186 Flu Season 6-35 months old: Fluzone 0.25 ml - IM (Preservative Free)3 years of age: Fluzone 0.5 ml - IM (Preservative Free)3 years and older: Fluzone 0.5 ml- IM-(with Preservatives)65+ years old: Fluzone High-Dose 0.5 ml - IM (Preservative Free)REMEMBER: If patient is less than 9 years of age and this is the firstvaccine of Influenza to be received in any flu season, they should receivea second dose in one months time. Normal [facility] Office Visiton 09-05-2016 Fall risk assessment No [facility] Work Phone: [phone] Office Visiton 03-07-2016 Tobacco smoking status MIIS Tobacco smoking status NHIS Invalid Interpretation Code [facility] Work Phone: [phone] Tobacco smoking status MIIS Never smoker [facility] Work Phone: [phone] Tobacco use CPHS Never smoker Invalid Interpretation Code [facility] Work Phone: [phone] Chart Maintenanceon 09-13-19 16 Erythrocytes (RBC) 4.11 10*6/uL [facility] Work Phone: [phone] Hematocrit (Bld) [Volume fraction] 37.9 % [facility] Work Phone: [phone] Hematocrit (HCT) 37.9 % Invalid Interpretation Code [facility] Work Phone: [phone] Hemoglobin (Bld) [Mass/Vol] 13.0 g/dL Invalid Interpretation Code [facility] Work Phone: [phone] Platelets 155 10*3/mm3 Invalid Interpretation Code [facility] Work Phone: [phone] Platelets (Bld) [#/Vol] 155 10*3/mm3 [facility] Work Phone: [phone] RBC (Bld) [#/Vol] 4.11 10*6/uL [facility] Work Phone: [phone] WBC (Bld) [#/Vol] 10.4 10*3/uL [facility] Work Phone: [phone] WBC (Leukocytes) 10.4 10*3/uL Invalid Interpretation Code [facility] Work Phone: [phone] Chart Maintenanceon 09-12-19 16 Anion gap 8 mmol/L Invalid Interpretation Code [facility] Work Phone: [phone] Anion gap [Moles/Vol] 8 mmol/L [facility] Work Phone: [phone] Calcium [Mass/Vol] 7.7 mg/dL [facility] Work Phone: [phone] Chloride [Moles/Vol] 109 mmol/L High [facility] Work Phone: [phone] CO2 26 mmol/L Invalid Interpretation Code [facility] Work Phone: [phone] CO2 (BldV) [Partial pressure] 26 mmol/L [facility] Work Phone: [phone] Creatinine [Mass/Vol] 1.15 mg/dL Invalid Interpretation Code [facility] Work Phone: [phone] Glucose [Mass/Vol] 102 mg/dL Invalid Interpretation Code [facility] Work Phone: [phone] Potassium [Moles/Vol] 4.1 mmol/L Invalid Interpretation Code [facility] Work Phone: [phone] Sodium [Moles/Vol] 143 mmol/L Invalid Interpretation Code [facility] Work Phone: [phone] Urea nitrogen [Mass/Vol] 15 mg/dL Invalid Interpretation Code [facility] Work Phone: [phone] Urea nitrogen/Creatinine [Mass ratio] 13.0 mg/mg Invalid Interpretation Code [facility] Work Phone: [phone] 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 Left ventricular Ejection fraction 64 % Invalid Interpretation Code [facility] Work Phone: [phone] Office Visiton 02-14-2015 General cardiovascular disease 10Y risk [#] [place].D'Agosti no 11 % Invalid Interpretation Code [employer] Work Phone: [phone] Office Visiton 08-16-2014 cardiac risk group B Invalid Interpretation Code [employer] Work Phone: [phone] Replaced Document: Melissa Wilhelm CG Observationson 08-25-2013 EKG QRS axis -6 deg Invalid Interpretation Code [employer] Work Phone: [phone] electrocardiogram interpretation Sinus Rhythm -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 ABNORMAL Invalid Interpretation Code [employer] Work Phone: [phone] P [place] 34 deg Invalid Interpretation Code [employer] Work Phone: [phone] P wave axis, electrocardiogram 34 deg Invalid Interpretation Code [employer] Work Phone: [phone] [place] Interval 230 ms Invalid Interpretation Code [employer] Work Phone: [phone] NH interval, electrocardiogram 230 ms Invalid Interpretation Code [employer] Work Phone: [phone] Pulse (Heart Rate) 76 /min Invalid Interpretation Code [employer] Work Phone: [phone] QRS axis, electrocardiogram -6 deg Invalid Interpretation Code [employer] Work Phone: QRS Duration 96 ms Invalid Interpretation Code [employer] Work Phone: QRS duration, electrocardiogram 96 ms Invalid Interpretation Code [employer] Work Phone: [phone] QT Interval new path ms Invalid Interpretation Code [employer] Work Phone: QT interval, electrocardiogram new path ms Invalid Interpretation Code [employer] Work Phone: QTc Guzman 406 ms Invalid Interpretation Code [employer] Work Phone: [phone] T [place] -1 deg Invalid Interpretation Code [employer] Work Phone: [phone] T wave axis, electrocardiogram -1 deg Invalid Interpretation Code [employer] Work Phone: [phone] Office Visiton 12-15-2012 Alcoholism counseling (procedure) no Invalid Interpretation Code [employer] Work Phone: [phone] Replaced Document: Melissa MEDINA Observationson 05-29-2011 Pulse (Heart Rate) 414 ms Invalid Interpretation Code [employer] Work Phone: [phone] 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 basophils as percent of blood leukocytes, manual count 0.8 % Invalid Interpretation Code [employer] Work Phone: [phone] Cholesterol [Mass/Vol] 119 mg/dL Invalid Interpretation Code [employer] Work Phone: [phone] Cholesterol in HDL [Mass/Vol] 29 mg/dL Low [employer] Work Phone: [phone] Cholesterol in LDL [Mass/Vol] 62 mg/dL Invalid Interpretation Code [employer] Work Phone: [phone] eosinophils as percent of blood leukocytes, manual count 2.7 % Invalid Interpretation Code [employer] Work Phone: [phone] Lipoprotein.pre-bet a [Mass/Vol] 28 mg/dL Invalid Interpretation Code [employer] Work Phone: [phone] Lymphocytes/100 leukocytes 26.7 % Invalid Interpretation Code [employer] Work Phone: [phone] Lymphocytes/100 WBC (Bld) 26.7 % [employer] Work Phone: [phone] MCH 32.2 pg High [employer] Work Phone: [phone] MCH (RBC) [Entitic mass] 32.2 pg High [employer] Work Phone: [phone] MCV 92.5 fL Invalid Interpretation Code [employer] Work Phone: [phone] MCV (RBC) [Entitic vol] 92.5 fL [employer] Work Phone: [phone] Monocytes/100 leukocytes 11.8 % High [employer] Work Phone: Monocytes/100 WBC (Bld) 11.8 % High [facility] Work Phone: [phone] Neutrophils 58 10*3/uL Invalid Interpretation Code [facility] Work Phone: [phone] Neutrophils (Bld) [#/Vol] 58 10*3/uL [facility] Work Phone: [phone] Triglyceride [Mass/Vol] 141 mg/dL Invalid Interpretation Code [facility] Work Phone: [phone] 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 Juan Davis MD Work Phone: [facility] 10-07-2024 11:54-0400 Body mass index (BMI) [Ratio] 26.7 kg/m2 Dr. Juan Davis MD Work Phone: [facility] 10-07-2024 11:54-0400 Body weight 89.[address] Juan Davis MD Work Phone: [facility] 10-07-2024 11:54-0400 Diastolic blood pressure 79 mm[Hg] Dr. Juan Davis MD Work Phone: [facility] 10-07-2024 11:54-0400 Heart rate 51 /min Dr. Juan Davis MD Work Phone: [facility] 10-07-2024 11:54-0400 Respiratory rate 16 /min Dr. Juan Davis MD Work Phone: [facility] 10-07-2024 11:54-0400 Systolic blood pressure 123 mm[Hg] Dr. Juan Davis MD Work Phone: [facility] 08-06-2024 07:55-0400 Body height 182.[address] Juan Davis MD Work Phone: [facility] 08-06-2024 07:55-0400 Body mass index (BMI) [Ratio] 27.1 kg/m2 Dr. Juan Davis MD Work Phone: [facility] 08-06-2024 07:55-0400 Body temperature 98 [degF] Dr. Juan Davis MD Work Phone: [facility] 08-06-2024 07:55-0400 Body weight 90.[address] Juan Davis MD Work Phone: [facility] 08-06-2024 07:55-0400 Diastolic blood pressure 76 mm[Hg] Dr. Juan Davis MD Work Phone: [facility] 08-06-2024 07:55-0400 Heart rate 88 /min Dr. Juan Davis MD Work Phone: [facility] 08-06-2024 07:55-0400 Respiratory rate 16 /min Dr. Juan Davis MD Work Phone: [facility] 08-06-2024 07:55-0400 SaO2% (BldA) [Mass fraction] 95 % Dr. Juan Davis MD Work Phone: [facility] 08-06-2024 07:55-0400 Systolic blood pressure 132 mm[Hg] Dr. Juan Davis MD Work Phone: [facility] 06-02-2023 13:03-0500 Body height 182.[address] Juan Davis Work Phone: [facility] 06-02-2023 13:03-0500 Body mass index (BMI) [Ratio] 26.7 kg/m2 Dr. Juan Davis Work Phone: [facility] 06-02-2023 13:03-0500 Body temperature 97.4 [degF] Dr. Juan Davis Work Phone: [facility] 06-02-2023 13:03-0500 Body weight 89.[address] Juan Davis Work Phone: [facility] 06-02-2023 13:03-0500 Diastolic blood pressure 80 mm[Hg] Dr. Juan Davis Work Phone: [facility] 06-02-2023 13:03-0500 Heart rate 66 /min Dr. Juan Davis Work Phone: [facility] 06-02-2023 13:03-0500 Respiratory rate 14 /min Dr. Juan Davis Work Phone: [facility] 06-02-2023 13:03-0500 SaO2% (BldA) [Mass fraction] 95 % Dr. Juan Davis Work Phone: [facility] 06-02-2023 13:03-0500 Systolic blood pressure 122 mm[Hg] Dr. Juan Davis Work Phone: [facility] 10-14-2022 08:53-0400 Body height 182.[address] Juan Davis Work Phone: [facility] 10-14-2022 08:53-0400 Body mass index (BMI) [Ratio] 26.6 kg/m2 Dr. Juan Davis Work Phone: [facility] 10-14-2022 08:53-0400 Body temperature 97.4 [degF] Dr. Juan Davis Work Phone: [facility] 10-14-2022 08:53-0400 Body weight 88.[address] Juan Davis Work Phone: [facility] 10-14-2022 08:53-0400 Diastolic blood pressure 76 mm[Hg] Dr. Juan Davis Work Phone: [facility] 10-14-2022 08:53-0400 Heart rate 60 /min Dr. Juan Davis Work Phone: [facility] 10-14-2022 08:53-0400 Respiratory rate 16 /min Dr. Juan Davis Work Phone: [facility] 10-14-2022 08:53-0400 SaO2% (BldA) [Mass fraction] 97 % Dr. Juan Davis Work Phone: [facility] 10-14-2022 08:53-0400 Systolic blood pressure 116 mm[Hg] Dr. Juan Davis Work Phone: [facility] 07-30-2022 11:25-0500 Body mass index (BMI) [Ratio] 26.3 kg/m2 Dr. Juan Davis Work Phone: [facility] 07-30-2022 11:25-0500 Body temperature 98.4 [degF] Dr. Juan Davis Work Phone: [facility] 07-30-2022 11:25-0500 Body weight 87.[address] uJan Davis Work Phone: [facility] 07-30-2022 11:25-0500 Diastolic blood pressure 78 mm[Hg] Dr. Juan Davis Work Phone: [facility] 07-30-2022 11:25-0500 Heart rate 64 /min Dr. Juan Davis Work Phone: [facility] 07-30-2022 11:25-0500 Respiratory rate 15 /min Dr. Juan Davis Work Phone: [facility] 07-30-2022 11:25-0500 SaO2% (BldA) [Mass fraction] 95 % Dr. Juan Davis Work Phone: [facility] 07-30-2022 11:25-0500 Systolic blood pressure 122 mm[Hg] Dr. Juan Davis Work Phone: [facility] 06-25-2022 07:45-0500 Body height 182.[address] Juan Davis Work Phone: [facility] 06-25-2022 07:45-0500 Body mass index (BMI) [Ratio] 26.2 kg/m2 Dr. Juan Davis Work Phone: [facility] 06-25-2022 07:45-0500 Body temperature 97.8 [degF] Dr. Juan Davis Work Phone: [facility] 06-25-2022 07:45-0500 Body weight 87.[address] Juan Davis Work Phone: [facility] 06-25-2022 07:45-0500 Diastolic blood pressure 79 mm[Hg] Dr. Juan Davis Work Phone: [facility] 06-25-2022 07:45-0500 Heart rate 61 /min Dr. Juan Davis Work Phone: [facility] 06-25-2022 07:45-0500 Respiratory rate 18 /min Dr. Juan Davis Work Phone: [facility] 06-25-2022 07:45-0500 SaO2% (BldA) [Mass fraction] 98 % Dr. Juan Davis Work Phone: [facility] 06-25-2022 07:45-0500 Systolic blood pressure 129 mm[Hg] Dr. Juan Davis Work Phone: [facility] 06-18-2022 11:16-0500 Body height 182.[address] Juan Davis Work Phone: [facility] 06-18-2022 11:16-0500 Body mass index (BMI) [Ratio] 26.4 kg/m2 Dr. Juan Davis Work Phone: [facility] 06-18-2022 11:16-0500 Body weight 88.[address] Juan Davis Work Phone: [facility] 06-18-2022 11:16-0500 Diastolic blood pressure 73 mm[Hg] Dr. Juan Davis Work Phone: [facility] 06-18-2022 11:16-0500 Heart rate 55 /min Dr. Juan Davis Work Phone: [facility] 06-18-2022 11:16-0500 Respiratory rate 16 /min Dr. Juan Davis Work Phone: [facility] 06-18-2022 11:16-0500 Systolic blood pressure 123 mm[Hg] Dr. Juan Davis Work Phone: [facility] 04-01-2022 13:12-0500 Body temperature 97.7 [degF] Dr. Juan Davis Work Phone: [facility] 04-01-2022 13:12-0500 Body weight 88.[address] Juan Davis Work Phone: [facility] 04-01-2022 13:12-0500 Diastolic blood pressure 80 mm[Hg] Dr. Juan Davis Work Phone: [facility] 04-01-2022 13:12-0500 Heart rate 64 /min Dr. Juan Davis Work Phone: [facility] 04-01-2022 13:12-0500 Respiratory rate 18 /min Dr. Juan Davis Work Phone: [facility] 04-01-2022 13:12-0500 SaO2% (BldA) [Mass fraction] 97 % Dr. Juan Davis Work Phone: [facility] 04-01-2022 13:12-0500 Systolic blood pressure 132 mm[Hg] Dr. Juan Davis Work Phone: [facility] 03-14-2022 11:00-0400 Body mass index (BMI) [Ratio] 26.3 kg/m2 Dr. Juan Davis Work Phone: [facility] 03-14-2022 11:00-0400 Body temperature 98 [degF] Dr. Juan Davis Work Phone: [facility] 03-14-2022 11:00-0400 Body weight 87.[address] Juan Davis Work Phone: [facility] 03-14-2022 11:00-0400 Diastolic blood pressure 82 mm[Hg] Dr. Juan Davis Work Phone: [facility] 03-14-2022 11:00-0400 Heart rate 57 /min Dr. Juan Davis Work Phone: [facility] 03-14-2022 11:00-0400 Respiratory rate 14 /min Dr. Juan Davis Work Phone: [facility] 03-14-2022 11:00-0400 SaO2% (BldA) [Mass fraction] 98 % Dr. Juan Davis Work Phone: [facility] 03-14-2022 11:00-0400 Systolic blood pressure 126 mm[Hg] Dr. Juan Davis Work Phone: [facility] 03-11-2017 13:34-0400 BMI (Body Mass Index) 26.58 kg/m2 [facility] Work Phone: 03-11-2017 13:34-0400 BP Diastolic 64 mm[Hg] [facility] Work Phone: 03-11-2017 13:34-0400 BP Systolic 114 mm[Hg] [facility] Work Phone: 03-11-2017 13:34-0400 Height 182.88 cm Daisha Velasquez [facility] Work Phone: 03-11-2017 13:34-0400 Pulse (Heart Rate) 66 /min Daisha Velasquez [facility] Work Phone: 03-11-2017 13:34-0400 Respiratory Rate 16 /min Daisha Velasquez [facility] Work Phone: 03-11-2017 13:34-0400 Weight 88.91 kg Daisha Velasquez [facility] Work Phone: 09-05-2016 09:42-0400 BMI (Body Mass Index) 26.48 kg/m2 [facility] Work Phone: 09-05-2016 09:42-0400 Body weight 88.59 kg Pratibha Moore RN [facility] Work Phone: 09-05-2016 09:42-0400 BP Diastolic 60 mm[Hg] Pratibha Moore RN [facility] Work Phone: 09-05-2016 09:42-0400 BP Systolic 120 mm[Hg] Pratibha Moore RN [facility] Work Phone: 09-05-2016 09:42-0400 Height 182.88 cm Pratibha Moore RN [facility] Work Phone: 09-05-2016 09:42-0400 Pulse (Heart Rate) 60 /min Pratibha Moore RN [facility] Work Phone: 09-05-2016 09:42-0400 Respiratory Rate 20 /min Pratibha Moore RN [facility] Work Phone: 03-07-2016 08:18-0400 BSA (Body Surface Area) 2.11 m2 Pratibha Moore RN [facility] Work Phone: 08-25-2013 13:21-0400 Heart rate 76 /min Pratibha Moore RN [facility] Work Phone: 05-29-2011 13:43-0500 Heart rate 414 ms Pratibha Moore RN [facility] Work Phone: Encounters Encounter Date Encounter Type Care Provider Facility Start: 11-09-2024 ambulatory Brendan Ace Facility:[facility] Start: 10-21-2024 ambulatory Rust ty:[facility] Start: 10-07-2024 End: 10-07-[address] Brendan Ace MD -[facility] Work Phone: Start: 10-07-2024 End: 10-07-[address] Juan Davis MD Work Phone: [facility] Work Phone: Start: 08-15-2024 Encounter for antibo dy response examination [facility] Start: 08-06-2024 End: 08-06-[address] Juan Davis MD -[facility] Work Phone: Start: 08-06-2024 End: 08-06-[address] Juan Davis MD [facility] Start: 08-06-2024 End: 08-06-[address] Juan Davis MD Work Phone: [facility] Work Phone: Start: 08-06-2024 End: 08-06-2024 ambulatory [facility] Facility:[facility] Start: 02-06-2024 End: 02-06-2024 ambulatory [facility] Facility:[facility] Start: 02-06-2024 End: 02-06-2024 ambulatory [facility] Facility:[facility] Start: 11-03-2023 End: 11-03-2023 Subsequent hospital visit by physician Deven [id number] X-Ray 1 [facility] Comment on above: Other specific joint derangements of right shoulder, not elsewhere classified Pain in right elbow Start: 11-03-2023 End: 11-03-2023 ambulatory [facility] Start: 06-02-2023 End: 06-02-[address] Juan Davis Work Phone: [facility] Work Phone: Start: 06-02-2023 End: 06-02-[address] Juan Davis Work Phone: [facility] Work Phone: Start: 03-20-2023 End: 03-20-[address] Juan Davis Work Phone: [facility] Work Phone: Start: 11-07-2022 End: 11-07-[address] Juan Davis Work Phone: [facility] Work Phone: Start: 11-07-2022 End: 11-07-[address] Juan Davis Work Phone: [facility] Start: 10-14-2022 End: 10-14-2022 Encounter for general adult medical examination without abnormal findings Dr. Juan Davis Work Phone: [facility] Start: 10-14-2022 End: 10-14-[address] Juan Davis Work Phone: [facility] Start: 07-30-2022 End: 07-30-[address] Juan Davis Work Phone: [facility] Start: 07-17-2022 Non-patient / Non-visit Dr. George Davis Work Phone: [facility] Start: 07-17-2022 Non-patient / Non-visit [facility] Start: 07-17-2022 End: 07-17-[address] Juan Davis Work Phone: [facility] Work Phone: Start: 07-17-2022 End: 07-17-[address] Juan Davis Work Phone: [facility] Start: 06-25-2022 End: 06-25-[address] Juan Davis Work Phone: [facility] Start: 06-18-2022 End: 06-18-[address] Juan Davis Work Phone: [facility] Start: 06-13-2022 End: 06-13-[address] Juan Davis Work Phone: [facility] Work Phone: Start: 06-13-2022 End: 06-13-[address] Juan Davis Work Phone: [facility]Laboratory Start: 04-01-2022 End: 04-01-[address] Juan Davis Work Phone: [facility] Start: 03-14-2022 End: 03-14-[address] Juan Davis Work Phone: [facility] Start: 10-11-2021 Patient encounter status [facility] Start: 10-10-2020 Patient encounter status [facility] Start: 2017 End: 06-10-2017 Ambulatory STEPHANIE GUTIERRES [facility] Start: 06-05-2017 End: 06-05-2017 Ambulatory STEPHANIE GUTIERRES [facility] Start: 04-28-2017 End: 04-29-2017 Ambulatory IVETTE (SUSAN) HILDA [facility] Start: 04-10-2017 End: 04-10-2017 Ambulatory STEPHANIE CADET) [facility] Start: 04-10-2017 End: 04-10-2017 Ambulatory STEPHANIE Drake MD [facility] Start: 04-10-2017 End: 04-10-2017 Ambulatory STEPHANIE Drake MD [facility] Start: 04-03-2017 End: 04-03-2017 Ambulatory STEPHANIE Drake MD [facility] Start: 02-24-2017 End: 02-25-2017 Ambulatory STEPHANIE Drake MD [facility] Procedures Date Procedure Procedure Detail Performing Clinician Start: 06-02-[address] Juan wilhelm Work Phone: Start: 06-02-2023 X-ray of both feet Dr. Juan Davis Work Phone: Start: 11-07-2022 End: 11-07-2022 Plain X-ray of shoulder Dr. Juan rodriguez Work Phone: Start: 07-17-2022 Radionuclide imaging of perfusion of myocardium under exercise stress Dr. Juan Davis Work Phone: Start: 09-05-2016 End: 09-05-2016 Documentation of current medications Pratibha Moore RN Start: 07-15-2016 End: 09-03-2016 [facility] mobile cv telemetry w/i&report 30 days Brendan Ace MD Start: 07-15-2016 End: 09-03-2016 Remote 30 day ecg rev/report Brendan Ace MD Start: 03-07-2016 End: 03-07-2016 BEHAVIORAL HEALTH ASSISTANT Brendan Ace MD Start: 03-07-2016 End: 03-07-2016 Follow Up Appt 6 months Logan Martínez Start: 03-07-2016 End: 03-07-2016 RONI Ace MD Start: 03-07-2016 End: 03-07-2016 Follow Up Appt 6 months Logan Martínez Start: 08-22-2015 End: 08-22-2015 RONI Ace MD Start: 08-22-2015 End: 08-22-2015 Follow Up Appt 6 months Logan Martínez Start: 08-22-2015 End: 08-22-2015 RONI Aec MD Start: 08-22-2015 End: 08-22-2015 Follow Up Appt 6 months Logan Martínez Start: 08-22-2015 End: 03-06-2016 Preoperative cardiovascular examination Preoperative cardiovascular evaluation Pratibha Moore RN Start: 02-14-2015 End: 02-14-2015 RONI Ace MD Start: 02-14-2015 End: 02-15-2015 Documentation of current medications Brendan Ace MD Start: 02-14-2015 End: 02-14-2015 Follow Up Appt 6 months Logan Martínez Start: 02-14-2015 End: 02-14-2015 RONI Ace MD Start: 02-14-2015 End: 02-15-2015 Documentation of current medications Brendan Ace MD Start: 02-14-2015 End: 02-14-2015 Follow Up Appt 6 months Logan Martínez Start: 08-16-2014 End: 08-16-2014 RONI Ace MD Start: 08-16-2014 End: 08-17-2014 Documentation of current medications Brendan Ace MD Start: 08-16-2014 End: 08-16-2014 Follow Up Appt 6 months Logan Martínez Start: 08-16-2014 End: 08-22-2014 Nuclear stress test -exercise Brendan Ace MD Start: 08-16-2014 End: 08-16-2014 RONI Ace MD Start: 08-16-2014 End: 08-17-2014 Documentation of current medications Brendan Ace MD Start: 08-16-2014 End: 08-16-2014 Follow Up Appt 6 months Logan Martínez Start: 08-16-2014 End: 08-22-2014 Nuclear stress test -exercise Brendan Ace MD Start: 02-18-2014 End: 02-18-2014 RONI Ace MD Start: 02-18-2014 End: 02-18-2014 Follow Up Appt 6 months Logan Martínez Start: 02-18-2014 End: 02-18-2014 RONI Ace MD Start: 02-18-2014 End: 02-18-2014 Follow Up Appt 6 months Logan Martínez Start: 08-25-2013 End: 08-25-2013 Follow Up Appt Noe Franco MD Start: 08-25-2013 End: 08-25-2013 Follow Up Appt Noe Franco MD Start: 06-22-2013 End: 06-22-2013 RONI Ace MD Start: 06-22-2013 End: 06-22-2013 Ecg routine ecg w/least 12 lds w/i&r Brendan Ace MD Start: 06-22-2013 End: 06-22-2013 Follow Up Appt 6 months Logan Martínez Start: 06-22-2013 End: 06-22-2013 RONI Ace MD Start: 06-22-2013 End: 06-22-2013 Electrocardiogram, complete Brendan Ace MD Start: 06-22-2013 End: 06-22-2013 Follow Up Appt 6 months Logan Martínez Start: 06-22-2013 End: 08-21-2015 Preoperative cardiovascular examination PRE-OPERATIVE CARDIOVASCULAR EXAMINATION Pratibha Moore RN Start: 12-15-2012 End: 12-15-2012 Alcoholism counseling Pratibha Moore RN Start: 12-15-2012 End: 12-15-2012 RONI Ace MD Start: 12-15-2012 End: 12-15-2012 Follow Up Appt 6 months Logan Martínez Start: 12-15-2012 End: 12-15-2012 RONI Ace MD Start: 12-15-2012 End: 12-15-2012 Follow Up Appt 6 months Logan Martínez Start: 06-09-2012 End: 06-09-2012 Follow Up Appt 6 months Logan Martínez Start: 06-09-2012 End: 06-09-2012 Follow Up Appt 6 months Logan Martínez Start: 11-26-2011 End: 11-26-2011 Follow Up Appt 6 months Logan Martínez Start: 11-26-2011 End: 11-26-2011 Follow Up Appt 6 months Logan Martínez Start: 05-29-2011 End: 11-26-2011 Follow Up Appt 6 months Logan Martínez Start: 05-29-2011 End: 11-26-2011 Follow Up Appt 6 months Logan Martínez Start: 04-26-2011 End: 05-16-2011 Cardiovascular stress test using treadmill Brendan Ace MD Start: 04-26-2011 End: 11-26-2011 Ecg routine ecg w/least 12 lds w/i&r Brendan Ace MD Start: 04-26-2011 End: 04-26-2011 Follow Up Appt 6 weeks Brendan Ace MD Start: 04-26-2011 End: 05-16-2011 Cardiovascular stress test using treadmill Brendan Ace MD Start: 04-26-2011 End: 11-26-2011 Electrocardiogram, complete Brendan Ace MD Start: 04-26-2011 End: 04-26-2011 Follow Up Appt 6 weeks Brendan Ace MD Plan of Treatment Date Care Activity Detail Author Start: 08-19-2027 DTaP/Tdap/Td Vaccine s (2 - Td or Tdap) DTaP/Tdap/Td Vaccines (2 - Td or Tdap) [facility] Start: 10-07-2024 Evaluation of diagno stic study results 12 Lead EKG performed by [facility] Start: 06-22-2023 COVID-19 Vaccine ( season) COVID-19 Vaccine ( season) [facility] Start: 09-04-2017 End: 09-04-2017 Appointment Appointment [facility] Work Phone: Start: 03-11-2017 End: 03-11-2017 BEHAVIORAL HEALTH ASSISTANT BEHAVIORAL HEALTH ASSISTANT [facility] Work Phone: Start: 03-11-2017 End: 03-11-2017 Follow Up Appt 6 months Follow Up Appt 6 months [facility] Work Phone: Start: 03-11-2017 End: 03-11-2017 BEHAVIORAL HEALTH ASSISTANT BEHAVIORAL HEALTH ASSISTANT [facility] Work Phone: Start: 03-11-2017 End: 03-11-2017 Follow Up Appt 6 months Follow Up Appt 6 months [facility] Work Phone: Start: 03-04-2017 End: 03-04-2017 Appointment Appointment [facility] Work Phone: Start: 09-05-2016 End: 09-05-2016 BEHAVIORAL HEALTH ASSISTANT BEHAVIORAL HEALTH ASSISTANT [facility] Work Phone: Start: 09-05-2016 End: 09-05-2016 Follow Up Appt 6 months Follow Up Appt 6 months [facility] Work Phone: Start: 09-05-2016 End: 09-05-2016 BEHAVIORAL HEALTH ASSISTANT BEHAVIORAL HEALTH ASSISTANT [facility] Work Phone: Start: 09-05-2016 End: 09-05-2016 Follow Up Appt 6 months Follow Up Appt 6 months [facility] Work Phone: Start: 07-15-2016 End: 09-03-2016 [facility] mobile cv telemetry w/i&report 30 days 30 Day Holter Monitor [facility] Work Phone: Start: 07-15-2016 End: 09-03-2016 Remote 30 day ecg rev/report 30 Day Holter Monitor [facility] Work Phone: Start: 03-07-2016 End: 03-07-2016 BEHAVIORAL HEALTH ASSISTANT BEHAVIORAL HEALTH ASSISTANT [facility] Work Phone: Start: 03-07-2016 End: 03-07-2016 Follow Up Appt 6 months Follow Up Appt 6 months [facility] Work Phone: Start: 03-07-2016 End: 03-07-2016 RONI TAMAYO [facility] Work Phone: Start: 03-07-2016 End: 03-07-2016 Follow Up Appt 6 months Follow Up Appt 6 months [facility] Work Phone: Start: 08-22-2015 End: 08-22-2015 BEHAVIORAL HEALTH ASSISTANTDonte TAMAYO [facility] Work Phone: Start: 08-22-2015 End: 08-22-2015 Follow Up Appt 6 months Follow Up Appt 6 months [facility] Work Phone: Start: 08-22-2015 End: 08-22-2015 BEHAVIORAL HEALTH ASSISTANT RONI [facility] Work Phone: Start: 08-22-2015 End: 08-22-2015 Follow Up Appt 6 months Follow Up Appt 6 months [facility] Work Phone: Start: 02-14-2015 End: 02-14-2015 BEHAVIORAL HEALTH ASSISTANT RONI [facility] Work Phone: Start: 02-14-2015 End: 02-14-2015 Follow Up Appt 6 months Follow Up Appt 6 months [facility] Work Phone: Start: 02-14-2015 End: 02-14-2015 RONI TAMAYO [facility] Work Phone: Start: 02-14-2015 End: 02-14-2015 Follow Up Appt 6 months Follow Up Appt 6 months [facility] Work Phone: Start: 08-16-2014 End: 08-16-2014 BEHAVIORAL HEALTH ASSISTANT BEHAVIORAL HEALTH ASSISTANT [facility] Work Phone: Start: 08-16-2014 End: 08-16-2014 Follow Up Appt 6 months Follow Up Appt 6 months [facility] Work Phone: Start: 08-16-2014 End: 08-16-2014 Nuclear stress test -exercise Nuclear stress test -exercise [facility] Work Phone: Start: 08-16-2014 End: 08-16-2014 BEHAVIORAL HEALTH ASSISTANT BEHAVIORAL HEALTH ASSISTANT [facility] Work Phone: Start: 08-16-2014 End: 08-16-2014 Follow Up Appt 6 months Follow Up Appt 6 months [facility] Work Phone: Start: 08-16-2014 End: 08-16-2014 Nuclear stress test -exercise Nuclear stress test -exercise [facility] Work Phone: Start: 02-18-2014 End: 02-18-2014 BEHAVIORAL HEALTH ASSISTANT BEHAVIORAL HEALTH ASSISTANT [facility] Work Phone: Start: 02-18-2014 End: 02-18-2014 Follow Up Appt 6 months Follow Up Appt 6 months [facility] Work Phone: Start: 02-18-2014 End: 02-18-2014 BEHAVIORAL HEALTH ASSISTANT RONI [facility] Work Phone: Start: 02-18-2014 End: 02-18-2014 Follow Up Appt 6 months Follow Up Appt 6 months [facility] Work Phone: Start: 08-25-2013 End: 08-25-2013 Follow Up Appt Other Follow Up Appt Other [facility] Work Phone: Start: 08-25-2013 End: 08-25-2013 Follow Up Appt Other Follow Up Appt Other [facility] Work Phone: Start: 06-22-2013 End: 06-22-2013 BEHAVIORAL HEALTH ASSISTANT RONI [facility] Work Phone: Start: 06-22-2013 End: 06-22-2013 Ecg routine ecg w/least 12 lds w/i&r EKG (In office) [facility] Work Phone: Start: 06-22-2013 End: 06-22-2013 Follow Up Appt 6 months Follow Up Appt 6 months [facility] Work Phone: Start: 06-22-2013 End: 06-22-2013 BEHAVIORAL HEALTH ASSISTANT BEHAVIORAL HEALTH ASSISTANT [facility] Work Phone: Start: 06-22-2013 End: 06-22-2013 Electrocardiogram, complete EKG (In office) [facility] Work Phone: Start: 06-22-2013 End: 06-22-2013 Follow Up Appt 6 months Follow Up Appt 6 months [facility] Work Phone: Start: 12-15-2012 End: 12-15-2012 BEHAVIORAL HEALTH ASSISTANT BEHAVIORAL HEALTH ASSISTANT [facility] Work Phone: Start: 12-15-2012 End: 12-15-2012 Follow Up Appt 6 months Follow Up Appt 6 months [facility] Work Phone: Start: 12-15-2012 End: 12-15-2012 BEHAVIORAL HEALTH ASSISTANT BEHAVIORAL HEALTH ASSISTANT [employer] Work Phone: Start: 12-15-2012 End: 12-15-2012 Follow Up Appt 6 months Follow Up Appt 6 months [employer] Work Phone: Start: 06-09-2012 End: 06-09-2012 Follow Up Appt 6 months Follow Up Appt 6 months [facility] Work Phone: Start: 06-09-2012 End: 06-09-2012 Follow Up Appt 6 months Follow Up Appt 6 months [facility] [employer] Phone: Start: 11-26-2011 End: 11-26-2011 Follow Up Appt 6 months Follow Up Appt 6 months [facility] [employer] Phone: Start: 11-26-2011 End: 11-26-2011 Follow Up Appt 6 months Follow Up Appt 6 months [facility] Work Phone: Start: 05-29-2011 End: 11-26-2011 Follow Up Appt 6 months Follow Up Appt 6 months [facility] Work Phone: Start: 05-29-2011 End: 11-26-2011 Follow Up Appt 6 months Follow Up Appt 6 months [facility] [employer] Phone: Start: 04-26-2011 End: 04-26-2011 Cardiovascular stress test using treadmill Treadmill stress test (no imaging) [employer] Work Phone: Start: 04-26-2011 End: 11-26-2011 Ecg routine ecg w/least 12 lds w/i&r EKG (In office) [employer] Work Phone: Start: 04-26-2011 End: 04-26-2011 Follow Up Appt 6 weeks Follow Up Appt 6 weeks [employer] Work Phone: Start: 04-26-2011 End: 04-26-2011 Cardiovascular stress test using treadmill Treadmill stress test (no imaging) [employer] Work Phone: Start: 04-26-2011 End: 11-26-2011 Electrocardiogram, complete EKG (In office) [employer] Work Phone: Start: 04-26-2011 End: 04-26-2011 Follow Up Appt 6 weeks Follow Up Appt 6 weeks [employer] Work Phone: Start: 2006 RSV patient s and/or patients aged 60+ years (1 - 1-dose 60+ series) RSV patients and/or patients aged 60+ years (1 - 1-dose 60+ series) [facility] Start: 1964 Diabetes mellitus screening Diabetes Screening [facility] Start: 1964 Hepatitis C screening Hepatitis C [facility] Start: 1945 Lipid panel Lipid Panel [facility] Start: 1945 Medicare Annual Well ness Visit Medicare Annual Wellness Visit (AWV) [facility] Radionuclide imaging of perfusion of myocardium under exercise stress [facility] End: 11-03-2023 XR Elbow - right 3 Views [facility] Work Phone: Comment on above: Once for 1 Occurrenc es starting 11/03/2023 until 11/03/2023 End: 11-03-2023 XR Shoulder - right 2 Views [facility] Work Phone: Comment on above: Once for 1 Occurrenc es starting 11/03/2023 until 11/03/2023 Immunizations Immunization Date Immunization Notes Care Provider [facility] 03-20-2023 influenza, injectabl e, quadrivalent, preservative free Dr. Juan Davis Work Phone: [facility] 10-28-2018 measles, mumps and rubella virus vaccine [facility] 09-28-2018 measles, mumps and rubella virus vaccine [facility] 02-02-2018 Influenza virus vaccine [facility] 12-16-2017 Varicella-Zoster Ge-As01b (Pf) (Shingrix (Pf)) 50 mcg/0.5 mL suspension for reconstitution [facility] 08-18-2017 tetanus toxoid, redu sayda diphtheria toxoid, and acellular pertussis vaccine, adsorbed [facility] 05-07-2016 pneumococcal polysaccharide vaccine, 23 valent [facility] 11-26-2015 tetanus and diphther ia toxoids, adsorbed, preservative free, for adult use (2 Lf of tetanus toxoid and 2 Lf of diphtheria toxoid) [facility] 08-30-2014 pneumococcal conjuga te vaccine, 13 valent [facility] Payers Date Payer Category Payer Self-pay [id number] 2015 Medicare [id number] 2015 Medicare [id number] 2006 Unknown [id number] 1945 Unknown [id number] 2.16.8 [id number] 1946 Unknown [id number] 2.16.8 [id number] Unknown [id number] 2.16.8 [id number] Unknown [id number] 2.16.8 [id number] Unknown [id number] 2.16.8 [id number] Unknown [id number] 2.16.8 [id number] Unknown [id number] 2.16.8 [id number] Unknown [id number] 2.16.8 [id number] Unknown [id number] 2.16.8 [id number] Unknown [id number] 2.16.8 [id number] Social History Date Type Detail Facility Tobacco smoking stat us NHIS Unknown if ever smoked [facility] Work Phone: Start: 1945 Sex Assigned At Male [facility] Start: 06-18-2022 End: 06-02-2023 Tobacco smoking status NHIS Unknown if ever smoked [facility] Start: 1945 Sex assigned at Not on file [facility] Work Phone: Gender identity Not on file [facility] Work Phone: Start: 10-24-2023 End: 11-03-2023 Exposure to SARS-CoV-2 (event) Not sure [facility] Start: 08[facility]12-[facility]23 [facility] Start: 08-15-2024 Sex Male (finding) [facility] Evaluation note 08-06-2024 Note Date & Type Note Facility 08-06-2024 Evaluation note Diagnosis Onset Date Resolution Immunity status testing acute [facility] 2024 7:53am Left ear pain acute August 06, 2024 7:53am Anxiety chronic August 06 7:53am History of ankle fusion chronic [facility] 2024 7:53am Hyperlipemia chronic August 06, 2024 7:53am Hypertension chronic August 06, 2024 7:53am Paroxysmal atrial fibrillation chronic August 06, 2024 7:53am [facility] Work Phone: Evaluation note Note Date & Type Note Facility Evaluation note No assessment information availa ble [facility] Work Phone: Evaluation note Note Date & Type Note Facility Evaluation note Diagnosis Onset Date Generalized anxiety disorder chronic Hyperlipemia chronic Paroxysmal atrial fibrillation chronic [facility] Work Phone: Evaluation note Note Date & Type Note Facility Evaluation note Diagnosis Onset Date Hyperlipemia chronic Paroxysmal atrial fibrillation chronic Asthma chronic [facility] Work Phone: Evaluation note Note Date & Type Note Facility Evaluation note Diagnosis Onset Date Acute upper respiratory infection acute COVID-19 acute Bilateral shoulder pain acut e 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 acut e Impacted cerumen of right ear acute Generalized anxiety disorder chronic Hypertension chronic Subclinical hypothyroidism c hronic [facility] Work Phone: Evaluation note Note Date & Type Note Facility Evaluation note Diagnosis Onset Date Flu vaccine need acute History of ankle fusion acut e Left ankle pain acute [facility] Work Phone: Evaluation note Note Date & Type Note Facility Evaluation note Diagnosis Other specific joint derangements of right shoulder, not elsewhere classified documented in this encounter [facility] Work Phone: Evaluation note Note Date & Type Note Facility Evaluation note Diagnosis Pain in right elbow Pain in joint, upper arm documented in this encounter [facility] Work Phone: Reason for referral (narrative) Note Date & Type Note Facility Reason for referral (narrative) No reason for referral information available [facility] Work Phone: Summary Purpose Family History No Family History Records Found Relationship Condition Age at Onset Recorded Date/T jessie father Cardiac disease Unknown Arthritis Unknown Chronic obstructive pulmonary disease Unk nown Myocardial infarction Unknown mother Malignant neoplasm of breast Unknown Malignant neoplasm Unknown aunt Malignant neoplasm of colon Unknown Advance Directives No Advanced Directives Records Found Advance Directive Response Recorded Date/ Time Advance Directives Yes September 10 016 12:32pm Living Will Yes November 15, 2020 9:29am Power of Professional Services Specialist Yes November 15 9:29am Advance Directive Response Recorded Date/ Time Advance Directives Yes July 30 10:43am Living Will Yes July 30, 2022 10:43am Power of Professional Services Specialist Yes July 30 10:43am Advance Directive Response Recorded Date/ Time Advance Directives Yes July 30 9:43am Living Will Yes July 30, 2022 9:43am Power of Professional Services Specialist Yes July 30 9:43am Advance Directive Response Recorded Date/ Time Living Will Yes July 30, 2022 10:43am Do you have a Healthcare Power of Professional Services Specialist? Yes July 30, 2022 10:43am Advance Directives Yes July 30 10:43am Chief Complaint and Reason for Visit Chief Complaint Admit Date 6 M FU August 06, 2024 7:5 3am 1 y fu w BEHAVIORAL HEALTH ASSISTANT per BEHAVIORAL HEALTH ASSISTANT October 07, 2024 11:4 8am Reason for Visit Admit Date Immunity status testing August 06, 2024 7:53am Left ear pain August 06, 2024 7:5 3am Anxiety August 06, 2024 7:5 3am History of ankle fusion August 06, 2024 7:53am Hyperlipemia August 06, 2024 7:5 3am Hypertension August 06, 2024 7:5 3am Paroxysmal atrial fibrillation July 7:53am Chief Complaint med refill TICK BITE INT LABS TWO DR'S 1 Y FU Reason for Visit Generalized anxiety disorder Hyperlipemia Paroxysmal atrial fibrillation Chief Complaint TICK BITE INT LABS TWO DR'S 1 Y FU CONGESTION A-FIB Amb Documentation Reason for Visit Hyperlipemia Paroxysmal atrial fibrillation Asthma Chief Complaint A-FIB Amb Documentation POS HOME COVID ANNUAL Reason for Visit Acute upper respirat ory infection COVID-19 Bilateral shoulder pain 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 Impacted cerumen of right ear Generalized anxiety disorder Hypertension Subclinical hypothyroidism Chief Complaint flu shot LEFT ANKLE PAIN Reason for Visit Flu vaccine need History of ankle fusion Left ankle pain Chief Complaint Admit Date 6 M FU August 06, 2024 7:5 3am Reason for Referral Specialty Diagnoses / Procedures Referred By Jennifer bernal Referred To Contact Radiology Diagnoses Other specific joint derangements of right shoulder, not elsewhere classified Procedures XR shoulder right 2+ views Berna Grant, [address] [place] [address] Referral ID Status Reason Start Date Expiration Date Visits Requested Visits Authorized [id number] Authorized Perform Procedure 10/31/2023 10/30/2024 1 1 Specialty Diagnoses / Procedures Referred By Contac t Referred To Contact Radiology Diagnoses Pain in right elbow Procedures XR elbow right 3+ views Berna Grant, DO [address] [place] [address] Referral ID Status Reason Start Date Expiration Date Visits Requested Visits Authorized [id number] Authorized Perform Procedure 11/03/2023 11/02/2024 1 1 Additional Source Comments (unrecognized sect ion and content) No Status Records FoundNo Status Records FoundNo Status Records Found INFORMATION SOURCE (unrecogn ized section and content) DATE CREATED AUTHOR 11/24/2017 [facility] DATE CREATED AUTHOR AUTHOR'S ORGANIZ ATION 12/13/2023 [facility] DATE CREATED AUTHOR AUTHOR'S ORGANIZ ATION 10/31/2024 [facility] Goals (unrecognized section and content) Goals may be documented in a n alternate sectionGoals may be documented in an alternate sectionGoals may be documented in an alternate sectionGoals may be documented in an alternate sectionGoals may be documented in an alternate sectionGoals may be documented in an alternate sectionGoals may be documented in an alternate section Care Teams (unrecognized sec tion and content) Team Status: Active Member Role Status Dates Dr. Juan Davis MD Family Provider Active Dr. Juan Davis MD Primary Care Provider Active Team Status: Inactive Member Role Status Dates Dr. Juan Davis MD Primary Care Provider, Refer ring Provider Active Dr. Brendan Ace MD Attending Provider Active Team Status: Inactive Member Role Status Dates Dr. Juan Davis MD Primary Care Provider, Refer ring Provider Active Daphnie Bender HARDWARE DEVELOPER, HARDWARE DEVELOPER-C Attending Provider Active Team Status: Inactive Member Role Status Dates Dr. Juan Davis MD Primary Care P rorogers, Attending Provider, Referring Provider Active Team Status: Inactive Member Role Status Dates Dr. Juan Davis MD Primary Care P rorogers, Attending Provider, Referring Provider Active Dr. Brendan Ace MD Other Provider Active Team Status: Inactive Member Role Status Dates Dr. Juan Davis MD Primary Care Provider, Refer ring Provider Active Radha Goodwin HARDWARE DEVELOPER, HARDWARE DEVELOPER-C Attending Provider Active Team Status: Active Member Role Status Dates Dr. Juan Davis MD Primary Care Provider Active Dr. Brendan Ace MD Attending Provider Active Team Status: Active Member Role Status Dates Dr. Juan Davis MD Primary Care Provider Active Sam Watson NP, HARDWARE DEVELOPER-C Attending Provider Active Team Status: Inactive Member Role Status Dates Dr. Juan Davis MD Primary Care Provider Active Dr. Brendan Ace MD Attending Provider Active Team Status: Inactive Member Role Status Dates Dr. Juan Davis MD Primary Care Provider, Refer ring Provider Active Geovany RICHARDSON PA Attending Provider Active Team Status: Inactive Member Role Status Dates Dr. Juan Davis MD Primary Care Provider, Refer ring Provider Active MARICEL Puga Attending Provider Active Team Status: Inactive Member Role Status Dates Dr. Juan Davis MD Primary Care Provider Active MARICEL Puga Attending Provider, Referring Pro vider Active Core Piler Relationship Specialty [place] [address] [place] [address] [place] [address] PCP - General Internal Medicine 11/03/23 Team Status: Inactive Member Role Status Dates Dr. Juan Davis MD Primary Care Provider Active Start: August 06, 2024 End: August 06, 2024 Dr. Juan Davis MD Attending Provider Active Start: August 06, 2024 End: August 06, 2024 Dr. Juan Davis MD Referring Provider Active Start: August 06, 2024 End: August 06, 2024 Team Status: Inactive Member Role Status Dates Dr. Juan Davis MD Primary Care Provider Active Start: October 07, 2024 End: October 07, 2024 Dr. Juan Davis MD Referring Provider Active Start: October 07, 2024 End: October 07, 2024 Dr. Brendan Ace MD Attending Provider Active S tart: October 07, 2024 End: October 07, 2024 Reason for Visit (unrecogniz ed section and content) Specialty Diagnoses / Procedures Referred By Contac t Referred To Contact Radiology Diagnoses Other specific joint derangements of right shoulder, not elsewhere classified Procedures XR shoulder right 2+ views Berna Grant, [address] [place] [address] Referral ID Status Reason Start Date Expiration Date Visits Requested Visits Authorized [id number] Authorized Perform Procedure 10/31/2023 10/30/2024 1 1 Specialty Diagnoses / Procedures Referred By Contac t Referred To Contact Radiology Diagnoses Pain in right elbow Procedures XR elbow right 3+ views Berna Grant, DO [address] [place] [address] Referral ID Status Reason Start Date Expiration Date Visits Requested Visits Authorized [id number] Authorized Perform Procedure 11/03/2023 11/02/2024 1 1 FOR RECORDS PERTAINING TO PATIENTS WHO ARE OR HAVE BEEN ENROLLED IN A CHEMICAL DEPENDENCY/SUBSTANCEABUSE PROGRAM, SOME INFORMATION MAY BE OMITTED. This clinical summary was aggregated from multiple sources. Caution should be exercised in using it in the provision of clinical care. This summary normalizes information from multiple sources, and as a consequence, information in this document may materially change the coding, format and clinical context of patient data. In addition, data may be omitted in some cases. CLINICAL DECISIONS SHOULD BE BASED ON THE PRIMARY CLINICAL RECORDS. [employer] [facility]. provides no warranty or guarantee of the accuracy or completeness of information in this document.
--- NOTE | 2024-11-09 18:15 | STRESSREP_ITS ---
Stress Test Report Exercise myocardial perfusion stress test. 79-year-old male with a history of A-fib Stress protocol: Resting EKG demonstrates sinus bradycardia with a rate of 52 bpm resting blood pressure is 124/80 mmHg. The patient exercised according to the regular Guillermo protocol for a total duration of 6-1/2 minutes attaining a maximum heart rate of 117 bpm which was 82% of maximum predicted heart rate; the maximum workload was 8.5 metabolic equivalents. At rest there were no ST or T wave changes noted to suggest ischemia and at peak exercise upsloping ST changes only were noted which did not meet the criteria for ischemia. No clinical angina was noted the test was terminated due to the target heart rate being achieved/fatigue. The peak blood pressure was 150/72 mmHg. Rate-pressure product was 16,500. Myocardial perfusion protocol. 12.2 mCi of technetium 99m sestamibi was injected at rest. The patient exercised according to regular Guillermo protocol for total duration of 6-1/2-minute and at peak exercise 37 point mCi of technetium 99m sestamibi was injected stress images were obtained stress and rest images were reconstructed in comp aring the short axis vertical long and horizontal long axis. Gated images were also obtained. Perfusion SPECT analysis: Review of the stress images demonstrate normal uptake of tracer noted in all a reas of the myocardium. The resting images similarly demonstrate normal uptake of tracer noted in all areas of the myocardium. No areas of reversibility are noted to suggest ischemia no previous infarct was noted. Gated SPECT analysis: The gated ejection fraction is 65%. Conclusion: Normal exercise myocardial perfusion stress test at a moderate workload Preserved ejection fraction.
== END | disposition home or self-care (01) ==
LOC: CVS 06:09
PROVIDERS: PCP Internal Medicine; Referring Provider Internal Medicine Cardiovascular Disease; Visit Provider Internal Medicine Cardiovascular Disease
DX: R94.31 Abnormal electrocardiogram [ECG] [EKG] (principal); I48.0 Paroxysmal atrial fibrillation; R53.83 Other fatigue; Z51.81 Encounter for therapeutic drug level monitoring; Z79.899 Other long term (current) drug therapy
CPT/HCPCS: 78452; 93017; A9500; A4216

== ENCOUNTER → 2025-02-08 | Outpatient (CLI) | payer MEDICARE, OTHER, SELFPAY ==
[2025-02-08 10:16] LABS: Hematocrit 44.6 % (40-54); Hemoglobin 15.4 g/dL (13.0-16.5); Immature Granulocytes Count 0.030 X10^3/uL (0.0-0.0); Mean Corp Hgb Conc 34.5 g/dL (32-36); Mean Corpuscular Volume 91.4 fL (80-94); Mean Platelet Vol. 9.7 fl (6.2-12.0); NRBC Flagged by Analyzer 0 % (0-5); Platelet Count 196 K/mm3 (150-450); RBC Distribution Width CV 12.0 % (11.6-14.6); RBC Distribution Width SD 40.2 fl (35.1-43.9); Red Blood Count 4.88 M/mm3 (4.6-6.2); White Blood Count 6.7 K/mm3 (4.4-11.0)
[2025-02-08 11:12] LABS: BUN 16 mg/dL (4-19); Glucose 99 mg/dL (70-99)
[2025-02-08 11:13] LABS: AST(SGOT) 22 U/L (<=37); Alanine Aminotransfer ALT/SGPT 17 U/L (<=46); Albumin, Serum 4.2 g/dL (3.4-4.8); Alkaline Phosphatase 69 U/L (40-129); Anion Gap 12 (5-15); BUN/Creat Ratio 13.0 RATIO (10-20); Calcium,Total 9.2 mg/dL (7.6-11.0); Carbon Dioxide 22.7 mmol/L (21.0-32.0); Chloride 106 mmol/L (98-108); Cholesterol 141 mg/dL (<=200); Globulin 2.2 g/dL (2.2-4.2); Low Density Lipoprotein Calc. 72 mg/dL; Potassium 4.1 mmol/L (3.3-5.1); Triglycerides 119 mg/dL; Very Low Density Lipoprotein 24 mg/dL (5-40); Vitamin B12 418 pg/mL (180-914); cholesterol:hdl ratio screen 3.13
== END | disposition home or self-care (01) ==
LOC: MTLAB 08:06
PROVIDERS: PCP Internal Medicine; Referring Provider Internal Medicine; Visit Provider Internal Medicine
DX: E03.8 Other specified hypothyroidism (principal); I48.0 Paroxysmal atrial fibrillation; E78.5 Hyperlipidemia, unspecified; F41.9 Anxiety disorder, unspecified
CPT/HCPCS: 36415; 80053; 80061; 82607; 84443; 85025

== ENCOUNTER → 2025-02-10 | Outpatient (CLI) | payer MEDICARE, OTHER, SELFPAY ==
--- NOTE | 2025-02-10 12:32 | RAD_ITS ---
PROCEDURE: CERV SPINE 4 OR 5 VIEWS 02/10/2025 REASON FOR EXAM: CERVICAL RADICULOPATHY TECHNIQUE: Procedure Code: [facility] Modality: DX Procedure: CERV SPINE 4 OR 5 VIEWS COMPARISON: Cervical spine x-ray 10/11/2021. FINDINGS: Vertebrae: No acute bony abnormalities. disc spaces: Multilevel degenerate joint space narrowing with sclerotic endplates predominantly at C5-C6 where there is disc space narrowing, sclerotic endplates and facet joints arthropathy. Severe left C4-C5 foramina stenosis. Moderate right C4-C5 foramina stenosis. Alignment: Unremarkable. soft tissues: No soft tissue abnormalities. 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 Reading Location: [id number]
== END | disposition home or self-care (01) ==
LOC: MTRAD 12:32
PROVIDERS: PCP Internal Medicine; Referring Provider Internal Medicine; Visit Provider Internal Medicine
DX: M54.12 Radiculopathy, cervical region (principal)
CPT/HCPCS: 72050

== ENCOUNTER → 2025-03-31 | Outpatient (CLI) | payer MEDICARE, OTHER, SELFPAY | END | disposition home or self-care (01) | LOC: LAB 11:19 | PROVIDERS: PCP Internal Medicine; Referring Provider Internal Medicine; Visit Provider Internal Medicine | DX: E03.8 Other specified hypothyroidism (principal) | CPT/HCPCS: 36415; 84443 ==